=== PATIENT | female | born 1960 | race Caucasian/White ===

== ENCOUNTER → 2016-10-23 | Outpatient (CLI) | payer OTHER ==
[~2016-10-23] MED LIST: DIPH-437; EFF50; ESTR1.252; METO50TA7; MULT-506; PRLSR20; UNASOM; ZANTREX
[2016-10-23 16:58] LABS: URINE APPEARANCE CLEAR (CLEAR); URINE COLOR DK YELLOW; URINE EPITHELIAL CELL AUTO >30 /lpf (0-5); URINE NITRITE NEG (NEG); URINE SPECIFIC GRAVITY 1.035 (1.000-1.030); UROBILINOGEN NEG (NEG)
[2016-10-23 17:07] LABS: MANUAL MICROSCOPIC REQUIRED? NO; REVIEW REQ? NO; URINE BILIRUBIN NEG (NEG)
== END | disposition home or self-care (01) ==
LOC: C.LAB1850 15:34
PROVIDERS: ATTEND Family Medicine
DX: R35.0 Frequency of micturition (principal)

== ENCOUNTER → 2018-05-11 | Outpatient (CLI) | payer OTHER ==
[~2018-05-11] MED LIST changes: -METO50TA7; +METO50TA8
[2018-05-11 17:12] LABS: BLOOD UREA NITROGEN 19 mg/dl (7-18); CALCIUM 8.8 mg/dl (8.5-10.1); CARBON DIOXIDE 25 mmol/L (21-32); CREATININE 0.71 mg/dl (0.60-1.20); GLUCOSE 109 mg/dl (70-99); POTASSIUM 3.9 mmol/L (3.5-5.1); SODIUM 137 mmol/L (136-145)
== END | disposition home or self-care (01) ==
LOC: C.LABPBG 13:17
PROVIDERS: ATTEND Physician Assistant
DX: R60.9 Edema, unspecified (principal)

== ENCOUNTER 2019-10-25 07:06 | Inpatient (IN) ==
--- NOTE | 2019-09-28 10:37 | PAT Medication Instructions ---
Medication Instructions Date of Service September 28, 2019 Home Medications atenolol 50 mg PO BID 09/23/19 [History Confirmed 09/23/19] cholecalciferol (vitamin D3) [Vitamin D3] 1,000 unit PO QAM conjugated estrogens [Premarin] 1.25 mg PO QAM 09/23/19 [History Confirmed 09/23/19] furosemide 40 mg PO DAILY PRN 09/23/19 [History Confirmed 09/23/19] hydrochlorothiazide 25 mg PO QAM 09/23/19 [History Confirmed 09/23/19] ibuprofen [Advil] 600 - 800 mg PO Q6H PRN 09/23/19 [History Confirmed 09/23/19] losartan 100 mg PO QAM 09/23/19 [History Confirmed 09/23/19] meloxicam 15 mg PO DAILY 09/23/19 [History Confirmed 09/23/19] multivitamin 1 tab PO QAM 09/23/19 [History Confirmed 09/23/19] naltrexone-bupropion [Contrave] 1 tab PO QAM 09/23/19 [History Confirmed 09/23/19] omeprazole magnesium [Prilosec OTC] 20 mg PO QAM 09/23/19 [History Confirmed 09/23/19] phenylephrine-acetaminophen [Sudafed PE Pressure-Pain] 1 tab PO DAILY PRN trazodone 50 mg PO HS PRN 09/23/19 [History Confirmed 09/23/19] ASK your surgeon for instructions ibuprofen [Advil] 600 - 800 mg PO Q6H PRN 09/23/19 [History Confirmed 09/23/19] meloxicam 15 mg PO DAILY 09/23/19 [History Confirmed 09/23/19] conjugated estrogens [Premarin] 1.25 mg PO QAM 09/23/19 [History Confirmed 09/23/19] DO NOT take the morning of surgery cholecalciferol (vitamin D3) [Vitamin D3] 1,000 unit PO QAM furosemide 40 mg PO DAILY PRN 09/23/19 [History Confirmed 09/23/19] hydrochlorothiazide 25 mg PO QAM 09/23/19 [History Confirmed 09/23/19] losartan 100 mg PO QAM 09/23/19 [History Confirmed 09/23/19] multivitamin 1 tab PO QAM 09/23/19 [History Confirmed 09/23/19] naltrexone-bupropion [Contrave] 1 tab PO QAM 09/23/19 [History Confirmed 09/23/19] phenylephrine-acetaminophen [Sudafed PE Pressure-Pain] 1 tab PO DAILY PRN Take morning of surgery With a small sip of water, OTHERWISE NOTHING TO EAT OR DRINK AFTER MIDNIGHT: atenolol 50 mg PO BID 09/23/19 [History Confirmed 09/23/19] omeprazole magnesium [Prilosec OTC] 20 mg PO QAM 09/23/19 [History Confirmed 09/23/19] Take evening before surgery atenolol 50 mg PO BID furosemide 40 mg PO DAILY PRN (if needed) phenylephrine-acetaminophen [Sudafed PE Pressure-Pain] 1 tab PO DAILY PRN (if needed) trazodone 50 mg PO HS PRN (if needed) Other Notes If you have any questions please call us at [phone] or [phone] or [phone] or [phone]
--- NOTE | 2019-09-29 11:32 | Anesthesiology Consultation ---
Date of Service September 29, 2019 Assessment & Plan (1) Encounter for pre-operative examination: Claustrophobic: requesting anxiolytic preoperatively if possible Chart Review Chart Review: Acceptable Risk for Surgery (pending surgeon-ordered PCP clearance scheduled 10/13 (Dr. Simpson)) and Patient seen in Pre Admission Testing Teaching & Discussion Pre-Anesthesia Teaching/Discussion Notes: Instructed NPO after midnight before surgery,except medications with 15 cc of water. Medication instructions provided according to the PAT guidelines. History Surgery Operation Date: 10/25/19 11:10 Proposed Procedures p Bilateral Total Knee Arthroplasty - Philip Soto DO Height/Weight Height: 5 ft 5.5 in Weight: 96.3 kg Allergies Allergy/AdvReac Type Severity Reaction Status Date / Time No Known Allergies Allergy Unknown Verified 09/23/19 13:22 Medications Home Medications Medication Instructions Recorded Confirmed Last Taken atenolol 50 mg PO BID 09/23/19 09/23/19 Unknown cholecalciferol (vitamin D3) 1,000 unit PO QAM 09/23/19 09/23/19 Unknown [Vitamin D3] conjugated estrogens [Premarin] 1.25 mg PO QAM 09/23/19 09/23/19 Unknown furosemide 40 mg PO DAILY PRN 09/23/19 09/23/19 Unknown hydrochlorothiazide 25 mg PO QAM 09/23/19 09/23/19 Unknown ibuprofen [Advil] 600 - 800 mg PO Q6H PRN 09/23/19 09/23/19 Unknown losartan 100 mg PO QAM 09/23/19 09/23/19 Unknown meloxicam 15 mg PO DAILY 09/23/19 09/23/19 Unknown multivitamin 1 tab PO QAM 09/23/19 09/23/19 Unknown naltrexone-bupropion [Contrave] 1 tab PO QAM 09/23/19 09/23/19 Unknown omeprazole magnesium [Prilosec OTC] 20 mg PO QAM 09/23/19 09/23/19 Unknown phenylephrine-acetaminophen 1 tab PO DAILY PRN 09/23/19 09/23/19 Unknown [Sudafed PE Pressure-Pain] trazodone 50 mg PO HS PRN 09/23/19 09/23/19 Unknown Past Medical History Medical History Arthritis GERD (gastroesophageal reflux disease) controlled Hiatal hernia History of claustrophobia Hypertension Obesity TMJ (dislocation of temporomandibular joint) + jaw pain (wears mouth guard at night) Exercise / Class Metabolic Activity II 4-5 Yardwork/Stairs/Walk up hill (one flight of stairs (no sob/no chest pain)) Past Family History Family History Sister Family history of diabetes mellitus Sister Family history of diabetes mellitus Sister Family history of diabetes mellitus Brother Family history of diabetes mellitus Mother Family history of diabetes mellitus Family hx of colon cancer Brother Family history of diabetes mellitus Past Surgical History Surgical History H/O abdominoplasty History of bladder surgery SLING History of breast surgery BILAT BREAST LIFT History of cholecystectomy History of colonoscopy History of esophagogastroduodenoscopy (EGD) History of hysterectomy TOTAL Past Anesthesia History No Hx of Anesthesia Complications (except post-op mild nausea) and No Family Hx of Anesthesia Complications (except siblings/mother (post-op nausea)) History of PONV History of PONV (+ nausea) and Hx of Motion Sickness Social History Smoking Status: Former smoker Do You Dip or Chew Tobacco: No Smoking End Date: QUIT 07/2016 Hx Alcohol Use: Yes Alcohol type: hard liquor alcohol intake frequency: holidays/special occasions only Hx Substance Use: No Review of Systems Controlled reflux. Patient denies chest pain, shortness of breath, dyspnea on exertion, cough, wheezing, palpitations. Physical Exam Vital Signs VITALS BP 118/76 P 65 TEMP 98.4 SP02 97%RA RESP 18 PHYSICAL Full neck and c-spine range of motion. Full TMJ range of motion. TMD 4 finger breaths Mallampati Score 1 Dentition: several missing teeth, several caps including fronts Lungs: clear throughout to auscultation Cardiac: regular rate and rhythm, no murmurs noted Spine: normal Carotid arteries: negative bruit Extremities: no edema Testing Laboratory Results 09/29/19 11:58 09/29/19 11:58 PT 11.2 Seconds (9.0-12.0) 09/29/19 11:58 INR 1.1 (0.9-1.1) 09/29/19 11:58 APTT 27.1 Seconds (21.0-31.0) 09/29/19 11:58 Hemoglobin A1c 5.5 % (4.5-5.6) 09/29/19 11:58 Urine Color Yellow 09/29/19 Unknown Urine Appearance Clear (Clear) 09/29/19 Unknown Urine pH 5.0 (4.5-7.5) 09/29/19 Unknown Ur Specific [place] 1.020 (1.000-1.030) 09/29/19 Unknown Urine Protein Negative (Negative) 09/29/19 Unknown Urine Glucose (UA) Negative (Negative) 09/29/19 Unknown Urine Ketones Negative (Negative) 09/29/19 Unknown Urine Nitrite Negative (Negative) 09/29/19 Unknown Ur Leukocyte Esterase Negative (Negative) 09/29/19 Unknown Blood Type A Positive 09/29/19 11:58 Antibody Screen NEGATIVE 09/29/19 11:58 Electrocardiogram Date: 09/29/19 Findings: + NSR @ (60) Chest X-Ray Date: 09/29/19 Findings: + NAD Echocardiogram Date: 05/19/18 EF 65-70%. No RWMA. Mild LAD. Mild cLVH. Grade 2 DD. Mildly elevated RVSP (30- 40mmhg). Elevated central venous pressure.
--- NOTE | 2019-09-29 12:22 | XRay Report ---
XR chest Pre-admission PA/Lat CLINICAL HISTORY: 59 years-old Female presenting with preoperative assessment. TECHNIQUE: PA and lateral views of the chest were obtained. COMPARISON: 08/14/2016. FINDINGS: Cardiomediastinal silhouette normal. Lungs and pleural spaces clear. Osseous structures normal. Anastacia cystectomy clips noted. Surgical material in the region of the epigastrium. IMPRESSION: 1. No acute cardiopulmonary disease. ACT 112: Negative or not required by law. Electronically signed by: Del Watson M.D. 09/29/2019 12:20 PM
[2019-09-29 12:49] LABS: Basophils # (auto) 0.04 K/uL (0-0.2); Basophils % (auto) 0.5 %; Eosinophils # (auto) 0.09 K/uL (0-0.5); Eosinophils % (auto) 1.2 %; Hematocrit (blood only) 41.6 % (37-47); Immature Granulocytes # (auto) 0.02 K/uL (0.00-0.02); Immature Granulocytes % (auto) 0.3 %; Lymphocytes # (auto) 1.76 K/uL (1.2-3.4); Lymphocytes % (auto) 24.2 %; Mean Corpuscular Hemoglobin 28.5 pg (25-34); Mean Corpuscular Hgb Conc 33.7 g/dL (32-36); Mean Corpuscular Volume 84.6 fL (80-100); Mean Platelet Volume 10.6 fL (7.4-10.4); Monocytes # (auto) 0.59 K/uL (0.11-0.59); Monocytes % (auto) 8.1 %; Neutrophils # (auto) 4.78 K/uL (1.4-6.5); Neutrophils % (auto) 65.7 %; Platelet Count 313 K/uL (130-400); RDW Standard Deviation 42.9 fL (36.4-46.3); Red Blood Count 4.92 M/uL (4.2-5.4); White Blood Count 7.28 K/uL (4.8-10.8)
[2019-09-29 12:53] LABS: Appearance Urine Clear (Clear); Bilirubin Urine Negative (Negative); Blood Urine Negative (Negative); Color Urine Yellow; Glucose Urine UA Negative (Negative); Ketones Urine Negative (Negative); Leukocyte Esterase Urine Negative (Negative); Nitrite Urine Negative (Negative); Protein Urine Negative (Negative); Urobilinogen Urine Negative (Negative)
[2019-09-29 13:01] LABS: Albumin Level 3.6 gm/dl (3.4-5.0); BUN Creatinine Ratio 21.3 (10-20); Calcium 9.4 mg/dl (8.5-10.1); Creatinine Clr Calc Pharmacy 85.6 ml/min; Est GFR (African American) 90.8; Est GFR (Non-African American) 78.3; INR 1.1 (0.9-1.1); Partial Thromboplastin Time 27.1 Seconds (21.0-31.0); Potassium 3.3 mmol/L (3.5-5.1); Prothrombin Time 11.2 Seconds (9.0-12.0)
[2019-09-29 13:23] LABS: Estimated Average Glucose 111 mg/dl; Hemoglobin A1C 5.5 % (4.5-5.6)
--- NOTE | 2019-09-29 15:30 | Electrocardiogram Report ---
Test Reason : Blood Pressure : / mmHG Vent. Rate : 060 BPM Atrial Rate : 060 BPM P-R Int : 170 ms QRS Dur : 088 ms QT Int : 432 ms P-R-T Axes : 057 042 053 degrees QTc Int : 432 ms Normal sinus rhythm Normal ECG No previous ECGs available Confirmed by Josue Meade ([id number]) on 09/29/2019 3:30:10 PM Referred By: Philip Soto Confirmed By:Josue Meade
--- NOTE | 2019-10-24 15:58 | History & Physical Report ---
Date of Service October 24, 2019 Assessment & Plan (1) Degenerative joint disease of left knee: I have indicated the patient for bilateral total knee replacements. The risks, benefits and complications of surgery were explained to the patient which include but not limited to infection, acute blood loss, DVT/PE, injury to nerves, vessels, bone, soft tissue, arthrofibrosis, chronic pain, failure of the prosthesis, knee dislocation, leg length discrepancy, need for additional surgery, cardiac and pulmonary events and . The patient wished to proceed with surgery and informed consent was obtained at this time. We will plan for lovenox post-operatively for DVT prophylaxis. Upon discharge the patient will be discharged home with home health services. Appropriate clearances by PCP were obtained. (2) Degenerative joint disease of knee, right: I have indicated the patient for bilateral total knee replacements. The risks, benefits and complications of surgery were explained to the patient which include but not limited to infection, acute blood loss, DVT/PE, injury to nerves, vessels, bone, soft tissue, arthrofibrosis, chronic pain, failure of the prosthesis, knee dislocation, leg length discrepancy, need for additional surgery, cardiac and pulmonary events and . The patient wished to proceed with surgery and informed consent was obtained at this time. We will plan for lovenox post-operatively for DVT prophylaxis. Upon discharge the patient will be discharged home with home health services. Appropriate clearances by PCP were obtained. History of Present Illness Chief Complaint: Bilateral total knee djd/pain Primary Care Provider: Chapito Simpson The patient is a 59 year old female who presents with complaints of severe bilateral knee pain and DJD. The patient has failed outpatient conservative treatments to this point which included NSAIDs, IA corticosteroid and hyaluronic acid injections, PT, bracing and a home exercise/walking program. The patient's pain and limited function have progressed to the point where they severely hinder their activities of daily living and they no longer tolerate exercise programs. They are requesting to proceed with bilateral total knee replacement surgery. Allergies Allergy/AdvReac Type Severity Reaction Status Date / Time No Known Allergies Allergy Unknown Verified 10/20/19 16:41 Home Medications Home Medications Medication Instructions Recorded Confirmed Type atenolol 50 mg PO BID 09/23/19 10/20/19 History cholecalciferol (vitamin D3) 1,000 unit PO QAM 09/23/19 10/20/19 History [Vitamin D3] conjugated estrogens [Premarin] 1.25 mg PO QAM 09/23/19 10/20/19 History furosemide 40 mg PO DAILY PRN 09/23/19 10/20/19 History hydrochlorothiazide 25 mg PO QAM 09/23/19 10/20/19 History ibuprofen [Advil] 600 - 800 mg PO Q6H PRN 09/23/19 10/20/19 History losartan 100 mg PO QAM 09/23/19 10/20/19 History meloxicam 0 mg PO DAILY 09/23/19 10/20/19 History multivitamin 1 tab PO QAM 09/23/19 10/20/19 History naltrexone-bupropion [Contrave] 1 tab PO QAM 09/23/19 10/20/19 History omeprazole magnesium [Prilosec OTC] 20 mg PO QAM 09/23/19 10/20/19 History phenylephrine-acetaminophen 1 tab PO DAILY PRN 09/23/19 10/20/19 History [Sudafed PE Pressure-Pain] trazodone 50 mg PO HS PRN 09/23/19 10/20/19 History Past Med/Surg History Medical History Arthritis GERD (gastroesophageal reflux disease) controlled Hiatal hernia History of claustrophobia Hypertension Obesity TMJ (dislocation of temporomandibular joint) + jaw pain (wears mouth guard at night) Surgical History H/O abdominoplasty History of bladder surgery SLING History of breast surgery BILAT BREAST LIFT History of cholecystectomy History of colonoscopy History of esophagogastroduodenoscopy (EGD) History of hysterectomy TOTAL Family History Sister Family history of diabetes mellitus Sister Family history of diabetes mellitus Sister Family history of diabetes mellitus Brother Family history of diabetes mellitus Mother Family history of diabetes mellitus Family hx of colon cancer Brother Family history of diabetes mellitus Social History Preferred Language: Indonesian Communication Ability: Effective Application Tester Required: No Beliefs That Will Affect Care: None Current Living Situation: Significant Other Other Information That Helps Us Care for You: No Feels Safe at Home: Yes Safety Concerns: Feels Safe At This Time Smoking Status: Former smoker Do You Dip or Chew Tobacco: No ; Smoking End Date: QUIT 07/2016 ; Second Hand Exposure: No ; Hx Alcohol Use: Yes Alcohol type: hard liquor Hx Substance Use: No Review of Systems Review of Systems: All systems reviewed & are unremarkable except as noted in HPI & below Constitutional: as per Subjective / HPI Physical Exam Physical Exam: LLE NVSI +EHL/FHL/TA/GS SILT grossly, +2 DP pulse, compartments soft NT, limited painful ROM, 0-120 degrees of flexion, + crepitus RLE NVSI +EHL/FHL/TA/GS SILT grossly, +2 DP pulse, compartments soft NT, limited painful ROM, 0-120 degrees of flexion, + crepitus Constitutional: WD/WN, vitals as above Eyes: PERRL, conjunctivae normal, anicteric sclerae ENMT: external ear and nose normal, oropharynx normal Neck: trachea midline, no thyromegaly Respiratory: normal respiratory effort, lungs clear to auscultation Cardiovascular: RRR, no murmur, no edema Gastrointestinal (Abdomen): normal bowel sounds, soft, nontender, no hepatosplenomegaly Musculoskeletal: no cyanosis or clubbing, extremities motor strength 5/5 Skin: no rashes, warm and dry Neurologic: patellar DTR's 2+ bilat, sensation intact Psychiatric: A+Ox3, euthymic affect Lymphatic: no cervical or axillary lymphadenopathy Results & Data Laboratory Results Multiple views of bilateral knees demonstrate severe tricompartmental DJD with complete loss of the medial joint space. +osteophytes, +sclerosis.
[~2019-10-25 07:06] MED LIST changes: +ACETAMINOPHEN 500 MG TAB PO SCH; +BUPIVACAINE 0.5 % 5 MG/1 ML PF 10ML VIAL ONE; +CEFAZOLIN 2000MG 2,000 MG/15 ML SYR IV SCH; +CeleBREX 200 MG CAP PO SCH; -DIPH-437; -EFF50; +EPINEPHrine INJ 1 MG/ML AMP ONE; -ESTR1.252; +FAMOTIDINE 20 MG TAB PO SCH; +GABAPENTIN 600 MG DOSE PO SCH; +LR 500ML BOLUS, THEN 15ML/HR IV SCH; -METO50TA8; +METOCLOPRAMIDE HCL 10 MG TABLET PO SCH; -MULT-506; -PRLSR20; +ROPIVACAINE 0.5% 5 MG/ML 30 ML VIAL ONE; +ROPIVACAINE 0.5% HCL/PF 150 MG, BUPIVACAINE 0.5% MPF 30 ML, EPINEPHrine 30MG/30ML (OR U... INSTIL SCH; +TRANEXAMIC ACID 1,000 MG **IV Intra-op IV SCH; +TRANEXAMIC ACID 1,000 MG **IV Pre-op IV SCH; -UNASOM; -ZANTREX; +dexAMETHasone 4 MG TAB PO SCH
[2019-10-25] MEDS ORDERED: ORTHO JOINT ANESTHETIC ONE (07:07)
[2019-10-25] MEDS ORDERED: BACITRACIN INJ 50,000 UNIT VIAL ONE (07:07)
[2019-10-25] MEDS ORDERED: fentaNYL citrate 100 MCG/2 ML VIAL ONE (07:24)
[2019-10-25] MEDS ORDERED: LIDOCAINE HCL 2% 2 ML VIAL/AMP(20MG/ML) INFIL ONE (07:24)
[2019-10-25] MEDS ORDERED: PROPOFOL IV EMULSION 10 MG/ML 20 ML VIAL IV ONE ×4 (07:24→11:45)
[2019-10-25] MEDS ORDERED: MIDAZOLAM HCL 1 MG/ML 2ML VIAL ONE ×3 (07:24→11:47)
[2019-10-25] MEDS ORDERED: LABETALOL HCL IV 5 MG/ML 20ML IV PRN (07:36)
[2019-10-25] MEDS ORDERED: ePHEDrine sulfate 50 MG/ML AMP IV PRN (07:36)
[2019-10-25] MEDS ORDERED: HYDROmorphone INJ 1 MG/ML SYRINGE IV PRN (07:36)
[2019-10-25] MEDS ORDERED: fentaNYL citrate 100 MCG/2 ML VIAL IV PRN (07:36)
[2019-10-25] MEDS ORDERED: PHENYLEPHRINE 100MCG/ML 5ML SYR IV PRN (07:36)
[2019-10-25] MEDS ORDERED: ATROPINE SULFATE 0.1 MG/ML 10ML SYR IV PRN (07:36)
[2019-10-25] MEDS ORDERED: MEPERIDINE HCL 25 MG/ML CARP IV PRN (07:36)
[2019-10-25] MEDS ORDERED: ONDANSETRON INJ 2 MG/ML 2 ML VIAL IV PRN ×2 (07:36→14:11)
--- NOTE | 2019-10-25 07:41 | History & Physical Bridge Note ---
Date of Service October 25, 2019 History & Physical Bridge Note I have examined the patient, reviewed the History & Physical and in the interval since the performance of the History & Physical I have noted the following changes of clinical significance: no changes noted
[2019-10-25] MEDS ORDERED: EPINEPHrine INJ 1 MG/ML AMP ONE (08:29)
[2019-10-25] MEDS ORDERED: ePHEDrine sulfate 50 MG/ML SYR ONE (09:22)
--- NOTE | 2019-10-25 12:36 | Post Operative Brief Note ---
Immediate Post Op Note v1 Date of Surgery October 25, 2019 Pre & Post Diagnosis Operation Date: 10/25/19 09:00 Pre-Op Diagnosis: BILATERAL KNEE OSTEOARTHRITIS Post-Op Diagnosis: BILATERAL KNEE OSTEOARTHRITIS I identified the patient and participated in the time-out.: Yes Procedure Operation Date: 10/25/19 09:00 Actual Procedures p Bilateral Total Knee Arthroplasty(Bilateral) - Philip Soto DO Surgeon Philip Soto DO Hvac Design Engineer Torsten Avina Estimated Blood Loss 100 Findings Consistent with Post-Op Diagnosis Fluids 1700 cc LR Specimens R knee proximal tibia, distal femur bone fragments L knee proximal tibia, distal femur bone fragments Drains Carson Catheter Anesthesia Type Spinal MAC Complications none Disposition Disposition: Recovery Room Overlapping Procedure I was present for: the critical portions of procedure. I was immediately available: during the entire case. Back up surgeon: was not required during procedure.
--- NOTE | 2019-10-25 12:45 | Operative Report ---
Post Operative Report Pre & Post Diagnosis Operation Date: 10/25/19 09:00 Pre-Op Diagnosis: BILATERAL KNEE OSTEOARTHRITIS Post-Op Diagnosis: BILATERAL KNEE OSTEOARTHRITIS I identified the patient and participated in the time-out.: Yes Procedure Operation Date: 10/25/19 09:00 Actual Procedures p Bilateral Total Knee Arthroplasty(Bilateral) - Philip Soto DO Surgeon Philip Soto DO Credit Risk Associate Torsten Avina Estimated Blood Loss 100 Findings Consistent with Post-Op Diagnosis Fluids 1700 cc LR Specimens Right knee proximal tibia and distal femur bone fragments Left knee proximal tibia and distal femur bone fragments Anesthesia Type Spinal MAC Complications none Disposition Disposition: Recovery Room Indications The patient is a 59 year old female who presents with complaints of severe bilateral knee pain and DJD. The patient has failed outpatient conservative treatments to this point which included NSAIDs, IA corticosteroid and hyaluronic acid injections, PT, bracing and a home exercise/walking program. The patient's pain and limited function have progressed to the point where they severely hinder their activities of daily living and they no longer tolerate exercise programs. They are requesting to proceed with bilateral total knee replacement surgery. I have indicated the patient for bilateral total knee replacements. The risks, benefits and complications of surgery were explained to the patient which include but not limited to infection, acute blood loss, DVT/PE, injury to nerves, vessels, bone, soft tissue, arthrofibrosis, chronic pain, failure of the prosthesis, knee dislocation, leg length discrepancy, need for additional surgery, cardiac and pulmonary events and . The patient wished to proceed with surgery and informed consent was obtained at this time. We will plan for lovenox post-operatively for DVT prophylaxis. Upon discharge the patient will be discharged home with home health services. Appropriate clearances by PCP w ere obtained. Description of Procedure COMPONENTS USED: Coby persona knee system: Left knee: Femur size 8, Tibia size E, tibial articulating surface 10 PS, Patella 32 mm Right knee: Femur size 8, Tibia size E, tibial articulating surface 11 PS, Patella 32 mm Following induction of spine anesthesia, a tourniquet was applied to the proxima l aspect of bilateral thighs and the patient's bilateral legs were prepped and draped in the usual sterile manner. A timeout was performed, patient identified and site sheyla confirmed. Appropriate pre-operative IV antibiotics were verified and given. The left limb was exsanguinated with an Esmarch bandage and tourniquet was inflated to 300 mmHg. A longitudinal midline incision was made over the anterior knee. Subcutaneous tissue was sharply dissected down to fascia. Electrocautery was used for hemostasis. Next a parapatellar arthrotomy was performed. Patella was everted and the knee was flexed. A Christiansen retractor was used to expose the synovium above on the anterior aspect of the femur and removed down to bone. Next, the anterior fat pad was removed to aid in visualization. The medial face of the tibia was cleared of soft tissue first with a Bovie and a avila elevator. This tissue was retracted posteriorly using a blunt Hohmann. Next, the extra-medullary tibial cutting guide was placed to the anterior aspect of the tibia. The tibia resection level was set taking 2mm from the defective tibial condyle. Resection depth was once again confirmed with saqib wing. The medial and lateral collateral ligament was protected with two Hohmann retractors. The tibia guide was removed and proximal tibial bone fragment removed utilizing straight osteotome, electrocautery and Carline. Next, the distal femur intramedullary canal was accessed utilizing the step drill. The intramedullary distal femur cutting guide was placed into the canal and pinned into place. The distal femur was cut on the 5 degree setting. Next the cutting guide was removed and the femur was sized. Care was taken to ensure appropriate supervisor rides all rotation and 3 degree holes were drilled. A size 8 4-in-1 cutting block was placed on the distal end of the femur and secured into place with two short headed screws. Two bent Hohmann retractors were placed to protect the medial and lateral collateral ligaments. The oscillating saw was used to cut anterior, posterior, anterior chamfer and posterior chamfer. The four and one cutting block was removed and bone fragments excised. Laminar correctional supervising cook was placed laterally and the ACL and PCL were removed followed by the medial meniscus and posterior medial osteophytes. Aquamantys was utilized for any posterior medial bleeders and Orthomix injected into the posterior medial capsule. A laminar correctional supervising cook was then placed in the medial compartment and the lateral meniscus and posterior osteophytes were removed. Aquamantys was utilized for any posterior lateral bleeders and Orthomix injected into the posterior lateral capsule. Next, drop yordan and spacer block were placed with the leg in flexion and extension to assess alignment and flexion/extension gaps. Next, the proximal tibia was assessed and two bent Hohmans were placed medial and lateral to aid in visualization. The appropriate tibia size and rotation was selected and a size E tibial plate was pinned into place with appropriate rotation. Preparation of the tibia was completed utilizing the matching tibial drill and broach. I then turned my attention back to the distal femur in a trial femoral component was impacted into place. Appropriate femoral width was assessed and selected. Next the femur PS box cut guide was placed and cut made with the reciprocal saw and the PS box provisional placed. A trial size 10 PS tibia articular tray was placed and varus-valgus balance assessed in 0 degrees of extension and 30, 60 and 90 degrees of flexion. A final tibial articular surface size 10 PS was chosen. Assess was gained to the patella and caliper utilized to measure width. The patella reamer was utilized and remaining bone removed with oscillating saw. A size 32 mm patella button was selected and the patella pegs drilled. Trial patella button was placed and tracking was assessed. The knee was found to be well balanced, well aligned with excellent patella tracking. The trials were removed and final components were obtained and assembled. The knee was irrigated copiously with sterile saline solution mixed with bacitracin. Access to the proximal tibia was once again obtained utilizing to the Hohmans and the proximal tibia and distal femur were dried with lap sponges. The final components were cemented into place and all excess cement was removed. A trial tibial articular surface was placed while cemented hardened. Knee stability was once again assessed and the final component inserted. A Betadine soak was performed. After 3 minutes, the hip was once more irrigated with copious sterile saline solution with bacitracin. The knee was injected with the remaining Orthomix which includes a combination of Ropivicaine 0.5% 150mg, Bupivicaine 0.5%/Epinephrine 1:200,000 30ml, Toradol 30mg, Dexamethasone 4mg, Ketamine 10mg, Clonidine 100mcg and NSS 30ml solution. Half of the Ortho mix was utilized for the left knee. The capsulotomy was closed with #1 Vicryl followed by subcutaneous closure with 2-0 Vicryl suture. Skin closure was performed using geetha and a sterile dressing was applied which included Silverlon, Webril and Bora wrap. Tourniquet was deflated at 92 minutes. A second timeout was performed, patient identified and site sheyla confirmed. Appropriate pre-operative IV antibiotics were verified and given. The limb was exsanguinated with an Esmarch bandage and tourniquet was inflated to 300 mmHg. A longitudinal midline incision was made over the anterior knee. Subcutaneous tissue was sharply dissected down to fascia. Electrocautery was used for hemostasis. Next a parapatellar arthrotomy was performed. Patella was everted and the knee was flexed. A Christiansen retractor was used to expose the synovium above on the anterior aspect of the femur and removed down to bone. Next, the anterior fat pad was removed to aid in visualization. The medial face of the tibia was cleared of soft tissue first with a Bovie and a avila elevator. This tissue was retracted posteriorly using a blunt Hohmann. Next, the extra-medullary tibial cutting guide was placed to the anterior aspect of the tibia. The tibia resection level was set taking 2mm from the defective tibial condyle. Resection depth was once again confirmed with saqib wing. The medial and lateral collateral ligament was protected with two Hohmann retractors. The tibia guide was removed and proximal tibial bone fragment removed utilizing straight osteotome, electrocautery and Carline. Next, the distal femur intramedullary canal was accessed utilizing the step drill. The intramedullary distal femur cutting guide was placed into the canal and pinned into place. The distal femur was cut on the 5 degree setting. Next the cutting guide was removed and the femur was sized. Care was taken to ensure appropriate supervisor rides all rotation and 3 degree holes were drilled. A size 8 4-in-1 cutting block was placed on the distal end of the femur and secured into place with two short headed screws. Two bent Hohmann retractors were placed to protect the medial and lateral collateral ligaments. The oscillating saw was used to cut anterior, posterior, anterior chamfer and posterior chamfer. The four and one cutting block was removed and bone fragments excised. Laminar correctional supervising cook was placed laterally and the ACL and PCL were removed followed by the medial meniscus and posterior medial osteophytes. Aquamantys was utilized for any posterior medial bleeders and Orthomix injected into the posterior medial capsule. A laminar correctional supervising cook was then placed in the medial compartment and the lateral meniscus and posterior osteophytes were removed. Aquamantys was utilized for any posterior lateral bleeders and Orthomix injected into the posterior lateral capsule. Next, drop yordan and spacer block were placed with the leg in flexion and extension to assess alignment and flexion/extension gaps. Next, the proximal tibia was assessed and two bent Hohmans were placed medial and lateral to aid in visualization. The appropriate tibia size and rotation was selected and a size E tibial plate was pinned into place with appropriate rotation. Preparation of the tibia was completed utilizing the matching tibial drill and broach. I then turned my attention back to the distal femur in a trial femoral component was impacted into place. Appropriate femoral width was assessed and selected. Next the femur PS box cut guide was placed and cut made with the reciprocal saw and the PS box provisional placed. A trial size 10 PS tibia articular tray was placed and varus-valgus balance assessed in 0 degrees of extension and 30, 60 and 90 degrees of flexion. Sequential trialing of tibial articular surface was performed. A final tibial articular surface size 11 PS was chosen. Assess was gained to the patella and caliper utilized to measure width. The patella reamer was utilized and remaining bone removed with oscillating saw. A size 32 mm patella button was selected and the patella pegs drilled. Trial patella button was placed and tracking was assessed. The knee was found to be well balanced, well aligned with excellent patella tracking. The trials were removed and final components were obtained and assembled. The knee was irrigated copiously with sterile saline solution mixed with bacitracin. Access to the proximal tibia was once again obtained utilizing to the Hohmans and the proximal tibia and distal femur were dried with lap sponges. The final components were cemented into place and all excess cement was removed. A trial tibial articular surface was placed while cemented hardened. Knee stability was once again assessed and the final component inserted. A Betadine soak was performed. After 3 minutes, the hip was once more irrigated with copious sterile saline solution with bacitracin. The knee was injected with the remaining Orthomix which includes a combination of Ropivicaine 0.5% 150mg, Bupivicaine 0.5%/Epinephrine 1:200,000 30ml, Toradol 30mg, Dexamethasone 4mg, Ketamine 10mg, Clonidine 100mcg and NSS 30ml solution. The capsulotomy was closed with #1 Vicryl followed by subcutaneous closure with 2-0 Vicryl suture. Skin closure was performed using geetha and a sterile dressing was applied which included Silverlon, Webril, Bora wrap. Tourniquet was deflated at 91 minutes. The patient tolerated the procedure well and was taken to the PACU in stable condition. Due to the complex nature of the procedure, the entire surgery was performed with the operational assistance of Torsten Avina PA-C. The certified dental assistant, under direct supervision, was involved in the actual performance of all aspects of the surgical procedure including patient positioning, hemostasis, tissue retraction, instrument management and wound closure. I attest to the content of the Intraoperative Record and any orders documented therein. Any exceptions are noted below.
[2019-10-25] MEDS ORDERED: CEFAZOLIN 250 MG/ML 1 GM VIAL ONE (12:52)
[2019-10-25] MEDS ORDERED: CEFAZOLIN 2000MG 2,000 MG/15 ML SYR IV STA (12:54)
--- NOTE | 2019-10-25 13:32 | Anesthesiology Progress Note ---
Date of Service October 25, 2019 Anesthesia Post Procedure Vital Signs Vital Signs: Temp Pulse Pulse Resp BP Pulse Ox 10/25/19 13:10 71 15 104/64 98 10/25/19 13:02 36.4 C L 84 19 105/56 L 98 10/25/19 08:36 36.5 C 59 L 18 155/77 H 97 Pain Intensity Right Calf: Pain Intensity: 1 Transfer of Care Handoff Completed per policy Notes Mental Status: alert / awake / arousable Patient Amnestic to Procedure: Yes Nausea / Vomiting: adequately controlled Pain: adequately controlled Airway Patency, RR, SpO2: stable & adequate BP & HR: stable & adequate Hydration State: stable & adequate Neuraxial Anesthesia: was administered and sensory block is resolving Anesthetic Complications: no major complications apparent and Pt Satisfied with anesthetic care
--- NOTE | 2019-10-25 13:37 | XRay Report ---
XR knee RT 1 or 2V routine CLINICAL HISTORY: 59 years-old Female presenting with Surgical Post Op. TECHNIQUE: Frontal and lateral views of the right knee were obtained. COMPARISON: None. FINDINGS: Postsurgical changes of total right knee arthroplasty with patellar resurfacing. Expected intra-artic ular and soft tissue emphysema. Overlying skin geetha. No periprosthetic fracture or lucency. No mal alignment. IMPRESSION: Expected postsurgical appearance status post total right knee arthroplasty with patellar resurfacing. ACT 112: Negative or not required by law. Electronically signed by: Del Watson M.D. 10/25/2019 1:36 PM
--- NOTE | 2019-10-25 13:38 | XRay Report ---
XR knee LT 1 or 2V routine HISTORY: 59 years-old Female Surgical Post Op left knee total joint arthroplasty COMPARISON: None available TECHNIQUE: 2 views of the left knee FINDINGS: Left knee total joint arthroplasty and patella resurfacing demonstrates satisfactory alignment withou t acute fracture or retained foreign body. The hardware appears intact. Anterior midline skin geetha with expected postsurgical soft tissue swelling and deep tissue air. Surgical drainage catheter. IMPRESSION: Left knee total joint arthroplasty with expected postoperative findings. ACT 112: Negative or not required by law. The above report was generated using voice recognition software. It may contain grammatical, syntax o r spelling errors. Electronically signed by: Enoc Wyatt M.D. 10/25/2019 1:37 PM
[2019-10-25] MEDS ORDERED: METOCLOPRAMIDE HCL INJ 5 MG/ML 2 ML VIAL IV PRN (14:11)
[2019-10-25] MEDS ORDERED: FUROSEMIDE 40 MG TAB PO PRN (14:11)
[2019-10-25] MEDS ORDERED: MAGNESIUM HYDROXIDE SUSP 30 ML UDC PO PRN (14:11)
[2019-10-25] MEDS ORDERED: bisacodyL 10 MG SUPP PR PRN (14:11)
[2019-10-25] MEDS ORDERED: NALOXONE HCL 0.4 MG/1 ML VIAL/CARP IV PRN (14:11)
[2019-10-25] MEDS: SODIUM CHLORIDE 0.9% 1000ML 1,000 ML IV SCH ×2 (14:29→18:44)
[2019-10-25] MEDS: ACETAMINOPHEN 500 MG TAB PO SCH ×2 (14:32→21:00)
[2019-10-25] MEDS: OXYCODONE HCL IR 5 MG TAB (IMMEDIATE RELEASE) PO PRN ×3 (16:40→21:01)
[2019-10-25] MEDS: CEFAZOLIN 2000MG 2,000 MG/15 ML SYR IV SCH (18:44)
[2019-10-25] MEDS: HYDROmorphone INJ 0.5 MG/0.5 ML SYR IV PRN ×2 (18:52→23:24)
--- NOTE | 2019-10-25 19:03 | Orthopedic Progress Note ---
Date of Service October 25, 2019 Assessment & Plan (1) Degenerative joint disease of left knee: s/p bilateral TKA -ancef x 24 -DVT ppx: SCDs, TEDs, Lovenox -WBAT B/L LE -PT/OT -PO XR demonstrates well aligned well fixed prothesis without fracture/dislocation -am labs -DC planning (2) Degenerative joint disease of knee, right: Subjective Post Operative Progress Note Patient seen sitting up in bed, comfortable, denies complaints, pain well controlled, no acute issues. Review of Systems Review of Systems: All systems reviewed & are unremarkable except as noted in HPI & below Constitutional: as per Subjective / HPI Physical Exam Physical Exam: LLE NVSI +EHL/FHL/TA/GS SILT grossly, +2 DP pulse, compartments soft NT, dressing cdi. RLE NVSI +EHL/FHL/TA/GS SILT grossly, +2 DP pulse, compartments soft NT, dressing cdi. Constitutional: WD/WN, vitals as above Results & Data ([place]) Vital Signs (Past 12 Hours) Vital Signs Temp Pulse Pulse Pulse Resp BP Pulse Ox 10/25/19 18:54 76 134/72 10/25/19 17:29 36.4 C L 71 17 137/73 97 10/25/19 16:01 36.4 C L 80 17 117/74 100 10/25/19 15:11 74 16 131/81 98 10/25/19 14:30 36.5 C 72 16 132/81 99 10/25/19 13:50 36.3 C L 65 20 110/56 L 97 10/25/19 13:40 62 13 113/66 99 10/25/19 13:30 73 16 107/67 98 10/25/19 13:20 68 15 102/61 97 10/25/19 13:10 71 15 104/64 98 10/25/19 13:02 36.4 C L 84 19 105/56 L 98 10/25/19 08:36 36.5 C 59 L 18 155/77 H 97
[2019-10-25] MEDS: DOCUSATE SODIUM 100 MG CAP PO SCH (21:00)
[2019-10-25] MEDS: ATENOLOL 50 MG TABLET PO SCH (21:00)
[2019-10-25] MEDS: SENNA 8.6 MG TAB PO SCH (21:02)
[2019-10-26] MEDS: OXYCODONE HCL IR 5 MG TAB (IMMEDIATE RELEASE) PO PRN ×6 (01:01→20:47)
[2019-10-26] MEDS: CEFAZOLIN 2000MG 2,000 MG/15 ML SYR IV SCH (01:02)
[2019-10-26] MEDS: HYDROmorphone INJ 0.5 MG/0.5 ML SYR IV PRN ×5 (03:25→19:26)
[2019-10-26] MEDS: ACETAMINOPHEN 500 MG TAB PO SCH ×3 (05:05→20:33)
[2019-10-26 05:23] LABS: Hematocrit (blood only) 34.1 % (37-47); Hemoglobin 11.1 g/dL (12.0-16.0); Mean Corpuscular Hgb Conc 32.6 g/dL (32-36); Mean Corpuscular Volume 85.9 fL (80-100); Mean Platelet Volume 10.4 fL (7.4-10.4); Platelet Count 293 K/uL (130-400); RDW Standard Deviation 44.1 fL (36.4-46.3); Red Blood Count 3.97 M/uL (4.2-5.4)
[2019-10-26 05:48] LABS: BUN Creatinine Ratio 17.3 (10-20); Calcium 8.5 mg/dl (8.5-10.1); Creatinine Clr Calc Pharmacy 84.1 ml/min; Est GFR (African American) 89.5; Est GFR (Non-African American) 77.2; Potassium 3.4 mmol/L (3.5-5.1)
--- NOTE | 2019-10-26 07:24 | Orthopedic Progress Note ---
Date of Service October 26, 2019 Assessment & Plan (1) Degenerative joint disease of left knee: s/p bilateral TKA POD#1 -ancef x 24 -DVT ppx: SCDs, TEDs, Lovenox -WBAT B/L LE -PT/OT -PO XR demonstrates well aligned well fixed prothesis without fracture/dislocation -am labs - 11.1 -will adjust pain regimen -DC planning (2) Degenerative joint disease of knee, right: I have indicated the patient for bilateral total knee replacements. The risks, benefits and complications of surgery were explained to the patient which include but not limited to infection, acute blood loss, DVT/PE, injury to nerves, vessels, bone, soft tissue, arthrofibrosis, chronic pain, failure of the prosthesis, knee dislocation, leg length discrepancy, need for additional surgery, cardiac and pulmonary events and . The patient wished to proceed with surgery and informed consent was obtained at this time. We will plan for lovenox post-operatively for DVT prophylaxis. Upon discharge the patient will be discharged home with home health services. Appropriate clearances by PCP were obtained. Subjective Post Operative Progress Note Patient seen sitting up in bed, comfortable, c/o pain to right knee, no acute issues. Denies F/C/N/V/SOP/CP. Review of Systems Review of Systems: All systems reviewed & are unremarkable except as noted in HPI & below Constitutional: as per Subjective / HPI Physical Exam Physical Exam: RLE NVSI +EHL/FHL/TA/GS SILT grossly, +2 DP pulse, compartments soft NT, dressing cdi. LLE NVSI +EHL/FHL/TA/GS SILT grossly, +2 DP pulse, compartments soft NT, dressing cdi. Constitutional: WD/WN, vitals as above Results & Data ([facility]) Vital Signs (Past 12 Hours) Vital Signs Temp Pulse Resp BP BP Pulse Ox 10/26/19 07:12 36.8 C 65 18 128/82 99 10/26/19 02:50 36.6 C 74 16 106/65 154/80 H 100 10/25/19 23:00 36.7 C 65 16 132/73 96 10/25/19 20:06 75 138/76
[2019-10-26] MEDS: KETOROLAC 30 MG/ML VIAL IV SCH ×3 (08:08→20:33)
--- NOTE | 2019-10-26 08:10 | Anesthesiology Progress Note ---
Date of Service October 26, 2019 Anesthesia Post Procedure Vital Signs Vital Signs: Temp Pulse Pulse Pulse Resp BP BP 10/26/19 07:12 36.8 C 65 18 128/82 10/26/19 02:50 36.6 C 74 16 106/65 154/80 H 10/25/19 23:00 36.7 C 65 16 132/73 10/25/19 20:06 75 138/76 10/25/19 19:06 37.0 C 20 10/25/19 18:54 76 134/72 10/25/19 17:29 36.4 C L 71 17 137/73 10/25/19 16:01 36.4 C L 80 17 117/74 10/25/19 15:11 74 16 131/81 10/25/19 14:30 36.5 C 72 16 132/81 10/25/19 13:50 36.3 C L 65 20 110/56 L 10/25/19 13:40 62 13 113/66 10/25/19 13:30 73 16 107/67 10/25/19 13:20 68 15 102/61 10/25/19 13:10 71 15 104/64 10/25/19 13:02 36.4 C L 84 19 105/56 L 10/25/19 08:36 36.5 C 59 L 18 155/77 H Pulse Ox 10/26/19 07:12 99 10/26/19 02:50 100 10/25/19 23:00 96 10/25/19 20:06 10/25/19 19:06 10/25/19 18:54 10/25/19 17:29 97 10/25/19 16:01 100 10/25/19 15:11 98 10/25/19 14:30 99 10/25/19 13:50 97 10/25/19 13:40 99 10/25/19 13:30 98 10/25/19 13:20 97 10/25/19 13:10 98 10/25/19 13:02 98 10/25/19 08:36 97 Pain Intensity Right Calf: Pain Intensity: 1 Right Knee: Pain Intensity: 8 Notes Mental Status: alert / awake / arousable and participated in evaluation Patient Amnestic to Procedure: Yes Nausea / Vomiting: adequately controlled Pain: adequately controlled Airway Patency, RR, SpO2: stable & adequate Hydration State: stable & adequate Neuraxial Anesthesia: was administered and sensory block is resolving Anesthetic Complications: no major complications apparent and Pt Satisfied with anesthetic care
[2019-10-26] MEDS: PANTOprazole 40 MG TAB PO SCH (08:43)
[2019-10-26] MEDS: ATENOLOL 50 MG TABLET PO SCH ×2 (08:43→20:33)
[2019-10-26] MEDS: hydroCHLOROthiazide 25 MG TAB PO SCH (08:44)
[2019-10-26] MEDS: MULTIVITAMIN TAB PO SCH (08:44)
[2019-10-26] MEDS: DOCUSATE SODIUM 100 MG CAP PO SCH ×2 (08:44→19:28)
[2019-10-26] MEDS: LOSARTAN POTASSIUM 50 MG TAB PO SCH (08:44)
[2019-10-26] MEDS: ENOXAPARIN INJ 40 MG/0.4 ML SYR SQ SCH (08:45)
[2019-10-26] MEDS: SENNA 8.6 MG TAB PO SCH (19:28)
[2019-10-27] MEDS: HYDROmorphone INJ 0.5 MG/0.5 ML SYR IV PRN ×2 (00:23→07:03)
[2019-10-27] MEDS: KETOROLAC 30 MG/ML VIAL IV SCH (01:58)
[2019-10-27] MEDS: OXYCODONE HCL IR 5 MG TAB (IMMEDIATE RELEASE) PO PRN ×2 (03:55→11:08)
[2019-10-27 05:10] LABS: Hematocrit (blood only) 30.4 % (37-47); Hemoglobin 10.1 g/dL (12.0-16.0); Mean Corpuscular Hemoglobin 28.4 pg (25-34); Mean Corpuscular Hgb Conc 33.2 g/dL (32-36); Mean Corpuscular Volume 85.4 fL (80-100); Mean Platelet Volume 10.2 fL (7.4-10.4); Platelet Count 263 K/uL (130-400); RDW Coefficient of Variation 14.1 % (11.5-14.5); Red Blood Count 3.56 M/uL (4.2-5.4); White Blood Count 11.21 K/uL (4.8-10.8)
[2019-10-27] MEDS: ACETAMINOPHEN 500 MG TAB PO SCH ×2 (05:36→13:25)
[2019-10-27 05:38] LABS: BUN Creatinine Ratio 20.6 (10-20); Calcium 8.8 mg/dl (8.5-10.1); Creatinine Clr Calc Pharmacy 88.3 ml/min; Est GFR (Non-African American) 81.9; Potassium 3.4 mmol/L (3.5-5.1)
[2019-10-27] MEDS: ATENOLOL 50 MG TABLET PO SCH (07:27)
[2019-10-27] MEDS: ENOXAPARIN INJ 40 MG/0.4 ML SYR SQ SCH (07:28)
[2019-10-27] MEDS: LOSARTAN POTASSIUM 50 MG TAB PO SCH (07:28)
[2019-10-27] MEDS: hydroCHLOROthiazide 25 MG TAB PO SCH (07:28)
[2019-10-27] MEDS: PANTOprazole 40 MG TAB PO SCH (07:28)
[2019-10-27] MEDS: DOCUSATE SODIUM 100 MG CAP PO SCH (07:28)
[2019-10-27] MEDS: MULTIVITAMIN TAB PO SCH (07:28)
[2019-10-27] MEDS: KETOROLAC 30 MG/ML VIAL IV PRN ×2 (07:53→14:15)
--- NOTE | 2019-10-27 08:30 | Orthopedic Progress Note ---
Date of Service October 27, 2019 Assessment & Plan (1) Degenerative joint disease of left knee: s/p bilateral TKA POD#2 -ancef x 24 -DVT ppx: SCDs, GAR[place]s, Lovenox -WBAT B/L LE -PT/OT -PO XR demonstrates well aligned well fixed prothesis without fracture/dislocation -am labs: hgb - 10.1 -pain controlled on current regimen -DC planning home with POD#1 -ancef x 24 -DVT ppx: SCDs, GARLANDs, Lovenox -WBAT B/L LE -PT/OT -PO XR demonstrates well aligned well fixed prothesis without f racture/dislocation -am labs - 11.1 -will adjust pain regimen -DC planning (2) Degenerative joint disease of knee, right: I have indicated the patient for bilateral total knee replacements. The risks, benefits and complications of surgery were explained to the patient which include but not limited to infection, acute blood loss, DVT/PE, injury to nerve s, vessels, bone, soft tissue, arthrofibrosis, chronic pain, failure of the prosthesis, knee dislocation, leg length discrepancy, need for additional surgery, cardiac and pulmonary events and . The patient wished to proceed with surgery and informed consent was obtained at this time. We will plan for lovenox post-operatively for DVT prophylaxis. Upon discharge the patient will be discharged home with home health services. Appropriate clearances by PCP were obtained. Subjective Post Operative Progress Note Patient seen sitting up in bed, comfortable, pain much improved otday, no acute issues. Denies F/C/N/V/SOP/CP. Review of Systems Review of Systems: All systems reviewed & are unremarkable except as noted in HPI & below Constitutional: as per Subjective / HPI Physical Exam Physical Exam: RLE NVSI +EHL/FHL/TA/GS SILT grossly, +2 DP pulse, compartments soft NT, dressing cdi. LLE NVSI +EHL/FHL/TA/GS SILT grossly, +2 DP pulse, compartments soft NT, dressing cdi. Constitutional: WD/WN, vitals as above Results & Data ([facility]) Vital Signs (Past 12 Hours) Vital Signs Temp Pulse Resp BP Pulse Ox 10/27/19 06:37 36.7 C 78 16 123/71 98 10/26/19 23:24 36.8 C 60 16 108/66 99 Laboratory Results 10/27/19 10/27/19 10/26/19 Range/Units 04:44 04:44 04:47 WBC 11.21 H (4.8-10.8) K/uL RBC 3.56 L (4.2-5.4) M/uL Hgb 10.1 L (12.0-16.0) g/dL Hct 30.4 L (37-47) % MCV 85.4 (80-100) fL MCH 28.4 (25-34) pg MCHC 33.2 (32-36) g/dL RDW Std Deviation 44.0 (36.4-46.3) fL RDW Coeff of Judah 14.1 (11.5-14.5) % Plt Count 263 (130-400) K/uL MPV 10.2 (7.4-10.4) fL Sodium 139 (136-145) mmol/L Potassium 3.4 L (3.5-5.1) mmol/L Chloride 106 (98-107) mmol/L Carbon Dioxide 28 (21-32) mmol/L Anion Gap 5.0 (3-11) BUN 16 (7-18) mg/dl Creatinine 0.79 (0.6-1.2) mg/dl Est Cr Clr Drug Dosing 88.3 ml/min Est GFR ( Amer) 95.0 Est GFR (Non-Af Amer) 81.9 BUN/Creatinine Ratio 20.6 H (10-20) Glucose 113 H (70-99) mg/dl Calcium 8.8 (8.5-10.1) mg/dl Hepatitis C Ab Screen Neg (Neg)
[2019-10-27] MEDS ORDERED: MoRPHine SULFATE CR 15 MG TABCR PO STA (15:23)
--- NOTE | 2019-10-27 18:57 | Discharge Summary ---
Date of Service October 27, 2019 Admission HPI Per Admitting Provider The patient is a 59 year old female who presents with complaints of severe bilateral knee pain and DJD. The patient has failed outpatient conservative treatments to this point which included NSAIDs, IA corticosteroid and hyaluronic acid injections, PT, bracing and a home exercise/walking program. The patient's pain and limited function have progressed to the point where they severely hinder their activities of daily living and they no longer tolerate exercise programs. They are requesting to proceed with bilateral total knee replacement surgery. Principal Diagnosis Bilateral total knee replacements Discharge Exam RLE NVSI +EHL/FHL/TA/GS SILT grossly, +2 DP pulse, compartments soft NT, dressing cdi. LLE NVSI +EHL/FHL/TA/GS SILT grossly, +2 DP pulse, compartments soft NT, dressing cdi. Constitutional WD/WN, vitals as above Discharge Data Allergies Allergy/AdvReac Type Severity Reaction Status Date / Time No Known Allergies Allergy Unknown Verified 10/25/19 08:04 Consultations 10/25/19 14:11 Consult Case Management - Discharge Planning Routine Procedures Performed Operation Date: 10/25/19 09:00 Actual Procedures p Bilateral Total Knee Arthroplasty(Bilateral) - Philip Soto DO Ordered Studies 10/25/19 05:00 US - OR guided needle placemen Urgent Hospital Course (1) Degenerative joint disease of left knee: The patient is a 59 -year-old female who presents with long standing history of severe bilateral knee DJD and failed outpatient conservative treatments. The patient's symptoms have progressed to the point where it has been difficult to perform even normal activities of daily living. I indicated the patient for a bilateral total knee arthroplasty, the risks, benefits and complications of the procedure include but not limited to infection, bleeding, damage to bone, nerves, vessels, surrounding soft tissue, may develop blood clots, loss of function, leg length discrepancy, dislocation, failure of the components, loosening of the components, the need for additional surgery and . The patient wished to proceed with surgery at this time and informed consent was obtained. Hospital Course: On 10/25/19 the patient was taken to the operating room, adequate anesthesia administered and underwent bilateral total knee arthroplasty. The patient tolerated the procedure well and was taken to the PACU in stable condition. Post-operatively the patient was started on a DVT ppx medication and given appropriate IV antibiotics. Consults were placed to physical therapy, occupational therapy and case management. On POD#1, the patient had significant pain overnight, medication was adjusted. Reevaluation later in the day, pain control improved and patient comfortable. Labs were drawn and the Hgb was 11.1. The patient progressed well with PT. On POD#2, the patient continued to do well and progress with PT. Labs drawn hgb 10.1. Pain well controlled, Dressings were changed and the incisions were clean, dry and intact. The patients hospital stay was relatively uneventful and they were deemed stable by the orthopedic team and consultants to be discharged home with on 10/27/19. Discharge Instructions: Upon discharge the patient may weight bear as tolerates through their operative extremities. They were instructed to keep the incision clean and dry at all times. The patient may shower but should not submerge the incision, avoid bathing, pools and hot tubes. The patient was given a script for pain medication and should take as instructed. The patient was given a script for DVT ppx Lovenox 40mg daily and should take as directed. The patient was instructed to not drive or travel for long distances until cleared to do so. If the patient develops any symptoms of fevers, chills, nausea, vomiting, increased redness, swelling, pain or drainage from the surgical site, they should notify the office and/or proceed to the nearest emergency room. The patient should follow up in 10-14 days after surgery for their routine post-operative follow-up appointment and should call the office to confirm the date and time. s/p bilateral TKA POD#2 -ancef x 24 -DVT ppx: SCDs, TEDs, Lovenox -WBAT B/L LE -PT/OT -PO XR demonstrates well aligned well fixed prothesis without fracture/dislocation -am labs: hgb - 10.1 -pain controlled on current regimen -DC planning home with POD#1 -ancef x 24 -DVT ppx: SCDs, TEDs, Lovenox -WBAT B/L LE -PT/OT -PO XR demonstrates well aligned well fixed prothesis without fracture/dislo cation -am labs - 11.1 -will adjust pain regimen -DC planning (2) Degenerative joint disease of knee, right: Total Time Total Time Spent Total Time Spent (In Minutes): >60 minutes Discharge Plan Discharge Items Patient Disposition: Home - Home Health Services Reason For Visit: BILATERAL KNEE OSTEOARTHRITIS Discharge Diagnosis: Bilateral total knee replacements Condition on Discharge: Good Activity: Per Instructions section Lifting: Wait until after follow-up appointment Bathing: Keep incision dry Bathing Comment: No bathing, pools or hot tubs. Sexual Activity: Wait until after follow-up appointment Exercise/Sports: Wait until after follow-up appointment Driving/Machine Use: No driving Weightbearing: Full weightbearing Non-emergency contact: Primary Care Provider and Surgeon Call non-emergency contact if: you have any medication questions, your symptoms worsen, your pain is not controlled, your pain is worsening, your pain is unusual for you, your pain is concerning for you, you have a fever, your temperature is above 101, your wound has increased redness, your wound has increased drainage and your wound pain has increased Follow-up/Referrals: Chapito Simpson [Primary Care Provider] - Diet: Regular Addtl Attending Provider Instructions: ACTIVITY RECOMMENDATIONS: SELF CARE INSTRUCTIONS AFTER BILATERAL TOTAL KNEE REPLACEMENTS A. You may need to continue a physical therapy program after discharge from the hospital. There are several options available to you. Your doctor will assist you in selecting the best one for you. 1. An out-patient facility 2 to 3 times a week for therapy or home therapy. 2. Continue working on all exercises taught to you in the hospital. Your goals should be to increase bending of your knee to 90 degrees and beyond and to fully straighten your knee. B. You may progress at your own pace from walking with a walker or crutches to a cane; then to no assistive devices. C. Make walking a part of your daily routine. Be up as much as comfortable with rest periods throughout the day. Rest with leg elevation is very important. Use the ice wrap frequently for the first 3-4 weeks. D. There are no restrictions on activities. You may ride in a car, shop, participate in stocklayer and all social activities. E. Wear the long elastic stockings (GARLAND hose) 20 hours a day for 2 weeks after surgery. They can be removed several times a day for laundering and for a bath. F. You may shower, no tub baths until cleared by your doctor. SPECIAL CARE INSTRUCTIONS: VERY IMPORTANT TO READ AND REVIEW A. There are a few signs you need to watch for after you are home. Call [facility] if you notice any of the followin. Increased severe knee pain. Some pain is expected especially when you exercise. 2. Increased swelling in your leg or knee; pain or swelling of the calf muscle in either lower leg. 3. Any fluid drainage from the incision. 4. Shortness of breath or chest pain. B. Please call [facility] at if you have any concerns or questions about your operation or recovery. The doctor or his nurse will return your call promptly. C. You must take antibiotics before dental work, bladder, bowel or other surgery. Your doctor will provide you with a permanent care to carry describing this precaution. IMPORTANT: * REMEMBER TO TAKE LOVENOX 40MG DAILY FOR 4 WEEKS UNLESS OTHERWISE DIRECTED. THIS IS YOUR BLOOD THINNER. * HIGH RISK PATIENTS MAY BE PRESCRIBED A STRONGER BLOOD THINNER. THIS WILL BE PROVIDED AT DISCHARGE. * CALL IF INCREASED PAIN, REDNESS, DRAINAGE OR FEVER GREATER THAT 101. * WEAR GARLAND HOSE 20 HOURS PER DAY FOR 2 WEEKS. * YOU MAY HAVE A LARGE BAND-AID LIKE DRESSING (SILVERON). THIS WILL REMAIN ON YOUR INCISION FOR 7 DAYS, THEN CAN BE REMOVED. IF INCISION IS LEAKING THROUGH DRESSING, CALL THE OFFICE . FOLLOW UP VISIT: If appointment is not already scheduled: Please call [facility] to make a follow-up appointment for 2 weeks after your surgery at . Pending Studies at Discharge: No Stand-Alone Forms: My [facility], Opioid Pain Management, Smoking Cessation Medications and DC Order Prescriptions: New acetaminophen 500 mg Tablet 1,000 mg PO Q8 PRN (Reason: pain/fevers) Qty: 90 RF: 0 oxycodone 5 mg Tablet 5 mg PO Q6H MDD 6 tabs PRN (Reason: pain) Qty: 30 RF: 0 enoxaparin 40 mg/0.4 mL Syringe 40 mg subcut Q24H Qty: 28 RF: 0 sennosides [Senokot] 8.6 mg Tablet 17.2 mg PO HS PRN (Reason: constipation) Qty: 28 RF: 0 Narcan 4 mg/actuation spray,non-aerosol 1 sprays INTNAS ONCE Qty: 2 RF: 0 morphine 15 mg Tablet Extended Release 15 mg PO Q12H MDD 2 tabs Qty: 6 RF: 0 Continued furosemide 40 mg Tablet 40 mg PO DAILY PRN (Reason: Edema) RF: 0 trazodone 50 mg Tablet 50 mg PO HS PRN (Reason: Sleep) RF: 0 hydrochlorothiazide 25 mg Tablet 25 mg PO QAM RF: 0 losartan 100 mg Tablet 100 mg PO QAM RF: 0 atenolol 50 mg Tablet 50 mg PO BID RF: 0 Prilosec OTC 20 mg Tablet,Delayed Release (Dr/Ec) 20 mg PO QAM RF: 0 cholecalciferol (vitamin D3) [Vitamin D3] 1,000 unit Tablet,Chewable 1,000 unit PO QAM RF: 0 multivitamin Tablet 1 tab PO QAM RF: 0 Discontinued Premarin 1.25 mg Tablet 1.25 mg PO QAM RF: 0 ibuprofen [Advil] 200 mg Tablet 600 - 800 mg PO Q6H PRN (Reason: Pain) RF: 0 Sudafed PE Pressure-Pain 5-325 mg Tablet 1 tab PO DAILY PRN (Reason: Sinus Symptoms) RF: 0 meloxicam 15 mg Tablet 0 mg PO DAILY RF: 0 Contrave 8-90 mg Tablet Extended Release 1 tab PO QAM RF: 0 Discharge Orders: Discharge Order (Routine); Ordered 10/27/19 Ordered By: Torsten Gregorio/Other Patient Handouts: Knee Replace Total, Enoxaparin injection Admission Data Admit Date/Time: 10/25/19 13:14 Attending Provider: Philip Soto Admit Provider: Philip Soto Primary Care Provider: Chapito Simpson Other Interventions: Discharge Summary Assessment (RN) Last Done: 10/27/19 14:58 DC Date/Time DO NOT enter until pt leaves facility: 10/27/19 15:50
== END 2019-10-27 15:50 | disposition home health service (06) | DRG 462 ==
LOC: ASU 07:06 → 3E 13:14

== ENCOUNTER 2021-02-05 09:24 | Inpatient (IN) ==
--- NOTE | 2021-01-18 08:59 | PAT Medication Instructions ---
Medication Instructions Date of Service January 18, 2021 Home Medications Medication Instructions Recorded acetaminophen 1,000 mg PO Q8 PRN #90 tab 10/26/19 conjugated estrogens 1.25 mg tablet 1.25 mg PO DAILY #30 tab 06/05/20 topiramate 25 mg tablet 50 mg PO HS #60 tab 11/29/20 phentermine 15 mg capsule 15 mg PO DAILY #30 cap 01/01/21 cholecalciferol (vitamin D3) [Vitamin D3] 1,000 unit PO QAM furosemide 40 mg PO DAILY PRN losartan 100 mg PO QAM omeprazole magnesium [Prilosec OTC] 20 mg PO QAM acetaminophen 1,000 mg PO Q8 PRN conjugated estrogens 1.25 mg tablet 1.25 mg PO DAILY diclofenac sodium 75 mg tablet,delayed release 75 mg PO BID hydrochlorothiazide 25 mg tablet 25 mg PO QAM trazodone 50 mg tablet 50 - 100 mg PO HS PRN atenolol 50 mg tablet 50 mg PO UD topiramate 25 mg tablet 50 mg PO HS phentermine 15 mg capsule 15 mg PO DAILY apple cider vinegar 500 mg PO UD multivitamin 1 tab PO QAM multivitamin with minerals [Hair,Skin and Nails] 2 tab PO QAM ASK your surgeon for instructions conjugated estrogens 1.25 mg tablet 1.25 mg PO DAILY diclofenac sodium 75 mg tablet,delayed release 75 mg PO BID STOP taking 2 weeks before surgery (or as soon as possible if surgery is within 2 weeks) apple cider vinegar 500 mg PO UD multivitamin with minerals [Hair,Skin and Nails] 2 tab PO QAM DO NOT take the morning of surgery cholecalciferol (vitamin D3) [Vitamin D3] 1,000 unit PO QAM furosemide 40 mg PO DAILY PRN losartan 100 mg PO QAM hydrochlorothiazide 25 mg tablet 25 mg PO QAM multivitamin 1 tab PO QAM Take morning of surgery With a small sip of water, OTHERWISE NOTHING TO EAT OR DRINK AFTER MIDNIGHT: omeprazole magnesium [Prilosec OTC] 20 mg PO QAM acetaminophen 1,000 mg PO Q8 PRN (okay to take up to 4 hours prior to surgery if needed) Take evening before surgery furosemide 40 mg PO DAILY PRN (if needed) acetaminophen 1,000 mg PO Q8 PRN (if needed) trazodone 50 mg tablet 50 - 100 mg PO HS PRN (if needed) atenolol 50 mg tablet 50 mg PO UD topiramate 25 mg tablet 50 mg PO HS Other Notes DO NOT TAKE 5 days before surgery: phentermine 15 mg capsule 15 mg PO DAILY If you have any questions please call us at [phone] or [phone] or [phone] or [phone]
--- NOTE | 2021-01-22 10:15 | Anesthesiology Consultation ---
Date of Service January 22, 2021 Assessment & Plan (1) Encounter for pre-operative examination: - COVID screening: Per assessment on 01/22: Travel screen negative, no known COVID-19 positive contacts or current COVID-19 related symptoms. Surgeon arranging preop COVID testing. Awaiting results. - S/P B/L TKA (10/25/19): SAB at L3/L4 (x1 attempt) + PNB at [facility] Chart Review Chart Review: Acceptable Risk for Surgery and Patient seen in Pre Admission Testing Teaching & Discussion Pre-Anesthesia Teaching/Discussion Notes: Instructed NPO after midnight before surgery,except medications with 15 cc of water. Medication instructions provided according to the PAT guidelines. History Surgery Operation Date: 02/05/21 07:45 Proposed Procedures p L3-L5 Decompression/Fusion, Spinal Cord Monitoring - Arnold Wesley DO Height/Weight Height: 5 ft 5 in Weight: 86.6 kg Allergies Allergy/AdvReac Type Severity Reaction Status Date / Time No Known Allergies Allergy Unknown Verified 01/08/21 12:59 Medications Home Medications Medication Instructions Recorded Confirmed Last Taken cholecalciferol (vitamin D3) 1,000 unit PO QAM 09/23/19 01/08/21 10/24/19 07:30 [Vitamin D3] furosemide 40 mg PO DAILY PRN 09/23/19 01/08/21 09/24/19 losartan 100 mg PO QAM 09/23/19 01/08/21 10/24/19 07:30 omeprazole magnesium [Prilosec OTC] 20 mg PO QAM 09/23/19 01/08/21 10/25/19 05:00 acetaminophen 1,000 mg PO Q8 PRN #90 tab 10/26/19 01/08/21 Unknown conjugated estrogens 1.25 mg tablet 1.25 mg PO DAILY #30 tab 06/05/20 01/08/21 Unknown diclofenac sodium 75 mg 75 mg PO BID 06/05/20 01/08/21 Unknown tablet,delayed release hydrochlorothiazide 25 mg tablet 25 mg PO QAM tab 06/08/20 01/08/21 Unknown trazodone 50 mg tablet 50 - 100 mg PO HS PRN tab 06/08/20 01/08/21 Unknown atenolol 50 mg tablet 50 mg PO UD tab 11/29/20 01/08/21 Unknown topiramate 25 mg tablet 50 mg PO HS #60 tab 11/29/20 01/08/21 Unknown phentermine 15 mg capsule 15 mg PO DAILY #30 cap 01/01/21 01/08/21 Unknown apple cider vinegar 500 mg PO UD 01/08/21 01/08/21 Unknown multivitamin 1 tab PO QAM 01/08/21 01/08/21 Unknown multivitamin with minerals 2 tab PO QAM 01/08/21 01/08/21 Unknown [Hair,Skin and Nails] Past Medical History Medical History Arthritis GERD (gastroesophageal reflux disease) controlled H/O cold sores Hiatal hernia History of claustrophobia Hx of endometriosis Hypertension Obesity Scoliosis TMJ (dislocation of temporomandibular joint) + jaw pain (wears mouth guard at night) Exercise / Class Metabolic Activity II 4-5 Yardwork/Stairs/Walk up hill (one flight of stairs (no chest pain/no sob)) Past Family History Family History Sister Family history of diabetes mellitus Sister Family history of diabetes mellitus Sister Family history of diabetes mellitus Brother Family history of diabetes mellitus Hypertension Mother Family hx of colon cancer Family history of diabetes mellitus Hypertension Brother Family history of diabetes mellitus Father Diabetes Hypertension Family history of diabetes mellitus Past Surgical History Surgical History H/O abdominoplasty History of bilateral saline breast implants History of bladder surgery Sling History of cholecystectomy History of colonoscopy History of dilatation and curettage Multiple History of esophagogastroduodenoscopy (EGD) History of knee replacement B/L TKA (10/25/19): SAB at L3/L4 (x1 attempt) + PNB at [facility] History of laparoscopy History of tonsillectomy History of tooth extraction History of total abdominal hysterectomy and bilateral salpingo-oophorectomy Past Anesthesia History No Hx of Anesthesia Complications and No Family Hx of Anesthesia Complications + claustrophia History of PONV No Hx of PONV and No Hx of Motion Sickness Social History Smoking Status: Former smoker tobacco type: cigarettes Do You Dip or Chew Tobacco: No Smoking End Date: Quit 4-5 years ago Hx Alcohol Use: Yes Alcohol type: hard liquor alcohol intake frequency: holidays/special occasions only Hx Substance Use: No substance use type: does not use Review of Systems Patient denies chest pain, shortness of breath, dyspnea on exertion, fever, chills, cough, wheezing, palpitations. Physical Exam Vital Signs VITALS BP 103/66 P 54 TEMP 98.3 SP02 95%RA RESP 16 PHYSICAL Full cervical extension range of motion. Full TMJ range of motion. TMD 4 finger breaths Mallampati Score 1 Dentition: intact, several implants/bridges (including upper sides) Lungs: clear throughout to auscultation Cardiac: regular rate and rhythm, no murmurs noted Spine: normal Carotid arteries: negative bruit Extremities: no edema Testing Laboratory Results 01/22/21 10:45 01/22/21 10:45 PT 10.8 Seconds (9.0-12.0) 01/22/21 10:45 INR 1.1 (0.9-1.1) 01/22/21 10:45 APTT 24.8 Seconds (21.0-31.0) 01/22/21 10:45 Urine Color Yellow 01/22/21 10:45 Urine Appearance Clear (Clear) 01/22/21 10:45 Urine pH 5.0 (4.5-7.5) 01/22/21 10:45 Ur Specific Walker 1.020 (1.000-1.030) 01/22/21 10:45 Urine Protein Negative (Negative) 01/22/21 10:45 Urine Glucose (UA) Negative (Negative) 01/22/21 10:45 Urine Ketones Negative (Negative) 01/22/21 10:45 Urine Nitrite Negative (Negative) 01/22/21 10:45 Ur Leukocyte Esterase Negative (Negative) 01/22/21 10:45 Blood Type A Positive 01/22/21 10:45 Antibody Screen NEGATIVE 01/22/21 10:45 Electrocardiogram Date: 01/22/21 Sinus bradycardia [address] depression in anterior lateral leads. No significant change compared to 10/20/2019 per potato sorter review. Chest X-Ray Date: 01/22/21 FINDINGS: Cardiomediastinal and hilar silhouettes are within normal limits. Calcific plaque the thoracic aorta. No pneumothorax, pleural effusion, airspace consolidation or overt pulmonary edema. Surgical clips project over the upper abdomen. The bones of the chest appear grossly intact. IMPRESSION: No acute process. Echocardiogram Date: 05/19/18 EF 65 to 70%. Grade 2 diastolic dysfunction. No regional wall motion abnormalities. Mild LAD. Mild concentric LVH. Trace AR/MR/TR. Mildly elevated estimated RVSP. Elevated central venous pressure.
--- NOTE | 2021-01-22 11:18 | XRay Report ---
XR chest Pre-admission PA/Lat HISTORY: 60 years-old Female pat chronic back pain COMPARISON: Chest radiograph 10/20/2019 TECHNIQUE: PA and lateral views of the chest FINDINGS: Cardiomediastinal and hilar silhouettes are within normal limits. Calcific plaque the thoracic aorta. No pneumothorax, pleural effusion, airspace consolidation or overt pulmonary edema. Surgical clips p roject over the upper abdomen. The bones of the chest appear grossly intact. IMPRESSION: No acute process. ACT 112: Negative or not required by law. The above report was generated using voice recognition software. It may contain grammatical, syntax o r spelling errors. Electronically signed by: Enoc Wyatt M.D. 01/22/2021 11:17 AM
[2021-01-22 11:37] LABS: Basophils # (auto) 0.03 K/uL (0-0.2); Basophils % (auto) 0.4 %; Eosinophils # (auto) 0.08 K/uL (0-0.5); Eosinophils % (auto) 1.1 %; Hematocrit (blood only) 39.4 % (37-47); Hemoglobin 13.1 g/dL (12.0-16.0); Immature Granulocytes # (auto) 0.01 K/uL (0.00-0.02); Immature Granulocytes % (auto) 0.1 %; Lymphocytes # (auto) 1.92 K/uL (1.2-3.4); Lymphocytes % (auto) 26.7 %; Mean Corpuscular Hemoglobin 28.4 pg (25-34); Mean Corpuscular Hgb Conc 33.2 g/dL (32-36); Mean Corpuscular Volume 85.5 fL (80-100); Mean Platelet Volume 11.4 fL (7.4-10.4); Monocytes # (auto) 0.53 K/uL (0.11-0.59); Monocytes % (auto) 7.4 %; Neutrophils # (auto) 4.61 K/uL (1.4-6.5); Neutrophils % (auto) 64.3 %; Platelet Count 281 K/uL (130-400); RDW Coefficient of Variation 14.4 % (11.5-14.5); RDW Standard Deviation 44.8 fL (36.4-46.3); Red Blood Count 4.61 M/uL (4.2-5.4); White Blood Count 7.18 K/uL (4.8-10.8)
[2021-01-22 11:44] LABS: Appearance Urine Clear (Clear); Bilirubin Urine Negative (Negative); Blood Urine Negative (Negative); Color Urine Yellow; Glucose Urine UA Negative (Negative); Ketones Urine Negative (Negative); Leukocyte Esterase Urine Negative (Negative); Nitrite Urine Negative (Negative); Protein Urine Negative (Negative); Urobilinogen Urine Negative (Negative)
[2021-01-22 11:53] LABS: INR 1.1 (0.9-1.1); Partial Thromboplastin Ratio 0.9; Partial Thromboplastin Time 24.8 Seconds (21.0-31.0); Prothrombin Time 10.8 Seconds (9.0-12.0)
[2021-01-22 12:14] LABS: BUN Creatinine Ratio 28.3 (10-20); Calcium 10.1 mg/dl (8.5-10.1); Creatinine Clr Calc Pharmacy 79.3 ml/min; Est GFR (African American) 90.1; Est GFR (Non-African American) 77.8; Potassium 4.2 mmol/L (3.5-5.1)
--- NOTE | 2021-01-22 12:41 | Electrocardiogram Report ---
Test Reason : Blood Pressure : / mmHG Vent. Rate : 051 BPM Atrial Rate : 051 BPM P-R Int : 162 ms QRS Dur : 086 ms QT Int : 456 ms P-R-T Axes : 073 047 076 degrees QTc Int : 420 ms Sinus bradycardia Chronic ST depression in Anterolateral leads Abnormal ECG When compared with ECG of 20-OCT-2019 14:59, No significant change was found Confirmed by Chapito Khan ([id number]) on 01/22/2021 12:40:49 PM Referred By: Arnold Wesley Confirmed By:Chapito Khan
[~2021-02-05 09:24] MED LIST changes: +ACETAMINOPHEN 1000 MG/100 ML IV IV ONE; -BUPIVACAINE 0.5 % 5 MG/1 ML PF 10ML VIAL ONE; -CEFAZOLIN 2000MG 2,000 MG/15 ML SYR IV SCH; -EPINEPHrine INJ 1 MG/ML AMP ONE; -FAMOTIDINE 20 MG TAB PO SCH; +FAMOTIDINE/PF 20 MG/2 ML VIAL IV ONE; +LIDOCAINE 2% 2 ML VIAL/AMP(20MG/ML) INFIL ONE; +LR 15ML/HR IV SCH; -LR 500ML BOLUS, THEN 15ML/HR IV SCH; -METOCLOPRAMIDE HCL 10 MG TABLET PO SCH; +ROCURONIUM BROMIDE 10 MG/ML 5 ML VIAL IV ONE; -ROPIVACAINE 0.5% 5 MG/ML 30 ML VIAL ONE; -ROPIVACAINE 0.5% HCL/PF 150 MG, BUPIVACAINE 0.5% MPF 30 ML, EPINEPHrine 30MG/30ML (OR U... INSTIL SCH; +SODIUM CHLORIDE 0.9% 250 ML IV PRN; -TRANEXAMIC ACID 1,000 MG **IV Intra-op IV SCH; -TRANEXAMIC ACID 1,000 MG **IV Pre-op IV SCH; +ceFAZolin 2000MG 2,000 MG/15 ML SYR IV SCH; -dexAMETHasone 4 MG TAB PO SCH
[2021-02-05] MEDS ORDERED: fentaNYL citrate 100 MCG/2 ML VIAL ONE (10:49)
[2021-02-05] MEDS ORDERED: MIDAZOLAM HCL 1 MG/ML 2ML VIAL ONE (10:49)
[2021-02-05] MEDS ORDERED: LIDOCAINE 2% 2 ML VIAL/AMP(20MG/ML) INFIL ONE (10:51)
[2021-02-05] MEDS ORDERED: PROPOFOL IV EMULSION 10 MG/ML 20 ML VIAL IV ONE (10:52)
[2021-02-05] MEDS ORDERED: ROCURONIUM BROMIDE 10 MG/ML 5 ML VIAL IV ONE (10:52)
[2021-02-05] MEDS ORDERED: DEXAMETHASONE SOD INJ 4 MG/ML VIAL ONE (10:52)
--- NOTE | 2021-02-05 11:04 | History & Physical Report ---
Date of Service February 05, 2021 Assessment & Plan (1) Neurogenic claudication due to lumbar spinal stenosis: Admission and Anticipated Discharge Date Admission Date: L3-L5 decompression fusion History of Present Illness Chief Complaint: Back and leg pain Primary Care Provider: Chapito Simpson This is a 60-year-old female who presents with chronic persistent back and leg pain. Failing since course of nonoperative care she is here for surgical invention. Allergies Allergy/AdvReac Type Severity Reaction Status Date / Time No Known Allergies Allergy Unknown Verified 02/05/21 09:52 Home Medications Medication Instructions Recorded Confirmed Type cholecalciferol (vitamin D3) 1,000 unit PO QAM 09/23/19 02/05/21 History [Vitamin D3] furosemide 40 mg PO DAILY PRN 09/23/19 02/05/21 History losartan 100 mg PO QAM 09/23/19 02/05/21 History omeprazole magnesium [Prilosec OTC] 20 mg PO QAM 09/23/19 02/05/21 History acetaminophen 1,000 mg PO Q8 PRN #90 tab 10/26/19 02/05/21 Rx conjugated estrogens 1.25 mg tablet 1.25 mg PO DAILY #30 tab 06/05/20 02/05/21 Rx diclofenac sodium 75 mg 75 mg PO BID 06/05/20 02/05/21 History tablet,delayed release hydrochlorothiazide 25 mg tablet 25 mg PO QAM tab 06/08/20 02/05/21 History trazodone 50 mg tablet 50 - 100 mg PO HS PRN tab 06/08/20 02/05/21 History atenolol 50 mg tablet 50 mg PO UD tab 11/29/20 02/05/21 History phentermine 15 mg capsule 15 mg PO DAILY #30 cap 01/01/21 02/05/21 Rx apple cider vinegar 500 mg PO UD 01/08/21 02/05/21 History multivitamin 1 tab PO QAM 01/08/21 02/05/21 History multivitamin with minerals 2 tab PO QAM 01/08/21 02/05/21 History [Hair,Skin and Nails] topiramate 25 mg tablet 50 mg PO HS #60 tab 01/31/21 02/05/21 Rx Past Med/Surg History Medical History Arthritis GERD (gastroesophageal reflux disease) controlled H/O cold sores Hiatal hernia History of claustrophobia Hx of endometriosis Hypertension Obesity Scoliosis TMJ (dislocation of temporomandibular joint) + jaw pain (wears mouth guard at night) Surgical History H/O abdominoplasty History of bilateral saline breast implants History of bladder surgery Sling History of cholecystectomy History of colonoscopy History of dilatation and curettage Multiple History of esophagogastroduodenoscopy (EGD) History of knee replacement B/L TKA (10/25/19): SAB at L3/L4 (x1 attempt) + PNB at [facility] History of laparoscopy History of tonsillectomy History of tooth extraction History of total abdominal hysterectomy and bilateral salpingo-oophorectomy Family History Sister Family history of diabetes mellitus Sister Family history of diabetes mellitus Sister Family history of diabetes mellitus Brother Family history of diabetes mellitus Hypertension Mother Family hx of colon cancer Family history of diabetes mellitus Hypertension Brother Family history of diabetes mellitus Father Diabetes Hypertension Family history of diabetes mellitus Social History Smoking Status: Former smoker Smoking End Date: Quit 4-5 years ago; Second Hand Exposure: No; Do You Dip or Chew Tobacco: No; Tobacco Cessation Education Requested by Patient: No Hx Alcohol Use: No Hx Substance Use: No Preferred Language: Greenlandic Communication Ability: Effective Senior Design Engineering Specialist Required: No Beliefs That Will Affect Care: None Current Living Situation: Significant Other Feels Safe at Home: Yes Safety Concerns: Feels Safe At This Time Assistive Devices: Walker Physical Exam Physical Exam: Patient is alert and oriented Heart regular rhythm Lungs clear to auscultation Results & Data ([facility]) Vital Signs (Past 12 Hours) Vital Signs Temp Pulse Resp BP Pulse Ox 02/05/21 09:43 37 C 57 L 20 136/77 99
--- NOTE | 2021-02-05 11:04 | History & Physical Bridge Note ---
Date of Service February 05, 2021 History & Physical Bridge Note I have examined the patient, reviewed the History & Physical and in the interval since the performance of the History & Physical I have noted the following changes of clinical significance: no changes noted
[2021-02-05] MEDS ORDERED: HYDROmorphone INJ 2 MG/ML SYR/VIAL IV PRN (11:22)
[2021-02-05] MEDS ORDERED: ONDANSETRON INJ 2 MG/ML 2 ML VIAL IV PRN (11:22)
[2021-02-05] MEDS ORDERED: ATROPINE SULFATE 0.1 MG/ML 10ML SYR IV PRN (11:22)
[2021-02-05] MEDS ORDERED: PROMETHAZINE HCL 6.25 MG in SODIUM CHLORIDE 0.9% 50 ML IV PRN (11:22)
[2021-02-05] MEDS ORDERED: ePHEDrine sulfate 50 MG/ML AMP IV PRN (11:22)
[2021-02-05] MEDS ORDERED: BUPIVACAINE/EPINEPHRINE 0.5% MPF 1:200,000 30 ML VIAL ONE (11:28)
[2021-02-05] MEDS ORDERED: SCOPOLAMINE 1 MG TDSY TD ONE (11:42)
[2021-02-05] MEDS ORDERED: ePHEDrine sulfate 50 MG/ML AMP ONE ×2 (12:24→12:37)
[2021-02-05] MEDS ORDERED: SODIUM CHLORIDE 0.9% INJ 10 ML VIAL ONE (12:24)
[2021-02-05] MEDS ORDERED: NEOSTIGMINE METHYLSULFATE 1 MG/ML 10ML VIAL ONE (12:24)
[2021-02-05] MEDS ORDERED: HYDROmorphone INJ 2 MG/ML SYR/VIAL ONE (12:57)
[2021-02-05] MEDS ORDERED: diphenhydrAMINE 50 MG/ML VIAL ONE (13:04)
[2021-02-05] MEDS ORDERED: PHENYLEPHRINE HCL 10 MG/ML VIAL ONE (13:17)
[2021-02-05] MEDS ORDERED: FLOSEAL HEMOSTATIC MATRIX 10ML TOP ONE (13:49)
[2021-02-05] MEDS ORDERED: KETOROLAC 30 MG/ML VIAL ONE (13:56)
--- NOTE | 2021-02-05 13:59 | Operative Report ---
Post Operative Report Pre & Post Diagnosis Operation Date: 02/05/21 11:05 Pre-Op Diagnosis: Spinal Stenosis, Lumbar Region with Neurogenic Post-Op Diagnosis: Spinal Stenosis, Lumbar Region with Neurogenic I identified the patient and participated in the time-out.: Yes Procedure Operation Date: 02/05/21 11:05 Actual Procedures #1 lumbar decompression with bilateral medial facetectomies and foraminotomies L2-3, L3-4 and L4-5. #2 posterior spinal fusion L3-4 and L4-5. #3 placed posterior instrumentation L3-4 and L4-5. #4 interbody fusion L3-4 and L4-5. #5 placement peek cage 10 x 22 mm at L3-4 and 9 x 22 mm at L4-L5. #6 placement locally harvested morselized autograft in the posterior gutters. #7 placement of I factor in the interbody spaces combined with vitoss in the posterior gutters. Surgeon Arnold Wesley, Title Inspector Maryam Martinez Estimated Blood Loss 320 Findings Consistent with Post-Op Diagnosis Specimens None Indications This is a 60-year-old female well-known to me the presents above-mentioned nociceptive pain since course of nonoperative care is here for the above- mentioned procedure. Description of Procedure Patient was met with identified informed consent obtained. Patient was then taken to the operative suite underwent an patient placed in a prone position the Channing table on top of the Roman frame. All bony prominences well-padded eyes inspected to ensure no external pressure placed upon the. This point the lumbar spine was prepped and draped in the normal sterile fashion. Sharp dissection with the assistance of Bovie cautery performed down to and exposing the lamina and transverse processes of L3-L4-L5 bilaterally. From caudal to cephalad fashion complete laminectomy of L4 L3 and partial laminectomy of L2 was performed including bilateral medial facetectomies and foraminotomies addressing severe spinal stenosis. Pedicle screws were then placed in all 3 L4-L5 bilaterally with assistance of fluoroscopy and the proper sized yordan placed. By way of a transforaminal approach on the right complete discectomy of L4-L5 was performed endplates curetted to subcortical bleeding bone and a 9 x 22 mm peek cage filled with I factor tapped in position. Then proceeded to L3-L4 and again by way of a transfemoral approach on the right a complete discectomy performed endplates curetted to subcortically bone and a 10 x 22 mm peek cage filled with I factor tapped in position. The rods were then locked in final position bilaterally. The transverse processes of L3 L4-5 burred to subcortical bleeding bone. I factor combined with Vitoss and local autograft was placed in the posterior gutters. 15 round GUSTAVO drain inserted. The incision was then closed with 1 Vicryl in the fascia 2-0 Vicryl subcutaneously and 4 Monocryl for final skin closure. Steri-Strips dressings placed. Patient waken taken to PACU stable condition. Please note spinal cord monitoring was utilized at the procedure no changes noted. Lastly Maryam Martinez was present at the entire surgery involved the patient positioning complex portions of the surgery and final skin closure. I attest to the content of the Intraoperative Record and any orders documented therein. Any exceptions are noted below.
--- NOTE | 2021-02-05 14:09 | Fluoroscopy Report ---
FL lumbar spine 2-3V CLINICAL HISTORY: L3-L5 posterior spinal fusion COMPARISON STUDY: None. FLUOROSCOPY TIME: 49 seconds. FINDINGS: 2 fluoroscopic spot images demonstrate an L3-L5 posterior decompression fusion with pedicle screws and rods. The hardware appears intact. L5 appears to be a transitional vertebra on this study . IMPRESSION: Fluoroscopy provided for a L3-L5 posterior decompression and fusion. ACT 112: Negative or not required by law. Electronically signed by: Gene Mike M.D. 02/05/2021 2:08 PM
[2021-02-05] MEDS: fentaNYL citrate 100 MCG/2 ML VIAL IV PRN ×3 (14:32→14:43)
--- NOTE | 2021-02-05 14:53 | Anesthesiology Progress Note ---
Date of Service February 05, 2021 Anesthesia Post Procedure Vital Signs Vital Signs: Temp Pulse Pulse Resp BP BP Pulse Ox 02/05/21 14:45 64 16 98/64 L 99 02/05/21 14:35 82 16 108/61 100 02/05/21 14:25 82 16 113/58 L 100 02/05/21 14:18 36.3 C L 83 16 116/60 100 02/05/21 09:43 37 C 57 L 20 136/77 99 Transfer of Care Handoff Completed per policy Notes Mental Status: alert / awake / arousable Patient Amnestic to Procedure: Yes Nausea / Vomiting: adequately controlled Pain: adequately controlled Airway Patency, RR, SpO2: stable & adequate BP & HR: stable & adequate Hydration State: stable & adequate Anesthetic Complications: no major complications apparent
[2021-02-05] MEDS ORDERED: LORazepam 0.5 MG/1 ML VIAL IV PRN (15:53)
[2021-02-05] MEDS ORDERED: hydrOXYzine HCl 25 MG TAB PO PRN (15:53)
[2021-02-05] MEDS ORDERED: MAGNESIUM HYDROXIDE SUSP 30 ML UDC PO PRN (15:53)
[2021-02-05] MEDS ORDERED: NALOXONE HCL 0.4 MG/1 ML VIAL/CARP IV PRN (15:53)
[2021-02-05] MEDS ORDERED: DO NOT ADMINISTER FLU VACCINE PRN (15:53)
[2021-02-05] MEDS ORDERED: diphenhydrAMINE Capsule 25 MG CAP PO PRN (15:53)
[2021-02-05] MEDS ORDERED: SOD PHOSPHATE/SOD BIPHOSPHATE ENEMA 132 ML BTL PR PRN (15:53)
[2021-02-05] MEDS ORDERED: ACETAMINOPHEN 1,000 MG/100 ML VIAL IV PRN (15:53)
[2021-02-05] MEDS ORDERED: LORazepam 0.5 MG TAB PO PRN (15:53)
[2021-02-05] MEDS ORDERED: ACETAMINOPHEN HOME PACK 500 MG TABLET PO PRN (15:53)
[2021-02-05] MEDS ORDERED: FUROSEMIDE 40 MG TAB PO PRN (15:53)
[2021-02-05] MEDS ORDERED: METOCLOPRAMIDE HCL INJ 5 MG/ML 2 ML VIAL IV PRN (15:53)
[2021-02-05] MEDS ORDERED: HYDROmorphone INJ 1 MG/ML SYRINGE IV PRN (15:53)
[2021-02-05] MEDS ORDERED: ACETAMINOPHEN 500 MG TAB PO PRN (15:53)
[2021-02-05] MEDS ORDERED: PROMETHAZINE HCL 12.5 MG in SODIUM CHLORIDE 0.9% 50 ML IV PRN (15:53)
[2021-02-05] MEDS ORDERED: bisacodyL 10 MG SUPP PR PRN (15:53)
[2021-02-05] MEDS ORDERED: traMADol HCL 50 MG TABLET PO PRN (15:53)
[2021-02-05] MEDS ORDERED: ONDANSETRON 4 MG OD TAB PO PRN (15:53)
[2021-02-05] MEDS ORDERED: ALUMINUM/MAGNESIUM SUSP 30 ML UDC PO PRN (15:53)
[2021-02-05] MEDS ORDERED: DO NOT ADMINISTER PNEUMOCOCCAL VACCINE PRN (15:53)
[2021-02-05] MEDS ORDERED: FAMOTIDINE 20 MG TAB PO PRN (15:53)
--- NOTE | 2021-02-05 16:32 | Hospitalist Consultation ---
Date of Consultation February 05, 2021 Assessment & Plan (1) Neurogenic claudication due to lumbar spinal stenosis: Patient underwent surgical correction of L3 L5 with decompression fusion and bone grafting (2) Hypertension: Needed on her atenolol and losartan she also hydrochlorothiazide held unless she has peripheral edema or evidence of failure. As well as her as needed Lasix (3) Diastolic dysfunction: As mentioned patient is being hydrated in the perioperative period due to blood loss and volume loss from surgery. Her diuretics are held at this time she is maintained on atenolol. (4) Depression with anxiety: Patient remains on Thorazine at bedtime with Topamax. History of Present Illness Attending Physician: Arnold Wesley DO Patient status post L3 L5 decompression fusion application of bone graft on 02/05/2021 are asked to see in consultation she is a history of hypertension and diastolic heart failure anxiety. She takes daily atenolol 50 losartan 100 hydrochlorothiazide 25 with as needed furosemide for weight gain. She typically is on omeprazole she takes Topamax at bedtime with as needed Thorazine at bedtime is on hormone replacement with Premarin 1.25 and also takes some phentermine which is on hold this is nonformulary Allergies Allergy/AdvReac Type Severity Reaction Status Date / Time No Known Allergies Allergy Unknown Verified 02/05/21 09:52 Home Medications Medication Instructions Recorded Confirmed Type cholecalciferol (vitamin D3) 1,000 unit PO QAM 09/23/19 02/05/21 History [Vitamin D3] furosemide 40 mg PO DAILY PRN 09/23/19 02/05/21 History losartan 100 mg PO QAM 09/23/19 02/05/21 History omeprazole magnesium [Prilosec OTC] 20 mg PO QAM 09/23/19 02/05/21 History acetaminophen 1,000 mg PO Q8 PRN #90 tab 10/26/19 02/05/21 Rx conjugated estrogens 1.25 mg tablet 1.25 mg PO DAILY #30 tab 06/05/20 02/05/21 Rx diclofenac sodium 75 mg 75 mg PO BID 06/05/20 02/05/21 History tablet,delayed release hydrochlorothiazide 25 mg tablet 25 mg PO QAM tab 06/08/20 02/05/21 History trazodone 50 mg tablet 50 - 100 mg PO HS PRN tab 06/08/20 02/05/21 History atenolol 50 mg tablet 50 mg PO UD tab 11/29/20 02/05/21 History phentermine 15 mg capsule 15 mg PO DAILY #30 cap 01/01/21 02/05/21 Rx apple cider vinegar 500 mg PO UD 01/08/21 02/05/21 History multivitamin 1 tab PO QAM 01/08/21 02/05/21 History multivitamin with minerals 2 tab PO QAM 01/08/21 02/05/21 History [Hair,Skin and Nails] topiramate 25 mg tablet 50 mg PO HS #60 tab 01/31/21 02/05/21 Rx Patient History Medical History Arthritis GERD (gastroesophageal reflux disease) controlled H/O cold sores Hiatal hernia History of claustrophobia Hx of endometriosis Hypertension Obesity Scoliosis TMJ (dislocation of temporomandibular joint) + jaw pain (wears mouth guard at night) Surgical History H/O abdominoplasty History of bilateral saline breast implants History of bladder surgery Sling History of cholecystectomy History of colonoscopy History of dilatation and curettage Multiple History of esophagogastroduodenoscopy (EGD) History of knee replacement B/L TKA (10/25/19): SAB at L3/L4 (x1 attempt) + PNB at [facility] History of laparoscopy History of tonsillectomy History of tooth extraction History of total abdominal hysterectomy and bilateral salpingo-oophorectomy Family History Sister Family history of diabetes mellitus Sister Family history of diabetes mellitus Sister Family history of diabetes mellitus Brother Family history of diabetes mellitus Hypertension Mother Family hx of colon cancer Family history of diabetes mellitus Hypertension Brother Family history of diabetes mellitus Father Diabetes Hypertension Family history of diabetes mellitus Social History Smoking Status: Former smoker Smoking End Date: Quit 4-5 years ago; Second Hand Exposure: No; Do You Dip or Chew Tobacco: No; Tobacco Cessation Education Requested by Patient: No Hx Alcohol Use: No Hx Substance Use: No Preferred Language: Thai Communication Ability: Effective Leaf Size Picker Required: No Beliefs That Will Affect Care: None Current Living Situation: Significant Other Feels Safe at Home: Yes Safety Concerns: Feels Safe At This Time Assistive Devices: Walker Review of Systems Review of Systems: Mild distress and fatigue no headache, blurry or double vision no speech or swallowing issues no chest pain, pressure or palpitations no shortness of breath, cough or wheezes no abdominal pain, nausea or vomiting, diarrhea or constipation no dysuria, hematuria or frequency no focal joint pain or swelling no back pain, CVA tenderness or radicular pain no bruising, bleeding or rashes no focal signs of weakness or numbness or altered sensation no complaints of anxiety or depression.. Physical Exam Physical Exam: The patient appeared well nourished and normally developed. Vital signs as documented. Head exam is normocephalic atraumatic Neck is without JVD, thyromegaly, or carotid bruits. Lungs are clear to auscultation, no focal loss of breath sounds Cardiac exam, Rhythm is regular.. No murmurs, rubs or gallops. Abdominal exam reveals normal bowel sounds, soft non tender, no masses Extremities are nonedematous and both pedal pulses are present Neurologic exam is alert and oriented, no focal loss of strength or sensation Skin is without bruises or rashes Psychologically is without concerns for anxiety or depression Results & Data Results & Data ([facility]) Vital Signs (Past 12 Hours) Vital Signs Temp Pulse Pulse Resp BP BP Pulse Ox 02/05/21 15:56 97.9 F 66 16 103/67 100 02/05/21 15:29 97.9 F 96 H 16 106/64 100 02/05/21 15:05 97.9 F 61 16 97/58 L 100 02/05/21 14:55 72 16 106/63 99 02/05/21 14:45 64 16 98/64 L 99 02/05/21 14:35 82 16 108/61 100 02/05/21 14:25 82 16 113/58 L 100 02/05/21 14:18 97.3 F L 83 16 116/60 100 02/05/21 09:43 98.6 F 57 L 20 136/77 99 PG Care Time/CCT Total # of Minutes Spent Total Time Spent with Patient: Total time spent is greater than 50% in coordination of care (as documented) at patient's floor/unit and/or counseling patient: Coding Level of Care Code 88716 Inpt Consult Level 3 Diagnoses Neurogenic claudication due to lumbar spinal stenosis M48.062 Hypertension I10 Diastolic dysfunction I51.89 Depression with anxiety F41.8
[2021-02-05] MEDS: LACTATED RINGER'S 1,000 ML IV SCH ×2 (17:02→20:01)
[2021-02-05] MEDS: HYDROmorphone INJ 0.5 MG/0.5 ML SYR IV PRN ×2 (17:07→20:51)
[2021-02-05] MEDS: ceFAZolin 2000MG 2,000 MG/15 ML SYR IV SCH (20:02)
[2021-02-05] MEDS: KETOROLAC TROMETHAMINE 15 MG/ML VIAL IV SCH (20:02)
[2021-02-05] MEDS: DOCUSATE SODIUM/SENNA 50/8.6MG TAB PO SCH (20:03)
[2021-02-05] MEDS: TOPIRAMATE 50 MG TAB PO SCH (20:06)
[2021-02-05] MEDS: ATENOLOL 50 MG TABLET PO SCH (20:07)
[2021-02-06] MEDS: KETOROLAC TROMETHAMINE 15 MG/ML VIAL IV SCH ×3 (01:39→13:50)
[2021-02-06] MEDS: ceFAZolin 2000MG 2,000 MG/15 ML SYR IV SCH (04:31)
[2021-02-06] MEDS: oxyCODONE HCL IR 5 MG TAB (IMMEDIATE RELEASE) PO PRN ×4 (04:31→20:45)
[2021-02-06] MEDS: POLYETHYLENE (MIRALAX) 17 GM PACK PO SCH ×3 (05:45→17:35)
[2021-02-06 06:56] LABS: Basophils # (auto) 0.01 K/uL (0-0.2); Basophils % (auto) 0.1 %; Eosinophils # (auto) 0.01 K/uL (0-0.5); Eosinophils % (auto) 0.1 %; Hematocrit (blood only) 31.3 % (37-47); Hemoglobin 10.1 g/dL (12.0-16.0); Immature Granulocytes # (auto) 0.01 K/uL (0.00-0.02); Immature Granulocytes % (auto) 0.1 %; Lymphocytes # (auto) 1.41 K/uL (1.2-3.4); Lymphocytes % (auto) 14.6 %; Mean Corpuscular Hemoglobin 28.6 pg (25-34); Mean Corpuscular Hgb Conc 32.3 g/dL (32-36); Mean Corpuscular Volume 88.7 fL (80-100); Monocytes # (auto) 0.45 K/uL (0.11-0.59); Monocytes % (auto) 4.7 %; Neutrophils # (auto) 7.76 K/uL (1.4-6.5); Neutrophils % (auto) 80.4 %; Platelet Count 221 K/uL (130-400); RDW Coefficient of Variation 14.8 % (11.5-14.5); RDW Standard Deviation 48.3 fL (36.4-46.3); Red Blood Count 3.53 M/uL (4.2-5.4); White Blood Count 9.65 K/uL (4.8-10.8)
[2021-02-06 07:29] LABS: Calcium 8.5 mg/dl (8.5-10.1); Creatinine Clr Calc Pharmacy 81.8 ml/min; Est GFR (African American) 95.8 ml/min; Est GFR (Non-African American) 82.6 ml/min; Potassium 3.2 mmol/L (3.5-5.1)
[2021-02-06] MEDS ORDERED: POTASSIUM CHLORIDE CRTAB 20 MEQ TABCR PO STA (07:48)
--- NOTE | 2021-02-06 07:53 | Hospitalist Progress Note ---
Date of Service February 06, 2021 Assessment & Plan (1) Neurogenic claudication due to lumbar spinal stenosis: POD#1 s/p L3-L5 decompression fusion and bone grafting with Dr. Wesley. Pre-op h/h 13.1/39.4. EBL 320cc H/h dropped to 10.1/31.3 -- acute blood loss anemia from surgery as well as dilutional from volume resuscitation Will order 1L NSS +20K for today PT/OT/pain management/DVT prophylaxis per primary service Labs in AM (2) Hypertension: Chronic Has been hypotensive 96/53- will hold morning atenolol as well as her losartan and HCTZ but will likely be able to resume in AM, kidney function acceptable Lasix held -- utilized prn Continue to monitor (3) Diastolic dysfunction: As mentioned patient is being hydrated in the perioperative period due to blood loss and volume loss from surgery. Her diuretics are held at this time she is maintained on atenolol which will be held this morning but she did get her evening dose of 50mg last night HCTZ and losartan on hold as above but likely resume in AM 02/07 No volume overload on examination (4) Depression with anxiety: Patient remains on Thorazine at bedtime with Topamax. Dispo: anticipate d/c in next 1-2 days per primary service Thank you for allowing hospitalist service to participate in the care of Ms Baker. Hospitalist service will follow along. Admission and Anticipated Discharge Date Admission Date: February 05, 2021 Subjective Patient evaluated this morning. Slightly tearful initially as she was excited to eat and got out of bed to chair with minimal amount of twisting. Pain with movement but resolved immediately. No increased numbness/tingling. Discussed should be ok but alert for red flag signs. Pain controlled...did have some lower abdominal discomfort this morning but has resolved since, felt like period cramps. Eating/drinking without issues. Not passing or BM. Getting miralax as I was leaving. No abdominal pain. DId have BM prior to surgery yesterday. Carson removed this morning and she has urinated since that time, small amount. No fever, chills, chest pain, shortness of breath, abdominal pain, nausea, vomiting. Questions/concerns addressed at this time. Review of Systems Review of Systems: All systems reviewed & are unremarkable except as noted in HPI & below Physical Exam Physical Exam: The patient appeared well nourished and normally developed. Sitting up in chair. Initially tearful about twisting, but calmed down during discussion. Head exam is normocephalic atraumatic Neck is without JVD, thyromegaly, or carotid bruits. Lungs are clear to auscultation, no focal loss of breath sounds Cardiac exam, Rhythm is regular.. No murmurs, rubs or gallops. NO EDEMA Abdominal exam reveals +BS, hypoactive. non-tender, non-distended. Extremities are nonedematous and both pedal pulses are present Neurologic exam is alert and oriented, no focal loss of strength or sensation. dressing to lumbar spine c/d/i. GUSTAVO with 20-25cc bloody drainage. NVI. strength equal bilaterally Skin warm, dry Psychologically: AOx3, pleasant Results & Data Results & Data ([facility]) Vital Signs (Past 12 Hours) Vital Signs Temp Pulse Resp BP Pulse Ox 02/06/21 07:30 36.9 C 78 16 96/53 L 98 02/06/21 03:31 36.5 C 93 H 16 94/57 L 100 02/05/21 23:20 36.3 C L 92 H 16 97/57 L 97 02/05/21 20:02 98/64 L Laboratory Results 02/06/21 02/06/21 02/06/21 Range/Units 06:10 06:10 06:10 WBC 9.65 (4.8-10.8) K/uL RBC 3.53 L (4.2-5.4) M/uL Hgb 10.1 L (12.0-16.0) g/dL Hct 31.3 L (37-47) % MCV 88.7 (80-100) fL MCH 28.6 (25-34) pg MCHC 32.3 (32-36) g/dL RDW Std Deviation 48.3 H (36.4-46.3) fL RDW Coeff of Judah 14.8 H (11.5-14.5) % Plt Count 221 (130-400) K/uL MPV 11.0 H (7.4-10.4) fL Immature Gran % (Auto) 0.1 % Neut % (Auto) 80.4 % Lymph % (Auto) 14.6 % Sutton % (Auto) 4.7 % Eos % (Auto) 0.1 % Baso % (Auto) 0.1 % Neut # (Auto) 7.76 H (1.4-6.5) K/uL Lymph # (Auto) 1.41 (1.2-3.4) K/uL Sutton # (Auto) 0.45 (0.11-0.59) K/uL Eos # (Auto) 0.01 (0-0.5) K/uL Baso # (Auto) 0.01 (0-0.2) K/uL Immature Gran # (Auto) 0.01 (0.00-0.02) K/uL Sodium 140 (136-145) mmol/L Potassium 3.2 L (3.5-5.1) mmol/L Chloride 106 (98-107) mmol/L Carbon Dioxide 27 (21-32) mmol/L Anion Gap 7.0 (3-11) BUN 12 (7-18) mg/dl Creatinine 0.78 (0.6-1.2) mg/dl Est Cr Clr Drug Dosing 81.8 ml/min Est GFR ( Amer) 95.8 ml/min Est GFR (Non-Af Amer) 82.6 ml/min BUN/Creatinine Ratio 15.0 (10-20) Glucose 134 H (70-99) mg/dl Calcium 8.5 (8.5-10.1) mg/dl Magnesium 2.1 (1.8-2.4) mg/dl Hepatitis C Ab Screen (Neg) 02/05/21 Range/Units 09:49 WBC (4.8-10.8) K/uL RBC (4.2-5.4) M/uL Hgb (12.0-16.0) g/dL Hct (37-47) % MCV (80-100) fL MCH (25-34) pg MCHC (32-36) g/dL RDW Std Deviation (36.4-46.3) fL RDW Coeff of Judah (11.5-14.5) % Plt Count (130-400) K/uL MPV (7.4-10.4) fL Immature Gran % (Auto) % Neut % (Auto) % Lymph % (Auto) % Sutton % (Auto) % Eos % (Auto) % Baso % (Auto) % Neut # (Auto) (1.4-6.5) K/uL Lymph # (Auto) (1.2-3.4) K/uL Sutton # (Auto) (0.11-0.59) K/uL Eos # (Auto) (0-0.5) K/uL Baso # (Auto) (0-0.2) K/uL Immature Gran # (Auto) (0.00-0.02) K/uL Sodium (136-145) mmol/L Potassium (3.5-5.1) mmol/L Chloride (98-107) mmol/L Carbon Dioxide (21-32) mmol/L Anion Gap (3-11) BUN (7-18) mg/dl Creatinine (0.6-1.2) mg/dl Est Cr Clr Drug Dosing ml/min Est GFR ( Amer) ml/min Est GFR (Non-Af Amer) ml/min BUN/Creatinine Ratio (10-20) Glucose (70-99) mg/dl Calcium (8.5-10.1) mg/dl Magnesium (1.8-2.4) mg/dl Hepatitis C Ab Screen Neg (Neg) PG Care Time/CCT Total # of Minutes Spent Total Time Spent with Patient: Total time spent is greater than 50% in coordination of care (as documented) at patient's floor/unit and/or counseling patient: Coding Level of Care Code 29406 Subseq Hosp Care Lvl 3 Diagnoses Neurogenic claudication due to lumbar spinal stenosis M48.062 Hypertension I10 Diastolic dysfunction I51.89 Depression with anxiety F41.8
[2021-02-06] MEDS: ESTROGENS, CONJUGATED 0.625 MG TAB PO SCH (08:47)
[2021-02-06] MEDS: MULTIVITAMIN TAB PO SCH (08:47)
[2021-02-06] MEDS: CHOLECALCIFEROL 1,000 UNITS 25 MCG TAB PO SCH (08:47)
[2021-02-06] MEDS: PANTOprazole 40 MG TAB PO SCH (08:48)
[2021-02-06] MEDS ORDERED: ATENOLOL 25 MG TABLET PO SCH (09:00)
[2021-02-06] MEDS ORDERED: hydroCHLOROthiazide 25 MG TAB PO SCH (09:00)
[2021-02-06] MEDS ORDERED: LOSARTAN POTASSIUM 50 MG TAB PO SCH (09:00)
--- NOTE | 2021-02-06 12:59 | Orthopedic Progress Note ---
Date of Service February 06, 2021 Assessment & Plan (1) Neurogenic claudication due to lumbar spinal stenosis: Admission and Anticipated Discharge Date Admission Date: February 05, 2021 At this time continue physical therapy monitor GUSTAVO operatively discharge home the next day or so. Subjective Back pain controlled leg pain markedly improved Physical Exam Physical Exam: Patient is in the chair at bedside has good strength testing. Appears comfortable. Results & Data ([facility]) Vital Signs (Past 12 Hours) Vital Signs Temp Pulse Resp BP Pulse Ox 02/06/21 12:48 36.7 C 78 16 118/69 100 02/06/21 07:30 36.9 C 78 16 96/53 L 98 02/06/21 03:31 36.5 C 93 H 16 94/57 L 100
[2021-02-06] MEDS ORDERED: POTASSIUM CHLORIDE 20 MEQ in SODIUM CHLORIDE 0.9% 1000ML 1,000 ML IV SCH (13:00)
[2021-02-06] MEDS: ATENOLOL 50 MG TABLET PO SCH (20:44)
[2021-02-06] MEDS: DOCUSATE SODIUM/SENNA 50/8.6MG TAB PO SCH (20:45)
[2021-02-06] MEDS: TOPIRAMATE 50 MG TAB PO SCH (20:45)
[2021-02-07] MEDS: POLYETHYLENE (MIRALAX) 17 GM PACK PO SCH ×3 (00:38→11:53)
[2021-02-07] MEDS: oxyCODONE HCL IR 5 MG TAB (IMMEDIATE RELEASE) PO PRN ×4 (01:34→15:34)
[2021-02-07] MEDS: ONDANSETRON INJ 2 MG/ML 2 ML VIAL IV PRN ×2 (07:55→13:35)
[2021-02-07] MEDS: MULTIVITAMIN TAB PO SCH (07:58)
[2021-02-07] MEDS: ESTROGENS, CONJUGATED 0.625 MG TAB PO SCH (07:59)
[2021-02-07] MEDS: CHOLECALCIFEROL 1,000 UNITS 25 MCG TAB PO SCH (08:00)
[2021-02-07] MEDS: PANTOprazole 40 MG TAB PO SCH (08:04)
[2021-02-07] MEDS ORDERED: hydroCHLOROthiazide 25 MG TAB PO SCH (09:00)
[2021-02-07] MEDS ORDERED: dexAMETHasone 8 MG in SYRINGE 0 ML IV SCH (09:00)
--- NOTE | 2021-02-07 09:04 | Hospitalist Progress Note ---
Date of Service February 07, 2021 Assessment & Plan (1) Neurogenic claudication due to lumbar spinal stenosis: POD#2 s/p L3-L5 decompression fusion and bone grafting with Dr. Wesley. Pre-op h/h 13.1/39.4. EBL 320cc H/h dropped to 10.1/31.3 post-op-- acute blood loss anemia from surgery as well as dilutional from volume resuscitation Got 1L IVF 02/06 for hypotension/lightheadedness GUSTAVO output 470cc + 235cc On Dexamethasone post-op PT/OT/pain management per primary service --> has been utilizing oxycodone 10mg (x4 doses and 1 dose 5mg since 02/06) --> passing lots of gas. feels she will have BM at home CBC pending for AM -- stable drop and excepted to improve with decreased GUSTAVO output Of note, patient did have episode of twisting getting out of bed yesterday -- no issues per discussion with primary D/c this afternoon once GUSTAVO drain removed per primary Some nausea since d/c scop patch from surgery since admin of pain medications. Relieved with zofran and sent rx at d/c for patient while on pain medication (2) Hypertension: Chronic BP 122/74 Continued HCTZ Can resume losartan tomorrow (3) Diastolic dysfunction: As mentioned patient hydrated in the perioperative period due to blood loss and volume loss from surgery and additional 1L on 02/06 HCTZ continued today. Losartan to resume in AM No need for lasix while inpatient (4) Depression with anxiety: Patient remains on Thorazine at bedtime with Topamax. Dispo: discharge home this afternoon per primary service 16:00 Thank you for allowing hospitalist service to participate in the care of Ms Baker. Hospitalist service will sign off. Admission and Anticipated Discharge Date Admission Date: February 05, 2021 Supervising Physician Co-Signing Physician Notes PA Supervision Note: I did not personally see or examine the patient today, but I verified all drew points of KEAGAN Cabrera's assessment and plan with the following exceptions/additions: None Subjective Patient seen this morning.. Doing well. Eating/drinking no concerns. Did have scopolamine patch on for nausea for surgery and since removal and pain medications she did have some nausea resolved with zofran. Will send rx for same at d/c while on pain medications. Passing lots of gas but no BM. Thinks she will be more comfortable at home. Plans for d/c this afternoon 1600 after drain pulled. No fever, chills, chest pain, shortness of breath, abdominal pain, vomiting or dysuria at this time. Review of Systems Review of Systems: All systems reviewed & are unremarkable except as noted in HPI & below Physical Exam Physical Exam: The patient appeared well nourished and normally developed. Sitting up in chair.NAD, comfortable Head exam is normocephalic atraumatic Neck is without JVD, thyromegaly, or carotid bruits. Lungs are clear to auscultation, no focal loss of breath sounds Cardiac exam, Rhythm is regular.. No murmurs, rubs or gallops. NO EDEMA Abdominal exam reveals +BS. non-tender, non-distended. Extremities are nonedematous and both pedal pulses are present Neurologic exam is alert and oriented, no focal loss of strength or sensation. dressing to lumbar spine c/d/i. GUSTAVO with 20-25cc bloody drainage. NVI. strength equal bilaterally Skin warm, dry Psychologically: AOx3, pleasant Results & Data Results & Data ([facility]) Vital Signs (Past 12 Hours) Vital Signs Temp Pulse Pulse Resp BP BP Pulse Ox 02/07/21 07:58 36.9 C 89 13 100/66 95 02/07/21 06:49 36.8 C 87 20 105/66 99 02/06/21 23:25 36.8 C 74 16 101/65 100 Laboratory Results 02/07/21 02/07/21 02/05/21 Range/Units 09:09 09:09 09:49 WBC 7.97 (4.8-10.8) K/uL RBC 3.28 L (4.2-5.4) M/uL Hgb 9.4 L (12.0-16.0) g/dL Hct 29.0 L (37-47) % MCV 88.4 (80-100) fL MCH 28.7 (25-34) pg MCHC 32.4 (32-36) g/dL RDW Std Deviation 49.7 H (36.4-46.3) fL RDW Coeff of Judah 15.2 H (11.5-14.5) % Plt Count 212 (130-400) K/uL MPV 10.8 H (7.4-10.4) fL Sodium 138 (136-145) mmol/L Potassium 4.1 D (3.5-5.1) mmol/L Chloride 108 H (98-107) mmol/L Carbon Dioxide 25 (21-32) mmol/L Anion Gap 5.0 (3-11) BUN 10 (7-18) mg/dl Creatinine 0.60 (0.6-1.2) mg/dl Est Cr Clr Drug Dosing 106.3 ml/min Est GFR ( Amer) 114.8 ml/min Est GFR (Non-Af Amer) 99.1 ml/min BUN/Creatinine Ratio 16.2 (10-20) Glucose 97 (70-99) mg/dl Calcium 8.6 (8.5-10.1) mg/dl Crossmatch See Detail PG Care Time/CCT Total # of Minutes Spent Total Time Spent with Patient: Total time spent is greater than 50% in coordination of care (as documented) at patient's floor/unit and/or counseling patient: Coding Level of Care Code 72745 Subseq Hosp Care Lvl 3 Diagnoses Neurogenic claudication due to lumbar spinal stenosis M48.062 Hypertension I10 Diastolic dysfunction I51.89 Depression with anxiety F41.8
[2021-02-07 09:24] LABS: Hemoglobin 9.4 g/dL (12.0-16.0); Mean Corpuscular Hemoglobin 28.7 pg (25-34); Mean Corpuscular Hgb Conc 32.4 g/dL (32-36); Mean Corpuscular Volume 88.4 fL (80-100); Mean Platelet Volume 10.8 fL (7.4-10.4); Platelet Count 212 K/uL (130-400); RDW Coefficient of Variation 15.2 % (11.5-14.5); RDW Standard Deviation 49.7 fL (36.4-46.3); Red Blood Count 3.28 M/uL (4.2-5.4); White Blood Count 7.97 K/uL (4.8-10.8)
[2021-02-07 10:00] LABS: BUN Creatinine Ratio 16.2 (10-20); Calcium 8.6 mg/dl (8.5-10.1); Creatinine Clr Calc Pharmacy 106.3 ml/min; Est GFR (African American) 114.8 ml/min; Est GFR (Non-African American) 99.1 ml/min; Potassium 4.1 mmol/L (3.5-5.1)
--- NOTE | 2021-02-07 10:32 | Discharge Summary ---
Date of Service February 07, 2021 Admission HPI Per Admitting Provider This is a 60-year-old female who presents with chronic persistent back and leg pain. Failing since course of nonoperative care she is here for surgical invention. Principal Diagnosis Lumbar spinal stenosis with neurogenic claudication Discharge Data Allergies Allergy/AdvReac Type Severity Reaction Status Date / Time No Known Allergies Allergy Unknown Verified 02/05/21 09:52 Consultations 02/05/21 16:21 Consult Hospitalist Routine Procedures Performed Operation Date: 02/05/21 11:05 Actual Procedures p L3-L5 Decompression/Fusion, Spinal Cord Monitoring, Application of Bone Graft - Arnold Wesley DO Ordered Studies 02/05/21 [place] lumbar spine 2-3V Routine Hospital Course (1) Neurogenic claudication due to lumbar spinal stenosis: Patient with lumbar decompression fusion trial as well as taken from orthopedic for postoperative. Postop day 1 she was up and ambulating progressed to postop day #2. Pain was well controlled. Excellent strength testing. Subsequent discharge home. Discharge orders instructions from the chart for further review. Total Time Total Time Spent Total Time Spent (In Minutes): 20 minutes Discharge Plan Discharge Items Patient Disposition: Home - Self-Care Reason For Visit: Spinal Stenosis, Lumbar Region with Neurogenic Discharge Diagnosis: Lumbar spinal stenosis with neurogenic claudication Activity: As commented below Non-emergency contact: Primary Care Provider Call non-emergency contact if: you have any medication questions Follow-up/Referrals: Chapito Simpson [Primary Care Provider] - Diet: Regular Addtl Attending Provider Instructions: ACTIVITY RECOMMENDATIONS: SELF CARE INSTRUCTIONS AFTER THORACIC/LUMBAR FUSIONS 1. You may walk to your tolerance. It is good exercise for your legs and back. Expect some back and intermittent leg aches and pains. 2. You may perform "counter-top" level activities (make a sandwich, shayan with a project, etc.). 3. No bending or lifting of more than 10 pounds or back twisting of any nature (roll like a log when turning in bed). 4. You may ride in a car for 20-30 minutes at a time. No driving until after your first visit with your doctor. 5. Frequent changes of position and restricting sitting to 30 minutes at a time will help limit the amount of back spasms and stiffness you may experience. 6. You may discontinue the use of ambulatory aids (cane, crutches, etc.) once your strength and confidence allow. 7. You may yield improvement engineer the shower and let water strike your incision when you arrive home at least once daily. Do not take a tub bath, sit in a hot tub or go into a swimming pool until after your first recheck in the office. SPECIAL CARE INSTRUCTIONS: VERY IMPORTANT TO READ AND REVIEW A. Your surgical incision has been closed with a cosmetic suture under the skin that will dissolve in about 6 weeks. In 14 days, you can use a pair of clean scissors and cut the suture that is left outside of the skin at the ends of your incision. 1. The small skin tapes can be removed 7 days after surgery if they have not fallen off by that point. 2. You may keep the wound open to air as much as possible to promote healing after post-op day number 5 unless told otherwise by your doctor. 3. If you think the wound looks like it is becoming infected (redness or worsening drainage) and/or you are experiencing fever, chill or worsening back pain and muscle spasms, contact the office so that we may evaluate you as soon as possible. B. Complications are uncommon, but please contact us if you have any signs or symptoms of: 1. wound infection (fever higher than 102.5 degrees F, redness, separation of wound, drainage, or increasing pain from the incision) 2. blood clots in legs (pain, swelling, redness and warmth in legs) 3. urinary tract infection (fever higher than 102.5 degrees F, burning upon urination or increased frequency of urination) 4. nerve problems (inability to walk on your toes or heels, numbness, loss of bowel or bladder control) 5. any other symptoms that concern you C. Please call the office at if you have any concerns or questions about your operation or recovery. D. No smoking! Smoking drastically decreases the chance of a solid fusion. E. Do not take any anti-inflammatory medications (Indocin, Advil, Motrin, Aspirin, Naprosyn, etc.) as these may inhibit the chance of a solid fusion. Tylenol is okay to take for pain. MANAGING PAIN AFTER SPINAL SURGERY 1. Narcotic medication is intended for short-term use and will be provided for surgical pain. Surgical pain usually lasts for a period of 4-6 weeks. Narcotic medication includes Percocet, Vicodin, Darvocet, Tylenol #3 or Lortab. 2. Longer-term pain is more appropriately treated with non-narcotic medication such as Tylenol ES. 3. Muscle spasm is not appropriately treated with narcotics. Muscle relaxers such as Soma, Flexeril or Skelaxin can be used along with Tylenol ES. 4. Remember that we all live with some "aches and pains". This is not unusual or uncommon after an injury or as we get older. a. Back pain is expected and may include muscle spasms for 4 to 6 weeks after surgery. The pain should gradually improve. If the pain worsens for no apparent reason, please contact the office. b. Intermittent leg pain may also be experienced and should not be concerned about unless it worsens for no apparent reason. If so, please contact the office. 5. We will provide appropriate medication within the normal guidelines of their prescribed use. We will also be very cautious and aware of potential abuse and extended duration of patients' medication needs. a. Pain medications are for your comfort and to assist with sleep and rest so that the tissue can heal. They are not provided in order to return to normal activity and should not be used through the day. To do so or worsening pain at night can result from ongoing tissue damage and development of tolerance to the prescribed medicine. 6. Please allow 2-3 days to process refills. Prescriptions will not be mailed but must be picked up at the office. FOLLOW UP VISIT: Keep your scheduled follow-up appointment. Any questions, please call the office at . Pending Studies at Discharge: No Stand-Alone Forms: My [facility], Smoking Cessation Medications and HI Order Prescriptions: New tramadol 50 mg tablet 50 mg PO Q6H PRN (Reason: pain, moderate) Qty: 30 RF: 0 oxycodone 5 mg tablet 5 mg PO Q6H PRN (Reason: pain, severe) Qty: 30 RF: 0 Continued topiramate 25 mg tablet 50 mg PO HS Qty: 60 RF: 2 Premarin 1.25 mg tablet 1.25 mg PO DAILY Qty: 30 RF: 2 phentermine 15 mg capsule 15 mg PO DAILY Qty: 30 RF: 1 furosemide 40 mg Tablet 40 mg PO DAILY PRN (Reason: Edema) RF: 0 losartan 100 mg Tablet 100 mg PO QAM RF: 0 omeprazole magnesium [Prilosec OTC] 20 mg Tablet,Delayed Release (Dr/Ec) 20 mg PO QAM RF: 0 cholecalciferol (vitamin D3) [Vitamin D3] 1,000 unit Tablet,Chewable 1,000 unit PO QAM RF: 0 acetaminophen 500 mg Tablet 1,000 mg PO Q8 PRN (Reason: pain/fevers) Qty: 90 RF: 0 hydrochlorothiazide 25 mg tablet 25 mg PO QAM RF: 0 trazodone 50 mg tablet 50 - 100 mg PO HS PRN (Reason: Sleep) RF: 0 atenolol 50 mg tablet 50 mg PO UD RF: 0 multivitamin Tablet 1 tab PO QAM RF: 0 multivitamin with minerals [Hair,Skin and Nails] Tablet 2 tab PO QAM RF: 0 apple cider vinegar 500 mg Tablet 500 mg PO UD RF: 0 Discontinued diclofenac sodium 75 mg tablet,delayed release (DR/EC) 75 mg PO BID RF: 0 Discharge Orders: Discharge Order (Routine); Ordered 02/07/21 Ordered By: Arnold Wesley Admission Data Admit Date/Time: 02/05/21 14:26 Attending Provider: Arnold Wesley Admit Provider: Arnold Wesley Primary Care Provider: Chapito Simpson Other Providers: Sarai Cooper
== END 2021-02-07 16:12 | disposition home or self-care (01) | DRG 454 ==
LOC: ASU 09:24 → 3E 14:26

== ENCOUNTER 2021-07-16 14:46 | Inpatient (IN) ==
[2021-07-16] MEDS ORDERED: PIPERACILL/TAZOBAC CONSULT ACTIVE PRN ×2 (15:28→19:11)
[2021-07-16] MEDS ORDERED: DAPTOmycin 500 MG in SYRINGE 0 ML IV ONE (15:28)
[2021-07-16] MEDS ORDERED: PIPERACILLIN/TAZOBACTAM 4.5 GM/120 ML BAG IV ONE (15:28)
[2021-07-16] MEDS ORDERED: SODIUM CHLORIDE 0.9% 1000ML 1,000 ML IV SCH (15:30)
[2021-07-16] MEDS ORDERED: ONDANSETRON INJ 2 MG/ML 2 ML VIAL IV STA (15:32)
[2021-07-16] MEDS: fentaNYL citrate 100 MCG/2 ML VIAL IV PRN ×7 (15:42→23:34)
[2021-07-16 15:46] LABS: Hematocrit (blood only) 36.6 % (37-47); Hemoglobin 12.3 g/dL (12.0-16.0); Mean Corpuscular Hemoglobin 25.2 pg (25-34); Mean Corpuscular Hgb Conc 33.6 g/dL (32-36); Mean Platelet Volume 9.2 fL (7.4-10.4); Platelet Count 660 K/uL (130-400); RDW Coefficient of Variation 16.5 % (11.5-14.5); RDW Standard Deviation 45.5 fL (36.4-46.3); Red Blood Count 4.88 M/uL (4.2-5.4); White Blood Count 37.31 K/uL (4.8-10.8)
[2021-07-16 16:08] LABS: Alanine Aminotransferase 14 U/L (12-78); Albumin Globulin Ratio 0.5 (0.9-2); Albumin Level 2.7 gm/dl (3.4-5.0); Alkaline Phosphatase 82 U/L (45-117); Aspartate Aminotransferase 11 U/L (15-37); Bilirubin,Total 0.3 mg/dl (0.2-1); Blood Urea Nitrogen 37 mg/dl (7-18); Calcium 9.5 mg/dl (8.5-10.1); Carbon Dioxide 23 mmol/L (21-32); Chloride 93 mmol/L (98-107); Est GFR (African American) 14.3 ml/min; Est GFR (Non-African American) 12.3 ml/min; Globulin 5.8 gm/dl (2.5-4.0); Glucose 125 mg/dl (70-99); Lipase 66 U/L (73-393); Potassium 2.3 mmol/L (3.5-5.1); Sodium 131 mmol/L (136-145); Total Protein 8.5 gm/dl (6.4-8.2); Troponin I < 0.015 ng/ml (0-0.045)
[2021-07-16] MEDS ORDERED: SODIUM CHLORIDE 0.9% 1000ML 1,000 ML IV ONE (16:09)
[2021-07-16] MEDS ORDERED: SODIUM CHLORIDE 0.9% 1000ML 500 ML IV ONE (16:09)
--- NOTE | 2021-07-16 16:14 | CT Scan Report ---
CT SCAN OF THE ABDOMEN AND PELVIS WITHOUT IV CONTRAST CLINICAL HISTORY: Sepsis. COMPARISON STUDY: Pelvic MRI dated 11/08/2020. TECHNIQUE: CT scan of the abdomen and pelvis is performed from the lung bases to the proximal femora. Images are reviewed in the axial, sagittal, and coronal planes. IV contrast was not administered for this examination. Note that the examination was performed in significantly suboptimal fashion withou t oral and IV contrast. A dose lowering technique was utilized adhering to the principles of ALARA. CT DOSE: 1067.06 mGycm FINDINGS: Lung bases: The heart is normal in size and without pericardial effusion. The lung bases are clear no ting bibasilar scarring/atelectasis. Bilateral breast implants are in place. Liver: The unenhanced liver is normal in size, contour, and attenuation. There is no intrahepatic jayesh iary ductal dilatation. Gallbladder: Surgically absent noting clips in the gallbladder fossa. Spleen: Normal in size and attenuation. Pancreas: Unremarkable. Adrenal glands: Unremarkable. Kidneys: The unenhanced kidneys are normal in size and without hydronephrosis. There is a 2 mm nonobs tructing calculus in the right upper pole. A punctate nonobstructing calculus is seen in the left upp er pole. No ureteral stone is identified. There is no evidence of contour deforming renal mass lesion . Abdominal vasculature: The abdominal aorta is normal in course and caliber noting moderate atheroscle rotic calcification. Stomach and bowel: Postoperative change is noted in the stomach. There is moderate colonic diverticul osis. There is wall thickening with significant surrounding inflammation involving the sigmoid colon. Acute diverticulitis is not excluded. No bowel obstruction is seen. There are numerous thick-walled loops of small bowel in the pelvis, which also includes the distal/terminal ileum. The appendix is w ell-visualized and normal. Peritoneum: Diffuse infiltration is seen throughout the lower mesentery/pelvis. No intraperitoneal fr ee air is identified. There is a thick walled collection in the deep pelvis between the rectum and th e vagina seen on image #392. This measures 7.6 x 8.5 x 8.3 cm. An additional collection in the left u pper pelvis on image #327 measures 3.6 x 3.9 x 3.0 cm, and a collection is seen along the medial aspe ct of the proximal sigmoid colon on image #363 measuring 2.2 x 2.8 x 5.0 cm. This collection contains foci of gas. Additional 2.6 x 1.7 cm pocket of fluid is seen in the anterior upper pelvis on image # 334. Lymphadenopathy: None. Pelvic viscera: The bladder is decompressed and appears thick walled. There is surrounding inflammati on. The uterus is surgically absent. No adnexal lesion is seen. Skeletal structures: The skeletal structures are osteopenic. Spondylotic and postoperative change is seen throughout the lumbar spine. No lytic or blastic lesions are seen. IMPRESSION: 1. Significantly suboptimal examination without oral and IV contrast. 2. There is sigmoid diverticulosis with evidence of acute diverticulitis. 3. No definite free intraperitoneal free air is seen. 4. There is evidence of peritonitis, likely related to perforated diverticulitis. There are at least 4 developing fluid collection with peritoneal thickening as detailed above. These likely represent de veloping abscesses. 5. There are thick-walled loops of small bowel in the lower abdomen/pelvis which includes the distal/ terminal ileum. This may be related to adjacent inflammation/peritonitis. Correlate clinically for ev idence of a concordant enteritis. 6. The bladder wall appears thickened and there is surrounding inflammation. Correlate with clinical findings and urinalysis. 7. Bilateral nephrolithiasis. 8. Additional findings as above. ACT 112: Negative or not required by law. Electronically signed by: Ronan Jurado M.D. 07/16/2021 4:13 PM
[2021-07-16] MEDS: POTASSIUM CHLORIDE / WTR 10 MEQ/100 ML PLCT IV SCH ×3 (16:33→23:34)
[2021-07-16] MEDS ORDERED: CASPOFUNGIN 70 MG in SODIUM CHLORIDE 0.9% 250 ML IV STA (16:47)
[2021-07-16] MEDS ORDERED: SODIUM CHLORIDE 0.9% 1000ML 1,000 ML IV STA (16:49)
[2021-07-16 16:52] LABS: Appearance Urine Turbid (Clear); Bacteria Urine Automated 1+ (Negative); Blood Urine Trace (Negative); Color Urine Dark Yellow; Epithelial Cell Urine Auto >30 /lpf (0-5); Glucose Urine UA Negative (Negative); Ketones Urine Trace (Negative); Leukocyte Esterase Urine Negative (Negative); Nitrite Urine Negative (Negative); Protein Urine 2+ (Negative); Specific Gravity Urine 1.022 (1.000-1.030); Urobilinogen Urine Negative (Negative); WBC Urine Automated >30 /hpf (0-5)
[2021-07-16 16:54] LABS: Bilirubin Urine 1+ (Negative)
[2021-07-16 17:11] LABS: Cast Urine Automated 0 /lpf (0-5)
--- NOTE | 2021-07-16 17:25 | Emergency Department Note ---
Impression & Plan Sepsis, Colonic diverticular abscess, Acute renal failure (ARF), Leukocytosis, Hypokalemia ED Provider Note INFORMANT: Patient and ED PROVIDER(S): Hi Coe MD CHIEF COMPLAINT: Abdominal pain PLAN: Disposition: Admitted Condition: Critical Outpatient prescription management: none Referral: None MEDICAL DECISION MAKING: Patient presented to the emergency department because of abdominal pain. Her abdominal examination was very concerning for a surgical abdomen. The patient had an IV established. She was hypotensive and fluids were initiated. Broad- spectrum antibiotics with Zosyn and daptomycin were also ordered. Blood cultures, lactate, and urinalysis ordered as well. The patient was taken emergently to CT imaging after receiving fentanyl for symptom control. She was found to have multiple diverticular abscesses with one very large abscess in the lower pelvis posteriorly. I did discuss this with Dr. Mamadou wood. He noted that the larger abscess could be amenable to intervention by his team tomorrow if the patient remained stable. He recommended surgical consultation. The patient was given additional IV fluids for a 30 mL/kg bolus. She was started on normal saline at 200 mL an hour. Her blood work showed a significant leukocytosis of 37,000 and a potassium of 2.3. She was given IV potassium. She is in acute renal failure which I suspect is dehydration as she has not been eating or drinking for several days. The patient became hypotensive down into the 70s. By the start of the second liter she was responding and blood pressu res bounce back into the 90s. She is not overtly tachycardic but is on atenolol. I discussed the need for inpatient treatment with her and her . They were in agreement. I did consult with Dr. Mccloud of general surgery. He will come and evaluate the patient and determine if she can be m anaged medically throughout the night and have the abscess drained tomorrow. He may need to take her to the operating room if she is not responding appropriately. The case was discussed with Dr. Guy of the ICU. He agreed the patient is septic and asked for a dose of caspofungin. He asked for medicine to admit the patient to the ICU.a The case was discussed with of the [facility]. He will admit the patient. I did discuss the consultation with radiology, surgery, and ICU with him. Triage Nursing notes reviewed and agree them. Vital Signs: reviewed and remarkable for hypotension Differential diagnosis: Sepsis, perforated viscus, intra-abdominal abscess, diverticulitis, appendicitis, UTI, pneumonia, metabolic, electrolyte abnormalities, cardiac sources, intracerebral event, toxicologic, neurologic, as well as other pathologies. Diagnostics interpreted by me: ECG: Twelve-lead ECG reveals normal sinus rhythm at 71 bpm. Lateral T wave abnormality present. Low voltage QRS. No ST elevation. No PACs or PVCs. Cardiac Monitoring: Cardiac monitoring ordered by me: The patient was placed on continuous cardiac monitoring and observed. It revealed a normal sinus rhythm at 69 beats per minute without ectopy or evidence of dysrhythmia. Imaging studies: CT scan of the abdomen pelvis as above. Multiple diverticular abscesses. I refer you to the EMR for further details. HPI: The patient is a 61 year old female who presents to the Emergency Room with complaints of abdominal pain. This started over a week ago and is much worse over the last 3 days. The patient also notes the following associated symptoms, poor appetite mild nausea. Pain is located generalized but started in the lower abdomen. The patient has found no relieving factors. Current pain is rated as 8/10. Pt denies LOC, headache, fevers, chills, diaphoresis, visual changes, ne ck pain, chest pain, breathing difficulties, vomiting, back pain, melena, hematochezia, urinary symptoms, numbness, weakness, lymphadenopathy, rash, or other complaints. ROS: See above HPI for pertinent positives & negatives. A total of 10 systems reviewed and were otherwise negative. PAST MEDICAL HISTORY:See Below , sciatica PAST SURGICAL HISTORY:See Below, bariatric surgery FAMILY HISTORY:See Below SOCIAL HISTORY:See Below, HOME MEDICATIONS:See Below ALLERGIES:See Below VITALS:See Below PHYSICAL EXAMINATION: GENERAL: Awake, alert, very uncomfortable-appearing, in no distress HENT: Normocephalic, atraumatic. Oropharynx unremarkable. EYES: Normal conjunctiva. Sclera non-icteric. NECK: Inspection normal. Non-tender. Supple. No nuchal rigidity. FROM. No masses. RESPIRATORY: Clear to auscultation. No wheezes. No rales. Normal respiratory effort. CARDIAC: Normal rate. Normal rhythm. No murmurs. No rubs. Extremities warm and well perfused. Pulses equal. No JVD. GI: Mildly rigid, minimally-distended. Diffuse tenderness to palpation. Rebound and guarding. No masses. RECTAL: Deferred. MUSCULOSKELETAL: Atraumatic. Chest examination reveals no tenderness. The back is symmetrical on inspection without obvious abnormality. There is no CVA tenderness to palpation. No joint edema. LOWER EXTREMITIES: Calves are equal size bilaterally and non-tender. No edema. No discoloration. NEURO: Normal sensorium. No sensory or motor deficits noted. SKIN: No rash or jaundice noted. CRITICAL CARE: I have personally spent greater than 75 minutes of critical care time in the direct management of this patient. This includes bedside care, interpretation of diagnostic studies, and testing, discussion with consultants, patient, and family members, and other required patient management activities. These minutes are in excess of all separately billable procedures. Hi Coe MD Past Med/Surg History Medical History Arthritis GERD (gastroesophageal reflux disease) controlled H/O cold sores Hiatal hernia History of claustrophobia Hx of endometriosis Hypertension Obesity Scoliosis TMJ (dislocation of temporomandibular joint) + jaw pain (wears mouth guard at night) Surgical History H/O abdominoplasty History of bilateral saline breast implants History of bladder surgery Sling History of cholecystectomy History of colonoscopy History of dilatation and curettage Multiple History of esophagogastroduodenoscopy (EGD) History of knee replacement B/L TKA (10/25/19): SAB at L3/L4 (x1 attempt) + PNB at [facility] History of laparoscopy History of tonsillectomy History of tooth extraction History of total abdominal hysterectomy and bilateral salpingo-oophorectomy Family History Sister Family history of diabetes mellitus Sister Family history of diabetes mellitus Sister Family history of diabetes mellitus Brother Family history of diabetes mellitus Hypertension Mother Family hx of colon cancer Family history of diabetes mellitus Hypertension Brother Family history of diabetes mellitus Father Diabetes Hypertension Family history of diabetes mellitus Social History Smoking Status: Never smoker Second Hand Exposure: No; Hx Alcohol Use: No Hx Substance Use: No Preferred Language: Liberian Communication Ability: Effective Qualitative Researcher Required: No Beliefs That Will Affect Care: None marital status: Life Partner Current Living Situation: Significant Other Feels Safe at Home: Yes Assistive Devices: None Allergies Allergies Allergy/AdvReac Type Severity Reaction Status Date / Time No Known Allergies Allergy Unknown Verified 07/16/21 17:07 Home Meds Home Medications Medication Instructions Recorded Confirmed cholecalciferol (vitamin D3) 25 1,000 unit PO QAM 09/23/19 07/16/21 mcg (1,000 unit) chewable tablet (Vitamin D3) furosemide 40 mg tablet 40 mg PO DAILY PRN 09/23/19 07/16/21 losartan 100 mg tablet 100 mg PO QAM 09/23/19 07/16/21 omeprazole magnesium 20 mg 20 mg PO QAM 09/23/19 07/16/21 tablet,delayed release (Prilosec OTC) hydrochlorothiazide 25 mg tablet 25 mg PO QAM tab 06/08/20 07/16/21 trazodone 50 mg tablet 50 - 100 mg PO HS PRN tab 06/08/20 07/16/21 atenolol 50 mg tablet 50 mg PO BID tab 06/14/21 07/16/21 ibuprofen 200 mg tablet (Advil) 200 mg PO Q6H PRN 07/16/21 07/16/21 Previous Rx's Medication Instructions Recorded conjugated estrogens 1.25 mg 1.25 mg PO DAILY #30 tab 06/05/20 tablet (Premarin) phentermine 15 mg capsule 15 mg PO DAILY #30 cap 06/14/21 topiramate 25 mg tablet 75 mg PO HS #90 tab 06/14/21 Results & Data (ED) Vital Signs Vital Signs - 24 hr 07/16/21 14:49 07/16/21 15:22 07/16/21 15:58 Temperature 36.6 C Temperature Source Oral Pulse Rate 77 71 Pulse Rate from SpO2 Sensor 67 Respiratory Rate 16 16 Respiratory Effort / Characteristics Non-Labored Respiratory Depth Normal Blood Pressure 98/48 L Blood Pressure [Left Arm] 96/60 L Blood Pressure Mean 64 Blood Pressure Mean [Left Arm] 72 Pulse Oximetry 99 98 Oxygen Delivery Method Room Air Sepsis Recent Fever Within 48 Hours No Sepsis New/Unexplained Change in Mental Status No Sepsis Action Taken by Nursing No Action Required 07/16/21 16:00 07/16/21 16:15 07/16/21 16:32 Temperature Temperature Source Pulse Rate 70 77 75 Pulse Rate from SpO2 Sensor 71 63 Respiratory Rate 17 13 18 Respiratory Effort / Characteristics Respiratory Depth Blood Pressure 88/46 L Blood Pressure [Left Arm] Blood Pressure Mean 60 Blood Pressure Mean [Left Arm] Pulse Oximetry 98 95 95 Oxygen Delivery Method Sepsis Recent Fever Within 48 Hours Sepsis New/Unexplained Change in Mental Status Sepsis Action Taken by Nursing 07/16/21 16:45 07/16/21 17:00 Temperature Temperature Source Pulse Rate 104 H 69 Pulse Rate from SpO2 Sensor 66 Respiratory Rate 18 16 Respiratory Effort / Characteristics Respiratory Depth Blood Pressure 90/56 L 92/55 L Blood Pressure [Left Arm] Blood Pressure Mean 67 67 Blood Pressure Mean [Left Arm] Pulse Oximetry 100 Oxygen Delivery Method Sepsis Recent Fever Within 48 Hours Sepsis New/Unexplained Change in Mental Status Sepsis Action Taken by Nursing Laboratory Data Result diagrams: 07/16/21 15:16 07/16/21 15:16 Lab Results 07/16/21 07/16/21 07/16/21 Range/Units 15:16 15:16 15:30 WBC 37.31 H* (4.8-10.8) K/uL RBC 4.88 (4.2-5.4) M/uL Hgb 12.3 (12.0-16.0) g/dL Hct 36.6 L (37-47) % MCV 75.0 L (80-100) fL MCH 25.2 (25-34) pg MCHC 33.6 (32-36) g/dL RDW Std Deviation 45.5 (36.4-46.3) fL RDW Coeff of Judah 16.5 H (11.5-14.5) % Plt Count 660 H (130-400) K/uL MPV 9.2 (7.4-10.4) fL Sodium 131 L (136-145) mmol/L Potassium 2.3 L* (3.5-5.1) mmol/L Chloride 93 L (98-107) mmol/L Carbon Dioxide 23 (21-32) mmol/L Anion Gap 14.0 H (3-11) BUN 37 H (7-18) mg/dl Creatinine 3.74 H (0.6-1.2) mg/dl Est Cr Clr Drug Dosing Not Reportable Est GFR ( Amer) 14.3 ml/min Est GFR (Non-Af Amer) 12.3 ml/min BUN/Creatinine Ratio 10.0 (10-20) Glucose 125 H (70-99) mg/dl Lactate (0.4-2.0) mmol/L Calcium 9.5 (8.5-10.1) mg/dl Total Bilirubin 0.3 (0.2-1) mg/dl AST 11 L (15-37) U/L ALT 14 (12-78) U/L Alkaline Phosphatase 82 (45-117) U/L Troponin I < 0.015 (0-0.045) ng/ml Total Protein 8.5 H (6.4-8.2) gm/dl Albumin 2.7 L (3.4-5.0) gm/dl Globulin 5.8 H (2.5-4.0) gm/dl Albumin/Globulin Ratio 0.5 L (0.9-2) Lipase 66 L (73-393) U/L Urine Color Urine Appearance (Clear) Urine pH (4.5-7.5) Ur Specific [place] (1.000-1.030) Urine Protein (Negative) Urine Glucose (UA) (Negative) Urine Ketones (Negative) Urine Blood (Negative) Urine Nitrite (Negative) Urine Bilirubin (Negative) Urine Urobilinogen (Negative) Ur Leukocyte Esterase (Negative) Urine WBC (Auto) (0-5) /hpf Urine RBC (Auto) (0-4) /hpf U Hyaline Cast (Auto) (0-5) /lpf U Epithel Cells (Auto) (0-5) /lpf Urine Bacteria (Auto) (Negative) COVID-19 Eval Order Covid19 at [facility] SARS-CoV-2 (PCR) (Negative) 07/16/21 07/16/21 07/16/21 Range/Units 15:30 15:40 16:15 WBC (4.8-10.8) K/uL RBC (4.2-5.4) M/uL Hgb (12.0-16.0) g/dL Hct (37-47) % MCV (80-100) fL MCH (25-34) pg MCHC (32-36) g/dL RDW Std Deviation (36.4-46.3) fL RDW Coeff of Judah (11.5-14.5) % Plt Count (130-400) K/uL MPV (7.4-10.4) fL Sodium (136-145) mmol/L Potassium (3.5-5.1) mmol/L Chloride (98-107) mmol/L Carbon Dioxide (21-32) mmol/L Anion Gap (3-11) BUN (7-18) mg/dl Creatinine (0.6-1.2) mg/dl Est Cr Clr Drug Dosing Est GFR ( Amer) ml/min Est GFR (Non-Af Amer) ml/min BUN/Creatinine Ratio (10-20) Glucose (70-99) mg/dl Lactate 1.1 (0.4-2.0) mmol/L Calcium (8.5-10.1) mg/dl Total Bilirubin (0.2-1) mg/dl AST (15-37) U/L ALT (12-78) U/L Alkaline Phosphatase (45-117) U/L Troponin I (0-0.045) ng/ml Total Protein (6.4-8.2) gm/dl Albumin (3.4-5.0) gm/dl Globulin (2.5-4.0) gm/dl Albumin/Globulin Ratio (0.9-2) Lipase (73-393) U/L Urine Color Dark Yellow Urine Appearance Turbid A (Clear) Urine pH 5.0 (4.5-7.5) Ur Specific [place] 1.022 (1.000-1.030) Urine Protein 2+ H (Negative) Urine Glucose (UA) Negative (Negative) Urine Ketones Trace H (Negative) Urine Blood Trace H (Negative) Urine Nitrite Negative (Negative) Urine Bilirubin 1+ H (Negative) Urine Urobilinogen Negative (Negative) Ur Leukocyte Esterase Negative (Negative) Urine WBC (Auto) >30 H (0-5) /hpf Urine RBC (Auto) 10-30 H (0-4) /hpf U Hyaline Cast (Auto) 0 (0-5) /lpf U Epithel Cells (Auto) >30 H (0-5) /lpf Urine Bacteria (Auto) 1+ H (Negative) COVID-19 Eval Order SARS-CoV-2 (PCR) NEGATIVE (Negative) Administered Medications Fentanyl Citrate (Fentanyl Citrate 100 Mcg/2 Ml Vial) 50 mcg IV Q15M PRN PRN Reason: Pain Stop: 07/30/21 15:31 Last Admin: 07/16/21 17:01 Dose: 50 mcg Documented by: [id number] Admin: 07/16/21 16:33 Dose: 50 mcg Documented by: [id number] Admin: 07/16/21 15:42 Dose: 50 mcg Documented by: [id number] Potassium Chloride (K Yong / Wtr) 10 meq in 100 mls @ 100 mls/hr IV Q1H DIANA Stop: 07/16/21 18:14 Last Admin: 07/16/21 16:33 Dose: 100 mls/hr Documented by: [id number] Sodium Chloride (Nss 1000ml) 1,000 mls @ 200 mls/hr IV .Q5H STA Stop: 07/16/21 21:48 Last Admin: 07/16/21 17:01 Dose: 200 mls/hr Documented by: [id number] Discontinued Medications Piperacillin Sod/Tazobactam Sod (Zosyn) 4.5 gm in 120 mls @ 240 mls/hr IV NOW ONE Stop: 07/16/21 15:57 Last Infusion: 07/16/21 16:09 Dose: 0 mls/hr Documented by: [id number] Admin: 07/16/21 15:39 Dose: 240 mls/hr Documented by: [id number] Daptomycin 500 mg/ Syringe 10 mls @ 5 mls/min IV NOW ONE; Protocol Stop: 07/16/21 15:29 Last Admin: 07/16/21 16:11 Dose: 5 mls/min Documented by: [id number] Sodium Chloride (Nss 1000ml) 1,000 mls @ 999 mls/hr IV .Q1H1M DIANA Stop: 07/16/21 16:30 Last Infusion: 07/16/21 16:39 Dose: 0 mls/hr Documented by: [id number] Admin: 07/16/21 15:39 Dose: 999 mls/hr Documented by: [id number] Sodium Chloride (Nss 1000ml) 1,000 mls @ 999 mls/hr IV .Q1H1M ONE Stop: 07/16/21 17:09 Last Admin: 07/16/21 16:12 Dose: 999 mls/hr Documented by: [id number] Sodium Chloride (Nss 1000ml) 500 mls @ 999 mls/hr IV .Q31M ONE Stop: 07/16/21 16:39 Last Infusion: 07/16/21 16:42 Dose: 0 mls/hr Documented by: [id number] Admin: 07/16/21 16:12 Dose: 999 mls/hr Documented by: [id number] Ondansetron HCl (Ondansetron Inj 2 Mg/Ml 2 Ml Vial) 4 mg IV NOW STA Stop: 07/16/21 15:33 Last Admin: 07/16/21 15:42 Dose: 4 mg Documented by: [id number] Imaging Data Radiologist's Impression: Abdomen/Pelvis CT 07/16/21 15:32 CT SCAN OF THE ABDOMEN AND PELVIS WITHOUT IV CONTRAST CLINICAL HISTORY: Sepsis. COMPARISON STUDY: Pelvic MRI dated 11/08/2020. TECHNIQUE: CT scan of the abdomen and pelvis is performed from the lung bases to the proximal femora. Images are reviewed in the axial, sagittal, and coronal planes. IV contrast was not administered for this examination. Note that the examination was performed in significantly suboptimal fashion without oral and IV contrast. A dose lowering technique was utilized adhering to the principles of ALARA. CT DOSE: 1067.06 mGycm FINDINGS: Lung bases: The heart is normal in size and without pericardial effusion. The lung bases are clear noting bibasilar scarring/atelectasis. Bilateral breast implants are in place. Liver: The unenhanced liver is normal in size, contour, and attenuation. There is no intrahepatic biliary ductal dilatation. Gallbladder: Surgically absent noting clips in the gallbladder fossa. Spleen: Normal in size and attenuation. Pancreas: Unremarkable. Adrenal glands: Unremarkable. Kidneys: The unenhanced kidneys are normal in size and without hydronephrosis. There is a 2 mm nonobstructing calculus in the right upper pole. A punctate nonobstructing calculus is seen in the left upper pole. No ureteral stone is identified. There is no evidence of contour deforming renal mass lesion. Abdominal vasculature: The abdominal aorta is normal in course and caliber noting moderate atherosclerotic calcification. Stomach and bowel: Postoperative change is noted in the stomach. There is moderate colonic diverticulosis. There is wall thickening with significant surrounding inflammation involving the sigmoid colon. Acute diverticulitis is not excluded. No bowel obstruction is seen. There are numerous thick-walled loops of small bowel in the pelvis, which also includes the distal/terminal ileum. The appendix is well-visualized and normal. Peritoneum: Diffuse infiltration is seen throughout the lower mesentery/pelvis. No intraperitoneal free air is identified. There is a thick walled collection in the deep pelvis between the rectum and the vagina seen on image #392. This measures 7.6 x 8.5 x 8.3 cm. An additional collection in the left upper pelvis on image #327 measures 3.6 x 3.9 x 3.0 cm, and a collection is seen along the medial aspect of the proximal sigmoid colon on image #363 measuring 2.2 x 2.8 x 5.0 cm. This collection contains foci of gas. Additional 2.6 x 1.7 cm pocket of fluid is seen in the anterior upper pelvis on image #334. Lymphadenopathy: None. Pelvic viscera: The bladder is decompressed and appears thick walled. There is surrounding inflammation. The uterus is surgically absent. No adnexal lesion is seen. Skeletal structures: The skeletal structures are osteopenic. Spondylotic and postoperative change is seen throughout the lumbar spine. No lytic or blastic lesions are seen. IMPRESSION: 1. Significantly suboptimal examination without oral and IV contrast. 2. There is sigmoid diverticulosis with evidence of acute diverticulitis. 3. No definite free intraperitoneal free air is seen. 4. There is evidence of peritonitis, likely related to perforated diverticulitis. There are at least 4 developing fluid collection with peritoneal thickening as detailed above. These likely represent developing abscesses. 5. There are thick-walled loops of small bowel in the lower abdomen/pelvis which includes the distal/terminal ileum. This may be related to adjacent inflammation /peritonitis. Correlate clinically for evidence of a concordant enteritis. 6. The bladder wall appears thickened and there is surrounding inflammation. Correlate with clinical findings and urinalysis. 7. Bilateral nephrolithiasis. 8. Additional findings as above. ACT 112: Negative or not required by law. Electronically signed by: Ronan Jurado M.D. 07/16/2021 4:13 PM Discharge Plan Visit Data Chief Complaint: Abdominal Pain Stated Complaint: ABDOMINAL PAIN ED Provider: Hi Coe Discharge Problem: Sepsis, Colonic diverticular abscess, Acute renal failure (ARF), Leukocytosis, Hypokalemia Forms Stand Alone Forms: [employer] Prescriptions Prescriptions: No Action Premarin 1.25 mg tablet 1.25 mg PO DAILY Qty: 30 RF: 2 topiramate 25 mg tablet 75 mg PO HS Qty: 90 RF: 2 phentermine 15 mg capsule 15 mg PO DAILY Qty: 30 RF: 1 furosemide 40 mg Tablet 40 mg PO DAILY PRN (Reason: Edema) RF: 0 losartan 100 mg Tablet 100 mg PO QAM RF: 0 omeprazole magnesium [Prilosec OTC] 20 mg Tablet,Delayed Release (Dr/Ec) 20 mg PO QAM RF: 0 cholecalciferol (vitamin D3) [Vitamin D3] 1,000 unit Tablet,Chewable 1,000 unit PO QAM RF: 0 hydrochlorothiazide 25 mg tablet 25 mg PO QAM RF: 0 trazodone 50 mg tablet 50 - 100 mg PO HS PRN (Reason: Sleep) RF: 0 atenolol 50 mg tablet 50 mg PO BID RF: 0 ibuprofen [Advil] 200 mg Tablet 200 mg PO Q6H PRN (Reason: Pain) RF: 0 Referrals Referrals: Chapito Simpson [Primary Care Provider] -
--- NOTE | 2021-07-16 17:41 | History & Physical Report ---
Date of Service July 16, 2021 Assessment & Plan (1) Sepsis: Plan: Loretta Baker is a 61yo F who presents with sepsis 2/2 colonic diverticular abscesses Sepsis 2/2 Colonic Diverticular Abscess - CT: Significantly suboptimal examination without oral and IV contrast. There is sigmoid diverticulosis with evidence of acute diverticulitis. No definite free intraperitoneal free air is seen. There is evidence of peritonitis, likely related to perforated diverticulitis. There are at least 4 developing fluid collection with peritoneal thickening as detailed above. These likely represent developing abscesses. There are thick-walled loops of small bowel in the lower abdomen/pelvis which includes the distal/terminal ileum. This may be related to adjacent inflammation/peritonitis. Correlate clinically for evidence of a concordant enteritis. The bladder wall appears thickened and there is surrounding inflammation. Correlate with clinical findings and urinalysis. Bilateral nephrolithiasis. Additional findings as above. - Gen Surgery Consulted. Pt to be observed in ICU overnight, anticipate attempted drainage by radiology tomorrow morning. If patient decompensates would require emergent surgical intervention. - Discussed w/ radiology by ER pratik. May be able to perform CT guided drainage tomorrow morning w/ Dr. Cedillo. Unable to transfer at this time due to bed availability. - WBC 37.31, hypotensive to systolic 70s, tachycardic on admission - Continue Zosyn/Dapto/caspofungin -Lactic acid 1.1 Status post 30 cc/kg crystalloid infusion Continue Normosol 125 cc/h (2) Colonic diverticular abscess: Plan: - As above (3) Acute renal failure (ARF): Plan: - Baseline Cr <1 - Cr 3.74 on admission. 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 Feeling better now with abx/fluids. 1wk abdominal pain 'Excruciating' since 2 days ago. Didn't come in at that time because felt very weak. Had diarrhea and had difficulty making it ot the car. No history of similar symptoms. Colonoscopy in [facility] ~2019. Polyps and some diverticulosis, otherwise normal. No past history of diverticulitis, FHX of diverticulitis in brother Has not taken medications yet today. Last took meds yesterday. Takes lasix PRN for leg swelling, has not needed recently. No history of ID. SHX: cholecystectomy, gastroplasty, abdominoplasty. Additional surgical history reviewed as below Medical History: Reviewed Medications: Reviewed Surgical History: Reviewed Allergies: Reviewed. Yeast infection with PCN, no allergies. Social History: Reviewed as below Code Status: Full code Allergies Allergy/AdvReac Type Severity Reaction Status Date / Time No Known Allergies Allergy Unknown Verified 07/16/21 17:07 Home Medications Medication Instructions Recorded Confirmed Type cholecalciferol (vitamin D3) 25 1,000 unit PO QAM 09/23/19 07/16/21 History mcg (1,000 unit) chewable tablet (Vitamin D3) furosemide 40 mg tablet 40 mg PO DAILY PRN 09/23/19 07/16/21 History losartan 100 mg tablet 100 mg PO QAM 09/23/19 07/16/21 History omeprazole magnesium 20 mg 20 mg PO QAM 09/23/19 07/16/21 History tablet,delayed release (Prilosec OTC) conjugated estrogens 1.25 mg 1.25 mg PO DAILY #30 tab 06/05/20 07/16/21 Rx tablet (Premarin) hydrochlorothiazide 25 mg tablet 25 mg PO QAM tab 06/08/20 07/16/21 History trazodone 50 mg tablet 50 - 100 mg PO HS PRN tab 06/08/20 07/16/21 History atenolol 50 mg tablet 50 mg PO BID tab 06/14/21 07/16/21 History phentermine 15 mg capsule 15 mg PO DAILY #30 cap 06/14/21 07/16/21 Rx topiramate 25 mg tablet 75 mg PO HS #90 tab 06/14/21 07/16/21 Rx ibuprofen 200 mg tablet (Advil) 200 mg PO Q6H PRN 07/16/21 07/16/21 History Past Med/Surg History Medical History Arthritis GERD (gastroesophageal reflux disease) controlled H/O cold sores Hiatal hernia History of claustrophobia Hx of endometriosis Hypertension Obesity Scoliosis TMJ (dislocation of temporomandibular joint) + jaw pain (wears mouth guard at night) Surgical History H/O abdominoplasty History of bilateral saline breast implants History of bladder surgery Sling History of cholecystectomy History of colonoscopy History of dilatation and curettage Multiple History of esophagogastroduodenoscopy (EGD) History of knee replacement B/L TKA (10/25/19): SAB at L3/L4 (x1 attempt) + PNB at [facility] History of laparoscopy History of tonsillectomy History of tooth extraction History of total abdominal hysterectomy and bilateral salpingo-oophorectomy Family History Sister Family history of diabetes mellitus Sister Family history of diabetes mellitus Sister Family history of diabetes mellitus Brother Family history of diabetes mellitus Hypertension Mother Family hx of colon cancer Family history of diabetes mellitus Hypertension Brother Family history of diabetes mellitus Father Diabetes Hypertension Family history of diabetes mellitus Social History Smoking Status: Never smoker Second Hand Exposure: No; Hx Alcohol Use: No Hx Substance Use: No Preferred Language: Polish Communication Ability: Effective Academic Intern Required: No Beliefs That Will Affect Care: None marital status: Life Partner Current Living Situation: Significant Other Feels Safe at Home: Yes Assistive Devices: None Review of Systems Review of Systems: Constitutional: As noted in HPI Eyes: Denies vision change ENT: Denies ear pain, sore throat, sinus pain Cardiovascular: Denies Chest pain, chest pressure, palpitations, extremity swelling. Respiratory: Denies shortness of breath, cough, sputum production, difficulty breathing Gastrointestinal: As noted in HPI Genitourinary: Denies dysuria, urinary frequency. Oliguria Musculoskeletal: Denies acute focal weakness, muscle aches/pain, joint aches/pain Integumentary:Denies acute rash, lesions, bruising Neurological: Denies headache, numbness, tingling, focal weakness Physical Exam Physical Exam: General: A&Ox3. NAD. Cooperative. HEENT: Atraumatic, normocephalic. Visual acuity grossly intact, hearing grossly intact. Pulm: CTAB A&P. -wheezes, -rales, -rhonchi. Symmetrical chest rise. No increase work of breathing. No respiratory distress. Cardiac: RRR, -mrg. Radial pulses intact and symmetrical. Abdominal: Diffusely tender with rebound and guarding. Extremities: Warm, dry. Cap refill less than 2 seconds at time of assessment. Steam Table Worker strength, ankle dorsiflexion/plantar flexion intact and symmetrical. Sensation to soft touch intact in hands and feet bilaterally. Results & Data Results & Data ([facility]) Vital Signs (Past 12 Hours) Vital Signs Temp Pulse Resp BP BP Pulse Ox 07/16/21 17:00 69 16 92/55 L 100 07/16/21 16:45 104 H 18 90/56 L 07/16/21 16:32 75 18 95 07/16/21 16:15 77 13 88/46 L 95 07/16/21 16:00 70 17 98 07/16/21 15:58 71 16 98 07/16/21 15:22 96/60 L 07/16/21 14:49 36.6 C 77 16 98/48 L 99 PG Care Time/CCT Total # of Minutes Spent Total Time Spent with Patient: Total time spent is greater than 50% in coordination of care (as documented) at patient's floor/unit and/or counseling patient: Coding Level of Care Code 95310 Initial Inpt Care Lvl 3 Diagnoses Sepsis A41.9 Colonic diverticular abscess K57.20 Acute renal failure (ARF) N17.9 Hypokalemia E87.6 Hypertension I10 Diastolic dysfunction I51.89 Postmenopausal HRT (hormone replacement therapy) Z79.890 Depression with anxiety F41.8
[2021-07-16 17:42] LABS: Basophils # (auto) 0.03 K/uL (0-0.2); Basophils % (auto) 0.1 %; Eosinophils # (auto) 0.06 K/uL (0-0.5); Eosinophils % (auto) 0.2 %; Hypochromasia Present; Immature Granulocytes # (auto) 0.17 K/uL (0.00-0.02); Immature Granulocytes % (auto) 0.5 %; Lymphocytes # (auto) 1.24 K/uL (1.2-3.4); Lymphocytes % (auto) 3.3 %; Monocytes # (auto) 1.62 K/uL (0.11-0.59); Monocytes % (auto) 4.3 %; Neutrophils # (auto) 34.19 K/uL (1.4-6.5); Neutrophils % (auto) 91.6 %; Poikilocytosis Present; Polychromasia 1+
--- NOTE | 2021-07-16 18:58 | Surgery Consultation ---
Date of Consultation July 16, 2021 Assessment & Plan (1) Colonic diverticular abscess: 61-year-old female with what appears to be diverticular abscess. She seems to be responding to resuscitation attempts in the emergency department. We discussed her options to include laparotomy with Vegas's procedure now versus attempted resuscitation with IV antibiotics and IV fluids and potential drainage of the larger fluid collection tomorrow morning. I discussed this with the patient and her , as well as the admitting hospitalist and on-call critical care attending. At this point we agreed to allow for resuscitation and plan for percutaneous drainage in the morning. If this is unsuccessful or she has an acute change overnight we will plan for the operating room. We could attempt a laparoscopic abscess drainage and washout versus laparotomy with Vegas's procedure. No surgical intervention at this time Appreciate hospitalist and critical care assistance with this patient Admit to ICU, n.p.o., IV fluids, IV antibiotics Attempt percutaneous drainage in the morning Smaller fluid collections will hopefully resolve with IV antibiotics If patient decompensates or condition worsens, we will potentially need laparotomy with Vegas's procedure If drainage unsuccessful but patient stable, may plan for laparoscopic drainage and washout We did discuss the risks of exploratory laparotomy with bowel resection and likely ostomy to include but not limited to bleeding, infection, need for future more extensive surgery, open abdomen, damage to surrounding structures, and the risk of anesthesia Surgery will continue to follow, please call with questions or concerns (2) Sepsis: (3) Acute renal failure (ARF): (4) Hypokalemia: (5) BMI 34.0-34.9,adult: History of Present Illness Reason for Consultation: diverticulitis with abscess History of Present Illness 61-year-old female presented to the emergency department with chief complaint of abdominal pain. This started about a week ago with some problems with going to the bathroom. Over the weekend her pain became quite severe and she was unable to sleep or eat or drink anything Friday and Friday. She did have multiple episodes of diarrhea. She has never had symptoms quite like this before. She has had intermittent constipation and diarrhea over the past several years. She had a colonoscopy in [place] around 2019 that was normal per the patient except for some small polyps and diverticulosis. She has never had an episode of diverticulitis in the past. She has had laparoscopic cholecystectomy along with what appears to be a vertical banded gastroplasty or other restrictive gastric device. On presentation to the emergency department she was hypertensive, and was noted to have an elevated white count of 37 with acute kidney injury, hypokalemia, hyponatremia. Her CT scan was somewhat limited due to lack of oral and IV contrast but did show what appears to be diverticulitis with a few small abscesses and one large pelvic fluid collection and is up to 9 cm in size. She endorses generalized weakness and fatigue along with some chills. She had pain with position changes. She is not on any blood thinners. Allergies Allergy/AdvReac Type Severity Reaction Status Date / Time No Known Allergies Allergy Unknown Verified 07/16/21 17:07 Home Medications Medication Instructions Recorded Confirmed Type cholecalciferol (vitamin D3) 25 1,000 unit PO QAM 09/23/19 07/16/21 History mcg (1,000 unit) chewable tablet (Vitamin D3) furosemide 40 mg tablet 40 mg PO DAILY PRN 09/23/19 07/16/21 History losartan 100 mg tablet 100 mg PO QAM 09/23/19 07/16/21 History omeprazole magnesium 20 mg 20 mg PO QAM 09/23/19 07/16/21 History tablet,delayed release (Prilosec OTC) conjugated estrogens 1.25 mg 1.25 mg PO DAILY #30 tab 06/05/20 07/16/21 Rx tablet (Premarin) hydrochlorothiazide 25 mg tablet 25 mg PO QAM tab 06/08/20 07/16/21 History trazodone 50 mg tablet 50 - 100 mg PO HS PRN tab 06/08/20 07/16/21 History atenolol 50 mg tablet 50 mg PO BID tab 06/14/21 07/16/21 History phentermine 15 mg capsule 15 mg PO DAILY #30 cap 06/14/21 07/16/21 Rx topiramate 25 mg tablet 75 mg PO HS #90 tab 06/14/21 07/16/21 Rx ibuprofen 200 mg tablet (Advil) 200 mg PO Q6H PRN 07/16/21 07/16/21 History Patient History Medical History Arthritis GERD (gastroesophageal reflux disease) controlled H/O cold sores Hiatal hernia History of claustrophobia Hx of endometriosis Hypertension Obesity Scoliosis TMJ (dislocation of temporomandibular joint) + jaw pain (wears mouth guard at night) Surgical History H/O abdominoplasty History of bilateral saline breast implants History of bladder surgery Sling History of cholecystectomy History of colonoscopy History of dilatation and curettage Multiple History of esophagogastroduodenoscopy (EGD) History of knee replacement B/L TKA (10/25/19): SAB at L3/L4 (x1 attempt) + PNB at [facility] History of laparoscopy History of tonsillectomy History of tooth extraction History of total abdominal hysterectomy and bilateral salpingo-oophorectomy Family History Sister Family history of diabetes mellitus Sister Family history of diabetes mellitus Sister Family history of diabetes mellitus Brother Family history of diabetes mellitus Hypertension Mother Family hx of colon cancer Family history of diabetes mellitus Hypertension Brother Family history of diabetes mellitus Father Diabetes Hypertension Family history of diabetes mellitus Social History Smoking Status: Never smoker Second Hand Exposure: No; Hx Alcohol Use: No Hx Substance Use: No Preferred Language: Greek Communication Ability: Effective Polisher And Sander Required: No Beliefs That Will Affect Care: None marital status: Life Partner Current Living Situation: Significant Other Feels Safe at Home: Yes Assistive Devices: None Review of Systems Review of Systems: All systems reviewed & are unremarkable except as noted in HPI & below Physical Exam Constitutional: WD/WN, vitals as above + acute distress (Mild), + ill appearing and + obese Respiratory: normal respiratory effort, lungs clear to auscultation Cardiovascular: RRR, no murmur, no edema Gastrointestinal (Abdomen): Inspection/Auscultation: + abdominal surgical scar Percussion/Palpation: + abdomen tender (Tenderness to palpation with guarding and lower abdomen, no rebound), + guarding (Lower abdomen) and abdomen soft; abdomen not rigid, no hepatosplenomegaly and no hernia Results & Data ([facility]) Vital Signs (Past 12 Hours) Vital Signs Temp Pulse Resp BP BP Pulse Ox 07/16/21 18:43 78 14 101/74 98 07/16/21 18:15 79 15 07/16/21 18:00 72 15 101/71 97 07/16/21 17:45 73 23 102/62 07/16/21 17:30 69 17 07/16/21 17:15 68 18 91/52 L 94 07/16/21 17:00 69 16 92/55 L 100 07/16/21 16:45 104 H 18 90/56 L 07/16/21 16:32 75 18 95 07/16/21 16:15 77 13 88/46 L 95 07/16/21 16:00 70 17 98 07/16/21 15:58 71 16 98 07/16/21 15:22 96/60 L 07/16/21 14:49 36.6 C 77 16 98/48 L 99 Laboratory Results Laboratory Results - last 24 hr 07/16/21 07/16/21 07/16/21 15:16 15:16 15:30 WBC 37.31 H* RBC 4.88 Hgb 12.3 Hct 36.6 L MCV 75.0 L MCH 25.2 MCHC 33.6 RDW Std Deviation 45.5 RDW Coeff of Judah 16.5 H Plt Count 660 H MPV 9.2 Immature Gran % (Auto) 0.5 Neut % (Auto) 91.6 Lymph % (Auto) 3.3 Laurel % (Auto) 4.3 Eos % (Auto) 0.2 Baso % (Auto) 0.1 Neut # (Auto) 34.19 H Lymph # (Auto) 1.24 Laurel # (Auto) 1.62 H Eos # (Auto) 0.06 Baso # (Auto) 0.03 Immature Gran # (Auto) 0.17 H Polychromasia 1+ Hypochromasia Present Poikilocytosis Present Sodium 131 L Potassium 2.3 L* Chloride 93 L Carbon Dioxide 23 Anion Gap 14.0 H BUN 37 H Creatinine 3.74 H Est Cr Clr Drug Dosing Not Reportable Est GFR ( Amer) 14.3 Est GFR (Non-Af Amer) 12.3 BUN/Creatinine Ratio 10.0 Glucose 125 H Lactate Calcium 9.5 Total Bilirubin 0.3 AST 11 L ALT 14 Alkaline Phosphatase 82 Troponin I < 0.015 Total Protein 8.5 H Albumin 2.7 L Globulin 5.8 H Albumin/Globulin Ratio 0.5 L Lipase 66 L Urine Color Urine Appearance Urine pH Ur Specific Hematite Urine Protein Urine Glucose (UA) Urine Ketones Urine Blood Urine Nitrite Urine Bilirubin Urine Urobilinogen Ur Leukocyte Esterase Urine WBC (Auto) Urine RBC (Auto) U Hyaline Cast (Auto) U Epithel Cells (Auto) Urine Bacteria (Auto) COVID-19 Eval Order Covid19 at [facility] SARS-CoV-2 (PCR) 07/16/21 07/16/21 07/16/21 15:30 15:40 16:15 WBC RBC Hgb Hct MCV MCH MCHC RDW Std Deviation RDW Coeff of Judah Plt Count MPV Immature Gran % (Auto) Neut % (Auto) Lymph % (Auto) Laurel % (Auto) Eos % (Auto) Baso % (Auto) Neut # (Auto) Lymph # (Auto) Laurel # (Auto) Eos # (Auto) Baso # (Auto) Immature Gran # (Auto) Polychromasia Hypochromasia Poikilocytosis Sodium Potassium Chloride Carbon Dioxide Anion Gap BUN Creatinine Est Cr Clr Drug Dosing Est GFR ( Amer) Est GFR (Non-Af Amer) BUN/Creatinine Ratio Glucose Lactate 1.1 Calcium Total Bilirubin AST ALT Alkaline Phosphatase Troponin I Total Protein Albumin Globulin Albumin/Globulin Ratio Lipase Urine Color Dark Yellow Urine Appearance Turbid A Urine pH 5.0 Ur Specific Hematite 1.022 Urine Protein 2+ H Urine Glucose (UA) Negative Urine Ketones Trace H Urine Blood Trace H Urine Nitrite Negative Urine Bilirubin 1+ H Urine Urobilinogen Negative Ur Leukocyte Esterase Negative Urine WBC (Auto) >30 H Urine RBC (Auto) 10-30 H U Hyaline Cast (Auto) 0 U Epithel Cells (Auto) >30 H Urine Bacteria (Auto) 1+ H COVID-19 Eval Order SARS-CoV-2 (PCR) NEGATIVE Diagnostic Findings CT SCAN OF THE ABDOMEN AND PELVIS WITHOUT IV CONTRAST CLINICAL HISTORY: Sepsis. COMPARISON STUDY: Pelvic MRI dated 11/08/2020. TECHNIQUE: CT scan of the abdomen and pelvis is performed from the lung bases to the proximal femora. Images are reviewed in the axial, sagittal, and coronal planes. IV contrast was not administered for this examination. Note that the examination was performed in significantly suboptimal fashion without oral and IV contrast. A dose lowering technique was utilized adhering to the principles of ALARA. CT DOSE: 1067.06 mGycm FINDINGS: Lung bases: The heart is normal in size and without pericardial effusion. The lung bases are clear noting bibasilar scarring/atelectasis. Bilateral breast implants are in place. Liver: The unenhanced liver is normal in size, contour, and attenuation. There is no intrahepatic biliary ductal dilatation. Gallbladder: Surgically absent noting clips in the gallbladder fossa. Spleen: Normal in size and attenuation. Pancreas: Unremarkable. Adrenal glands: Unremarkable. Kidneys: The unenhanced kidneys are normal in size and without hydronephrosis. There is a 2 mm nonobstructing calculus in the right upper pole. A punctate nonobstructing calculus is seen in the left upper pole. No ureteral stone is identified. There is no evidence of contour deforming renal mass lesion. Abdominal vasculature: The abdominal aorta is normal in course and caliber noting moderate atherosclerotic calcification. Stomach and bowel: Postoperative change is noted in the stomach. There is moderate colonic diverticulosis. There is wall thickening with significant surrounding inflammation involving the sigmoid colon. Acute diverticulitis is not excluded. No bowel obstruction is seen. There are numerous thick-walled loops of small bowel in the pelvis, which also includes the distal/terminal ileum. The appendix is well-visualized and normal. Peritoneum: Diffuse infiltration is seen throughout the lower mesentery/pelvis. No intraperitoneal free air is identified. There is a thick walled collection in the deep pelvis between the rectum and the vagina seen on image #392. This measures 7.6 x 8.5 x 8.3 cm. An additional collection in the left upper pelvis on image #327 measures 3.6 x 3.9 x 3.0 cm, and a collection is seen along the medial aspect of the proximal sigmoid colon on image #363 measuring 2.2 x 2.8 x 5.0 cm. This collection contains foci of gas. Additional 2.6 x 1.7 cm pocket of fluid is seen in the anterior upper pelvis on image #334. Lymphadenopathy: None. Pelvic viscera: The bladder is decompressed and appears thick walled. There is surrounding inflammation. The uterus is surgically absent. No adnexal lesion is seen. Skeletal structures: The skeletal structures are osteopenic. Spondylotic and postoperative change is seen throughout the lumbar spine. No lytic or blastic lesions are seen. IMPRESSION: 1. Significantly suboptimal examination without oral and IV contrast. 2. There is sigmoid diverticulosis with evidence of acute diverticulitis. 3. No definite free intraperitoneal free air is seen. 4. There is evidence of peritonitis, likely related to perforated diverticulitis. There are at least 4 developing fluid collection with peritoneal thickening as detailed above. These likely represent developing abscesses. 5. There are thick-walled loops of small bowel in the lower abdomen/pelvis which includes the distal/terminal ileum. This may be related to adjacent inflammation/peritonitis. Correlate clinically for evidence of a concordant enteritis. 6. The bladder wall appears thickened and there is surrounding inflammation. Correlate with clinical findings and urinalysis. 7. Bilateral nephrolithiasis. 8. Additional findings as above. PG Care Time/CCT Total # of Minutes Spent Total Time Spent with Patient: Total time spent is greater than 50% in coordination of care (as documented) at patient's floor/unit and/or counseling patient: Coding Level of Care Code 09810 Office/OBS Consult Lvl 4 Diagnoses Colonic diverticular abscess K57.20 Sepsis A41.9 Acute renal failure (ARF) N17.9 Hypokalemia E87.6 BMI 34.0-34.9,adult Z68.34 Time Spent (min) 75
[2021-07-16] MEDS ORDERED: ICU PROTOCOL FOR HYPERGLYCEMIA PRN (19:11)
--- NOTE | 2021-07-16 19:41 | Critical Care Consultation ---
Date of Consultation July 16, 2021 Assessment & Plan (1) Colonic diverticular abscess: Impression: 61-year-old female presents to the ICU with sepsis secondary to diverticular abscess. Initially hypotensive but improved with IV fluid resuscitation and currently undergoing treatment with broad-spectrum antibiotics with plan to undergo percutaneous drainage in the morning. Monitoring in ICU overnight as patient high risk for decompensation requiring emergent intervention in the operating room. Neuro - [facility] ICU: Negative Cardiac - Hypotensionsecondary to sepsis, improved following IV fluid resuscitation and no indication for vasopressors at this time -Hold antihypertensives and diuretics for now -Echo 2018: Normal EF with diastolic dysfunction -Maintain maps greater than 65 -Monitor Respiratory - Currently maintaining oxygen saturation on room air, no history of pulmonary disease Continuous monitoring pulse ox GI - Colonic diverticular abscessCT abdomen pelvis: There is sigmoid diverticulosis with evidence of acute diverticulitis. No definite free intraperitoneal free air is seen. There is evidence of peritonitis, likely related to perforated diverticulitis. There are at least 4 developing fluid collection with peritoneal thickening as detailed above. These likely represent developing abscesses. There are thick-walled loops of small bowel in the lower abdomen/pelvis which includes the distal/terminal ileum. This may be related to adjacent inflammation/humberto tonitis. Correlate clinically for evidence of a concordant enteritis. The bladder wall appears thickened and there is surrounding inflammation. Correlate with clinical findings and urinalysis.Bilateral nephrolithiasis. -Surgery consulted, plan for patient to undergo percutaneous drainage in the morning but will monitor in ICU and plan for OR if patient were to decompensate. -Continue with broad-spectrum antibiotics and IV fluid resuscitation -N.p.o. RENAL/LYTES - Acute renal failurelikely secondary to ATN as patient presents with hypotension -Continue with IV fluid resuscitation, maintain maps greater than 65 -Avoid nephrotoxins renally adjust medications -Monitor creatinine and routine BMPs and replete electrolytes as indicated - Foleystrict I's and O's ENDO - No history of diabetes or thyroid disease ICU hyperglycemic protocol HEME - H&H stable, monitor routine CBC ID - Sepsissecondary to colonic diverticular abscess with evidence of perforation and peritonitis, procedural plan as above -WBC 37,000, lactate within normal limits -Blood cultures pending, UA pending -Continue intra-abdominal coverage with Zosyn and vancomycin LINES/IV ACCESS - Peripheral IVs DVT PROPHYLAXIS - SCDs, hold anticoagulation as patient likely will have procedural intervention in the morning Thank you for allowing us to participate in the care of this patient. Please refer to my attending physician's documentation for any further recommendations. (2) Sepsis: (3) Acute renal failure (ARF): (4) Leukocytosis: (5) Hypokalemia: (6) Hypertension: (7) Diastolic dysfunction: (8) Depression with anxiety: (9) Arthritis: (10) Postmenopausal HRT (hormone replacement therapy): (11) Peritonitis: History of Present Illness Attending Physician: Del Maldonado MD History of Present Illness Patient is a 61-year-old female with past medical history of anxiety/depression, hypertension, diastolic heart failure, hormone replacement therapy, and osteoarthritis who presented to the emergency department with complaints of wea kness and 1 week of abdominal pain which became severe 2 days ago. She was noted to have WBC 37,000, normal lactate, and was hypotensive which resolved with fluid resuscitation. She also had elevated creatinine of 3.7. She did undergo CT abdomen and pelvis which was consistent with perforated diverticulitis with evidence of peritonitis. Patient was evaluated by general surgery and has planned to undergo percutaneous drainage in the morning. She is undergoing treatment with broad-spectrum antibiotics for intra-abdominal coverage. On arrival to the ICU the patient is alert and oriented without acute distress and hemodynamically stable without need for vasopressors. She is comfortable on room air without any respiratory distress as well. She reports some recent dizziness/lightheadedness with standing but is currently asymptomatic and she also reports feeling weak for several days. She reports an episode of chills and diaphoresis on Friday. Her chief complaint is severe abdominal pain which is generalized but worse in the lower left quadrant. This is significantly worsened with movement and touch, and is very tender to light palpation. She denies any headaches, sore throat or congestion, cough, shortness of breath, chest pain, palpitations, diarrhea, melena, muscular weakness or numbness or swelling in hands and feet. Patient to remain in ICU for further monitoring and management at this time. If she were to decompensate will likely need emergent OR intervention. Allergies Allergy/AdvReac Type Severity Reaction Status Date / Time No Known Allergies Allergy Unknown Verified 07/16/21 17:07 Home Medications Medication Instructions Recorded Confirmed Type cholecalciferol (vitamin D3) 25 1,000 unit PO QAM 09/23/19 07/16/21 History mcg (1,000 unit) chewable tablet (Vitamin D3) furosemide 40 mg tablet 40 mg PO DAILY PRN 09/23/19 07/16/21 History losartan 100 mg tablet 100 mg PO QAM 09/23/19 07/16/21 History omeprazole magnesium 20 mg 20 mg PO QAM 09/23/19 07/16/21 History tablet,delayed release (Prilosec OTC) conjugated estrogens 1.25 mg 1.25 mg PO DAILY #30 tab 06/05/20 07/16/21 Rx tablet (Premarin) hydrochlorothiazide 25 mg tablet 25 mg PO QAM tab 06/08/20 07/16/21 History trazodone 50 mg tablet 50 - 100 mg PO HS PRN tab 06/08/20 07/16/21 History atenolol 50 mg tablet 50 mg PO BID tab 06/14/21 07/16/21 History phentermine 15 mg capsule 15 mg PO DAILY #30 cap 06/14/21 07/16/21 Rx topiramate 25 mg tablet 75 mg PO HS #90 tab 06/14/21 07/16/21 Rx ibuprofen 200 mg tablet (Advil) 200 mg PO Q6H PRN 07/16/21 07/16/21 History Patient History Medical History Arthritis GERD (gastroesophageal reflux disease) controlled H/O cold sores Hiatal hernia History of claustrophobia Hx of endometriosis Hypertension Obesity Scoliosis TMJ (dislocation of temporomandibular joint) + jaw pain (wears mouth guard at night) Surgical History H/O abdominoplasty History of bilateral saline breast implants History of bladder surgery Sling History of cholecystectomy History of colonoscopy History of dilatation and curettage Multiple History of esophagogastroduodenoscopy (EGD) History of knee replacement B/L TKA (10/25/19): SAB at L3/L4 (x1 attempt) + PNB at [facility] History of laparoscopy History of tonsillectomy History of tooth extraction History of total abdominal hysterectomy and bilateral salpingo-oophorectomy Family History Sister Family history of diabetes mellitus Sister Family history of diabetes mellitus Sister Family history of diabetes mellitus Brother Family history of diabetes mellitus Hypertension Mother Family hx of colon cancer Family history of diabetes mellitus Hypertension Brother Family history of diabetes mellitus Father Diabetes Hypertension Family history of diabetes mellitus Social History Smoking Status: Former smoker Second Hand Exposure: No; Hx Alcohol Use: Yes Alcohol type: hard liquor Hx Substance Use: No Preferred Language: Uzbek Communication Ability: Effective Crocodile Farmer Required: No Beliefs That Will Affect Care: None marital status: Life Partner Current Living Situation: Significant Other Feels Safe at Home: Yes Assistive Devices: Glasses Review of Systems Review of Systems: All systems reviewed & are unremarkable except as noted in HPI & below Physical Exam Constitutional: cooperative and comfortable; no acute distress and not lethargic Eyes: PERRL, conjunctivae normal, anicteric sclerae ENMT: external ear and nose normal, oropharynx normal Neck: trachea midline, no thyromegaly Respiratory: normal respiratory effort, lungs clear to auscultation Cardiovascular: RRR, no murmur, no edema Heart Sounds: normal S1 and normal S2 Extremities: normal capillary refill; no edema Gastrointestinal (Abdomen): Abdomen flat with mild distention and subjectively firm. Significant generalized abdominal tenderness with light palpation. Bowel sounds auscultated all 4 quadrants Musculoskeletal: no cyanosis or clubbing, extremities motor strength 5/5 Skin: no rashes, warm and dry Neurologic: PERRL, EOMI, accommodation nl, no face palsy, no dysarthria Psychiatric: A+Ox3, euthymic affect Genitourinary: Indwelling Carson catheter present Results & Data Results & Data ([facility]) Vital Signs (Past 12 Hours) Vital Signs Temp Pulse Pulse Resp BP BP Pulse Ox 07/16/21 19:13 36.6 C 75 18 101/53 L 99 07/16/21 18:43 78 14 101/74 98 07/16/21 18:15 79 15 07/16/21 18:00 72 15 101/71 97 07/16/21 17:45 73 23 102/62 07/16/21 17:30 69 17 07/16/21 17:15 68 18 91/52 L 94 07/16/21 17:00 69 16 92/55 L 100 07/16/21 16:45 104 H 18 90/56 L 07/16/21 16:32 75 18 95 07/16/21 16:15 77 13 88/46 L 95 07/16/21 16:00 70 17 98 07/16/21 15:58 71 16 98 07/16/21 15:22 96/60 L 07/16/21 14:49 36.6 C 77 16 98/48 L 99 Coding Level of Care Code 72153 Inpt Consult Level 5 Diagnoses Sepsis A41.9 Acute renal failure (ARF) N17.9 Colonic diverticular abscess K57.20 Leukocytosis D72.829 Hypokalemia E87.6 Hypertension I10 Diastolic dysfunction I51.89 Depression with anxiety F41.8 Arthritis M19.90 Postmenopausal HRT (hormone replacement therapy) Z79.890 Peritonitis K65.9
[2021-07-16] MEDS: NORMOSOL-R 1,000 ML IV SCH (19:48)
[2021-07-16 20:45] LABS: BUN Creatinine Ratio 12.3 (10-20); Calcium 7.7 mg/dl (8.5-10.1); Creatinine Clr Calc Pharmacy 21.7 ml/min; Est GFR (African American) 19.6 ml/min; Est GFR (Non-African American) 16.9 ml/min; Magnesium 2.1 mg/dl (1.8-2.4); Phosphorus 3.1 mg/dl (2.5-4.9); Potassium 2.8 mmol/L (3.5-5.1)
[2021-07-16] MEDS ORDERED: NORMOSOL-R 500 ML IV ONE (23:03)
[2021-07-17] MEDS ORDERED: PIPERACILLIN/TAZOBACTAM 4.5 GM in DEXTROSE 5% 100 ML IV SCH
[2021-07-17] MEDS: POTASSIUM CHLORIDE / WTR 10 MEQ/100 ML PLCT IV SCH ×9 (01:05→21:07)
[2021-07-17] MEDS: fentaNYL citrate 100 MCG/2 ML VIAL IV PRN ×13 (02:11→16:49)
[2021-07-17] MEDS: NORMOSOL-R 1,000 ML IV SCH ×3 (03:58→22:29)
[2021-07-17 04:40] LABS: Hematocrit (blood only) 28.8 % (37-47); Hemoglobin 9.5 g/dL (12.0-16.0); Mean Corpuscular Hemoglobin 24.8 pg (25-34); Mean Corpuscular Volume 75.2 fL (80-100); Mean Platelet Volume 8.4 fL (7.4-10.4); Platelet Count 476 K/uL (130-400); RDW Coefficient of Variation 16.6 % (11.5-14.5); RDW Standard Deviation 45.8 fL (36.4-46.3); Red Blood Count 3.83 M/uL (4.2-5.4); White Blood Count 22.59 K/uL (4.8-10.8)
[2021-07-17 04:57] LABS: BUN Creatinine Ratio 15.9 (10-20); Calcium 7.6 mg/dl (8.5-10.1); Creatinine Clr Calc Pharmacy 37.7 ml/min; Est GFR (African American) 38.2 ml/min; Est GFR (Non-African American) 32.9 ml/min; Magnesium 2.2 mg/dl (1.8-2.4); Phosphorus 2.3 mg/dl (2.5-4.9); Potassium 2.4 mmol/L (3.5-5.1)
[2021-07-17 05:03] LABS: Basophils # (auto) 0.01 K/uL (0-0.2); Eosinophils # (auto) 0.04 K/uL (0-0.5); Eosinophils % (auto) 0.2 %; Immature Granulocytes # (auto) 0.07 K/uL (0.00-0.02); Immature Granulocytes % (auto) 0.3 %; Lymphocytes # (auto) 0.85 K/uL (1.2-3.4); Lymphocytes % (auto) 3.8 %; Monocytes # (auto) 1.09 K/uL (0.11-0.59); Monocytes % (auto) 4.8 %; Neutrophils # (auto) 20.53 K/uL (1.4-6.5); Neutrophils % (auto) 90.9 %
[2021-07-17] MEDS ORDERED: POTASSIUM PHOS 3 MMOL/1 ML INFUSION IV STA (05:28)
--- NOTE | 2021-07-17 05:36 | Electrocardiogram Report ---
Test Reason : Blood Pressure : / mmHG Vent. Rate : 071 BPM Atrial Rate : 071 BPM P-R Int : 156 ms QRS Dur : 090 ms QT Int : 390 ms P-R-T Axes : 058 029 003 degrees QTc Int : 423 ms Normal sinus rhythm Low voltage QRS Cannot rule out Anterior infarct , age undetermined Nonspecific ST and T wave abnormality Abnormal ECG When compared with ECG of 22-JAN-2021 10:51, Minimal criteria for Anterior infarct are now Present Confirmed by Mamadou Hudson ([id number]) on 07/17/2021 5:35:22 AM Referred By: Confirmed By:Mamadou Hudson
[2021-07-17] MEDS ORDERED: POTASSIUM PHOSPHATE 40 MMOL in SODIUM CHLORIDE 0.9% 1000ML 1,000 ML IV ONE (06:00)
--- NOTE | 2021-07-17 08:52 | Surgery Progress Note ---
Date of Service July 17, 2021 Assessment & Plan (1) Colonic diverticular abscess: Plan: colonic diverticulitis with abscess, improving with resuscitation. attempt perc drainage today plan for percutaneous drainage of large abscess with radiology continue iv abx, resuscitation, npo if no improvement then may need laparoscopic washout vs. berry's procedure surgery will follow call with question or concenrs (2) Sepsis: (3) Acute renal failure (ARF): Admission and Anticipated Discharge Date Admission Date: July 16, 2021 Subjective diverticulitis with abscess and sepsis. Did well overnight, still with some lower abdominal pain and cramping. Physical Exam Constitutional: WD/WN, vitals as above + acute distress (moderate) Gastrointestinal (Abdomen): Percussion/Palpation: + abdomen tender (lower abdomen with localized guarding, no rebound), + guarding and abdomen soft; abdomen not rigid and no hepatosplenomegaly Results & Data ([facility]) Vital Signs (Past 12 Hours) Vital Signs Temp Pulse Resp BP Pulse Ox 07/17/21 06:00 92 H 18 93/51 L 92 07/17/21 05:00 91 H 17 93/51 L 92 07/17/21 04:00 94 H 19 97/56 L 94 07/17/21 03:47 37.4 C 07/17/21 03:00 92 H 17 90/50 L 93 07/17/21 02:00 97 H 19 103/61 95 07/17/21 01:20 98 H 19 07/17/21 01:15 92 H 16 90 07/17/21 01:10 104 H 22 07/17/21 01:05 92 H 19 91 07/17/21 01:00 92 H 18 92 07/17/21 00:55 92 H 17 92 07/17/21 00:50 93 H 18 92 07/17/21 00:45 91 H 17 104/56 L 91 07/16/21 23:45 89 18 91 07/16/21 23:40 88 18 94 07/16/21 23:39 36.7 C 07/16/21 23:35 91 H 17 123/67 96 07/16/21 23:19 88 07/16/21 22:25 83 19 94/48 L 93 07/16/21 21:25 36.9 C 83 24 90/56 L 95 10/25/21 20:25 111 H 23 101/56 L 97 Laboratory Results Laboratory Results - last 24 hr 07/16/21 07/16/21 07/16/21 15:16 15:16 15:30 WBC 37.31 H* RBC 4.88 Hgb 12.3 Hct 36.6 L MCV 75.0 L MCH 25.2 MCHC 33.6 RDW Std Deviation 45.5 RDW Coeff of Judah 16.5 H Plt Count 660 H MPV 9.2 Immature Gran % (Auto) 0.5 Neut % (Auto) 91.6 Lymph % (Auto) 3.3 [place] % (Auto) 4.3 Eos % (Auto) 0.2 Baso % (Auto) 0.1 Neut # (Auto) 34.19 H Lymph # (Auto) 1.24 [place] # (Auto) 1.62 H Eos # (Auto) 0.06 Baso # (Auto) 0.03 Immature Gran # (Auto) 0.17 H Polychromasia 1+ Hypochromasia Present Poikilocytosis Present Sodium 131 L Potassium 2.3 L* Chloride 93 L Carbon Dioxide 23 Anion Gap 14.0 H BUN 37 H Creatinine 3.74 H Est Cr Clr Drug Dosing Not Reportable Est GFR ( Amer) 14.3 Est GFR (Non-Af Amer) 12.3 BUN/Creatinine Ratio 10.0 Glucose 125 H POC Glucose Lactate Calcium 9.5 Phosphorus Magnesium Total Bilirubin 0.3 AST 11 L ALT 14 Alkaline Phosphatase 82 Troponin I < 0.015 Total Protein 8.5 H Albumin 2.7 L Globulin 5.8 H Albumin/Globulin Ratio 0.5 L Lipase 66 L Urine Color Urine Appearance Urine pH Ur Specific [place] Urine Protein Urine Glucose (UA) Urine Ketones Urine Blood Urine Nitrite Urine Bilirubin Urine Urobilinogen Ur Leukocyte Esterase Urine WBC (Auto) Urine RBC (Auto) U Hyaline Cast (Auto) U Epithel Cells (Auto) Urine Bacteria (Auto) Nasal Screen MRSA (PCR) COVID-19 Eval Order Covid19 at [facility] SARS-CoV-2 (PCR) Hepatitis C Ab Screen 07/16/21 07/16/21 07/16/21 15:30 15:40 16:15 WBC RBC Hgb Hct MCV MCH MCHC RDW Std Deviation RDW Coeff of [place] Plt Count MPV Immature Gran % (Auto) Neut % (Auto) Lymph % (Auto) [place] % (Auto) Eos % (Auto) Baso % (Auto) Neut # (Auto) Lymph # (Auto) [place] # (Auto) Eos # (Auto) Baso # (Auto) Immature Gran # (Auto) Polychromasia Hypochromasia Poikilocytosis Sodium Potassium Chloride Carbon Dioxide Anion Gap BUN Creatinine Est Cr Clr Drug Dosing Est GFR ( Amer) Est GFR (Non-Af Amer) BUN/Creatinine Ratio Glucose POC Glucose Lactate 1.1 Calcium Phosphorus Magnesium Total Bilirubin AST ALT Alkaline Phosphatase Troponin I Total Protein Albumin Globulin Albumin/Globulin Ratio Lipase Urine Color Dark Yellow Urine Appearance Turbid A Urine pH 5.0 Ur Specific [place] 1.022 Urine Protein 2+ H Urine Glucose (UA) Negative Urine Ketones Trace H Urine Blood Trace H Urine Nitrite Negative Urine Bilirubin 1+ H Urine Urobilinogen Negative Ur Leukocyte Esterase Negative Urine WBC (Auto) >30 H Urine RBC (Auto) 10-30 H U Hyaline Cast (Auto) 0 U Epithel Cells (Auto) >30 H Urine Bacteria (Auto) 1+ H Nasal Screen MRSA (PCR) COVID-19 Eval Order SARS-CoV-2 (PCR) NEGATIVE Hepatitis C Ab Screen 07/16/21 07/16/21 07/16/21 19:25 19:56 21:40 WBC RBC Hgb Hct MCV MCH MCHC RDW Std Deviation RDW Coeff of [place] Plt Count MPV Immature Gran % (Auto) Neut % (Auto) Lymph % (Auto) [place] % (Auto) Eos % (Auto) Baso % (Auto) Neut # (Auto) Lymph # (Auto) [place] # (Auto) Eos # (Auto) Baso # (Auto) Immature Gran # (Auto) Polychromasia Hypochromasia Poikilocytosis Sodium 136 Potassium 2.8 L D Chloride 103 Carbon Dioxide 21 Anion Gap 12.0 H BUN 36 H Creatinine 2.88 H D Est Cr Clr Drug Dosing 21.7 Est GFR ( Amer) 19.6 Est GFR (Non-Af Amer) 16.9 BUN/Creatinine Ratio 12.3 Glucose 118 H POC Glucose 119 H Lactate Calcium 7.7 L D Phosphorus 3.1 Magnesium 2.1 Total Bilirubin AST ALT Alkaline Phosphatase Troponin I Total Protein Albumin Globulin Albumin/Globulin Ratio Lipase Urine Color Urine Appearance Urine pH Ur Specific [place] Urine Protein Urine Glucose (UA) Urine Ketones Urine Blood Urine Nitrite Urine Bilirubin Urine Urobilinogen Ur Leukocyte Esterase Urine WBC (Auto) Urine RBC (Auto) U Hyaline Cast (Auto) U Epithel Cells (Auto) Urine Bacteria (Auto) Nasal Screen MRSA (PCR) Positive A COVID-19 Eval Order SARS-CoV-2 (PCR) Hepatitis C Ab Screen 07/17/21 07/17/21 07/17/21 04:21 04:21 04:21 WBC 22.59 H D RBC 3.83 L Hgb 9.5 L Hct 28.8 L MCV 75.2 L MCH 24.8 L MCHC 33.0 RDW Std Deviation 45.8 RDW Coeff of [place] 16.6 H Plt Count 476 H MPV 8.4 Immature Gran % (Auto) 0.3 Neut % (Auto) 90.9 Lymph % (Auto) 3.8 [place] % (Auto) 4.8 Eos % (Auto) 0.2 Baso % (Auto) 0.0 Neut # (Auto) 20.53 H Lymph # (Auto) 0.85 L [place] # (Auto) 1.09 H Eos # (Auto) 0.04 Baso # (Auto) 0.01 Immature Gran # (Auto) 0.07 H Polychromasia Hypochromasia Poikilocytosis Sodium 137 Potassium 2.4 L* Chloride 104 Carbon Dioxide 25 Anion Gap 8.0 BUN 26 H Creatinine 1.66 H D Est Cr Clr Drug Dosing 37.7 Est GFR ( Amer) 38.2 Est GFR (Non-Af Amer) 32.9 BUN/Creatinine Ratio 15.9 Glucose 127 H POC Glucose Lactate Calcium 7.6 L Phosphorus 2.3 L Magnesium 2.2 Total Bilirubin AST ALT Alkaline Phosphatase Troponin I Total Protein Albumin Globulin Albumin/Globulin Ratio Lipase Urine Color Urine Appearance Urine pH Ur Specific [place] Urine Protein Urine Glucose (UA) Urine Ketones Urine Blood Urine Nitrite Urine Bilirubin Urine Urobilinogen Ur Leukocyte Esterase Urine WBC (Auto) Urine RBC (Auto) U Hyaline Cast (Auto) U Epithel Cells (Auto) Urine Bacteria (Auto) Nasal Screen MRSA (PCR) COVID-19 Eval Order SARS-CoV-2 (PCR) Hepatitis C Ab Screen Pending 07/17/21 04:21 WBC RBC Hgb Hct MCV MCH MCHC RDW Std Deviation RDW Coeff of [place] Plt Count MPV Immature Gran % (Auto) Neut % (Auto) Lymph % (Auto) [place] % (Auto) Eos % (Auto) Baso % (Auto) Neut # (Auto) Lymph # (Auto) [place] # (Auto) Eos # (Auto) Baso # (Auto) Immature Gran # (Auto) Polychromasia Hypochromasia Poikilocytosis Sodium Potassium Chloride Carbon Dioxide Anion Gap BUN Creatinine Est Cr Clr Drug Dosing Est GFR ( Amer) Est GFR (Non-Af Amer) BUN/Creatinine Ratio Glucose POC Glucose Lactate 0.8 Calcium Phosphorus Magnesium Total Bilirubin AST ALT Alkaline Phosphatase Troponin I Total Protein Albumin Globulin Albumin/Globulin Ratio Lipase Urine Color Urine Appearance Urine pH Ur Specific [place] Urine Protein Urine Glucose (UA) Urine Ketones Urine Blood Urine Nitrite Urine Bilirubin Urine Urobilinogen Ur Leukocyte Esterase Urine WBC (Auto) Urine RBC (Auto) U Hyaline Cast (Auto) U Epithel Cells (Auto) Urine Bacteria (Auto) Nasal Screen MRSA (PCR) COVID-19 Eval Order SARS-CoV-2 (PCR) Hepatitis C Ab Screen PG Care Time/CCT Total # of Minutes Spent Total Time Spent with Patient: Total time spent is greater than 50% in coordination of care (as documented) at patient's floor/unit and/or counseling patient: Coding Level of Care Code 66957 Inpt Consult Level 3 Diagnoses Colonic diverticular abscess K57.20 Sepsis A41.9 Acute renal failure (ARF) N17.9
[2021-07-17] MEDS: PIPERACILLIN/TAZOBACTAM 4.5 GM in DEXTROSE 5% 100 ML IV SCH ×2 (09:11→16:12)
[2021-07-17] MEDS ORDERED: MIDAZOLAM HCL 5 MG/ML VIAL ONE (10:22)
--- NOTE | 2021-07-17 10:33 | Pre Anesthesia Assessment ---
Date of Service July 17, 2021 Pre Sedation Assessment Vital Signs Temp Pulse Pulse Resp BP BP Pulse Ox 07/17/21 09:00 98.2 F 121 H 23 112/78 86 L 07/17/21 08:00 96 H 21 93 07/17/21 07:00 101 H 22 123/84 87 L 07/17/21 06:00 92 H 18 93/51 L 92 07/17/21 05:00 91 H 17 93/51 L 92 07/17/21 04:00 94 H 19 97/56 L 94 07/17/21 03:47 99.3 F 07/17/21 03:00 92 H 17 90/50 L 93 07/17/21 02:00 97 H 19 103/61 95 07/17/21 01:20 98 H 19 07/17/21 01:15 92 H 16 90 07/17/21 01:10 104 H 22 07/17/21 01:05 92 H 19 91 07/17/21 01:00 92 H 18 92 07/17/21 00:55 92 H 17 92 07/17/21 00:50 93 H 18 92 07/17/21 00:45 91 H 17 104/56 L 91 07/16/21 23:45 89 18 91 07/16/21 23:40 88 18 94 07/16/21 23:39 98.1 F 07/16/21 23:35 91 H 17 123/67 96 07/16/21 23:19 88 07/16/21 22:25 83 19 94/48 L 93 07/16/21 21:25 98.4 F 83 24 90/56 L 95 07/16/21 20:25 111 H 23 101/56 L 97 07/16/21 19:15 73 21 110/60 97 07/16/21 19:13 97.9 F 75 18 101/53 L 99 07/16/21 18:43 78 14 101/74 98 07/16/21 18:15 79 15 07/16/21 18:00 72 15 101/71 97 07/16/21 17:45 73 23 102/62 07/16/21 17:30 69 17 07/16/21 17:15 68 18 91/52 L 94 07/16/21 17:00 69 16 92/55 L 100 07/16/21 16:45 104 H 18 90/56 L 07/16/21 16:32 75 18 95 07/16/21 16:15 77 13 88/46 L 95 07/16/21 16:00 70 17 98 07/16/21 15:58 71 16 98 07/16/21 15:22 96/60 L 07/16/21 14:49 97.9 F 77 16 98/48 L 99 Pre-Sedation Airway Assessment Smoking Status: Former smoker Hx Sleep Apnea: No Short, Thick Neck: No Thyromental Distance: > or= 3.5 Finger Breadths Oral Cavity: + WNL Mallampati Class: I ASA: ASA2 NPO Status Date of Last Intake of Fluids: 07/17/21 Time of Last Intake of Fluids: 00:00 Date of Last Intake of Solid Food: 07/17/21 Time of Last Intake of Solid Foods: 00:00 Notes The planned sedation has been discussed with the patient. Informed Consent was obtained. I have identified the patient, determined the appropriateness of sedation and have assessed the patient immediately prior to the procedure. All medicine(s) and interventions are by my order.
[2021-07-17] MEDS: MIDAZOLAM HCL 5 MG/ML VIAL IV PRN ×3 (10:36→10:55)
--- NOTE | 2021-07-17 11:17 | Post Anesthesia Assessment ---
Date of Service July 17, 2021 Post Sedation Assessment Vital Signs Temp Pulse Pulse Resp BP BP Pulse Ox 07/17/21 09:00 98.2 F 121 H 23 112/78 86 L 07/17/21 08:00 96 H 21 93 07/17/21 07:00 101 H 22 123/84 87 L 07/17/21 06:00 92 H 18 93/51 L 92 07/17/21 05:00 91 H 17 93/51 L 92 07/17/21 04:00 94 H 19 97/56 L 94 07/17/21 03:47 99.3 F 07/17/21 03:00 92 H 17 90/50 L 93 07/17/21 02:00 97 H 19 103/61 95 07/17/21 01:20 98 H 19 07/17/21 01:15 92 H 16 90 07/17/21 01:10 104 H 22 07/17/21 01:05 92 H 19 91 07/17/21 01:00 92 H 18 92 07/17/21 00:55 92 H 17 92 07/17/21 00:50 93 H 18 92 07/17/21 00:45 91 H 17 104/56 L 91 07/16/21 23:45 89 18 91 07/16/21 23:40 88 18 94 07/16/21 23:39 98.1 F 07/16/21 23:35 91 H 17 123/67 96 07/16/21 23:19 88 07/16/21 22:25 83 19 94/48 L 93 07/16/21 21:25 98.4 F 83 24 90/56 L 95 07/16/21 20:25 111 H 23 101/56 L 97 07/16/21 19:15 73 21 110/60 97 07/16/21 19:13 97.9 F 75 18 101/53 L 99 07/16/21 18:43 78 14 101/74 98 07/16/21 18:15 79 15 07/16/21 18:00 72 15 101/71 97 07/16/21 17:45 73 23 102/62 07/16/21 17:30 69 17 07/16/21 17:15 68 18 91/52 L 94 07/16/21 17:00 69 16 92/55 L 100 07/16/21 16:45 104 H 18 90/56 L 07/16/21 16:32 75 18 95 07/16/21 16:15 77 13 88/46 L 95 07/16/21 16:00 70 17 98 07/16/21 15:58 71 16 98 07/16/21 15:22 96/60 L 07/16/21 14:49 97.9 F 77 16 98/48 L 99 Discharge Sedation Level of Care: Fast Track Phase II Post Sedation Plan On clinical assessment, the patient appears to have tolerated the sedation without complications. Patient is recovering as anticipated. Patient will continue to be monitored by nursing and may be discharged when sedation discharge criteria are met per below protocol. Upon Completions of procedure up to 15 minutes continue every 5 minute vital signs and the P.A.R. score; then discharge to a Phase I or Fast Track to Phase II per the following guidelines: * Discharge Patient to appropriate Phase II area if PAR is 8 or greater or return to pre- procedure baseline. The post - procedure orders will be as directed. * If PAR score is less than 8 or not return to pre-procedure baseline then patient will follow Phase I monitoring till PAR is reached for Phase II. The Phase I may be done in procedure room or may call to secure a Phase I area. * If naloxone or flumazenil are used for reversal, hold in Phase I for continued monitoring from when last reversal dose was given for a minimum of 60 minutes or longer pending the nurse and/or physician discretion of patient condition before discharge to Phase II. Please call the Sedation Physician to re-evaluate and complete post-note for discharge to Phase II area. Do NOT discharge from procedure sedation or Phase 1 until post- sedation evaluation note is complete by procedure /sedation MD Sedation Discharge Instructions to be given to the patient at discharge to home.
--- NOTE | 2021-07-17 11:38 | CT Scan Report ---
CT-GUIDED PELVIC ABSCESS DRAINAGE CLINICAL HISTORY: abscess drainage COMPARISON STUDY: CT of the abdomen and pelvis July 16, 2021. PROCEDURE AND FINDINGS: The procedure, risks and benefits were discussed with the patient including t he risk of bleeding, infection and injury to adjacent structures. Patient agreed to the procedure and informed bronchus of May the procedure was performed by Dr. Cedillo following a timeout. The patient was placed prone on the CT table and axial images of the pelvis were obtained. The large pel prince fluid collection was identified. This was targeted. Skin overlying the collection was prepped and draped in sterile fashion and local anesthesia was achieved with 1% lidocaine. Under intermittent gu idance, a needle was inserted into the fluid collection. There is immediate return of purulent fluid. Utilizing Seldinger technique, a 10 Spanish pigtail catheter was inserted into the collection. A tota l of 220 cc of purulent fluid was aspirated and sent to laboratory for analysis. The catheter was sec ured in place. The patient tolerated the procedure well and no immediate complications were evident. Post procedure CT demonstrated significant decrease in size of the pelvic fluid collection. IMPRESSION: Successful CT-guided percutaneous drainage of the pelvic abscess utilizing a 10 Spanish l ocking pigtail catheter. 220 cc of purulent fluid aspirated and sent to the laboratory for analysis a s ordered. ACT 112: Negative or not required by law. Electronically signed by: Luis Eduardo Cedillo M.D. 07/17/2021 11:36 AM
--- NOTE | 2021-07-17 11:56 | Critical Care Progress Note ---
Date of Service July 17, 2021 Assessment & Plan (1) Colonic diverticular abscess: Plan: Impression: 61-year-old female presents to the ICU with sepsis secondary to diverticular abscess. Initially hypotensive but improved with IV fluid resuscitation and currently undergoing treatment with broad-spectrum antibiotics with plan to undergo percutaneous drainage in the morning. Neuro - [facility] ICU: Negative Cardiac - Hypotensionsecondary to sepsis, improved following IV fluid resuscitation and no indication for vasopressors at this time -Hold antihypertensives and diuretics for now -Echo 2018: Normal EF with diastolic dysfunction -Maintain maps greater than 65 -Monitor Respiratory - Mild hypoxemia likely related to atelectasis and splinting from pain. Continue supplemental oxygen. Incentive spirometry. GI - Underwent CT-guided pigtail catheter placement and drainage of the pelvic abscess. I was present for the procedure. I provided supervision of conscious sedation. 3 mg of Versed and 125 mcg of fentanyl were utilized during the procedure. Patient tolerated the procedure well. Approximately 200 mL of puslike fluid was drained and sent to the lab for microscopy. She may require more surgical drainage if there is no significant improvement. Will defer to general surgery management. RENAL/LYTES - ESTUARDO secondary to prerenal etiology. Improving. Hypokalemia present. Replacing potassium. Recheck chemistries at noon. - Foleystrict I's and O's ENDO - No history of diabetes or thyroid disease ICU hyperglycemic protocol HEME - H&H stable, monitor routine CBC ID - Sepsis improving. Continue broad-spectrum antibiotics for peritonitis and diverticular abscess. White count improving. May need definitive surgical management depending on her response to drainage with a pigtail catheter. LINES/IV ACCESS - Peripheral IVs DVT PROPHYLAXIS - SCDs, hold anticoagulation today. Stable for downgrade from the ICU to PCU status. (2) Sepsis: (3) Acute renal failure (ARF): (4) Leukocytosis: (5) Hypokalemia: (6) Hypertension: (7) Diastolic dysfunction: (8) Depression with anxiety: (9) Arthritis: (10) Postmenopausal HRT (hormone replacement therapy): (11) Peritonitis: Admission and Anticipated Discharge Date Admission Date: July 16, 2021 Subjective Patient seen and examined this morning. She was having significant abdominal pain. No hypotension overnight. Denies chest pain. Review of Systems Review of Systems: All systems reviewed & are unremarkable except as noted in HPI & below Physical Exam Constitutional: cooperative and comfortable; no acute distress and not lethargic Eyes: PERRL, conjunctivae normal, anicteric sclerae ENMT: external ear and nose normal, oropharynx normal Neck: trachea midline, no thyromegaly Respiratory: normal respiratory effort, lungs clear to auscultation Cardiovascular: RRR, no murmur, no edema Heart Sounds: normal S1 and normal S2 Extremities: normal capillary refill; no edema Gastrointestinal (Abdomen): Abdomen flat with mild distention and subjectively firm. Significant generalized abdominal tenderness with light palpation. Bowel sounds auscultated all 4 quadrants Musculoskeletal: no cyanosis or clubbing, extremities motor strength 5/5 Skin: no rashes, warm and dry Neurologic: PERRL, EOMI, accommodation nl, no face palsy, no dysarthria Psychiatric: A+Ox3, euthymic affect Genitourinary: Indwelling Carson catheter present Results & Data Results & Data ([facility]) Vital Signs (Past 12 Hours) Vital Signs Temp Pulse Resp BP Pulse Ox 07/17/21 09:00 98.2 F 121 H 23 112/78 86 L 07/17/21 08:00 96 H 21 93 07/17/21 07:00 101 H 22 123/84 87 L 07/17/21 06:00 92 H 18 93/51 L 92 07/17/21 05:00 91 H 17 93/51 L 92 07/17/21 04:00 94 H 19 97/56 L 94 07/17/21 03:47 99.3 F 07/17/21 03:00 92 H 17 90/50 L 93 07/17/21 02:00 97 H 19 103/61 95 07/17/21 01:20 98 H 19 07/17/21 01:15 92 H 16 90 07/17/21 01:10 104 H 22 07/17/21 01:05 92 H 19 91 07/17/21 01:00 92 H 18 92 07/17/21 00:55 92 H 17 92 07/17/21 00:50 93 H 18 92 07/17/21 00:45 91 H 17 104/56 L 91 Coding Level of Care Code 96877 Subseq Hosp Care Lvl 3 Diagnoses Colonic diverticular abscess K57.20 Sepsis A41.9 Acute renal failure (ARF) N17.9 Leukocytosis D72.829 Hypokalemia E87.6 Hypertension I10 Diastolic dysfunction I51.89 Depression with anxiety F41.8 Arthritis M19.90 Postmenopausal HRT (hormone replacement therapy) Z79.890 Peritonitis K65.9
[2021-07-17] MEDS ORDERED: fentaNYL citrate 100 MCG/2 ML VIAL IV STA (12:20)
[2021-07-17 12:43] LABS: BUN Creatinine Ratio 17.8 (10-20); Calcium 7.4 mg/dl (8.5-10.1); Creatinine Clr Calc Pharmacy 57.9 ml/min; Est GFR (African American) 63.5 ml/min; Est GFR (Non-African American) 54.7 ml/min; Potassium 2.5 mmol/L (3.5-5.1)
[2021-07-17] MEDS ORDERED: Nursing to Pharmacy Communication SCH (13:00)
--- NOTE | 2021-07-17 13:25 | Hospitalist Progress Note ---
Date of Service July 17, 2021 Assessment & Plan (1) Sepsis: Plan: Loretta Baker is a 61yo F who presents with sepsis 2/2 colonic diverticular abscesses Sepsis 2/2 Colonic Diverticular Abscess s/p pigtail catheter placed 07/17 - WBC 37.31, hypotensive to systolic 70s, tachycardic on admission. Did not require vasopressors. - Continue Zosyn/Dapto Continue Normosol 125 cc/h (2) Colonic diverticular abscess: Plan: - As above (3) Acute renal failure (ARF): Plan: - Baseline Cr <1 - Cr 3.74 on admission. Non-anuric prerenal 2/2 sepsis, improving (4) Hypokalemia: Plan: Will continue to replace electrolytes per ICU protocol. KCl infusing slowly due to pain from infusion. Patient unable to tolerate normal rates of infusion. (5) Hypertension: Plan: - Held RADIO TOWER TECHNICIAN hctz 25 mg, losartan 100mg, lasix, atenolol in the setting of severe hypotension and ARF (6) Diastolic dysfunction: Plan: - ECHO 2018 w/ preserved EF - Lasix held as above - No evidence of AoC congestive failure (7) Postmenopausal HRT (hormone replacement therapy): Plan: - RADIO TOWER TECHNICIAN conjugated estrogen held (8) Depression with anxiety: Plan: - Trazodone 50mg qHS PRN held Plan: N.p.o., fluids as above Continue in ICU Admission and Anticipated Discharge Date Admission Date: July 16, 2021 Subjective Continued abdominal pain, generalized, no radiation, 9/10 on palpation, Fentanyl helping. No fever or chills. Patient feels improved since pigtail catheter placed this morning. NPO status, no nausea or vomiting. Requiring Fentanyl to keep pain under control. Review of Systems 2 Review of Systems: All systems reviewed & are unremarkable except as noted in HPI & below Physical Exam Constitutional: well developed and well nourished; no acute distress ENMT: Mouth: + dry oral mucous membranes Neck: trachea midline, no thyromegaly Respiratory: normal respiratory effort, lungs clear to auscultation Cardiovascular: RRR, no murmur, no edema Heart Sounds: normal S1 and normal S2 Extremities: normal capillary refill; no edema Gastrointestinal (Abdomen): Inspection/Auscultation: abdomen normal to inspection; abdomen not distended Percussion/Palpation: + abdomen tender (generalized), + guarding and abdomen soft; abdomen not rigid Musculoskeletal: no cyanosis or clubbing, extremities motor strength 5/5 Skin: no rashes, warm and dry Neurologic: moves all extremities and awake; not confused Psychiatric: A+Ox3, euthymic affect Genitourinary: Indwelling Carson catheter present Results & Data Results & Data ([facility]) Vital Signs (Past 12 Hours) Vital Signs Temp Pulse Resp BP BP Pulse Ox 07/17/21 11:15 97 H 18 114/58 L 100 07/17/21 11:10 92 H 18 110/63 100 07/17/21 11:05 92 H 18 124/80 100 07/17/21 11:00 95 H 18 103/62 100 07/17/21 10:55 95 H 18 115/67 100 07/17/21 10:50 94 H 18 118/61 100 07/17/21 10:45 90 18 106/60 99 07/17/21 10:40 98 H 18 118/63 98 07/17/21 10:35 99 H 18 117/75 99 07/17/21 09:00 36.8 C 121 H 23 112/78 86 L 07/17/21 08:00 96 H 21 93 07/17/21 07:00 101 H 22 123/84 87 L 07/17/21 06:00 92 H 18 93/51 L 92 07/17/21 05:00 91 H 17 93/51 L 92 07/17/21 04:00 94 H 19 97/56 L 94 07/17/21 03:47 37.4 C 07/17/21 03:00 92 H 17 90/50 L 93 07/17/21 02:00 97 H 19 103/61 95 PG Care Time/CCT Total # of Minutes Spent Total Time Spent with Patient: Total time spent is greater than 50% in coordination of care (as documented) at patient's floor/unit and/or counseling patient: Coding Level of Care Code 81844 Subseq Hosp Care Lvl 3 Diagnoses Sepsis A41.9 Colonic diverticular abscess K57.20 Acute renal failure (ARF) N17.9 Hypokalemia E87.6 Hypertension I10 Diastolic dysfunction I51.89 Postmenopausal HRT (hormone replacement therapy) Z79.890 Depression with anxiety F41.8
[2021-07-17] MEDS: DAPTOmycin 350 MG in SYRINGE 0 ML IV SCH (16:13)
[2021-07-17 17:49] LABS: BUN Creatinine Ratio 19.7 (10-20); Calcium 7.4 mg/dl (8.5-10.1); Creatinine Clr Calc Pharmacy 79.9 ml/min; Est GFR (African American) 93.6 ml/min; Est GFR (Non-African American) 80.8 ml/min; Potassium 2.6 mmol/L (3.5-5.1)
[2021-07-17] MEDS: HYDROmorphone INJ 0.5 MG/0.5 ML SYR IV PRN ×2 (20:06→22:05)
[2021-07-18] MEDS: HYDROmorphone INJ 0.5 MG/0.5 ML SYR IV PRN ×8 (00:46→22:22)
[2021-07-18] MEDS: PIPERACILLIN/TAZOBACTAM 4.5 GM in DEXTROSE 5% 100 ML IV SCH ×3 (00:47→17:01)
[2021-07-18] MEDS: POTASSIUM CHLORIDE / WTR 10 MEQ/100 ML PLCT IV SCH ×4 (01:17→09:25)
[2021-07-18 05:08] LABS: Hematocrit (blood only) 27.9 % (37-47); Hemoglobin 9.1 g/dL (12.0-16.0); Mean Corpuscular Hemoglobin 24.6 pg (25-34); Mean Corpuscular Hgb Conc 32.6 g/dL (32-36); Mean Corpuscular Volume 75.4 fL (80-100); Mean Platelet Volume 7.9 fL (7.4-10.4); Platelet Count 434 K/uL (130-400); RDW Coefficient of Variation 16.6 % (11.5-14.5); RDW Standard Deviation 46.8 fL (36.4-46.3); White Blood Count 16.36 K/uL (4.8-10.8)
[2021-07-18 05:34] LABS: Calcium 7.7 mg/dl (8.5-10.1); Creatinine Clr Calc Pharmacy 105.3 ml/min; Est GFR (Non-African American) 98.4 ml/min; Magnesium 2.5 mg/dl (1.8-2.4); Phosphorus 1.8 mg/dl (2.5-4.9); Potassium 2.6 mmol/L (3.5-5.1)
[2021-07-18 05:38] LABS: Basophils # (auto) 0.01 K/uL (0-0.2); Basophils % (auto) 0.1 %; Eosinophils % (auto) 0.6 %; Immature Granulocytes # (auto) 0.08 K/uL (0.00-0.02); Immature Granulocytes % (auto) 0.5 %; Lymphocytes # (auto) 0.99 K/uL (1.2-3.4); Lymphocytes % (auto) 6.1 %; Monocytes # (auto) 1.02 K/uL (0.11-0.59); Monocytes % (auto) 6.2 %; Neutrophils # (auto) 14.16 K/uL (1.4-6.5); Neutrophils % (auto) 86.5 %
[2021-07-18] MEDS: NORMOSOL-R 1,000 ML IV SCH ×3 (06:26→21:10)
[2021-07-18] MEDS ORDERED: POTASSIUM PHOS 3 MMOL/1 ML INFUSION IV STA (07:52)
[2021-07-18] MEDS ORDERED: POTASSIUM CHLORIDE / WTR 10 MEQ/100 ML PLCT IV STA (07:53)
[2021-07-18] MEDS ORDERED: POTASSIUM PHOSPHATE 40 MMOL in SODIUM CHLORIDE 0.9% 1000ML 1,000 ML IV ONE (08:15)
--- NOTE | 2021-07-18 09:07 | Surgery Progress Note ---
Date of Service July 18, 2021 Assessment & Plan (1) Colonic diverticular abscess: Plan: colonic diverticulitis with abscess, improving with resuscitation and percutaneous drainage. try clears today clear liquids today continue iv abx, f/u on cultures ambulate, oobtc, pulm toilet, a/c will need outpatient colonoscopy and sigmoidectomy in future surgery will follow call with question or concenrs (2) Sepsis: (3) Acute renal failure (ARF): Admission and Anticipated Discharge Date Admission Date: July 16, 2021 Subjective diverticulitis with abscess and sepsis. Did well overnight, CT guided drainage yesterday with 220cc of purulent fluid, drain left. LLQ pain and cramping. Physical Exam Constitutional: WD/WN, vitals as above Respiratory: normal respiratory effort, lungs clear to auscultation Cardiovascular: RRR, no murmur, no edema Gastrointestinal (Abdomen): Percussion/Palpation: + abdomen tender (LLQ, no guarding, significantly improved) and abdomen soft; no guarding, abdomen not rigid and no hepatosplenomegaly drain with purulent drainage Results & Data ([facility]) Vital Signs (Past 12 Hours) Vital Signs Temp Pulse Pulse Resp BP BP Pulse Ox 07/18/21 08:00 36.7 C 89 102 H 20 137/83 98 07/18/21 06:00 88 12 114/76 98 07/18/21 05:00 98 H 16 106/66 99 07/18/21 04:00 36.9 C 99 H 19 136/75 96 07/18/21 03:00 90 14 106/62 97 07/18/21 02:00 95 H 14 112/64 98 07/18/21 01:00 97 H 13 118/94 97 07/18/21 00:00 91 H 16 93/64 L 98 07/17/21 23:43 96 H 07/17/21 23:00 96 H 14 106/66 96 07/17/21 22:00 103 H 18 112/69 95 Laboratory Results Laboratory Results - last 24 hr 07/17/21 07/17/21 07/17/21 04:21 11:47 17:18 WBC RBC Hgb Hct MCV MCH MCHC RDW Std Deviation RDW Coeff of Judah Plt Count MPV Immature Gran % (Auto) Neut % (Auto) Lymph % (Auto) [place] % (Auto) Eos % (Auto) Baso % (Auto) Neut # (Auto) Lymph # (Auto) [place] # (Auto) Eos # (Auto) Baso # (Auto) Immature Gran # (Auto) Sodium 140 138 Potassium 2.5 L* 2.6 L Chloride 108 H 106 Carbon Dioxide 25 24 Anion Gap 6.0 8.0 BUN 19 H 15 Creatinine 1.09 0.79 D Est Cr Clr Drug Dosing 57.9 79.9 Est GFR ( Amer) 63.5 93.6 Est GFR (Non-Af Amer) 54.7 80.8 BUN/Creatinine Ratio 17.8 19.7 Glucose 120 H 120 H Calcium 7.4 L 7.4 L Phosphorus Magnesium Hepatitis C Ab Screen Neg 07/18/21 07/18/21 04:56 04:56 WBC 16.36 H RBC 3.70 L Hgb 9.1 L Hct 27.9 L MCV 75.4 L MCH 24.6 L MCHC 32.6 RDW Std Deviation 46.8 H RDW Coeff of Judah 16.6 H Plt Count 434 H MPV 7.9 Immature Gran % (Auto) 0.5 Neut % (Auto) 86.5 Lymph % (Auto) 6.1 [place] % (Auto) 6.2 Eos % (Auto) 0.6 Baso % (Auto) 0.1 Neut # (Auto) 14.16 H Lymph # (Auto) 0.99 L [place] # (Auto) 1.02 H Eos # (Auto) 0.10 Baso # (Auto) 0.01 Immature Gran # (Auto) 0.08 H Sodium 138 Potassium 2.6 L Chloride 105 Carbon Dioxide 28 Anion Gap 5.0 BUN 10 D Creatinine 0.60 Est Cr Clr Drug Dosing 105.3 Est GFR ( Amer) 114.0 Est GFR (Non-Af Amer) 98.4 BUN/Creatinine Ratio 17.0 Glucose 111 H Calcium 7.7 L Phosphorus 1.8 L Magnesium 2.5 H Hepatitis C Ab Screen PG Care Time/CCT Total # of Minutes Spent Total Time Spent with Patient: Total time spent is greater than 50% in coordination of care (as documented) at patient's floor/unit and/or counseling patient: Coding Level of Care Code 32470 Inpt Consult Level 3 Diagnoses Colonic diverticular abscess K57.20 Sepsis A41.9 Acute renal failure (ARF) N17.9
--- NOTE | 2021-07-18 15:32 | Hospitalist Progress Note ---
Date of Service July 18, 2021 Assessment & Plan (1) Sepsis: Plan: Loretta Baker is a 61yo F who presents with sepsis 2/2 colonic diverticular abscesses Sepsis 2/2 Colonic Diverticular Abscess s/p pigtail catheter placed 07/17 - WBC 37.31, hypotensive to systolic 70s, tachycardic on admission. Did not require vasopressors. - Continue Zosyn/Dapto pending drain culture results - Continue Normosol 125 cc/h (2) Colonic diverticular abscess: Plan: - As above (3) Acute renal failure (ARF): Plan: - Baseline Cr <1 - Cr 3.74 on admission. Non-anuric prerenal 2/2 sepsis, resolved, Cr now 0.6 (4) Hypokalemia: Plan: KCl 60 meq IV + KPhos 40 mmol replacement. Repeat BMP after infusions of these. (5) Hypertension: Plan: - Held ELECTRICAL TIMING DEVICE CALIBRATOR hctz 25 mg, losartan 100mg, lasix, atenolol in the setting of severe hypotension and ARF. Possible some degree of rebound tachycardia due to stopping atenolol. (6) Diastolic dysfunction: Plan: - ECHO 2018 w/ preserved EF - Lasix held as above - No evidence of AoC congestive failure (7) Postmenopausal HRT (hormone replacement therapy): Plan: - ELECTRICAL TIMING DEVICE CALIBRATOR conjugated estrogen held (8) Depression with anxiety: Plan: - Trazodone 50mg qHS PRN held Plan: Diet - clear liquid as managed by surgery VTE Prophylaxis - Lovenox 40mg SQ daily Disposition - continue on PCU due to persistent hypokalemia. Admission and Anticipated Discharge Date Admission Date: July 16, 2021 Subjective Much improved since yesterday. Much less distress and pain now just in LLQ (previously generalized). Pain still 5/10. No radiation. Not yet had a bowel movement. No fever or chills. Tolerating clear liquid diet. Review of Systems Review of Systems: All systems reviewed & are unremarkable except as noted in HPI & below Physical Exam Constitutional: well developed and well nourished; no acute distress ENMT: Mouth: oral mucous membranes not dry Neck: trachea midline, no thyromegaly Respiratory: normal respiratory effort, lungs clear to auscultation Cardiovascular: RRR, no murmur, no edema Heart Sounds: normal S1 and normal S2 Extremities: normal capillary refill; no edema Gastrointestinal (Abdomen): Inspection/Auscultation: abdomen normal to inspection; abdomen not distended Percussion/Palpation: + abdomen tender (LLQ) and abdomen soft; no guarding and abdomen not rigid Musculoskeletal: no cyanosis or clubbing, extremities motor strength 5/5 Skin: no rashes, warm and dry Neurologic: moves all extremities and awake; not confused Psychiatric: A+Ox3, euthymic affect Results & Data Results & Data ([facility]) Vital Signs (Past 12 Hours) Vital Signs Temp Pulse Pulse Pulse Resp BP BP 07/18/21 15:23 121 H 07/18/21 11:43 36.7 C 105 H 20 135/76 07/18/21 11:40 103 H 07/18/21 08:00 36.7 C 89 102 H 20 137/83 07/18/21 06:00 88 12 114/76 07/18/21 05:00 98 H 16 106/66 07/18/21 04:00 36.9 C 99 H 19 136/75 Pulse Ox 07/18/21 15:23 07/18/21 11:43 93 07/18/21 11:40 07/18/21 08:00 98 07/18/21 06:00 98 07/18/21 05:00 99 07/18/21 04:00 96 PG Care Time/CCT Total # of Minutes Spent Total Time Spent with Patient: Total time spent is greater than 50% in coordination of care (as documented) at patient's floor/unit and/or counseling patient: Coding Level of Care Code 91502 Subseq Hosp Care Lvl 3 Diagnoses Sepsis A41.9 Colonic diverticular abscess K57.20 Acute renal failure (ARF) N17.9 Hypokalemia E87.6 Hypertension I10 Diastolic dysfunction I51.89 Postmenopausal HRT (hormone replacement therapy) Z79.890 Depression with anxiety F41.8
[2021-07-18] MEDS ORDERED: DAPTOmycin 350 MG in SYRINGE 0 ML IV SCH (16:00)
[2021-07-18] MEDS: DAPTOmycin 350 MG in SYRINGE 0 ML IV SCH (17:01)
[2021-07-18 17:59] LABS: BUN Creatinine Ratio 13.4 (10-20); Calcium 8.3 mg/dl (8.5-10.1); Creatinine Clr Calc Pharmacy 109.9 ml/min; Est GFR (African American) 115.3 ml/min; Est GFR (Non-African American) 99.5 ml/min; Potassium 2.9 mmol/L (3.5-5.1)
[2021-07-18] MEDS: ENOXAPARIN INJ 40 MG/0.4 ML SYR SQ SCH (19:54)
[2021-07-19] MEDS: HYDROmorphone INJ 0.5 MG/0.5 ML SYR IV PRN ×8 (01:30→22:56)
[2021-07-19] MEDS: PIPERACILLIN/TAZOBACTAM 4.5 GM in DEXTROSE 5% 100 ML IV SCH ×3 (01:30→18:00)
[2021-07-19 07:36] LABS: Basophils # (auto) 0.02 K/uL (0-0.2); Basophils % (auto) 0.2 %; Eosinophils # (auto) 0.13 K/uL (0-0.5); Hematocrit (blood only) 28.5 % (37-47); Hemoglobin 9.3 g/dL (12.0-16.0); Immature Granulocytes # (auto) 0.05 K/uL (0.00-0.02); Immature Granulocytes % (auto) 0.4 %; Lymphocytes # (auto) 1.08 K/uL (1.2-3.4); Lymphocytes % (auto) 8.2 %; Mean Corpuscular Hemoglobin 24.2 pg (25-34); Mean Corpuscular Hgb Conc 32.6 g/dL (32-36); Mean Corpuscular Volume 74.2 fL (80-100); Mean Platelet Volume 8.1 fL (7.4-10.4); Monocytes # (auto) 0.91 K/uL (0.11-0.59); Monocytes % (auto) 6.9 %; Neutrophils # (auto) 10.95 K/uL (1.4-6.5); Neutrophils % (auto) 83.3 %; Platelet Count 502 K/uL (130-400); RDW Coefficient of Variation 16.6 % (11.5-14.5); RDW Standard Deviation 45.9 fL (36.4-46.3); Red Blood Count 3.84 M/uL (4.2-5.4); White Blood Count 13.14 K/uL (4.8-10.8)
[2021-07-19 08:17] LABS: BUN Creatinine Ratio 15.5 (10-20); Calcium 8.4 mg/dl (8.5-10.1); Creatinine Clr Calc Pharmacy 148.2 ml/min; Est GFR (African American) 126.3 ml/min; Est GFR (Non-African American) 108.9 ml/min; Magnesium 2.3 mg/dl (1.8-2.4); Phosphorus 2.1 mg/dl (2.5-4.9); Potassium 2.9 mmol/L (3.5-5.1)
[2021-07-19] MEDS: NORMOSOL-R 1,000 ML IV SCH (09:05)
[2021-07-19] MEDS ORDERED: POTASSIUM PHOS 3 MMOL/1 ML INFUSION IV STA (09:34)
[2021-07-19] MEDS: POTASSIUM CHLORIDE / WTR 10 MEQ/100 ML PLCT IV SCH ×4 (10:51→16:46)
--- NOTE | 2021-07-19 12:51 | Surgery Progress Note ---
Date of Service July 19, 2021 Assessment & Plan (1) Colonic diverticular abscess: Plan: colonic diverticulitis with abscess, significantly improved with abx, resuscitation and percutaneous drainage. continue clear liquids continue iv abx, f/u on cultures ambulate, oobtc, pulm toilet, a/c may restart oral meds may need lasix possible ppn tomorrow will need outpatient colonoscopy and sigmoidectomy in future surgery will follow call with question or concerns (2) Sepsis: (3) Acute renal failure (ARF): Admission and Anticipated Discharge Date Admission Date: July 16, 2021 Subjective diverticulitis with abscess and sepsis, s/p percutaneous drainage. doing well, still some llq pain, no bm since incontinent episode after procedure. tolerating clears but not very hungry. no fevers. Physical Exam Constitutional: WD/WN, vitals as above Respiratory: normal respiratory effort, lungs clear to auscultation Cardiovascular: RRR, no murmur, no edema Gastrointestinal (Abdomen): Percussion/Palpation: + abdomen tender (LLQ, no guarding, significantly improved) and abdomen soft; no guarding, abdomen not rigid and no hepatosplenomegaly drain with purulent drainage Results & Data ([facility]) Vital Signs (Past 12 Hours) Vital Signs Temp Pulse Pulse Pulse Resp BP BP 07/19/21 11:57 36.6 C 93 H 19 121/78 07/19/21 08:00 87 07/19/21 05:34 36.7 C 99 H 16 138/81 Pulse Ox 07/19/21 11:57 94 07/19/21 08:00 07/19/21 05:34 96 Laboratory Results Laboratory Results - last 24 hr 07/18/21 07/19/21 07/19/21 17:32 07:17 07:17 WBC 13.14 H RBC 3.84 L Hgb 9.3 L Hct 28.5 L MCV 74.2 L MCH 24.2 L MCHC 32.6 RDW Std Deviation 45.9 RDW Coeff of Judah 16.6 H Plt Count 502 H MPV 8.1 Immature Gran % (Auto) 0.4 Neut % (Auto) 83.3 Lymph % (Auto) 8.2 [place] % (Auto) 6.9 Eos % (Auto) 1.0 Baso % (Auto) 0.2 Neut # (Auto) 10.95 H Lymph # (Auto) 1.08 L [place] # (Auto) 0.91 H Eos # (Auto) 0.13 Baso # (Auto) 0.02 Immature Gran # (Auto) 0.05 H Sodium 137 138 Potassium 2.9 L 2.9 L Chloride 104 104 Carbon Dioxide 25 26 Anion Gap 8.0 8.0 BUN 8 7 Creatinine 0.58 L 0.44 L Est Cr Clr Drug Dosing 109.9 148.2 Est GFR ( Amer) 115.3 126.3 Est GFR (Non-Af Amer) 99.5 108.9 BUN/Creatinine Ratio 13.4 15.5 Glucose 157 H 118 H Calcium 8.3 L 8.4 L Phosphorus 2.1 L Magnesium 2.3 PG Care Time/CCT Total # of Minutes Spent Total Time Spent with Patient: Total time spent is greater than 50% in coordination of care (as documented) at patient's floor/unit and/or counseling patient: Coding Level of Care Code 70006 Inpt Consult Level 3 Diagnoses Colonic diverticular abscess K57.20 Sepsis A41.9 Acute renal failure (ARF) N17.9
[2021-07-19] MEDS ORDERED: POTASSIUM PHOSPHATE 15 MMOL in SODIUM CHLORIDE 0.9% 250 ML IV ONE (14:00)
[2021-07-19] MEDS ORDERED: POLYETHYLENE (MIRALAX) 17 GM PACK PO ONE (14:14)
--- NOTE | 2021-07-19 14:28 | Hospitalist Progress Note ---
Date of Service July 19, 2021 Assessment & Plan (1) Sepsis: Plan: Loretta Baker is a 61yo F who presents with sepsis 2/2 colonic diverticular abscesses Sepsis 2/2 Colonic Diverticular Abscess s/p pigtail catheter placed 07/17 - WBC 37.31, hypotensive to systolic 70s, tachycardic on admission. Did not require vasopressors. - Continue Zosyn, can discontinue daptomycin now GPC confirmed as strep - Stop IV fluids, suspect her kidneys will diurese, unable to give Lasix due to current potassium levels but if still hypervolemic tomorrow will start spironolactone (2) Colonic diverticular abscess: Plan: - As above (3) Acute renal failure (ARF): Plan: - Baseline Cr <1 - Cr 3.74 on admission. Non-anuric prerenal 2/2 sepsis, resolved, Cr now 0.44 (4) Hypokalemia: Plan: KCl 40 meq IV + KPhos 15 mmol replacement. Repeat BMP in AM. Future supplementation can likely be given by mouth to avoid excessive fluids. (5) Hypertension: Plan: - Held DREDGE DECKHAND hctz 25 mg, losartan 100mg, lasix, atenolol in the setting of severe hypotension and ARF. Possible some degree of rebound tachycardia due to stopping atenolol. (6) Diastolic dysfunction: Plan: - ECHO 2018 w/ preserved EF - Lasix held as above - Current hypervolemic state due to IV fluids rather than any inherent CHF (7) Postmenopausal HRT (hormone replacement therapy): Plan: - DREDGE DECKHAND conjugated estrogen can be restarted (8) Depression with anxiety: Plan: - Trazodone 50mg qHS PRN can be restarted Plan: Diet - clear liquid as managed by surgery VTE Prophylaxis - Lovenox 40mg SQ daily Disposition - continue on PCU due to persistent hypokalemia. Admission and Anticipated Discharge Date Admission Date: July 16, 2021 Subjective Feels she needs to strain on the toilet. Abdominal pain improving. No fever or chills. Not yet had a bowel movement but passing gas. Hands and legs feeling swollen. +ve balance 9L this admission. Review of Systems Review of Systems: All systems reviewed & are unremarkable except as noted in HPI & below Physical Exam Constitutional: well developed and well nourished; no acute distress ENMT: Mouth: oral mucous membranes not dry Respiratory: normal respiratory effort, lungs clear to auscultation Cardiovascular: RRR, no murmur, no edema Heart Sounds: normal S1 and normal S2 Extremities: normal capillary refill; no edema Gastrointestinal (Abdomen): Inspection/Auscultation: abdomen normal to inspection; abdomen not distended Percussion/Palpation: + abdomen tender (LLQ, improved from yesterday) and abdomen soft; no guarding and abdomen not rigid Musculoskeletal: no cyanosis or clubbing, extremities motor strength 5/5 Skin: no rashes, warm and dry Neurologic: moves all extremities and awake; not confused Psychiatric: A+Ox3, euthymic affect Results & Data Results & Data ([facility]) Vital Signs (Past 12 Hours) Vital Signs Temp Pulse Pulse Pulse Resp BP BP 07/19/21 11:57 36.6 C 93 H 19 121/78 07/19/21 08:00 87 07/19/21 05:34 36.7 C 99 H 16 138/81 Pulse Ox 07/19/21 11:57 94 07/19/21 08:00 07/19/21 05:34 96 PG Care Time/CCT Total # of Minutes Spent Total Time Spent with Patient: Total time spent is greater than 50% in coordination of care (as documented) at patient's floor/unit and/or counseling patient: Coding Level of Care Code 40269 Subseq Hosp Care Lvl 3 Diagnoses Sepsis A41.9 Colonic diverticular abscess K57.20 Acute renal failure (ARF) N17.9 Hypokalemia E87.6 Hypertension I10 Diastolic dysfunction I51.89 Postmenopausal HRT (hormone replacement therapy) Z79.890 Depression with anxiety F41.8
[2021-07-19] MEDS ORDERED: traZODone HCL 50 MG TAB PO PRN (19:55)
[2021-07-19] MEDS ORDERED: POLYETHYLENE (MIRALAX) 17 GM PACK PO PRN (20:11)
[2021-07-19] MEDS: TOPIRAMATE 25 MG TAB PO SCH (21:27)
[2021-07-19] MEDS: ENOXAPARIN INJ 40 MG/0.4 ML SYR SQ SCH (21:59)
[2021-07-20] MEDS: PIPERACILLIN/TAZOBACTAM 4.5 GM in DEXTROSE 5% 100 ML IV SCH ×3 (00:46→17:08)
[2021-07-20] MEDS: HYDROmorphone INJ 0.5 MG/0.5 ML SYR IV PRN ×6 (02:44→22:38)
[2021-07-20 06:47] LABS: Basophils # (auto) 0.02 K/uL (0-0.2); Basophils % (auto) 0.2 %; Eosinophils # (auto) 0.18 K/uL (0-0.5); Eosinophils % (auto) 1.4 %; Hematocrit (blood only) 30.5 % (37-47); Hemoglobin 9.9 g/dL (12.0-16.0); Immature Granulocytes # (auto) 0.09 K/uL (0.00-0.02); Immature Granulocytes % (auto) 0.7 %; Lymphocytes # (auto) 1.37 K/uL (1.2-3.4); Mean Corpuscular Hgb Conc 32.5 g/dL (32-36); Mean Platelet Volume 8.2 fL (7.4-10.4); Monocytes # (auto) 0.88 K/uL (0.11-0.59); Neutrophils # (auto) 9.96 K/uL (1.4-6.5); Neutrophils % (auto) 79.7 %; Platelet Count 561 K/uL (130-400); RDW Coefficient of Variation 16.6 % (11.5-14.5); RDW Standard Deviation 45.4 fL (36.4-46.3); Red Blood Count 4.12 M/uL (4.2-5.4)
[2021-07-20 07:17] LABS: BUN Creatinine Ratio 12.4 (10-20); Calcium 8.5 mg/dl (8.5-10.1); Creatinine Clr Calc Pharmacy 133.7 ml/min; Est GFR (African American) 121.9 ml/min; Est GFR (Non-African American) 105.2 ml/min
[2021-07-20 07:26] LABS: Ferritin 236.4 ng/ml (8-388); Phosphorus 2.9 mg/dl (2.5-4.9)
[2021-07-20] MEDS ORDERED: SPIRONOLACTONE 25 MG TAB PO STA (09:02)
--- NOTE | 2021-07-20 09:07 | Hospitalist Progress Note ---
Date of Service July 20, 2021 Assessment & Plan (1) Sepsis: Plan: Loretta Baker is a 61yo F who presents with sepsis 2/2 colonic diverticular abscesses Sepsis 2/2 Colonic Diverticular Abscess s/p pigtail catheter placed 07/17 - WBC 37.31, hypotensive to systolic 70s, tachycardic on admission. Did not require vasopressors. - Continue Zosyn - One dose of spironolactone today - Drain Culture positive for streptococcus intermedius, Blood cultures negative - Will reduce Dilaudid from Q2H to Q4H and add oxycodone with the idea of moving towards discharge. (2) Colonic diverticular abscess: Plan: s/p CT guided drain placed 07/17, drain Culture positive for streptococcus intermedius - As above (3) Acute renal failure (ARF): Plan: - Baseline Cr <1 - Cr 3.74 on admission. 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 Possible some degree of rebound tachycardia due to stopping atenolol. (6) Diastolic dysfunction: Plan: - ECHO 2018 w/ preserved EF - Lasix held as above - Current hypervolemic state due to IV fluids rather than any inherent CHF, one dose spironolactone today (7) Postmenopausal HRT (hormone replacement therapy): Plan: - BUSINESS LINE MANAGER conjugated estrogen can be restarted (8) Depression with anxiety: Plan: - Trazodone 50mg qHS PRN can be restarted Plan: Diet - full liquid as managed by surgery VTE Prophylaxis - Lovenox 40mg SQ daily Disposition - stable for transfer to med/surg now K improving Admission and Anticipated Discharge Date Admission Date: July 16, 2021 Subjective Continued LLQ pain requiring regular Dilaudid, severity 4/10, no radiation. No nausea or vomiting. No significant bowel movement. Feels she still needs to strain still. Generalized swelling improving. Review of Systems Review of Systems: All systems reviewed & are unremarkable except as noted in HPI & below Physical Exam Constitutional: well developed and well nourished; no acute distress ENMT: Mouth: oral mucous membranes not dry Neck: trachea midline, no thyromegaly Respiratory: normal respiratory effort, lungs clear to auscultation Cardiovascular: Rate/Rhythm: regular rate and regular rhythm Heart Sounds: normal S1 and normal S2 Extremities: normal capillary refill and + edema (1+ generalized hands and feet) Gastrointestinal (Abdomen): Inspection/Auscultation: abdomen normal to inspection; abdomen not distended Percussion/Palpation: + abdomen tender (LLQ, improved from yesterday) and abdomen soft; no guarding and abdomen not rigid Musculoskeletal: no cyanosis or clubbing, extremities motor strength 5/5 Skin: no rashes, warm and dry Neurologic: moves all extremities and awake; not confused Psychiatric: A+Ox3, euthymic affect Results & Data Results & Data ([facility]) Vital Signs (Past 12 Hours) Vital Signs Temp Pulse Pulse Resp BP Pulse Ox 07/20/21 03:13 37.0 C 102 H 22 110/78 92 07/19/21 23:00 36.7 C 102 H 103 H 20 133/85 96 PG Care Time/CCT Total # of Minutes Spent Total Time Spent with Patient: Total time spent is greater than 50% in coordination of care (as documented) at patient's floor/unit and/or counseling patient: Coding Level of Care Code 57924 Subseq Hosp Care Lvl 2 Diagnoses Sepsis A41.9 Colonic diverticular abscess K57.20 Acute renal failure (ARF) N17.9 Hypokalemia E87.6 Hypertension I10 Diastolic dysfunction I51.89 Postmenopausal HRT (hormone replacement therapy) Z79.890 Depression with anxiety F41.8
[2021-07-20] MEDS: PANTOprazole 40 MG TAB PO SCH (09:38)
[2021-07-20] MEDS: ESTROGENS, CONJUGATED 0.625 MG TAB PO SCH (09:38)
[2021-07-20] MEDS: CHOLECALCIFEROL 1,000 UNITS 25 MCG TAB PO SCH (09:38)
[2021-07-20] MEDS: POTASSIUM CHLORIDE CRTAB 20 MEQ TABCR PO SCH ×3 (09:42→20:45)
[2021-07-20] MEDS: POLYETHYLENE (MIRALAX) 17 GM PACK PO SCH ×2 (09:57→20:40)
--- NOTE | 2021-07-20 12:10 | Surgery Progress Note ---
Date of Service July 20, 2021 Assessment & Plan (1) Colonic diverticular abscess: Plan: colonic diverticulitis with abscess, significantly improved with abx, resuscitation and percutaneous drainage. advance to full liquids nutrtion shakes continue iv abx ambulate, oobtc, pulm toilet, a/c may restart oral meds will need outpatient colonoscopy and sigmoidectomy in future surgery will follow call with question or concern Dr. Ardon covering over weekend (2) Sepsis: (3) Acute renal failure (ARF): Admission and Anticipated Discharge Date Admission Date: July 16, 2021 Subjective diverticulitis with abscess and sepsis, s/p percutaneous drainage. doing well, still some llq pain, small bm today. Tolerated clears. Continues to feel better Results & Data ([facility]) Vital Signs (Past 12 Hours) Vital Signs Temp Pulse Pulse Resp BP BP Pulse Ox 07/20/21 11:13 36.8 C 93 H 18 136/75 98 07/20/21 08:00 36.7 C 96 H 108 H 22 142/82 H 96 07/20/21 03:13 37.0 C 102 H 22 110/78 92 Laboratory Results Laboratory Results - last 24 hr 07/20/21 07/20/21 06:18 06:18 WBC 12.50 H RBC 4.12 L Hgb 9.9 L Hct 30.5 L MCV 74.0 L MCH 24.0 L MCHC 32.5 RDW Std Deviation 45.4 RDW Coeff of Judah 16.6 H Plt Count 561 H MPV 8.2 Immature Gran % (Auto) 0.7 Neut % (Auto) 79.7 Lymph % (Auto) 11.0 Randolph % (Auto) 7.0 Eos % (Auto) 1.4 Baso % (Auto) 0.2 Neut # (Auto) 9.96 H Lymph # (Auto) 1.37 Randolph # (Auto) 0.88 H Eos # (Auto) 0.18 Baso # (Auto) 0.02 Immature Gran # (Auto) 0.09 H Sodium 139 Potassium 3.0 L Chloride 103 Carbon Dioxide 31 Anion Gap 5.0 BUN 6 L Creatinine 0.49 L Est Cr Clr Drug Dosing 133.7 Est GFR ( Amer) 121.9 Est GFR (Non-Af Amer) 105.2 BUN/Creatinine Ratio 12.4 Glucose 114 H Calcium 8.5 Phosphorus 2.9 Iron 20 L Transferrin 133 L Transferrin % Sat 11 L Ferritin 236.4 PG Care Time/CCT Total # of Minutes Spent Total Time Spent with Patient: Total time spent is greater than 50% in coordination of care (as documented) at patient's floor/unit and/or counseling patient: Coding Level of Care Code 30654 Inpt Consult Level 3 Diagnoses Colonic diverticular abscess K57.20 Sepsis A41.9 Acute renal failure (ARF) N17.9
[2021-07-20] MEDS: ONDANSETRON INJ 2 MG/ML 2 ML VIAL IV PRN (18:01)
[2021-07-20] MEDS: oxyCODONE HCL IR 5 MG TAB (IMMEDIATE RELEASE) PO PRN (19:30)
[2021-07-20] MEDS: ENOXAPARIN INJ 40 MG/0.4 ML SYR SQ SCH (20:41)
[2021-07-20] MEDS: TOPIRAMATE 25 MG TAB PO SCH (20:42)
[2021-07-21] MEDS: PIPERACILLIN/TAZOBACTAM 4.5 GM in DEXTROSE 5% 100 ML IV SCH ×3 (00:07→16:28)
[2021-07-21] MEDS: oxyCODONE HCL IR 5 MG TAB (IMMEDIATE RELEASE) PO PRN ×2 (02:22→08:40)
[2021-07-21] MEDS: HYDROmorphone INJ 0.5 MG/0.5 ML SYR IV PRN ×4 (05:37→22:04)
[2021-07-21 07:14] LABS: BUN Creatinine Ratio 15.7 (10-20); Est GFR (African American) 121.1 ml/min; Est GFR (Non-African American) 104.5 ml/min; Potassium 3.3 mmol/L (3.5-5.1)
[2021-07-21 07:20] LABS: Phosphorus 3.7 mg/dl (2.5-4.9)
[2021-07-21 07:30] LABS: Basophils # (auto) 0.03 K/uL (0-0.2); Basophils % (auto) 0.2 %; Eosinophils # (auto) 0.26 K/uL (0-0.5); Hematocrit (blood only) 28.8 % (37-47); Hemoglobin 9.2 g/dL (12.0-16.0); Immature Granulocytes # (auto) 0.15 K/uL (0.00-0.02); Immature Granulocytes % (auto) 1.2 %; Lymphocytes # (auto) 1.55 K/uL (1.2-3.4); Lymphocytes % (auto) 12.1 %; Mean Corpuscular Hemoglobin 24.4 pg (25-34); Mean Corpuscular Hgb Conc 31.9 g/dL (32-36); Mean Corpuscular Volume 76.4 fL (80-100); Mean Platelet Volume 8.6 fL (7.4-10.4); Monocytes # (auto) 0.98 K/uL (0.11-0.59); Monocytes % (auto) 7.7 %; Neutrophils # (auto) 9.82 K/uL (1.4-6.5); Neutrophils % (auto) 76.8 %; Platelet Count 590 K/uL (130-400); RDW Standard Deviation 47.4 fL (36.4-46.3); Red Blood Count 3.77 M/uL (4.2-5.4); White Blood Count 12.79 K/uL (4.8-10.8)
--- NOTE | 2021-07-21 07:38 | Surgery Progress Note ---
Date of Service July 21, 2021 Assessment & Plan (1) Colonic diverticular abscess: Plan: colonic diverticulitis with abscess, significantly improved with abx, resuscitation and percutaneous drainage. Continue full liquids nutrtion shakes continue iv abx ambulate, oobtc, pulm toilet, a/c may restart oral meds will need outpatient colonoscopy and sigmoidectomy in future surgery will follow call with question or concern We will monitor her CBC. If her pain continues to worsen or her white blood cell count increases, we may need to re-CT scan her abdomen (2) Sepsis: (3) Acute renal failure (ARF): Admission and Anticipated Discharge Date Admission Date: July 16, 2021 Subjective Had some significant pain overnight after taking MiraLAX. She did have a large liquid bowel movement following this. She states her pain is slightly improved this morning. She denies fevers or chills. She did have nausea last night. Results & Data ([facility]) Vital Signs (Past 12 Hours) Vital Signs Temp Pulse Resp BP Pulse Ox 07/20/21 22:23 36.7 C 109 H 18 126/80 98
[2021-07-21] MEDS: PANTOprazole 40 MG TAB PO SCH (08:36)
[2021-07-21] MEDS: ESTROGENS, CONJUGATED 0.625 MG TAB PO SCH (08:36)
[2021-07-21] MEDS: CHOLECALCIFEROL 1,000 UNITS 25 MCG TAB PO SCH (08:36)
[2021-07-21] MEDS: POTASSIUM CHLORIDE CRTAB 20 MEQ TABCR PO SCH ×3 (08:40→21:26)
[2021-07-21] MEDS ORDERED: SPIRONOLACTONE 25 MG TAB PO ONE (10:07)
--- NOTE | 2021-07-21 10:16 | Hospitalist Progress Note ---
Date of Service July 21, 2021 Assessment & Plan (1) Sepsis: Plan: Loretta Baker is a 61yo F who presents with sepsis 2/2 colonic diverticular abscesses Sepsis 2/2 Colonic Diverticular Abscess s/p pigtail catheter placed 07/17 - WBC 37.31, hypotensive to systolic 70s, tachycardic on admission. Did not require vasopressors. - Continue Zosyn - Repeat spironolactone today - Drain Culture positive for streptococcus intermedius, Blood cultures negative - Continue on dilaudid/oxycodone for pain relief (2) Colonic diverticular abscess: Plan: s/p CT guided drain placed 07/17, drain Culture positive for streptococcus intermedius - As above (3) Acute renal failure (ARF): Plan: - Baseline Cr <1 - Cr 3.74 on admission. 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 Possible some degree of rebound tachycardia due to stopping atenolol. 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 No fever or chills. Mild nausea yesterday relieved with ondansetron. No vomiting. Tolerating full liquid diet. Liquid brown stool after Miralax given yesterday. Review of Systems Review of Systems: All systems reviewed & are unremarkable except as noted in HPI & below Physical Exam Constitutional: well developed and well nourished; no acute distress ENMT: Mouth: oral mucous membranes not dry Neck: trachea midline, no thyromegaly Respiratory: normal respiratory effort, lungs clear to auscultation Cardiovascular: RRR, no murmur, no edema Rate/Rhythm: regular rate and regular rhythm Heart Sounds: normal S1 and normal S2 Extremities: normal capillary refill and + edema (1+ generalized feet, resolve in hands) Gastrointestinal (Abdomen): Inspection/Auscultation: abdomen normal to inspection; abdomen not distended Percussion/Palpation: + abdomen tender (LLQ, improving) and abdomen soft; no guarding and abdomen not rigid Skin: no rashes, warm and dry Neurologic: moves all extremities and awake; not confused Psychiatric: A+Ox3, euthymic affect Results & Data Results & Data ([facility]) Vital Signs (Past 12 Hours) Vital Signs Temp Pulse Resp BP BP Pulse Ox 07/21/21 07:37 36.8 C 78 16 117/70 94 07/20/21 22:23 36.7 C 109 H 18 126/80 98 PG Care Time/CCT Total # of Minutes Spent Total Time Spent with Patient: Total time spent is greater than 50% in coordination of care (as documented) at patient's floor/unit and/or counseling patient: Coding Level of Care Code 13985 Subseq Hosp Care Lvl 2 Diagnoses Sepsis A41.9 Colonic diverticular abscess K57.20 Acute renal failure (ARF) N17.9 Hypokalemia E87.6 Hypertension I10 Diastolic dysfunction I51.89 Postmenopausal HRT (hormone replacement therapy) Z79.890 Depression with anxiety F41.8
[2021-07-21] MEDS: SIMETHICONE 80 MG CHEW PO SCH ×3 (10:49→21:27)
[2021-07-21] MEDS: IRON SUCROSE 200 MG in 0.9 % SODIUM CHLORIDE 100 ML IV SCH (12:04)
[2021-07-21] MEDS: ENOXAPARIN INJ 40 MG/0.4 ML SYR SQ SCH (21:28)
[2021-07-21] MEDS: TOPIRAMATE 25 MG TAB PO SCH (21:28)
[2021-07-22] MEDS: oxyCODONE HCL IR 5 MG TAB (IMMEDIATE RELEASE) PO PRN ×4 (00:50→18:32)
[2021-07-22] MEDS: PIPERACILLIN/TAZOBACTAM 4.5 GM in DEXTROSE 5% 100 ML IV SCH ×3 (00:52→17:06)
[2021-07-22] MEDS: SIMETHICONE 80 MG CHEW PO SCH ×4 (04:43→21:03)
[2021-07-22] MEDS: HYDROmorphone INJ 0.5 MG/0.5 ML SYR IV PRN ×4 (05:38→21:01)
[2021-07-22 06:32] LABS: Basophils # (auto) 0.04 K/uL (0-0.2); Basophils % (auto) 0.4 %; Eosinophils # (auto) 0.23 K/uL (0-0.5); Eosinophils % (auto) 2.3 %; Hematocrit (blood only) 28.3 % (37-47); Hemoglobin 8.9 g/dL (12.0-16.0); Immature Granulocytes # (auto) 0.18 K/uL (0.00-0.02); Immature Granulocytes % (auto) 1.8 %; Lymphocytes # (auto) 1.42 K/uL (1.2-3.4); Lymphocytes % (auto) 14.4 %; Mean Corpuscular Hemoglobin 24.1 pg (25-34); Mean Corpuscular Hgb Conc 31.4 g/dL (32-36); Mean Corpuscular Volume 76.7 fL (80-100); Mean Platelet Volume 8.1 fL (7.4-10.4); Monocytes # (auto) 0.81 K/uL (0.11-0.59); Monocytes % (auto) 8.2 %; Neutrophils # (auto) 7.18 K/uL (1.4-6.5); Neutrophils % (auto) 72.9 %; Platelet Count 487 K/uL (130-400); RDW Standard Deviation 47.8 fL (36.4-46.3); Red Blood Count 3.69 M/uL (4.2-5.4); White Blood Count 9.86 K/uL (4.8-10.8)
[2021-07-22 07:02] LABS: BUN Creatinine Ratio 14.2 (10-20); Calcium 9.1 mg/dl (8.5-10.1); Creatinine Clr Calc Pharmacy 123.6 ml/min; Est GFR (African American) 118.8 ml/min; Est GFR (Non-African American) 102.5 ml/min; Phosphorus 3.4 mg/dl (2.5-4.9); Potassium 3.5 mmol/L (3.5-5.1)
[2021-07-22] MEDS: IRON SUCROSE 200 MG in 0.9 % SODIUM CHLORIDE 100 ML IV SCH (08:30)
[2021-07-22] MEDS: ESTROGENS, CONJUGATED 0.625 MG TAB PO SCH (08:47)
[2021-07-22] MEDS: CHOLECALCIFEROL 1,000 UNITS 25 MCG TAB PO SCH (08:48)
[2021-07-22] MEDS: PANTOprazole 40 MG TAB PO SCH (08:48)
[2021-07-22] MEDS: POTASSIUM CHLORIDE CRTAB 20 MEQ TABCR PO SCH ×3 (08:50→21:01)
--- NOTE | 2021-07-22 11:20 | Surgery Progress Note ---
Date of Service July 22, 2021 Assessment & Plan (1) Colonic diverticular abscess: Plan: colonic diverticulitis with abscess, significantly improved with abx, resuscitation and percutaneous drainage. Continue full liquids nutrtion shakes continue iv abx ambulate, oobtc, pulm toilet, a/c may restart oral meds will need outpatient colonoscopy and sigmoidectomy in future surgery will follow call with question or concern Pain continues to improve, and white blood cell count is normal today, down from 12. I will replace the three-way stopcock on the drain. Continue to advance diet as tolerated. Continue ambulation. (2) Sepsis: (3) Acute renal failure (ARF): Admission and Anticipated Discharge Date Admission Date: July 16, 2021 Subjective She states she is feeling better this morning. Still has pain but it is improving. She has been up and moving around. She denies nausea or vomiting. She denies fevers and chills. The nurse informs me there is an issue with flushing the catheter. It appears that the three-way stopcock is cracked. The drain continues to drain well. Physical Exam Constitutional: WD/WN, vitals as above Eyes: PERRL, conjunctivae normal, anicteric sclerae Gastrointestinal (Abdomen): Inspection/Auscultation: abdomen normal to inspection; abdomen not distended Percussion/Palpation: + abdomen tender (Moderate tenderness lower abdomen) and abdomen soft; no guarding and abdomen not rigid Skin: no rashes, warm and dry Psychiatric: A+Ox3, euthymic affect Results & Data ([facility]) Vital Signs (Past 12 Hours) Vital Signs Temp Pulse Resp BP Pulse Ox 07/22/21 09:06 36.7 C 78 18 134/80 95 07/22/21 08:46 36.9 C 98 H 16 161/80 H 96 07/22/21 08:29 36.7 C 92 H 16 152/87 H 99 07/22/21 07:33 36.5 C 82 16 126/79 95 Laboratory Results 07/22/21 07/22/21 Range/Units 06:04 06:04 WBC 9.86 (4.8-10.8) K/uL RBC 3.69 L (4.2-5.4) M/uL Hgb 8.9 L (12.0-16.0) g/dL Hct 28.3 L (37-47) % MCV 76.7 L (80-100) fL MCH 24.1 L (25-34) pg MCHC 31.4 L (32-36) g/dL RDW Std Deviation 47.8 H (36.4-46.3) fL RDW Coeff of Judah 17.0 H (11.5-14.5) % Plt Count 487 H (130-400) K/uL MPV 8.1 (7.4-10.4) fL Immature Gran % (Auto) 1.8 % Neut % (Auto) 72.9 % Lymph % (Auto) 14.4 % [place] % (Auto) 8.2 % Eos % (Auto) 2.3 % Baso % (Auto) 0.4 % Neut # (Auto) 7.18 H (1.4-6.5) K/uL Lymph # (Auto) 1.42 (1.2-3.4) K/uL [place] # (Auto) 0.81 H (0.11-0.59) K/uL Eos # (Auto) 0.23 (0-0.5) K/uL Baso # (Auto) 0.04 (0-0.2) K/uL Immature Gran # (Auto) 0.18 H (0.00-0.02) K/uL Sodium 140 (136-145) mmol/L Potassium 3.5 (3.5-5.1) mmol/L Chloride 107 (98-107) mmol/L Carbon Dioxide 30 (21-32) mmol/L Anion Gap 3.0 (3-11) BUN 7 (7-18) mg/dl Creatinine 0.53 L (0.6-1.2) mg/dl Est Cr Clr Drug Dosing 123.6 ml/min Est GFR ( Amer) 118.8 ml/min Est GFR (Non-Af Amer) 102.5 ml/min BUN/Creatinine Ratio 14.2 (10-20) Glucose 101 H (70-99) mg/dl Calcium 9.1 (8.5-10.1) mg/dl Phosphorus 3.4 (2.5-4.9) mg/dl
[2021-07-22] MEDS ORDERED: FUROSEMIDE INJ 20 MG/2 ML VIAL IV STA (14:16)
--- NOTE | 2021-07-22 14:22 | Hospitalist Progress Note ---
Date of Service July 22, 2021 Assessment & Plan (1) Sepsis: Plan: Loretta Baker is a 61yo F who presents with sepsis 2/2 colonic diverticular abscesses Sepsis 2/2 Colonic Diverticular Abscess s/p pigtail catheter placed 07/17 - WBC 37.31, hypotensive to systolic 70s, tachycardic on admission. Did not require vasopressors. - Continue Zosyn - Start Lasix 20mg IV today and daily until edema resolved (+ve balance 11L this admission) - Drain Culture positive for streptococcus intermedius, Blood cultures negative - Continue on dilaudid/oxycodone for pain relief (2) Colonic diverticular abscess: Plan: s/p CT guided drain placed 07/17, drain Culture positive for streptococcus intermedius - As above (3) Acute renal failure (ARF): Plan: - Baseline Cr <1 - Cr 3.74 on admission. 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 Possible some degree of rebound tachycardia due to stopping atenolol. 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 No fever or chills. WBC improving. No nausea, vomiting. Having small loose BM. No fever or chills. Review of Systems Review of Systems: All systems reviewed & are unremarkable except as noted in HPI & below Physical Exam Constitutional: well developed and well nourished; no acute distress ENMT: Mouth: oral mucous membranes not dry Neck: trachea midline, no thyromegaly Respiratory: normal respiratory effort, lungs clear to auscultation Cardiovascular: Rate/Rhythm: regular rate and regular rhythm Heart Sounds: normal S1 and normal S2 Extremities: normal capillary refill and + edema (1+ generalized feet, resolve in hands) Gastrointestinal (Abdomen): Inspection/Auscultation: abdomen normal to inspection; abdomen not distended Percussion/Palpation: + abdomen tender (LLQ, improving) and abdomen soft; no guarding and abdomen not rigid Musculoskeletal: no cyanosis or clubbing, extremities motor strength 5/5 Skin: no rashes, warm and dry Neurologic: moves all extremities and awake; not confused Psychiatric: A+Ox3, euthymic affect Results & Data Results & Data ([facility]) Vital Signs (Past 12 Hours) Vital Signs Temp Pulse Resp BP Pulse Ox 07/22/21 09:06 36.7 C 78 18 134/80 95 07/22/21 08:46 36.9 C 98 H 16 161/80 H 96 07/22/21 08:29 36.7 C 92 H 16 152/87 H 99 07/22/21 07:33 36.5 C 82 16 126/79 95 PG Care Time/CCT Total # of Minutes Spent Total Time Spent with Patient: Total time spent is greater than 50% in coordination of care (as documented) at patient's floor/unit and/or counseling patient: Coding Level of Care Code 26159 Subseq Hosp Care Lvl 2 Diagnoses Sepsis A41.9 Colonic diverticular abscess K57.20 Acute renal failure (ARF) N17.9 Hypokalemia E87.6 Hypertension I10 Diastolic dysfunction I51.89 Postmenopausal HRT (hormone replacement therapy) Z79.890 Depression with anxiety F41.8
[2021-07-22] MEDS ORDERED: FLUCONAZOLE 50 MG TAB PO STA (19:13)
[2021-07-22] MEDS: ENOXAPARIN INJ 40 MG/0.4 ML SYR SQ SCH (21:01)
[2021-07-22] MEDS: TOPIRAMATE 25 MG TAB PO SCH (21:02)
[2021-07-23] MEDS: PIPERACILLIN/TAZOBACTAM 4.5 GM in DEXTROSE 5% 100 ML IV SCH ×3 (00:21→18:52)
[2021-07-23] MEDS: oxyCODONE HCL IR 5 MG TAB (IMMEDIATE RELEASE) PO PRN ×3 (00:28→14:25)
[2021-07-23] MEDS: SIMETHICONE 80 MG CHEW PO SCH ×4 (04:21→20:44)
[2021-07-23] MEDS: HYDROmorphone INJ 0.5 MG/0.5 ML SYR IV PRN ×3 (04:21→22:53)
[2021-07-23 06:20] LABS: Basophils # (auto) 0.03 K/uL (0-0.2); Basophils % (auto) 0.2 %; Eosinophils # (auto) 0.15 K/uL (0-0.5); Eosinophils % (auto) 1.1 %; Hematocrit (blood only) 30.2 % (37-47); Hemoglobin 9.6 g/dL (12.0-16.0); Immature Granulocytes # (auto) 0.13 K/uL (0.00-0.02); Lymphocytes # (auto) 1.19 K/uL (1.2-3.4); Lymphocytes % (auto) 8.7 %; Mean Corpuscular Hemoglobin 24.6 pg (25-34); Mean Corpuscular Hgb Conc 31.8 g/dL (32-36); Mean Corpuscular Volume 77.2 fL (80-100); Mean Platelet Volume 8.5 fL (7.4-10.4); Monocytes # (auto) 0.89 K/uL (0.11-0.59); Monocytes % (auto) 6.5 %; Neutrophils # (auto) 11.22 K/uL (1.4-6.5); Neutrophils % (auto) 82.5 %; Platelet Count 501 K/uL (130-400); RDW Coefficient of Variation 17.2 % (11.5-14.5); RDW Standard Deviation 48.1 fL (36.4-46.3); Red Blood Count 3.91 M/uL (4.2-5.4); White Blood Count 13.61 K/uL (4.8-10.8)
[2021-07-23 07:08] LABS: BUN Creatinine Ratio 11.3 (10-20); Calcium 9.2 mg/dl (8.5-10.1); Creatinine Clr Calc Pharmacy 105.7 ml/min; Est GFR (African American) 112.8 ml/min; Est GFR (Non-African American) 97.3 ml/min; Potassium 4.3 mmol/L (3.5-5.1)
--- NOTE | 2021-07-23 08:31 | Surgery Progress Note ---
Date of Service July 23, 2021 Assessment & Plan (1) Colonic diverticular abscess: Plan: feeling better but WBC increasing 6 days since drainage, will repeat CT scan Admission and Anticipated Discharge Date Admission Date: July 16, 2021 Supervising Physician Co-Signing Physician Notes pnt s&e, labs and imagin reviewed. Diverticulitis with abscesses s/p perc drainage of pelvic abscess. Did well over weekend but wbc up today. Minimal pain, tolerating full liquid diet. on exam minimal ttp in llq. CT with resolution of pelvic abscess, stable to slight increase in size of central abscesses. Will continue iv abx, repeat scan when contrast reaches rectum. trend wbc, if rising then consider laparoscopic washout vs. berry's, if stable or downtrending then continue iv abx for another 1-2 weeks. Will likely need PICC and ID consult. Subjective feels better, less bloated, some RUQ pain ? gas, bowel moving, appetite improved, remains on full liquids Physical Exam Constitutional: no acute distress Gastrointestinal (Abdomen): Inspection/Auscultation: + abdomen distended (mild) Percussion/Palpation: + abdomen tender (mild generalized) and abdomen soft pigtail drain--does not appear to be much drainage since 07/18 Results & Data ([facility]) Vital Signs (Past 12 Hours) Vital Signs Temp Pulse Resp BP BP Pulse Ox 07/23/21 07:48 36.4 C L 104 H 16 155/93 H 100 07/22/21 22:39 36.6 C 89 16 118/75 93 PG Care Time/CCT Total # of Minutes Spent Total Time Spent with Patient: Total time spent is greater than 50% in coordination of care (as documented) at patient's floor/unit and/or counseling patient: Coding Level of Care Code 10009 Subseq Hosp Care Lvl 2 Diagnoses Colonic diverticular abscess K57.20
[2021-07-23] MEDS: ONDANSETRON INJ 2 MG/ML 2 ML VIAL IV PRN (09:00)
[2021-07-23] MEDS ORDERED: OPTIRAY 320 100ml IV ONE (11:06)
[2021-07-23] MEDS: CHOLECALCIFEROL 1,000 UNITS 25 MCG TAB PO SCH (11:19)
[2021-07-23] MEDS: PANTOprazole 40 MG TAB PO SCH (11:20)
[2021-07-23] MEDS: ESTROGENS, CONJUGATED 0.625 MG TAB PO SCH (11:20)
[2021-07-23] MEDS: FUROSEMIDE INJ 20 MG/2 ML VIAL IV SCH (11:21)
[2021-07-23] MEDS: POTASSIUM CHLORIDE CRTAB 20 MEQ TABCR PO SCH (12:42)
--- NOTE | 2021-07-23 12:50 | CT Scan Report ---
ABDOMEN AND PELVIS CT WITH IV AND ORAL CONTRAST CT DOSE: 957.89 mGycm HISTORY: Acute left lower quadrant abdominal pain with known diverticular abscess. diverticular absc ess, increasing WBC TECHNIQUE: Multiaxial CT images of the abdomen and pelvis were performed following the IV administrat ion of 94 cc of Optiray and oral contrast. A dose lowering technique was utilized adhering to the pr inciples of MARA. COMPARISON STUDY: CT abdomen and pelvis 07/16/2021 FINDINGS: The imaged inferior cardiac chambers are mildly enlarged. Trace pericardial effusion. Mild subsegment al bibasilar atelectasis. No pneumatosis or pneumoperitoneum. The spleen measures the upper limits of normal in size. Mild generalized pancreatic atrophy. The adrenal glands and liver appear unremarkabl e. Cholecystectomy. Patent portal vein. Unremarkable kidneys with punctate bilateral nephrolithiasis. There is no hydronephrosis. Urinary bladder wall thickening with partial distention. Colonic diverticulosis with mid colonic wall thickening redemonstrated. Pericolonic peripherally enha ncing fluid collections are redemonstrated. There is a 4.1 x 2.7 cm collection of the left hemipelvis on image 378 series 3 which previously measured approximately 5.0 x 2.8 cm. There is an air and flui d-filled collection of the sigmoid mesocolon centrally measuring 6.2 x 3.7 cm image 338 which previou sly measured approximately 3.9 x 3.0 cm. This demonstrates increased amount of air and fluid within t he collection with peripheral enhancement. Interval decrease size of the large 8.5 x 8.3 cm mid pelvi c collection status post drainage with near resolution. Smaller peripherally enhancing fluid collecti ons of the inferior pelvis are noted adjacent to the rectum and inferior sigmoid. No new collections are identified. Scattered small bowel air-fluid levels are noted with fluid distention of the proxima l colon. Postoperative changes of the proximal stomach. No transition point. Enteric contrast is note d within the jejunum. Bilateral breast implants. Posterior interbody yordan and screw fusion hardware at L3-L5 with discectomy changes. IMPRESSION: 1. Colonic diverticulosis without acute diverticulitis redemonstrated. 2. Drainage catheter within the inferior pelvis is noted with resolution of the previously described large lower pelvic fluid collection. 3. Additional smaller peripherally enhancing fluid collections of the pelvis suggestive of abscesses. Collection within the left inferior hemipelvis has slightly decreased in size and the air and fluid- filled collection of the central pelvis has increased in size now measuring 6.2 x 3.7 cm. This collec tion is not amenable to percutaneous drainage secondary to positioning within the pelvis. 4. Scattered small and large bowel air-fluid levels suggests ileus. 5. Punctate bilateral nephrolithiasis. 6. Additional findings as above. ACT 112: Negative or not required by law. The above report was generated using voice recognition software. It may contain grammatical, syntax o r spelling errors. Electronically signed by: Pranav Wyatt M.D. 07/23/2021 12:48 PM
--- NOTE | 2021-07-23 14:50 | XRay Report ---
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 Surgical clips of the epigastric abdomen. Fusion hardware with discectomy changes of the lumbar spine. Drainage catheter of the right hemipelvis. Air-filled dilated loops of s mall bowel are redemonstrated measuring up to 4.6 cm. Air is also noted within the large bowel. No si gnificant progression of enteric contrast into the pelvis. IMPRESSION: 1. Persistent suggested ileus pattern with bowel obstruction considered less likely. No significant d istal progression of the enteric contrast. 2. Drainage catheter within the right hemipelvis redemonstrated. ACT 112: Negative or not required by law. The above report was generated using voice recognition software. It may contain grammatical, syntax o r spelling errors. Electronically signed by: Pranav Wyatt M.D. 07/23/2021 2:49 PM
--- NOTE | 2021-07-23 14:57 | Hospitalist Progress Note ---
Date of Service July 23, 2021 Assessment & Plan (1) Sepsis: Plan: Loretta Baker is a 61yo F who presents with sepsis 2/2 colonic diverticular abscesses Sepsis 2/2 Colonic Diverticular Abscess s/p pigtail catheter placed 07/17 - WBC 37.31, hypotensive to systolic 70s, tachycardic on admission. Did not require vasopressors. -overall improved/but WBC count did creep back up slightly today to 13, remains afebrile, BPs good - Continue Zosyn -continue Lasix 20mg IV daily until edema resolved (+ve balance 11L this admission) - Drain Culture positive for streptococcus intermedius, Blood cultures negative - Continue on dilaudid/oxycodone for pain relief (2) Colonic diverticular abscess: Plan: s/p CT guided drain placed 07/17, drain Culture positive for streptococcus intermedius repeat CT abd/pel today with resolution of abscess that was drained, smaller size of another and increased size of another discussed with Surgery--> continue withIV abx nd no surgery as would end up with Vegas's; if WBC count continues to climb or has fevers, worsens clinically, then pursue surgery as IR could not reach current abscess follow CBC with mild ileus as well (3) Acute renal failure (ARF): Plan: - Baseline Cr <1 - Cr 3.74 on admission. Non-anuric prerenal 2/2 sepsis, now resolved -follow BMP in setting of lasix use (4) Hypokalemia: Plan: resolved with replacement dc po KCl and replace daily prn follow bMP, Mag (5) Hypertension: Plan: - Held [employer] hctz 25 mg, losartan 100mg, lasix, atenolol in the setting of severe hypotension and ARF. Possible some degree of rebound tachycardia due to stopping atenolol. - Lasix as above BPs slightly elevated now -continue to watch (6) Diastolic dysfunction: Plan: - ECHO 2018 w/ preserved EF - Lasix held as above - Current hypervolemic state due to IV fluids rather than any inherent CHF, lasix as above (7) Postmenopausal HRT (hormone replacement therapy): Plan: - [employer] conjugated estrogenhas been restarted (8) Depression with anxiety: Plan: - Trazodone 50mg qHS PRN Plan: VTE Prophylaxis - Lovenox 40mg SQ daily Disposition - continue on med/surg Admission and Anticipated Discharge Date Admission Date: July 16, 2021 Subjective having some pain in RUQ since drinking po contrast for CT today, feels like a gas pain, worse with lying flat and better with sitting up. Is passing some flatus from below and some mucous from below but no BM since yesterday. Otherwise no concerns. Discussed her care with the Surgeon Review of Systems Review of Systems: All systems reviewed & are unremarkable except as noted in HPI & below Physical Exam Constitutional: WD/WN, vitals as above Eyes: + anicteric sclerae Neck: trachea midline, no thyromegaly Respiratory: normal respiratory effort, lungs clear to auscultation Cardiovascular: Rate/Rhythm: regular rate and regular rhythm Extremities: + edema (1+ edema legs) Chest (Breasts): Chest: normal inspection of chest Gastrointestinal (Abdomen): Inspection/Auscultation: normal bowel sounds; + abdomen abnormal to inspection (incisional scar midline) Percussion/Palpation: + abdomen tender (mild in right abdomen) and abdomen soft; no guarding Musculoskeletal: Extremities: extremities normal to inspection; no cyanosis and no clubbing Skin: no rashes, warm and dry Neurologic: moves all extremities and awake; no focal motor deficits Psychiatric: A+Ox3, euthymic affect Lymphatic: no lymphedema Results & Data Results & Data ([facility]) Vital Signs (Past 12 Hours) Vital Signs Temp Pulse Resp BP Pulse Ox 07/23/21 07:48 36.4 C L 104 H 16 155/93 H 100 Laboratory Results 07/23/21 07/23/21 Range/Units 05:34 05:34 WBC 13.61 H (4.8-10.8) K/uL RBC 3.91 L (4.2-5.4) M/uL Hgb 9.6 L (12.0-16.0) g/dL Hct 30.2 L (37-47) % MCV 77.2 L (80-100) fL MCH 24.6 L (25-34) pg MCHC 31.8 L (32-36) g/dL RDW Std Deviation 48.1 H (36.4-46.3) fL RDW Coeff of Judah 17.2 H (11.5-14.5) % Plt Count 501 H (130-400) K/uL MPV 8.5 (7.4-10.4) fL Immature Gran % (Auto) 1.0 % Neut % (Auto) 82.5 % Lymph % (Auto) 8.7 % Crockett % (Auto) 6.5 % Eos % (Auto) 1.1 % Baso % (Auto) 0.2 % Neut # (Auto) 11.22 H (1.4-6.5) K/uL Lymph # (Auto) 1.19 L (1.2-3.4) K/uL Crockett # (Auto) 0.89 H (0.11-0.59) K/uL Eos # (Auto) 0.15 (0-0.5) K/uL Baso # (Auto) 0.03 (0-0.2) K/uL Immature Gran # (Auto) 0.13 H (0.00-0.02) K/uL Sodium 137 (136-145) mmol/L Potassium 4.3 D (3.5-5.1) mmol/L Chloride 105 (98-107) mmol/L Carbon Dioxide 29 (21-32) mmol/L Anion Gap 3.0 (3-11) BUN 7 (7-18) mg/dl Creatinine 0.62 (0.6-1.2) mg/dl Est Cr Clr Drug Dosing 105.7 ml/min Est GFR ( Amer) 112.8 ml/min Est GFR (Non-Af Amer) 97.3 ml/min BUN/Creatinine Ratio 11.3 (10-20) Glucose 108 H (70-99) mg/dl Calcium 9.2 (8.5-10.1) mg/dl PG Care Time/CCT Total # of Minutes Spent Total Time Spent with Patient: Total time spent is greater than 50% in coordination of care (as documented) at patient's floor/unit and/or counseling patient: Coding Level of Care Code 16727 Subseq Hosp Care Lvl 2 Diagnoses Sepsis A41.9 Colonic diverticular abscess K57.20 Acute renal failure (ARF) N17.9 Hypokalemia E87.6 Hypertension I10 Diastolic dysfunction I51.89 Postmenopausal HRT (hormone replacement therapy) Z79.890 Depression with anxiety F41.8
[2021-07-23] MEDS: ENOXAPARIN INJ 40 MG/0.4 ML SYR SQ SCH (20:43)
[2021-07-23] MEDS: TOPIRAMATE 25 MG TAB PO SCH (20:44)
[2021-07-24] MEDS: PIPERACILLIN/TAZOBACTAM 4.5 GM in DEXTROSE 5% 100 ML IV SCH ×3 (01:27→16:00)
[2021-07-24] MEDS: oxyCODONE HCL IR 5 MG TAB (IMMEDIATE RELEASE) PO PRN ×3 (01:36→22:58)
[2021-07-24] MEDS: SIMETHICONE 80 MG CHEW PO SCH ×4 (05:32→20:18)
[2021-07-24 06:31] LABS: Basophils # (auto) 0.03 K/uL (0-0.2); Basophils % (auto) 0.2 %; Eosinophils # (auto) 0.09 K/uL (0-0.5); Eosinophils % (auto) 0.5 %; Hematocrit (blood only) 29.8 % (37-47); Hemoglobin 9.3 g/dL (12.0-16.0); Immature Granulocytes % (auto) 0.6 %; Lymphocytes # (auto) 1.28 K/uL (1.2-3.4); Lymphocytes % (auto) 7.7 %; Mean Corpuscular Hgb Conc 31.2 g/dL (32-36); Mean Corpuscular Volume 76.8 fL (80-100); Mean Platelet Volume 8.1 fL (7.4-10.4); Monocytes # (auto) 1.09 K/uL (0.11-0.59); Monocytes % (auto) 6.6 %; Neutrophils # (auto) 13.93 K/uL (1.4-6.5); Neutrophils % (auto) 84.4 %; Platelet Count 426 K/uL (130-400); RDW Coefficient of Variation 17.2 % (11.5-14.5); RDW Standard Deviation 47.8 fL (36.4-46.3); Red Blood Count 3.88 M/uL (4.2-5.4); White Blood Count 16.52 K/uL (4.8-10.8)
[2021-07-24 08:01] LABS: Alanine Aminotransferase 16 U/L (12-78); Albumin Level 1.8 gm/dl (3.4-5.0); Aspartate Aminotransferase 15 U/L (15-37); Blood Urea Nitrogen 7 mg/dl (7-18); Calcium 9.1 mg/dl (8.5-10.1); Carbon Dioxide 23 mmol/L (21-32); Chloride 106 mmol/L (98-107); Est GFR (African American) 114.7 ml/min; Est GFR (Non-African American) 98.9 ml/min; Glucose 108 mg/dl (70-99); Magnesium 1.8 mg/dl (1.8-2.4); Potassium 3.7 mmol/L (3.5-5.1); Sodium 138 mmol/L (136-145)
[2021-07-24 08:04] LABS: Alkaline Phosphatase 60 U/L (45-117); Bilirubin Direct < 0.1 mg/dl (0-0.2); Total Protein 5.8 gm/dl (6.4-8.2)
[2021-07-24 08:06] LABS: Bilirubin,Total 0.4 mg/dl (0.2-1)
--- NOTE | 2021-07-24 08:37 | Surgery Progress Note ---
Date of Service July 24, 2021 Assessment & Plan (1) Colonic diverticular abscess: Plan: remains stable and afebrile however WBC up to 16 will hold Lovenox, plan for laparoscopic washout with drain placement tomorrow, possible colostomy Admission and Anticipated Discharge Date Admission Date: July 16, 2021 Supervising Physician Co-Signing Physician Notes pnt s&e, labs reviewed, agree with above. Diverticulitis with abscesses s/p perc drainage of pelvic abscess. WBC continues to trend up. Multiple loose bm's due to contrast, feels much better with no pain. On exam afvss, abd soft, NT, ND. CT with resolution of pelvic abscess, stable to slight increase in size of central abscesses. Will continue iv abx, Tentatively plan for laparoscopic washout vs. berry's tomorrow if wbc still up, if downtrending then continue iv abx for another 1-2 weeks. Will likely need PICC and ID consult. NPO after mi dnight Subjective feels about the same, some intermittent RUQ pain, bowels moving- diarrhea/contrast last night, tolerating diet Physical Exam Gastrointestinal (Abdomen): Inspection/Auscultation: + abdomen distended (less) Percussion/Palpation: + abdomen tender (mild) and abdomen soft Results & Data ([facility]) Vital Signs (Past 12 Hours) Vital Signs Temp Pulse Resp BP Pulse Ox 07/24/21 07:28 36.6 C 97 H 16 146/75 H 07/23/21 22:23 37.0 C 114 H 18 155/82 H 99 PG Care Time/CCT Total # of Minutes Spent Total Time Spent with Patient: Total time spent is greater than 50% in coordination of care (as documented) at patient's floor/unit and/or counseling patient: Coding Level of Care Code 21051 Subseq Hosp Care Lvl 2 Diagnoses Colonic diverticular abscess K57.20
[2021-07-24] MEDS: HYDROmorphone INJ 0.5 MG/0.5 ML SYR IV PRN ×3 (08:38→20:18)
[2021-07-24] MEDS: PANTOprazole 40 MG TAB PO SCH (08:44)
[2021-07-24] MEDS: FUROSEMIDE INJ 20 MG/2 ML VIAL IV SCH (10:21)
[2021-07-24] MEDS: ESTROGENS, CONJUGATED 0.625 MG TAB PO SCH (10:22)
[2021-07-24] MEDS: CHOLECALCIFEROL 1,000 UNITS 25 MCG TAB PO SCH (10:23)
--- NOTE | 2021-07-24 16:37 | Hospitalist Progress Note ---
Date of Service July 24, 2021 Assessment & Plan (1) Sepsis: Plan: Loretta Baker is a 61yo F who presents with sepsis 2/2 colonic diverticular abscesses Sepsis 2/2 Colonic Diverticular Abscess s/p pigtail catheter placed 07/17 - WBC 37.31, hypotensive to systolic 70s, tachycardic on admission. Did not require vasopressors. -overall improved/but WBC count continues to rise back up again over the last 2 days to 16, remains afebrile, BPs good -repeat CT abd/pel as below - Continue Zosyn -hold further Lasix as edema almost completely resolved - Drain Culture positive for streptococcus intermedius, Blood cultures negative - Continue on dilaudid/oxycodone for pain relief (2) Colonic diverticular abscess: Plan: s/p CT guided drain placed 07/17, drain Culture positive for streptococcus intermedius repeat CT abd/pel 07/23 with resolution of abscess that was drained, smaller size of another and increased size of another Now WBC continues to climb again although clinically she feels better Ileus resolved -NPO after midnight and plan by Surgery for surgical washout +/- Vegas's tomorrow if WBC count continues to climb -if WBC improving, plan for IV abx to continue for another 1-2 weeks follow CBC (3) Acute renal failure (ARF): Plan: - Baseline Cr <1 - Cr 3.74 on admission. Non-anuric prerenal 2/2 sepsis, now resolved -follow BMP (4) Hypokalemia: Plan: resolved with replacement follow bMP, Mag (5) Hypertension: Plan: - Held home hctz 25 mg, losartan 100mg, lasix, atenolol in the setting of severe hypotension and ARF. Possible some degree of rebound tachycardia due to stopping atenolol has now resolved BPs controlled - Lasix as above-will now HOLD (6) Diastolic dysfunction: Plan: - ECHO 2018 w/ preserved EF - Lasix held as above (7) Postmenopausal HRT (hormone replacement therapy): Plan: - [employer] conjugated estrogen has been restarted (8) Depression with anxiety: Plan: - Trazodone 50mg qHS PRN Plan: VTE Prophylaxis - Lovenox 40mg SQ daily on hold today for surgery possibly tomorrow Disposition - continue on med/surg Admission and Anticipated Discharge Date Admission Date: July 16, 2021 Subjective Pt had multiple BMs last night after po CT contrast but none since then. Today she had no abd pain all day until after eating lunch and then started having some again in the RUQ. Was OOB and ambulating the halls, starting to feel more like herself. No fevers, ly low fiber diet. Ankle swelling down, just some swelling in her feet. Review of Systems Review of Systems: All systems reviewed & are unremarkable except as noted in HPI & below Physical Exam Constitutional: WD/WN, vitals as above Eyes: + anicteric sclerae Neck: trachea midline, no thyromegaly Respiratory: normal respiratory effort, lungs clear to auscultation Cardiovascular: Rate/Rhythm: regular rate and regular rhythm Extremities: + edema (trace edema dorsal left foot, otherwise much improved) Chest (Breasts): Chest: normal inspection of chest Gastrointestinal (Abdomen): Inspection/Auscultation: normal bowel sounds Percussion/Palpation: abdomen soft; abdomen nontender and no guarding Musculoskeletal: Extremities: extremities normal to inspection; no cyanosis and no clubbing Skin: no rashes, warm and dry Neurologic: moves all extremities and awake; no focal motor deficits Psychiatric: A+Ox3, euthymic affect Lymphatic: no lymphedema Results & Data Results & Data ([facility]) Vital Signs (Past 12 Hours) Vital Signs Temp Pulse Resp BP Pulse Ox 07/24/21 14:50 36.7 C 88 16 118/74 96 07/24/21 07:28 36.6 C 97 H 16 146/75 H Laboratory Results 07/24/21 06:18 07/24/21 06:18 PG Care Time/CCT Total # of Minutes Spent Total Time Spent with Patient: Total time spent is greater than 50% in coordination of care (as documented) at patient's floor/unit and/or counseling patient: Coding Level of Care Code 22263 Subseq Hosp Care Lvl 2 Diagnoses Sepsis A41.9 Colonic diverticular abscess K57.20 Acute renal failure (ARF) N17.9 Hypokalemia E87.6 Hypertension I10 Diastolic dysfunction I51.89 Postmenopausal HRT (hormone replacement therapy) Z79.890 Depression with anxiety F41.8
[2021-07-24] MEDS: TOPIRAMATE 25 MG TAB PO SCH (22:28)
[2021-07-25] MEDS: PIPERACILLIN/TAZOBACTAM 4.5 GM in DEXTROSE 5% 100 ML IV SCH ×3 (00:53→17:21)
[2021-07-25] MEDS: HYDROmorphone INJ 0.5 MG/0.5 ML SYR IV PRN ×3 (05:02→23:23)
[2021-07-25] MEDS: SIMETHICONE 80 MG CHEW PO SCH ×4 (05:57→22:08)
[2021-07-25] MEDS: oxyCODONE HCL IR 5 MG TAB (IMMEDIATE RELEASE) PO PRN ×2 (08:42→20:59)
[2021-07-25] MEDS: CHOLECALCIFEROL 1,000 UNITS 25 MCG TAB PO SCH (08:43)
[2021-07-25] MEDS: ESTROGENS, CONJUGATED 0.625 MG TAB PO SCH (08:44)
[2021-07-25] MEDS: PANTOprazole 40 MG TAB PO SCH (08:44)
[2021-07-25 08:58] LABS: Hematocrit (blood only) 28.5 % (37-47); Mean Corpuscular Hemoglobin 24.4 pg (25-34); Mean Corpuscular Volume 77.2 fL (80-100); Mean Platelet Volume 8.5 fL (7.4-10.4); Platelet Count 402 K/uL (130-400); RDW Coefficient of Variation 17.8 % (11.5-14.5); RDW Standard Deviation 48.2 fL (36.4-46.3); Red Blood Count 3.69 M/uL (4.2-5.4); White Blood Count 15.51 K/uL (4.8-10.8)
[2021-07-25 09:04] LABS: Mean Corpuscular Hgb Conc 31.6 g/dL (32-36)
[2021-07-25 09:12] LABS: Albumin Level 1.8 gm/dl (3.4-5.0); BUN Creatinine Ratio 13.8 (10-20); Calcium 8.8 mg/dl (8.5-10.1); Est GFR (African American) 121.1 ml/min; Est GFR (Non-African American) 104.5 ml/min; Magnesium 1.9 mg/dl (1.8-2.4); Potassium 3.4 mmol/L (3.5-5.1)
[2021-07-25 09:15] LABS: Albumin Globulin Ratio 0.5 (0.9-2); Bilirubin,Total 0.2 mg/dl (0.2-1); Globulin 3.9 gm/dl (2.5-4.0); Total Protein 5.7 gm/dl (6.4-8.2)
[2021-07-25 09:42] LABS: Anisocytosis Present; Basophils # (auto) 0.03 K/uL (0-0.2); Basophils % (auto) 0.2 %; Eosinophils # (auto) 0.12 K/uL (0-0.5); Eosinophils % (auto) 0.8 %; Immature Granulocytes # (auto) 0.08 K/uL (0.00-0.02); Immature Granulocytes % (auto) 0.5 %; Lymphocytes # (auto) 1.11 K/uL (1.2-3.4); Lymphocytes % (auto) 7.2 %; Monocytes # (auto) 1.01 K/uL (0.11-0.59); Monocytes % (auto) 6.5 %; Neutrophils # (auto) 13.16 K/uL (1.4-6.5); Neutrophils % (auto) 84.8 %; Polychromasia 1+
[2021-07-25] MEDS ORDERED: MAGNESIUM SULFATE / D5W 1 GM/100 ML BAG IV ONE (10:15)
--- NOTE | 2021-07-25 12:24 | Anesthesiology Consultation ---
Date of Service July 25, 2021 Assessment & Plan Chart Review Chart Review: Acceptable Risk for Surgery (necessary surgery) and Patient NOT seen in Pre Admission Testing Consults Requested none History Surgery Operation Date: 07/25/21 11:45 Proposed Procedures p Laparoscopic Washout with Drain Placement, Possible Bowel Resection, Possible Colostomy - Soren Mccloud DO, FACS Height/Weight Height: 5 ft 5 in Weight: 90.1 kg Allergies Allergy/AdvReac Type Severity Reaction Status Date / Time No Known Allergies Allergy Unknown Verified 07/16/21 17:07 Medications Home Medications Medication Instructions Recorded Confirmed Last Taken cholecalciferol (vitamin D3) 25 1,000 unit PO QAM 09/23/19 07/16/21 01/22/21 08:00 mcg (1,000 unit) chewable tablet (Vitamin D3) furosemide 40 mg tablet 40 mg PO DAILY PRN 09/23/19 07/16/21 02/04/21 07:00 losartan 100 mg tablet 100 mg PO QAM 09/23/19 07/16/21 02/04/21 07:00 omeprazole magnesium 20 mg 20 mg PO QAM 09/23/19 07/16/21 02/05/21 06:00 tablet,delayed release (Prilosec OTC) conjugated estrogens 1.25 mg 1.25 mg PO DAILY #30 tab 06/05/20 07/16/21 02/04/21 07:00 tablet (Premarin) hydrochlorothiazide 25 mg tablet 25 mg PO QAM tab 06/08/20 07/16/21 02/04/21 07:00 trazodone 50 mg tablet 50 - 100 mg PO HS PRN tab 06/08/20 07/16/21 02/04/21 20:00 atenolol 50 mg tablet 50 mg PO BID tab 06/14/21 07/16/21 Unknown phentermine 15 mg capsule 15 mg PO DAILY #30 cap 06/14/21 07/16/21 Unknown topiramate 25 mg tablet 75 mg PO HS #90 tab 06/14/21 07/16/21 Unknown ibuprofen 200 mg tablet (Advil) 200 mg PO Q6H PRN 07/16/21 07/16/21 07/16/21 Active Medications Generic Name Dose Route Start Last Admin Trade Name Freq PRN Reason Stop Dose Admin Enoxaparin Sodium 40 mg 07/18/21 21:00 07/23/21 20:43 Enoxaparin Inj 40 Mg/0.4 Ml Syr SQ 08/17/21 20:59 40 mg QPM DIANA Administration Estrogens Conjugated 1.25 mg 07/20/21 09:00 07/25/21 08:44 Estrogens, Conjugated 0.625 Mg Tab PO 08/19/21 08:59 1.25 mg DAILY DIANA Administration Hydromorphone HCl 0.5 mg 07/20/21 09:08 07/25/21 05:02 Hydromorphone Inj 0.5 Mg/0.5 Ml Syr IV 07/31/21 18:39 0.5 mg Q4H PRN Administration Pain Piperacillin Sod/Tazobactam 120 mls @ 30 mls/hr 07/17/21 08:30 07/25/21 08:42 Sod 4.5 gm/ Dextrose IV 07/27/21 08:29 30 mls/hr Q8H DIANA Administration Protocol Miscellaneous Information 1 ea 07/16/21 19:11 07/20/21 00:46 Piperacill/Tazobac Consult Active N/A 08/15/21 19:10 1 ea UD PRN Administration Consult Ondansetron HCl 4 mg 07/20/21 17:53 07/23/21 09:00 Ondansetron Inj 2 Mg/Ml 2 Ml Vial IV 08/19/21 17:52 4 mg Q4H PRN Administration Nausea Oxycodone HCl 5 mg 07/20/21 11:07 07/25/21 08:42 Oxycodone Hcl Ir 5 Mg Tab (Immediate Release) PO 08/03/21 11:06 5 mg Q4H PRN Administration Pain Pantoprazole Sodium 40 mg 07/20/21 09:00 07/25/21 08:44 Pantoprazole 40 Mg Tab PO 08/19/21 08:59 40 mg QAM DIANA Administration Simethicone 80 mg 07/21/21 10:15 07/25/21 05:57 Simethicone 80 Mg Chew PO 08/20/21 10:14 80 mg Q6H DIANA Administration Topiramate 75 mg 07/19/21 21:00 07/24/21 22:28 Topiramate 25 Mg Tab PO 08/18/21 20:59 75 mg HS DIANA Administration Vitamin D 1,000 units 07/20/21 09:00 07/25/21 08:43 Cholecalciferol 1,000 Units 25 Mcg Tab PO 08/19/21 08:59 1,000 units QAM [facility] Administration Past Medical History Medical History Anemia Arthritis GERD (gastroesophageal reflux disease) controlled H/O cold sores Hiatal hernia History of claustrophobia Hx of endometriosis Hypertension Obesity Scoliosis TMJ (dislocation of temporomandibular joint) + jaw pain (wears mouth guard at night) Past Family History Family History Sister Family history of diabetes mellitus Sister Family history of diabetes mellitus Sister Family history of diabetes mellitus Brother Family history of diabetes mellitus Hypertension Mother Family hx of colon cancer Family history of diabetes mellitus Hypertension Brother Family history of diabetes mellitus Father Diabetes Hypertension Family history of diabetes mellitus Past Surgical History Surgical History H/O abdominoplasty History of bilateral saline breast implants History of bladder surgery Sling History of cholecystectomy History of colonoscopy History of dilatation and curettage Multiple History of esophagogastroduodenoscopy (EGD) History of knee replacement B/L TKA (10/25/19): SAB at L3/L4 (x1 attempt) + PNB at [facility] History of laparoscopy History of tonsillectomy History of tooth extraction History of total abdominal hysterectomy and bilateral salpingo-oophorectomy Social History Smoking Status: Former smoker tobacco type: cigarettes Do You Dip or Chew Tobacco: No Hx Alcohol Use: Yes Alcohol type: hard liquor alcohol intake frequency: holidays/special occasions only Hx Substance Use: No substance use type: does not use Physical Exam Vital Signs Last Vital Signs Temp 36.7 C 07/24/21 22:53 Pulse 90 07/24/21 22:53 Resp 16 07/24/21 22:53 BP 146/79 H 07/24/21 22:53 Pulse Ox 99 07/24/21 22:53 Testing Laboratory Results 07/25/21 08:35 07/25/21 08:35 Urine Color Dark Yellow 07/16/21 16:15 Urine Appearance Turbid (Clear) A 07/16/21 16:15 Urine pH 5.0 (4.5-7.5) 07/16/21 16:15 Ur Specific H[place]ckley 1.022 (1.000-1.030) 07/16/21 16:15 Urine Protein 2+ (Negative) H 07/16/21 16:15 Urine Glucose (UA) Negative (Negative) 07/16/21 16:15 Urine Ketones Trace (Negative) H 07/16/21 16:15 Urine Nitrite Negative (Negative) 07/16/21 16:15 Ur Leukocyte Esterase Negative (Negative) 07/16/21 16:15 Urine WBC (Auto) >30 /hpf (0-5) H 07/16/21 16:15 Urine RBC (Auto) 10-30 /hpf (0-4) H 07/16/21 16:15 U Hyaline Cast (Auto) 0 /lpf (0-5) 07/16/21 16:15 U Epithel Cells (Auto) >30 /lpf (0-5) H 07/16/21 16:15 Urine Bacteria (Auto) 1+ (Negative) H 07/16/21 16:15 Blood Type A Positive 07/25/21 08:35 Antibody Screen NEGATIVE 07/25/21 08:35 07/16/21 15:40 Aerobic Blood Culture - Final Blood No growth in Aerobic bottle after 5 days. Anaerobic Blood Culture - Final No growth in Anaerobic bottle after 5 days. 07/16/21 15:38 Aerobic Blood Culture - Final Blood No growth in Aerobic bottle after 5 days. Anaerobic Blood Culture - Final 07/17/21 11:09 Gram Stain - Final Abdomen Deep Wound Culture - Final Streptococcus intermedius 07/16/21 16:15 Urine Culture - Final Urine,Clean Catch Three types of organisms present, all low counts probable skin adam. No further identifications or sensitivities to follow. Electrocardiogram Date: 07/16/21 Test Reason : Blood Pressure : / mmHG Vent. Rate : 071 BPM Atrial Rate : 071 BPM P-R Int : 156 ms QRS Dur : 090 ms QT Int : 390 ms P-R-T Axes : 058 029 003 degrees QTc Int : 423 ms Normal sinus rhythm Low voltage QRS Cannot rule out Anterior infarct , age undetermined Nonspecific ST and T wave abnormality Abnormal ECG When compared with ECG of 22-JAN-2021 10:51, Minimal criteria for Anterior infarct are now Present Confirmed by Mamadou Hudson ([id number]) on 07/17/2021 5:35:22 AM Referred By: Confirmed By:Mamadou Hudson Other Testing ABDOMEN AND PELVIS CT WITH IV AND ORAL CONTRAST CT DOSE: 957.89 mGycm HISTORY: Acute left lower quadrant abdominal pain with known diverticular abscess. diverticular abscess, increasing WBC TECHNIQUE: Multiaxial CT images of the abdomen and pelvis were performed following the IV administration of 94 cc of Optiray and oral contrast. A dose lowering technique was utilized adhering to the principles of ALARA. COMPARISON STUDY: CT abdomen and pelvis 07/16/2021 FINDINGS: The imaged inferior cardiac chambers are mildly enlarged. Trace pericardial effusion. Mild subsegmental bibasilar atelectasis. No pneumatosis or pneumoperitoneum. The spleen measures the upper limits of normal in size. Mild generalized pancreatic atrophy. The adrenal glands and liver appear unremarkable. Cholecystectomy. Patent portal vein. Unremarkable kidneys with punctate bilateral nephrolithiasis. There is no hydronephrosis. Urinary bladder wall thickening with partial distention. Colonic diverticulosis with mid colonic wall thickening redemonstrated. Pericolonic peripherally enhancing fluid collections are redemonstrated. There is a 4.1 x 2.7 cm collection of the left hemipelvis on image 378 series 3 which previously measured approximately 5.0 x 2.8 cm. There is an air and fluid-filled collection of the sigmoid mesocolon centrally measuring 6.2 x 3.7 cm image 338 which previously measured approximately 3.9 x 3.0 cm. This demonstrates increased amount of air and fluid within the collection with peripheral enhancement. Interval decrease size of the large 8.5 x 8.3 cm mid pelvic collection status post drainage with near resolution. Smaller peripherally enhancing fluid collections of the inferior pelvis are noted adjacent to the rectum and inferior sigmoid. No new collections are identified. Scattered small bowel air-fluid levels are noted with fluid distention of the proximal colon. Postoperative changes of the proximal stomach. No transition point. Enteric contrast is noted within the jejunum. Bilateral breast implants. Posterior interbody yordan and screw fusion hardware at L3-L5 with discectomy changes. IMPRESSION: 1. Colonic diverticulosis without acute diverticulitis redemonstrated. 2. Drainage catheter within the inferior pelvis is noted with resolution of the previously described large lower pelvic fluid collection. 3. Additional smaller peripherally enhancing fluid collections of the pelvis suggestive of abscesses. Collection within the left inferior hemipelvis has slightly decreased in size and the air and fluid-filled collection of the central pelvis has increased in size now measuring 6.2 x 3.7 cm. This collection is not amenable to percutaneous drainage secondary to positioning within the pelvis. 4. Scattered small and large bowel air-fluid levels suggests ileus. 5. Punctate bilateral nephrolithiasis. 6. Additional findings as above. ACT 112: Negative or not required by law. The above report was generated using voice recognition software. It may contain grammatical, syntax or spelling errors. Electronically signed by: Pranav Wyatt M.D. 07/23/2021 12:48 PM Dictated:07/23/21 1226
[2021-07-25] MEDS ORDERED: BUPIVACAINE 0.5 % 5 MG/1 ML MPF 30ML VIAL ONE (12:25)
[2021-07-25] MEDS ORDERED: BUPIVACAINE LIPOSOME 1.3% 266 MG/20 ML VIAL ONE (12:29)
[2021-07-25] MEDS ORDERED: ePHEDrine sulfate 50 MG/ML AMP IV PRN (12:31)
[2021-07-25] MEDS ORDERED: PHENYLEPHRINE 100MCG/ML 5ML SYR IV PRN (12:31)
[2021-07-25] MEDS ORDERED: ATROPINE SULFATE 0.1 MG/ML 10ML SYR IV PRN (12:31)
[2021-07-25] MEDS ORDERED: MEPERIDINE HCL 25 MG/ML CARP/VIAL IV PRN (12:31)
[2021-07-25] MEDS ORDERED: LABETALOL HCL IV 5 MG/ML 20ML IV PRN (12:31)
[2021-07-25] MEDS ORDERED: HYDROmorphone INJ 1 MG/ML SYRINGE IV PRN (12:31)
[2021-07-25] MEDS ORDERED: ONDANSETRON INJ 2 MG/ML 2 ML VIAL IV PRN (12:31)
[2021-07-25] MEDS ORDERED: fentaNYL citrate 100 MCG/2 ML VIAL ONE ×2 (12:36→14:22)
[2021-07-25] MEDS ORDERED: MIDAZOLAM HCL 1 MG/ML 2ML VIAL ONE (12:36)
[2021-07-25] MEDS ORDERED: ONDANSETRON INJ 2 MG/ML 2 ML VIAL ONE (12:36)
[2021-07-25] MEDS ORDERED: LIDOCAINE 2% 2 ML VIAL/AMP(20MG/ML) INFIL ONE (12:36)
[2021-07-25] MEDS ORDERED: DEXAMETHASONE SOD INJ 4 MG/ML VIAL ONE (12:36)
[2021-07-25] MEDS ORDERED: PROPOFOL IV EMULSION 10 MG/ML 20 ML VIAL IV ONE (12:36)
--- NOTE | 2021-07-25 12:43 | Surgery Progress Note ---
Date of Service July 25, 2021 Assessment & Plan (1) Colonic diverticular abscess: Plan: colonic diverticular abscess, doing well clinically but wbc remains elevated and recent ct with slightly larger central abscesses not amenable to percutaneous drainage. discussed option at length to include obs with abx vs surgery, she elects for surgery plan for diagnostic laparoscopy, laparoscopic washout, possible open, possible bowel resection, possible ostomy risks reviewed Admission and Anticipated Discharge Date Admission Date: July 16, 2021 Subjective diverticular abscess. Doing well, some llq and ruq pain. +small bm. no issues. Physical Exam Constitutional: WD/WN, vitals as above Gastrointestinal (Abdomen): Percussion/Palpation: + abdomen tender (llq) and abdomen soft; no guarding, abdomen not rigid and no hepatosplenomegaly Results & Data ([facility]) Diagnostic Findings Laboratory Results - last 24 hr 07/25/21 07/25/21 07/25/21 08:35 08:35 08:35 WBC 15.51 H RBC 3.69 L Hgb 9.0 L Hct 28.5 L MCV 77.2 L MCH 24.4 L MCHC 31.6 L RDW Std Deviation 48.2 H RDW Coeff of Judah 17.8 H Plt Count 402 H MPV 8.5 Immature Gran % (Auto) 0.5 Neut % (Auto) 84.8 Lymph % (Auto) 7.2 Rankin % (Auto) 6.5 Eos % (Auto) 0.8 Baso % (Auto) 0.2 Neut # (Auto) 13.16 H Lymph # (Auto) 1.11 L Rankin # (Auto) 1.01 H Eos # (Auto) 0.12 Baso # (Auto) 0.03 Immature Gran # (Auto) 0.08 H Polychromasia 1+ Anisocytosis Present Sodium 139 Potassium 3.4 L Chloride 107 Carbon Dioxide 23 Anion Gap 9.0 BUN 7 Creatinine 0.50 L Est Cr Clr Drug Dosing 131.0 Est GFR ( Amer) 121.1 Est GFR (Non-Af Amer) 104.5 BUN/Creatinine Ratio 13.8 Glucose 87 Calcium 8.8 Magnesium 1.9 Total Bilirubin 0.2 AST 14 L ALT 15 Alkaline Phosphatase 56 Total Protein 5.7 L Albumin 1.8 L Globulin 3.9 Albumin/Globulin Ratio 0.5 L Blood Type A Positive Antibody Screen NEGATIVE PG Care Time/CCT Total # of Minutes Spent Total Time Spent with Patient: Total time spent is greater than 50% in coordination of care (as documented) at patient's floor/unit and/or counseling patient: Coding Level of Care Code 05541 Inpt Consult Level 3 Diagnoses Colonic diverticular abscess K57.20
[2021-07-25] MEDS: POTASSIUM CHLORIDE / WTR 10 MEQ/100 ML PLCT IV SCH ×2 (12:45→17:04)
[2021-07-25] MEDS ORDERED: SCOPOLAMINE 1 MG TDSY TD ONE (13:13)
[2021-07-25] MEDS ORDERED: ROCURONIUM BROMIDE 10 MG/ML 5 ML VIAL IV ONE (14:13)
[2021-07-25] MEDS ORDERED: GLYCOPYRROLATE 0.2 MG/ML VIAL ONE (15:21)
[2021-07-25] MEDS ORDERED: NEOSTIGMINE METHYLSULFATE 1 MG/ML 10ML VIAL ONE (15:21)
--- NOTE | 2021-07-25 15:40 | Post Operative Brief Note ---
PG Immediate Post Op with CF Date of Surgery July 25, 2021 Pre & Post Diagnosis Operation Date: 07/25/21 11:45 Pre-Op Diagnosis: DIVERTICULAR ABSCESSES Post-Op Diagnosis: DIVERTICULAR ABSCESSES I identified the patient and participated in the time-out.: Yes Procedure Operation Date: 07/25/21 11:45 Actual Procedures p Laparoscopic Washout with Drain Placement, Possible Bowel Resection, Possible Colostomy(Not Applicable) - Soren Mccloud DO, FACS Surgeon Soren Mccloud DO, FAHAD Client Relations Associate Facundo Rubalcava Estimated Blood Loss 20 Findings Consistent with Post-Op Diagnosis Laparoscopic lysis of adhesions performed using sharp and blunt dissection. Significant inflammation in the left lower quadrant consistent with her history of diverticulitis. 2 separate abscess cavities entered matching the description seen on CT. These were opened and drained irrigated. A 15 round GUSTAVO drain was placed along these cavities. Specimens Specimen Description: None Drains Carson Catheter and Channing-Coates Drain (15 Fr Round GUSTAVO drain placed in abdomen ) Anesthesia Type General Disposition Accompanied Patient To Recovery: No Disposition: Recovery Room
--- NOTE | 2021-07-25 15:59 | Operative Report ---
PG Post Operative Report Pre & Post Diagnosis Operation Date: 07/25/21 11:45 Pre-Op Diagnosis: DIVERTICULAR ABSCESSES Post-Op Diagnosis: DIVERTICULAR ABSCESSES I identified the patient and participated in the time-out.: Yes Procedure Operation Date: 07/25/21 11:45 Actual Procedures p Laparoscopic Washout with Drain Placement, Laproscopic lysis of adhesions(Not Applicable) - Soren Mccloud DO, FAHAD Surgeon Soren Mccloud DO, FAHAD International Representative Facundo Rubalcava Estimated Blood Loss 20 Findings Consistent with Post-Op Diagnosis Laparoscopic lysis of adhesions performed using sharp and blunt dissection. Significant inflammation in the left lower quadrant consistent with her history of diverticulitis. 2 separate abscess cavities entered matching the description seen on CT. These were opened and drained irrigated. A 15 round GUSTAVO drain was placed along these cavities. Specimens none Anesthesia Type General Complications none Disposition Accompanied Patient To Recovery: No Disposition: Recovery Room Indications 61-year-old female admitted with diverticulitis with one large abscess and 2 smaller abscesses. The larger abscess was drained percutaneously and the pat ient was clinically improving. On hospital day 7 her white blood cell count started to increase and repeat scan showed enlargement of the 2 smaller abscesses the need for not amenable to percutaneous drainage. Plan for diagnostic laparoscopy, laparoscopic washout with drain placement, possible conversion open, possible bowel resection, possible ostomy. The risks of the procedure were discussed, all questions were answered, and the patient agreed to proceed with surgery as planned. Description of Procedure The patient was properly identified, consented, and taken to the operating room where she was placed in the supine position. General endotracheal anesthesia was induced. A leahy catheter, SCDs, and a safety belt were placed. Preoperat pamela antibiotics were administered. The patient's bilateral arms were tucked and she was placed in the low lithotomy position. The patient's abdomen was prepped and draped in the standard sterile fashion. Surgical timeout was performed and all parties were in agreement that this was the correct patient and procedure to be performed and we continued as planned. An incision was made in the right upper quadrant and the Veress needle was inserted. Saline drop test confirmed entry into the peritoneum. The abdomen was insufflated with carbon dioxide which the patient tolerated without incident. The abdomen was then entered using the Optiview technique and a 5 mm trocar. The laparoscope was inserted and no damage from initial trocar or Veress needle placement was noted. There were filmy adhesions of the omentum and small bowel to the anterior abdominal wall. No other abnormalities were noted within the 4 quadrants of the abdomen. Two additional 5 mm ports were then placed in the right lower quadrant and the right subcostal position the abdomen was explored. Extensive lysis of adhesions was performed using both sharp and blunt dissection. There was significant inflammation in the left lower quadrant and pelvis. Using a combination of blunt dissection and irrigation we were able to gently peel away areas of the small bowel that were stuck to the left lower quadrant. We reviewed the CT scan and were able to somewhat localize the 2 separate fluid collections. We continued with dissection in the left lower quadrant and in the pelvis, and entered 2 separate cavities. One was between the loops of bowel and measured approximately 4 cm in size. The more anterior collection was slightly larger. These seem to correspond with what was seen on imaging. I was able to continue to dissect bluntly and combine the 2 areas. The abdomen was irrigated, specifically focusing on the left lower quadrant. A 15 round GUSTAVO drain was placed into the space that had been created by draining these 2 abscesses and exited through the right lower quadrant port site. It was secured into place with a 2-0 nylon suture. Hemostasis was confirmed and the abdomen was irrigated. 5 mm trochars were removed under direct visualization and the abdomen was allowed to collapse. The skin of all ports was closed with 4-0 Monocryl subcuticular sutures. Dermabond was placed over the wounds. A drain dressing was placed around the GUSTAVO. The Leahy catheter was removed. The patient was extubated in the operating room and taken to the PACU where she recovered without apparent incident. All sponge, instrument and needle counts were correct at the conclusion of the procedure. The patient tolerated the procedure well. The physician's assistant teaching professor was present and scrubbed for the entire the case. He was critical in positioning the patient, prepping and draping, retraction and exposure, driving the laparoscope, lysis of adhesions, closure the incisions, and placement of the dressings. I attest to the content of the Intraoperative Record and any orders documented therein. Any exceptions are noted below.
[2021-07-25] MEDS: fentaNYL citrate 100 MCG/2 ML VIAL IV PRN ×3 (16:06→16:16)
--- NOTE | 2021-07-25 16:48 | Anesthesiology Progress Note ---
Date of Service July 25, 2021 Anesthesia Post Procedure Vital Signs Vital Signs: Temp Pulse Pulse Resp BP BP Pulse Ox 07/25/21 16:30 36.4 C L 82 16 137/71 94 07/25/21 16:20 86 15 140/67 100 07/25/21 16:10 94 H 16 133/72 100 07/25/21 16:00 87 20 135/72 100 07/25/21 15:53 36.5 C 95 H 16 126/63 99 07/25/21 13:01 37.1 C 98 H 22 150/84 H 99 07/24/21 22:53 36.7 C 90 16 146/79 H 99 Pain Intensity Abdomen: Pain Intensity: 3 Right Upper Abdomen: Pain Intensity: 3 Transfer of Care Handoff Completed per policy Notes Mental Status: alert / awake / arousable Patient Amnestic to Procedure: Yes Nausea / Vomiting: adequately controlled Pain: adequately controlled Airway Patency, RR, SpO2: stable & adequate BP & HR: stable & adequate Hydration State: stable & adequate Anesthetic Complications: no major complications apparent and Pt Satisfied with anesthetic care
[2021-07-25] MEDS: ONDANSETRON INJ 2 MG/ML 2 ML VIAL IV PRN (17:01)
[2021-07-25] MEDS: LACTATED RINGER'S 1,000 ML IV SCH (17:21)
[2021-07-25] MEDS ORDERED: HYDROmorphone INJ 0.5 MG/0.5 ML SYR IV STA (17:54)
--- NOTE | 2021-07-25 18:07 | Hospitalist Progress Note ---
Date of Service July 25, 2021 Assessment & Plan (1) Sepsis: Plan: Loretta Baker is a 61yo F who presents with sepsis 2/2 colonic diverticular abscesses Sepsis 2/2 Colonic Diverticular Abscess s/p pigtail catheter placed 07/17 - WBC 37.31, hypotensive to systolic 70s, tachycardic on admission. Did not require vasopressors. -overall improved/but WBC count continued to rise back up to 15-16, remained afebrile -repeat CT abd/pel as below - Continue Zosyn - Drain Culture positive for streptococcus intermedius, Blood cultures negative - Continue on dilaudid/oxycodone for pain relief (2) Colonic diverticular abscess: Plan: s/p CT guided drain placed 07/17, drain Culture positive for streptococcus intermedius repeat CT abd/pel 07/23 with resolution of abscess that was drained, smaller size of another and increased size of another WBC count continued to climb over several days and she continued to have some pain Ileus resolved She was taken to the OR on 07/[address] Mccloud for laparoscopic washout, abscess drainage, extensive lysis of adhesions, and other second GUSTAVO drain was placed Having expected postoperative pain as per my discussion with surgery Continue IV Dilaudid as needed -Surgery is adding IV Toradol and IV Tylenol -Continue to follow -Clear liquids diet ordered -Postoperative management as per surgery -Continue IV fluids postoperatively -Follow CBC, BMP in the morning (3) Acute renal failure (ARF): Plan: - Baseline Cr <1 - Cr 3.74 on admission. Non-anuric prerenal 2/2 sepsis, now resolved -follow BMP (4) Hypokalemia: Plan: Mildly low today Give potassium chloride 20 mEq IV as she is n.p.o. for surgery Magnesium low normal at 1.8-give 1 g of IV magnesium sulfate follow bMP, Mag in the morning (5) Hypertension: Plan: - Held home hctz 25 mg, losartan 100mg, lasix, atenolol in the setting of severe hypotension and ARF. Possible some degree of rebound tachycardia due to stopping atenolol has now resolved BPs controlled Did receive few days worth of Lasix for peripheral edema but this is now been discontinued (6) Diastolic dysfunction: Plan: - ECHO 2018 w/ preserved EF - Lasix given for peripheral edema as above (7) Postmenopausal HRT (hormone replacement therapy): Plan: - [employer] conjugated estrogen has been restarted although this does put her at increased risk for VTE -We will hold in the postoperative period (8) Depression with anxiety: Plan: - Trazodone 50mg qHS PRN Plan: VTE Prophylaxis - Lovenox 40mg SQ daily on hold for surgery-restart when okay with surgeon Disposition - continue on med/surg Admission and Anticipated Discharge Date Admission Date: July 16, 2021 Subjective Patient came back to the floor with the last hour after having laparoscopic washout and drain placement and lysis of adhesions today with surgery. She is having fairly severe left lower quadrant pain that is sharp in nature. She had IV Dilaudid 1 hour ago and this is not touching her pain. He did eat some clear liquids for dinner and tolerated that, no nausea or vomiting. No fevers, vitals are stable. No other concerns at this time. Review of Systems Review of Systems: All systems reviewed & are unremarkable except as noted in HPI & below Physical Exam Constitutional: WD/WN, vitals as above Eyes: + anicteric sclerae Neck: trachea midline, no thyromegaly Respiratory: normal respiratory effort, lungs clear to auscultation Cardiovascular: Rate/Rhythm: regular rate and regular rhythm Extremities: no edema Chest (Breasts): Chest: normal inspection of chest Gastrointestinal (Abdomen): Inspection/Auscultation: normal bowel sounds; + abdomen abnormal to inspection (Incisions with Dermabond, RLQ with GUSTAVO drain serosanguineous fluid) Percussion/Palpation: + abdomen tender (In LLQ with some voluntary guarding, no rebound) and abdomen soft; no guarding And drain coming from the right flank with purulent drainage Musculoskeletal: Extremities: extremities normal to inspection; no cyanosis and no clubbing Skin: no rashes, warm and dry Neurologic: moves all extremities and awake; no focal motor deficits Psychiatric: Orientation: alert, oriented x 3 and cooperative Affect: + anxious affect Lymphatic: no lymphedema Results & Data Results & Data ([facility]) Vital Signs (Past 12 Hours) Vital Signs Temp Pulse Pulse Resp BP BP Pulse Ox 07/25/21 17:50 36.5 C 99 H 16 127/73 97 07/25/21 17:25 36.4 C L 100 H 16 136/80 95 07/25/21 16:50 36.6 C 92 H 16 135/78 94 07/25/21 16:30 36.4 C L 82 16 137/71 94 07/25/21 16:20 86 15 140/67 100 07/25/21 16:10 94 H 16 133/72 100 07/25/21 16:00 87 20 135/72 100 07/25/21 15:53 36.5 C 95 H 16 126/63 99 07/25/21 13:01 37.1 C 98 H 22 150/84 H 99 Laboratory Results 07/25/21 07/25/21 07/25/21 Range/Units 08:35 08:35 08:35 WBC 15.51 H (4.8-10.8) K/uL RBC 3.69 L (4.2-5.4) M/uL Hgb 9.0 L (12.0-16.0) g/dL Hct 28.5 L (37-47) % MCV 77.2 L (80-100) fL MCH 24.4 L (25-34) pg MCHC 31.6 L (32-36) g/dL RDW Std Deviation 48.2 H (36.4-46.3) fL RDW Coeff of Judah 17.8 H (11.5-14.5) % Plt Count 402 H (130-400) K/uL MPV 8.5 (7.4-10.4) fL Immature Gran % (Auto) 0.5 % Neut % (Auto) 84.8 % Lymph % (Auto) 7.2 % [place] % (Auto) 6.5 % Eos % (Auto) 0.8 % Baso % (Auto) 0.2 % Neut # (Auto) 13.16 H (1.4-6.5) K/uL Lymph # (Auto) 1.11 L (1.2-3.4) K/uL [place] # (Auto) 1.01 H (0.11-0.59) K/uL Eos # (Auto) 0.12 (0-0.5) K/uL Baso # (Auto) 0.03 (0-0.2) K/uL Immature Gran # (Auto) 0.08 H (0.00-0.02) K/uL Polychromasia 1+ Anisocytosis Present Sodium 139 (136-145) mmol/L Potassium 3.4 L (3.5-5.1) mmol/L Chloride 107 (98-107) mmol/L Carbon Dioxide 23 (21-32) mmol/L Anion Gap 9.0 (3-11) BUN 7 (7-18) mg/dl Creatinine 0.50 L (0.6-1.2) mg/dl Est Cr Clr Drug Dosing 131.0 ml/min Est GFR ( Amer) 121.1 ml/min Est GFR (Non-Af Amer) 104.5 ml/min BUN/Creatinine Ratio 13.8 (10-20) Glucose 87 (70-99) mg/dl Calcium 8.8 (8.5-10.1) mg/dl Magnesium 1.9 (1.8-2.4) mg/dl Total Bilirubin 0.2 (0.2-1) mg/dl AST 14 L (15-37) U/L ALT 15 (12-78) U/L Alkaline Phosphatase 56 (45-117) U/L Total Protein 5.7 L (6.4-8.2) gm/dl Albumin 1.8 L (3.4-5.0) gm/dl Globulin 3.9 (2.5-4.0) gm/dl Albumin/Globulin Ratio 0.5 L (0.9-2) Blood Type A Positive Antibody Screen NEGATIVE PG Care Time/CCT Total # of Minutes Spent Total Time Spent with Patient: Total time spent is greater than 50% in coordination of care (as documented) at patient's floor/unit and/or counseling patient: Coding Level of Care Code 89948 Subseq Hosp Care Lvl 3 Diagnoses Sepsis A41.9 Colonic diverticular abscess K57.20 Acute renal failure (ARF) N17.9 Hypokalemia E87.6 Hypertension I10 Diastolic dysfunction I51.89 Postmenopausal HRT (hormone replacement therapy) Z79.890 Depression with anxiety F41.8
[2021-07-25] MEDS: KETOROLAC TROMETHAMINE 15 MG/ML VIAL IV SCH ×2 (18:59→23:26)
[2021-07-25] MEDS: TOPIRAMATE 25 MG TAB PO SCH (21:00)
[2021-07-26] MEDS: PIPERACILLIN/TAZOBACTAM 4.5 GM in DEXTROSE 5% 100 ML IV SCH ×4 (00:30→23:47)
[2021-07-26] MEDS: ACETAMINOPHEN 1,000 MG/100 ML VIAL IV PRN ×2 (01:46→17:05)
[2021-07-26] MEDS: oxyCODONE HCL IR 5 MG TAB (IMMEDIATE RELEASE) PO PRN ×4 (01:46→13:30)
[2021-07-26] MEDS: HYDROmorphone INJ 0.5 MG/0.5 ML SYR IV PRN ×5 (03:31→22:41)
[2021-07-26] MEDS: SIMETHICONE 80 MG CHEW PO SCH ×4 (04:21→21:21)
[2021-07-26] MEDS: KETOROLAC TROMETHAMINE 15 MG/ML VIAL IV SCH ×4 (05:19→23:47)
[2021-07-26] MEDS: LACTATED RINGER'S 1,000 ML IV SCH (05:19)
[2021-07-26 06:27] LABS: Basophils # (auto) 0.03 K/uL (0-0.2); Basophils % (auto) 0.2 %; Eosinophils # (auto) 0.11 K/uL (0-0.5); Eosinophils % (auto) 0.7 %; Hematocrit (blood only) 28.7 % (37-47); Hemoglobin 9.1 g/dL (12.0-16.0); Immature Granulocytes # (auto) 0.07 K/uL (0.00-0.02); Immature Granulocytes % (auto) 0.5 %; Lymphocytes % (auto) 9.4 %; Mean Corpuscular Hemoglobin 24.4 pg (25-34); Mean Corpuscular Hgb Conc 31.7 g/dL (32-36); Mean Corpuscular Volume 76.9 fL (80-100); Mean Platelet Volume 8.4 fL (7.4-10.4); Monocytes # (auto) 1.03 K/uL (0.11-0.59); Monocytes % (auto) 6.9 %; Neutrophils # (auto) 12.21 K/uL (1.4-6.5); Neutrophils % (auto) 82.3 %; Platelet Count 402 K/uL (130-400); RDW Coefficient of Variation 18.3 % (11.5-14.5); RDW Standard Deviation 49.7 fL (36.4-46.3); Red Blood Count 3.73 M/uL (4.2-5.4); White Blood Count 14.85 K/uL (4.8-10.8)
[2021-07-26 06:56] LABS: Albumin Level 1.7 gm/dl (3.4-5.0); BUN Creatinine Ratio 11.4 (10-20); Calcium 8.4 mg/dl (8.5-10.1); Creatinine Clr Calc Pharmacy 96.6 ml/min; Est GFR (Non-African American) 94.9 ml/min; Magnesium 2.1 mg/dl (1.8-2.4); Potassium 3.4 mmol/L (3.5-5.1)
[2021-07-26 06:59] LABS: Albumin Globulin Ratio 0.4 (0.9-2); Bilirubin,Total 0.3 mg/dl (0.2-1); Globulin 3.9 gm/dl (2.5-4.0); Total Protein 5.6 gm/dl (6.4-8.2)
--- NOTE | 2021-07-26 08:28 | Surgery Progress Note ---
Date of Service July 26, 2021 Assessment & Plan (1) Colonic diverticular abscess: Plan: POD 1 lap washout/drain placement WBC down 14 advance diet probably d/c pigtail later Admission and Anticipated Discharge Date Admission Date: July 16, 2021 Supervising Physician Co-Signing Physician Notes Pnt S&E, labs reviewed, agree with above. diverticular abscesses, percutaneous drainage last week, POD#1 laparoscopic washout and drain placement. Doing well, feels better than prior to surgery. Posterior drain fell out. No bm, tolerating liquids and she is hungry. On exam AFVSS, nad, aaox3. Abd soft, minimally ttp, nd. Drain ss. incisions w/o infection. wbc 14. advance diet to low fiber as tolerated. oobtc, ambulate, okay to restart a/c. Continue iv abx, d/c when tolerating diet, having bm, afebrile, and wbc normal. will need outpatient colonoscopy and resection. Subjective feels better, some LLQ pain, no nausea, hungry Physical Exam Gastrointestinal (Abdomen): Inspection/Auscultation: + abdominal surgical incision (dry) and + abdominal surgical drain present (50 cc overnight); abdomen not distended Percussion/Palpation: abdomen soft Results & Data ([facility]) Vital Signs (Past 12 Hours) Vital Signs Temp Pulse Resp BP BP Pulse Ox 07/26/21 07:38 36.6 C 68 16 108/66 98 07/26/21 03:22 36.4 C L 70 16 105/66 97 07/25/21 23:08 36.8 C 81 16 134/74 98 PG Care Time/CCT Total # of Minutes Spent Total Time Spent with Patient: Total time spent is greater than 50% in coordination of care (as documented) at patient's floor/unit and/or counseling patient: Coding Level of Care Code None Diagnoses Colonic diverticular abscess K57.20
[2021-07-26] MEDS: PANTOprazole 40 MG TAB PO SCH (08:37)
[2021-07-26] MEDS ORDERED: POTASSIUM CHLORIDE CRTAB 20 MEQ TABCR PO STA (09:27)
[2021-07-26] MEDS ORDERED: FLUCONAZOLE 50 MG TAB PO ONE (12:29)
--- NOTE | 2021-07-26 13:45 | Hospitalist Progress Note ---
Date of Service July 26, 2021 Assessment & Plan (1) Sepsis: Plan: Loretta Baker is a 61yo F who presents with sepsis 2/2 colonic diverticular abscesses Sepsis 2/2 Colonic Diverticular Abscess s/p pigtail catheter placed 07/17 - WBC 37.31, hypotensive to systolic 70s, tachycardic on admission. Did not require vasopressors. -overall improved/but WBC count continued to rise back up to 15-16, remained afebrile -repeat CT abd/pel as below showed increasing size of abscess, decreased size in the abscess with drain in place -Now status post surgical washout as below for source control -Leukocytosis now improving, did have a fever postoperatively which is not unexpected given the amount of extensive inflammation intra-abdominally - Continue Zosyn and eventually convert to p.o. antibiotics most likely -Surgery added on Diflucan daily - Drain Culture positive for streptococcus intermedius, Blood cultures negative - Continue on dilaudid/oxycodone for pain relief (2) Colonic diverticular abscess: Plan: s/p CT guided drain placed 07/17, drain Culture positive for streptococcus intermedius repeat CT abd/pel 07/23 with resolution of abscess that was drained, smaller size of another and increased size of another WBC count continued to climb over several days and she continued to have worsening abdominal pain Ileus resolved She was taken to the OR on 07/[address] Mccloud for laparoscopic washout, abscess drainage, extensive lysis of adhesions, and other second GUSTAVO drain was placed Having expected postoperative pain which is now much improved with IV Toradol Continue IV Dilaudid as needed -New IV Toradol scheduled and IV Tylenol as needed -Continue to follow -Advance diet as per surgery -Postoperative management as per surgery -Drain removed from pelvis -No further IV fluids needed -Continue IV Zosyn and likely convert to Augmentin on discharge -Surgery added on Diflucan -Add on docusate 100 mg p.o. twice daily -Follow CBC, BMP in the morning (3) Acute renal failure (ARF): Plan: - Baseline Cr <1 - Cr 3.74 on admission. Non-anuric prerenal 2/2 sepsis, now resolved -follow BMP (4) Hypokalemia: Plan: Mildly low again today Replace with oral potassium chloride follow BMP, Mag in the morning (5) Hypertension: Plan: - Held home hctz 25 mg, losartan 100mg, lasix, atenolol in the setting of severe hypotension and ARF. Possible some degree of rebound tachycardia due to stopping atenolol has now resolved BPs controlled without any medications Did receive few days worth of Lasix for peripheral edema but this is now been discontinued -Continue to hold home medications (6) Diastolic dysfunction: Plan: - ECHO 2018 w/ preserved EF - Lasix given for peripheral edema as above (7) Postmenopausal HRT (hormone replacement therapy): Plan: - COOK [employer]ANDY conjugated estrogen has been restarted although this does put her at increased risk for VTE -We will hold in the postoperative period (8) Depression with anxiety: Plan: - Trazodone 50mg qHS PRN Plan: VTE Prophylaxis - Lovenox 40mg SQ daily on hold for surgery-restart when okay with surgeon Disposition - continue on med/surg Admission and Anticipated Discharge Date Admission Date: July 16, 2021 Subjective Patient feeling much improved. Still having some pain left lower quadrant, no bowel movement yet-does not want a laxative but is okay with stool softener. No chest pain or shortness of breath, feels she can take a deeper breath without pain. No nausea and she is tolerating p.o. Drain removed from right flank She is out of bed to the chair and is can go for a walk later today. No leg swelling Review of Systems Review of Systems: All systems reviewed & are unremarkable except as noted in HPI & below Physical Exam Constitutional: WD/WN, vitals as above Eyes: + anicteric sclerae Neck: trachea midline, no thyromegaly Respiratory: normal respiratory effort, lungs clear to auscultation Cardiovascular: Rate/Rhythm: regular rate and regular rhythm Extremities: no edema Chest (Breasts): Chest: normal inspection of chest Gastrointestinal (Abdomen): Inspection/Auscultation: normal bowel sounds; + abdomen abnormal to inspection (Incisions with Dermabond, RLQ with GUSTAVO drain serosanguineous fluid) Percussion/Palpation: + abdomen tender (In LLQ with some voluntary guarding, no rebound) and abdomen soft; no guarding Musculoskeletal: Extremities: extremities normal to inspection; no cyanosis and no clubbing Skin: no rashes, warm and dry Neurologic: moves all extremities and awake; no focal motor deficits Psychiatric: A+Ox3, euthymic affect Lymphatic: no lymphedema Results & Data Results & [facility]) Vital Signs (Past 12 Hours) Vital Signs Temp Pulse Resp BP BP Pulse Ox 07/26/21 07:38 36.6 C 68 16 108/66 98 07/26/21 03:22 36.4 C L 70 16 105/66 97 Laboratory Results 07/26/21 07/26/21 Range/Units 06:08 06:08 WBC 14.85 H (4.8-10.8) K/uL RBC 3.73 L (4.2-5.4) M/uL Hgb 9.1 L (12.0-16.0) g/dL Hct 28.7 L (37-47) % MCV 76.9 L (80-100) fL MCH 24.4 L (25-34) pg MCHC 31.7 L (32-36) g/dL RDW Std Deviation 49.7 H (36.4-46.3) fL RDW Coeff of Judah 18.3 H (11.5-14.5) % Plt Count 402 H (130-400) K/uL MPV 8.4 (7.4-10.4) fL Immature Gran % (Auto) 0.5 % Neut % (Auto) 82.3 % Lymph % (Auto) 9.4 % [place] % (Auto) 6.9 % Eos % (Auto) 0.7 % Baso % (Auto) 0.2 % Neut # (Auto) 12.21 H (1.4-6.5) K/uL Lymph # (Auto) 1.40 (1.2-3.4) K/uL [place] # (Auto) 1.03 H (0.11-0.59) K/uL Eos # (Auto) 0.11 (0-0.5) K/uL Baso # (Auto) 0.03 (0-0.2) K/uL Immature Gran # (Auto) 0.07 H (0.00-0.02) K/uL Sodium 139 (136-145) mmol/L Potassium 3.4 L (3.5-5.1) mmol/L Chloride 107 (98-107) mmol/L Carbon Dioxide 26 (21-32) mmol/L Anion Gap 6.0 (3-11) BUN 8 (7-18) mg/dl Creatinine 0.67 (0.6-1.2) mg/dl Est Cr Clr Drug Dosing 96.6 ml/min Est GFR ( Amer) 110.0 ml/min Est GFR (Non-Af Amer) 94.9 ml/min BUN/Creatinine Ratio 11.4 (10-20) Glucose 105 H (70-99) mg/dl Calcium 8.4 L (8.5-10.1) mg/dl Magnesium 2.1 (1.8-2.4) mg/dl Total Bilirubin 0.3 (0.2-1) mg/dl AST 12 L (15-37) U/L ALT 14 (12-78) U/L Alkaline Phosphatase 53 (45-117) U/L Total Protein 5.6 L (6.4-8.2) gm/dl Albumin 1.7 L (3.4-5.0) gm/dl Globulin 3.9 (2.5-4.0) gm/dl Albumin/Globulin Ratio 0.4 L (0.9-2) PG Care Time/CCT Total # of Minutes Spent Total Time Spent with Patient: Total time spent is greater than 50% in coordination of care (as documented) at patient's floor/unit and/or counseling patient: Coding Level of Care Code 03728 Subseq Hosp Care Lvl 2 Diagnoses Sepsis A41.9 Colonic diverticular abscess K57.20 Acute renal failure (ARF) N17.9 Hypokalemia E87.6 Hypertension I10 Diastolic dysfunction I51.89 Postmenopausal HRT (hormone replacement therapy) Z79.890 Depression with anxiety F41.8
[2021-07-26] MEDS: DOCUSATE SODIUM 100 MG CAP PO SCH ×2 (15:24→21:20)
[2021-07-26] MEDS: ONDANSETRON INJ 2 MG/ML 2 ML VIAL IV PRN (20:29)
[2021-07-26] MEDS: TOPIRAMATE 25 MG TAB PO SCH (22:38)
[2021-07-27] MEDS: HYDROmorphone INJ 0.5 MG/0.5 ML SYR IV PRN (03:42)
[2021-07-27] MEDS: SIMETHICONE 80 MG CHEW PO SCH ×2 (03:43→08:21)
[2021-07-27] MEDS: KETOROLAC TROMETHAMINE 15 MG/ML VIAL IV SCH ×2 (05:46→11:21)
[2021-07-27 06:24] LABS: Basophils # (auto) 0.02 K/uL (0-0.2); Basophils % (auto) 0.2 %; Eosinophils # (auto) 0.26 K/uL (0-0.5); Eosinophils % (auto) 2.2 %; Hematocrit (blood only) 25.4 % (37-47); Immature Granulocytes # (auto) 0.07 K/uL (0.00-0.02); Immature Granulocytes % (auto) 0.6 %; Lymphocytes # (auto) 0.94 K/uL (1.2-3.4); Lymphocytes % (auto) 7.9 %; Mean Corpuscular Hemoglobin 24.2 pg (25-34); Mean Corpuscular Hgb Conc 31.5 g/dL (32-36); Mean Platelet Volume 8.7 fL (7.4-10.4); Monocytes # (auto) 0.95 K/uL (0.11-0.59); Neutrophils # (auto) 9.69 K/uL (1.4-6.5); Neutrophils % (auto) 81.1 %; Platelet Count 433 K/uL (130-400); RDW Coefficient of Variation 18.1 % (11.5-14.5); White Blood Count 11.93 K/uL (4.8-10.8)
[2021-07-27 06:53] LABS: Creatinine Clr Calc Pharmacy 84.7 ml/min; Est GFR (African American) 98.1 ml/min; Est GFR (Non-African American) 84.7 ml/min; Potassium 3.4 mmol/L (3.5-5.1)
[2021-07-27] MEDS: oxyCODONE HCL IR 5 MG TAB (IMMEDIATE RELEASE) PO PRN ×2 (08:21→14:03)
[2021-07-27] MEDS: DOCUSATE SODIUM 100 MG CAP PO SCH (08:22)
[2021-07-27] MEDS: PIPERACILLIN/TAZOBACTAM 4.5 GM in DEXTROSE 5% 100 ML IV SCH (08:26)
[2021-07-27] MEDS: PANTOprazole 40 MG TAB PO SCH (08:26)
[2021-07-27] MEDS ORDERED: FLUCONAZOLE 100 MG TAB PO SCH (09:00)
[2021-07-27] MEDS ORDERED: POTASSIUM CHLORIDE CRTAB 20 MEQ TABCR PO STA (10:17)
[2021-07-27] MEDS ORDERED: ENOXAPARIN INJ 40 MG/0.4 ML SYR SQ SCH (11:00)
--- NOTE | 2021-07-27 11:47 | Surgery Progress Note ---
Date of Service July 27, 2021 Assessment & Plan (1) Colonic diverticular abscess: Plan: s/p perc drain, POD#2 lap washout, doing well. transition to oral abx, augmentin x 7 more days okay to d/c to home low fiber diet, nutrition shakes rx for percocet f/u next week in general surgery clinic will need outpatient colonoscopy and elective resection in future wound care instructions and activity restrictions reviewed return precautions given, call with questions or concerns Admission and Anticipated Discharge Date Admission Date: July 16, 2021 Subjective diverticular abscess, s/p perc drainage of pelvic collection, POD#2 lap washout and drain placement. Continues to feel much better, +loose bm's, tolerating diet. Physical Exam Constitutional: WD/WN, vitals as above Gastrointestinal (Abdomen): Percussion/Palpation: + abdomen tender (mild ttp in llq) and abdomen soft; no guarding, abdomen not rigid and no hepatosplenomegaly drain with SS fluid Results & Data ([facility]) Vital Signs (Past 12 Hours) Vital Signs Temp Pulse Resp BP Pulse Ox 07/27/21 05:47 36.5 C 76 16 126/75 97 Laboratory Results Laboratory Results - last 24 hr 07/27/21 07/27/21 05:38 05:38 WBC 11.93 H RBC 3.30 L Hgb 8.0 L Hct 25.4 L MCV 77.0 L MCH 24.2 L MCHC 31.5 L RDW Std Deviation 50.0 H RDW Coeff of [place] 18.1 H Plt Count 433 H MPV 8.7 Immature Gran % (Auto) 0.6 Neut % (Auto) 81.1 Lymph % (Auto) 7.9 [place] % (Auto) 8.0 Eos % (Auto) 2.2 Baso % (Auto) 0.2 Neut # (Auto) 9.69 H Lymph # (Auto) 0.94 L [place] # (Auto) 0.95 H Eos # (Auto) 0.26 Baso # (Auto) 0.02 Immature Gran # (Auto) 0.07 H Sodium 135 L Potassium 3.4 L Chloride 104 Carbon Dioxide 25 Anion Gap 6.0 BUN 12 Creatinine 0.76 Est Cr Clr Drug Dosing 84.7 Est GFR ( Amer) 98.1 Est GFR (Non-Af Amer) 84.7 BUN/Creatinine Ratio 16.0 Glucose 95 Calcium 8.0 L Magnesium 2.0 PG Care Time/CCT Total # of Minutes Spent Total Time Spent with Patient: Total time spent is greater than 50% in coordination of care (as documented) at patient's floor/unit and/or counseling patient: Coding Level of Care Code None Diagnoses Colonic diverticular abscess K57.20
--- NOTE | 2021-07-27 14:30 | Discharge Summary ---
Date of Service July 27, 2021 Admission HPI Per Admitting Provider + Fevers at home, freezing chills, not sure of temperature. Feeling better now with abx/fluids. 1wk abdominal pain 'Excruciating' since 2 days ago. Didn't come in at that time because felt very weak. Had diarrhea and had difficulty making it ot the car. No history of similar symptoms. Colonoscopy in [facility] ~2019. Polyps and some diverticulosis, otherwise normal. No past history of diverticulitis, FHX of diverticulitis in brother Has not taken medications yet today. Last took meds yesterday. Takes lasix PRN for leg swelling, has not needed recently. No history of NE. SHX: cholecystectomy, gastroplasty, abdominoplasty. Additional surgical history reviewed as below Medical History: Reviewed Medications: Reviewed Surgical History: Reviewed Allergies: Reviewed. Yeast infection with PCN, no allergies. Social History: Reviewed as below Code Status: Full code Principal Diagnosis Acute diverticulitis with intra-abdominal abscesses Discharge Exam Constitutional WD/WN, vitals as above Eyes + anicteric sclerae Neck trachea midline, no thyromegaly Respiratory normal respiratory effort, lungs clear to auscultation Cardiovascular Rate/Rhythm: regular rate and regular rhythm Extremities: no edema Chest (Breasts) Chest: normal inspection of chest Gastrointestinal (Abdomen) Inspection/Auscultation: normal bowel sounds; + abdomen abnormal to inspection (Incisions with Dermabond, RLQ with GUSTAVO drain serosanguineous fluid) Percussion/Palpation: + abdomen tender (In LLQ w/o guarding, no rebound) and abdomen soft; no guarding Musculoskeletal Extremities: extremities normal to inspection; no cyanosis and no clubbing Skin no rashes, warm and dry Neurologic moves all extremities and awake; no focal motor deficits Psychiatric A+Ox3, euthymic affect Genitourinary + abnormal external appearance (mild erythema of labia) Lymphatic no lymphedema Discharge Data Allergies Allergy/AdvReac Type Severity Reaction Status Date / Time No Known Allergies Allergy Unknown Verified 07/16/21 17:07 Consultations 07/16/21 17:57 Consult General Surgery Stat 07/16/21 19:11 Consult Medical Transcriptionist Routine Procedures Performed Operation Date: 07/25/21 11:45 Actual Procedures p Laparoscopic Washout with Drain Placement, Laproscopic lysis of adhesions(Not Applicable) - Soren Mccloud, DO, FACS Ordered Studies 07/16/21 15:32 CT abd pelvis wo con Stat 07/17/21 09:53 CT abscess drainage Urgent 07/23/21 08:17 CT abd pelvis oral and IV con Urgent Abdomen/Pelvis CT 07/16/21 15:32 CT SCAN OF THE ABDOMEN AND PELVIS WITHOUT IV CONTRAST CLINICAL HISTORY: Sepsis. COMPARISON STUDY: Pelvic MRI dated 11/08/2020. TECHNIQUE: CT scan of the abdomen and pelvis is performed from the lung bases to the proximal femora. Images are reviewed in the axial, sagittal, and coronal planes. IV contrast was not administered for this examination. Note that the examination was performed in significantly suboptimal fashion without oral and IV contrast. A dose lowering technique was utilized adhering to the principles of ALARA. CT DOSE: 1067.06 mGycm FINDINGS: Lung bases: The heart is normal in size and without pericardial effusion. The lung bases are clear noting bibasilar scarring/atelectasis. Bilateral breast implants are in place. Liver: The unenhanced liver is normal in size, contour, and attenuation. There is no intrahepatic biliary ductal dilatation. Gallbladder: Surgically absent noting clips in the gallbladder fossa. Spleen: Normal in size and attenuation. Pancreas: Unremarkable. Adrenal glands: Unremarkable. Kidneys: The unenhanced kidneys are normal in size and without hydronephrosis. There is a 2 mm nonobstructing calculus in the right upper pole. A punctate nonobstructing calculus is seen in the left upper pole. No ureteral stone is identified. There is no evidence of contour deforming renal mass lesion. Abdominal vasculature: The abdominal aorta is normal in course and caliber noting moderate atherosclerotic calcification. Stomach and bowel: Postoperative change is noted in the stomach. There is moderate colonic diverticulosis. There is wall thickening with significant surrounding inflammation involving the sigmoid colon. Acute diverticulitis is not excluded. No bowel obstruction is seen. There are numerous thick-walled loops of small bowel in the pelvis, which also includes the distal/terminal ileum. The appendix is well-visualized and normal. Peritoneum: Diffuse infiltration is seen throughout the lower mesentery/pelvis. No intraperitoneal free air is identified. There is a thick walled collection in the deep pelvis between the rectum and the vagina seen on image #392. This measures 7.6 x 8.5 x 8.3 cm. An additional collection in the left upper pelvis on image #327 measures 3.6 x 3.9 x 3.0 cm, and a collection is seen along the medial aspect of the proximal sigmoid colon on image #363 measuring 2.2 x 2.8 x 5.0 cm. This collection contains foci of gas. Additional 2.6 x 1.7 cm pocket of fluid is seen in the anterior upper pelvis on image #334. Lymphadenopathy: None. Pelvic viscera: The bladder is decompressed and appears thick walled. There is surrounding inflammation. The uterus is surgically absent. No adnexal lesion is seen. Skeletal structures: The skeletal structures are osteopenic. Spondylotic and postoperative change is seen throughout the lumbar spine. No lytic or blastic lesions are seen. IMPRESSION: 1. Significantly suboptimal examination without oral and IV contrast. 2. There is sigmoid diverticulosis with evidence of acute diverticulitis. 3. No definite free intraperitoneal free air is seen. 4. There is evidence of peritonitis, likely related to perforated diverticulitis. There are at least 4 developing fluid collection with peritoneal thickening as detailed above. These likely represent developing abscesses. 5. There are thick-walled loops of small bowel in the lower abdomen/pelvis which includes the distal/terminal ileum. This may be related to adjacent inflammation/peritonitis. Correlate clinically for evidence of a concordant enteritis. 6. The bladder wall appears thickened and there is surrounding inflammation. Correlate with clinical findings and urinalysis. 7. Bilateral nephrolithiasis. 8. Additional findings as above. ACT 112: Negative or not required by law. Electronically signed by: Ronan Jurado M.D. 07/16/2021 4:[address] 07/17/21 09:53 CT-GUIDED PELVIC ABSCESS DRAINAGE CLINICAL HISTORY: abscess drainage COMPARISON STUDY: CT of the abdomen and pelvis July 16, 2021. PROCEDURE AND FINDINGS: The procedure, risks and benefits were discussed with the patient including the risk of bleeding, infection and injury to adjacent structures. Patient agreed to the procedure and informed bronchus of May the procedure was performed by Dr. Cedillo following a timeout. The patient was placed prone on the CT table and axial images of the pelvis were obtained. The large pelvic fluid collection was identified. This was targeted. Skin overlying the collection was prepped and draped in sterile fashion and local anesthesia was achieved with 1% lidocaine. Under intermittent guidance, a needle was inserted into the fluid collection. There is immediate return of purulent fluid. Utilizing Seldinger technique, a 10 [place] pigtail catheter was inserted into the collection. A total of 220 cc of purulent fluid was aspirated and sent to laboratory for analysis. The catheter was secured in place. The patient tolerated the procedure well and no immediate complications were evident. Post procedure CT demonstrated significant decrease in size of the pelvic fluid collection. IMPRESSION: Successful CT-guided percutaneous drainage of the pelvic abscess utilizing a 10 [place] locking pigtail catheter. 220 cc of purulent fluid aspirated and sent to the laboratory for analysis as ordered. ACT 112: Negative or not required by law. Electronically signed by: Luis Eduardo Cedillo M.D. 07/17/2021 11:36 AM Abdomen/Pelvis CT 07/23/21 08:[address] WITH IV AND ORAL CONTRAST CT DOSE: 957.89 mGycm HISTORY: Acute left lower quadrant abdominal pain with known diverticular abscess. diverticular abscess, increasing WBC TECHNIQUE: Multiaxial CT images of the abdomen and pelvis were performed following the IV administration of 94 cc of Optiray and oral contrast. A dose lowering technique was utilized adhering to the principles of ALARA. COMPARISON STUDY: CT abdomen and pelvis 07/16/2021 FINDINGS: The imaged inferior cardiac chambers are mildly enlarged. Trace pericardial effusion. Mild subsegmental bibasilar atelectasis. No pneumatosis or pneumoperitoneum. The spleen measures the upper limits of normal in size. Mild generalized pancreatic atrophy. The adrenal glands and liver appear unremarkable. Cholecystectomy. Patent portal vein. Unremarkable kidneys with punctate bilateral nephrolithiasis. There is no hydronephrosis. Urinary bladder wall thickening with partial distention. Colonic diverticulosis with mid colonic wall thickening redemonstrated. Pericolonic peripherally enhancing fluid collections are redemonstrated. There is a 4.1 x 2.7 cm collection of the left hemipelvis on image 378 series 3 which previously measured approximately 5.0 x 2.8 cm. There is an air and fluid-filled collection of the sigmoid mesocolon centrally measuring 6.2 x 3.7 cm image 338 which previously measured approximately 3.9 x 3.0 cm. This demonstrates incr eased amount of air and fluid within the collection with peripheral enhancement. Interval decrease size of the large 8.5 x 8.3 cm mid pelvic collection status post drainage with near resolution. Smaller peripherally enhancing fluid collections of the inferior pelvis are noted adjacent to the rectum and inferior sigmoid. No new collections are identified. Scattered small bowel air-fluid levels are noted with fluid distention of the proximal colon. Postoperative changes of the proximal stomach. No transition point. Enteric contrast is noted within the jejunum. Bilateral breast implants. Posterior interbody yordan and screw fusion hardware at L3-L5 with discectomy changes. IMPRESSION: 1. Colonic diverticulosis without acute diverticulitis redemonstrated. 2. Drainage catheter within the inferior pelvis is noted with resolution of the previously described large lower pelvic fluid collection. 3. Additional smaller peripherally enhancing fluid collections of the pelvis suggestive of abscesses. Collection within the left inferior hemipelvis has slightly decreased in size and the air and fluid-filled collection of the central pelvis has increased in size now measuring 6.2 x 3.7 cm. This collection is not amenable to percutaneous drainage secondary to positioning within the pelvis. 4. Scattered small and large bowel air-fluid levels suggests ileus. 5. Punctate bilateral nephrolithiasis. 6. Additional findings as above. ACT 112: Negative or not required by law. The above report was generated using voice recognition software. It may contain grammatical, syntax or spelling errors. Electronically signed by: Pranav Wyatt M.D. 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 Surgical clips of the epigastric abdomen. Fusion hardware with discectomy changes of the lumbar spine. Drainage catheter of the right hemipelvis. Air-filled dilated loops of small bowel are redemonstrated measuring up to 4.6 cm. Air is also noted within the large bowel. No significant progression of enteric contrast into the pelvis. IMPRESSION: 1. Persistent suggested ileus pattern with bowel obstruction considered less likely. No significant distal progression of the enteric contrast. 2. Drainage catheter within the right hemipelvis redemonstrated. ACT 112: Negative or not required by law. The above report was generated using voice recognition software. It may contain grammatical, syntax or spelling errors. Electronically signed by: Pranav Wyatt M.D. 07/23/2021 2:49 PM Hospital Course (1) Sepsis: Loretta Baker is a 61yo F who presents with sepsis 2/2 colonic diverticular abscesses Sepsis 2/2 Colonic Diverticular Abscess s/p pigtail catheter placed 07/17 - On arrival, with WBC 37.31, hypotensive to systolic 70s, tachycardic on admission. Did not require vasopressors. -overall improved/but WBC count continued to rise back up to 15-16, remained afebrile -repeat CT abd/pel as below showed increasing size of abscess, decreased size in the abscess with drain in place -Now status post surgical washout as below for source control -Leukocytosis now improving, did have a fever postoperatively which is not unexpected given the amount of extensive inflammation intra-abdominally -pain improved, ambulating, tolerating diet, GUSTAVO drain remains in place -received IV Zosyn andwill convert to p.o. Augmentin on discharge along with po Diflucan - Drain Culture positive for streptococcus intermedius, Blood cultures negative - Continue on oxycodone, ibuprofen for pain relief after discharge -going home with GUSTAVO drain f/u with Surgery in office Will need colonoscopy in 6 weeks and colon resection after that (2) Colonic diverticular abscess: s/p CT guided drain placed 07/17, drain Culture positive for streptococcus intermedius repeat CT abd/pel 07/23 with resolution of abscess that was drained, smaller size of another and increased size of another WBC count continued to climb over several days and she continued to have worsening abdominal pain She was taken to the OR on 07/[address] Mccloud for laparoscopic washout, abscess drainage, extensive lysis of adhesions, and other second GUSTAVO drain was placed as above (3) Acute renal failure (ARF): - Baseline Cr <1 - Cr 3.74 on admission. Non-anuric prerenal 2/2 sepsis, now resolved -follow BMP (4) Hypokalemia: Mildly low again today Replace with oral potassium chloride (5) Hypertension: - Held home hctz 25 mg, losartan 100mg, lasix, atenolol in the setting of severe hypotension and ARF. 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 although this does put her at increased risk for VTE -We will hold in the postoperative period but can restart on discharge (8) Depression with anxiety: - Trazodone 50mg qHS PRN (9) Anemia: hgb down to 8.0 [id number] some blood loss and some anemia from inflammation follow as outpt with CBC hemodynamically stable VTE Prophylaxis - Lovenox 40mg SQ daily Disposition - dc to home Total Time Total Time Spent Total Time Spent (In Minutes): 35 min Discharge Plan Discharge Items Patient Disposition: Home - Self-Care Reason For Visit: SEPSIS 2/2 DIVERTICULAR ABSCESSES Discharge Diagnosis: diverticular abscess status post percutaneous drainage and laparoscopic washout Condition on Discharge: Fair Activity: As commented below Activity Comment: no heavy lifting, strenuous activity for 2 weeks Lifting: No more than 25 pounds Lifting Comment: 2 weeks Bathing Comment: may shower, keep drain site covered, do not soak or scrub wound for 2 weeks Driving/Machine Use: Resume 1 day after discharge Non-emergency contact: Primary Care Provider and Surgeon Call non-emergency contact if: you have any medication questions, your symptoms worsen, your pain is not controlled, your temperature is above 101, your wound has increased redness, your wound has increased drainage and your wound pain has increased Follow-up/Referrals: Soren Mccloud DO, FACS [Physician] - (call to schedule follow up next week) Chapito Simpson [Primary Care Provider] - (Follow up within 1-2 weeks.) Diet: Low Fiber Addtl Attending Provider Instructions: You were admitted with diverticulitis and multiple abscesses (pockets of pus) inside your abdomen. You were treated with surgical drainage and IV antibiotics. Please continue on the antibiotics (Augmentin and Diflucan) as directed. Your drain will stay in place until you are seen by the Surgeon. You may take i buprofen as needed for pain, and Percocet for moderate-severe pain. You will need to follow up with a Civil Engineering Project Designer for a colonoscopy in 6 weeks or so and then the Surgeon will discuss a colon resection surgery after that. Your blood pressure was low and all of your blood pressure medications were held. It is ok to restart your atenolol but at a lower dose of 50mg daily. You can also restart your HCTZ daily, but continue to HOLD your losartan until you follow up with your PCP. Follow up with your PCP within 1-2 weeks as well. Pending Studies at Discharge: No Stand-Alone Forms: My [facility] Medications and DC Order Prescriptions: New amoxicillin-pot clavulanate 875-125 mg tablet 1 tab PO BID Qty: 14 RF: 0 oxycodone-acetaminophen 5-325 mg tablet 1 - 2 tab PO Q6H PRN (Reason: pain) Qty: 20 RF: 0 fluconazole 150 mg tablet 150 mg PO Q3D Qty: 2 RF: 0 menthol-zinc oxide [Calmoseptine] 0.44-20.6 % Ointment 1 applic EXT DAILY PRN (Reason: skin irritation) Qty: 113 RF: 0 Continued Premarin 1.25 mg tablet 1.25 mg PO DAILY Qty: 30 RF: 2 topiramate 25 mg tablet 75 mg PO HS Qty: 90 RF: 2 phentermine 15 mg capsule 15 mg PO DAILY Qty: 30 RF: 1 furosemide 40 mg Tablet 40 mg PO DAILY PRN (Reason: Edema) RF: 0 omeprazole magnesium [Prilosec OTC] 20 mg Tablet,Delayed Release (Dr/Ec) 20 mg PO QAM RF: 0 cholecalciferol (vitamin D3) [Vitamin D3] 1,000 unit Tablet,Chewable 1,000 unit PO QAM RF: 0 hydrochlorothiazide 25 mg tablet 25 mg PO QAM RF: 0 trazodone 50 mg tablet 50 - 100 mg PO HS PRN (Reason: Sleep) RF: 0 Changed atenolol 50 mg tablet 50 mg PO DAILY Qty: 0 RF: 0 ibuprofen [Advil] 200 mg Tablet 600 mg PO Q6H PRN (Reason: Pain) Qty: 0 RF: 0 Discontinued losartan 100 mg Tablet 100 mg PO QAM RF: 0 Discharge Orders: Discharge Order (Routine); Ordered 07/27/21 Ordered By: Sarai Cooper Admission Data Admit Date/Time: 07/16/21 17:57 Attending Provider: Sarai Cooper Admit Provider: Del Maldonado Primary Care Provider: Chapito Simpson Other Providers: Soren Mccloud ; Thang Guy Coding Level of Care Code D/C DAY MANAGEMENT >30 MINS Diagnoses Sepsis A41.9 Colonic diverticular abscess K57.20 Acute renal failure (ARF) N17.9 Hypokalemia E87.6 Hypertension I10 Diastolic dysfunction I51.89 Postmenopausal HRT (hormone replacement therapy) Z79.890 Depression with anxiety F41.8 Anemia D64.9
[2021-07-27] MEDS ORDERED: MENTHOL-ZINC OXIDE 360 APPLN/120 GM TUBE EXT SCH (15:00)
--- NOTE | 2021-08-03 12:30 | Coding Query ---
To promote full compliance with coding requirements relating to patient care, provider participation is requested in all cases of service order dispatcher chief uncertainty. Please assist us with the question(s) below: Coding Question(s): The diagnosis below was documented in the Critical Care Consultation on 07/16, then subsequently fell off all further documentation. Please indicate if it is still a possible diagnosis or ruled out. Physician's Response(s): Acute renal failurelikely secondary to ATN as patient presents with hypotension. - documented on 07/16 Critical Care Consultation but ATN is not documented after that as specificity of the acute renal failure. Please clarify, in your clinical opinion, regarding ATN. ( x ) Diagnosed and POA ( ) Diagnosed and not POA ( ) Ruled out ( ) Other (please specify) MTDD
== END 2021-07-27 15:46 | disposition home or self-care (01) | DRG 853 ==
LOC: ED 14:46 → SUATTDRO 17:57 → 1E 17:57 → 2S 07-18 08:06 → 3E 07-20 09:30

== ENCOUNTER 2021-12-05 06:17 | Inpatient (IN) ==
--- NOTE | 2021-11-28 16:36 | Anesthesiology Consultation ---
Date of Service November 28, 2021 Assessment & Plan (1) Encounter for pre-operative examination: - abnormal pre-op EKG: Case discussed with Dr. Mckay who advised patient to have cardiology pre-op evaluation and clearance. Pt contacted and would like to pursue this through [facility]. Personal Care Aid aware and will be contacting pt. Awaiting cardiology pre-op evaluation and clearance. - COVID screening: Per market manager on 11/28/2021: Travel screen negative, no known COVID-19 positive contacts or current COVID-19 related symptoms in past 2 weeks. Patient vaccinated. Surgeon arranging preop COVID testing, scheduled 12/03/2021. Awaiting results. Chart Review Chart Review: Pending: Refer to Additional Notes / Consult section and Patient NOT seen in Pre Admission Testing History Surgery Operation Date: 12/05/21 09:50 Proposed Procedures p Laparoscopic Assisted Sigmoidectomy, Possible Open, Possible Ostomy Bowel Resection - Soren Mccloud, DO, FACS Height/Weight Height: 5 ft 5 in Weight: 74.843 kg Allergies Allergy/AdvReac Type Severity Reaction Status Date / Time nickel Allergy Rash Verified 11/28/21 12:38 Medications Home Medications Medication Instructions Recorded Confirmed Last Taken cholecalciferol (vitamin D3) 25 1,000 unit PO QAM 09/23/19 11/28/21 09/02/21 mcg (1,000 unit) chewable tablet (Vitamin D3) omeprazole magnesium 20 mg 20 mg PO QAM 09/23/19 11/28/21 09/03/21 07:00 tablet,delayed release (Prilosec OTC) hydrochlorothiazide 25 mg tablet 25 mg PO QAM tab 06/08/20 11/28/21 09/02/21 trazodone 50 mg tablet 50 - 100 mg PO HS PRN tab 06/08/20 11/28/21 09/01/21 atenolol 50 mg tablet 50 mg PO QAM 08/29/21 11/28/21 09/03/21 07:00 conjugated estrogens 1.25 mg 1.25 mg PO QAM 08/29/21 11/28/21 09/02/21 tablet (Premarin) ibuprofen 200 mg tablet (Advil) 600 mg PO TID PRN 08/29/21 11/28/21 09/02/21 23:00 topiramate 25 mg tablet 50 mg PO HS #60 tab 10/09/21 11/28/21 Unknown neomycin 500 mg tablet 1 g PO .COMPLEX #6 tab 11/12/21 11/28/21 Unknown phentermine 15 mg capsule 15 mg PO DAILY #30 cap 11/28/21 Unknown Past Medical History Medical History Anemia Arthritis GERD (gastroesophageal reflux disease) controlled H/O cold sores Hiatal hernia History of claustrophobia History of diverticular abscess 06/2021 treated inpatient [facility] Hx of endometriosis Hypertension Nausea and vomiting after administration of anesthetic agent Obesity Scoliosis TMJ (dislocation of temporomandibular joint) + jaw pain (wears mouth guard at night) Past Family History Family History Sister Family history of diabetes mellitus Sister Family history of diabetes mellitus Sister Family history of diabetes mellitus Brother Family history of diabetes mellitus Hypertension Mother Family hx of colon cancer Family history of diabetes mellitus Hypertension Brother Family history of diabetes mellitus Father Diabetes Hypertension Family history of diabetes mellitus Past Surgical History Surgical History (Updated 11/28/21 @ 16:29 by Ernestine Bradley PA-C) H/O abdominoplasty History of bilateral saline breast implants History of bladder surgery Sling History of cholecystectomy History of colonoscopy History of dilatation and curettage Multiple History of esophagogastroduodenoscopy (EGD) History of knee replacement B/L TKA (10/25/19): SAB at L3/L4 (x1 attempt) + PNB at [facility]. History of laparoscopy History of surgery (07/25/21) Laparoscopic Washout with Drain Placement, Laproscopic lysis of adhesions Soren Mccloud DO, FACS 07/25/2021. Grade 1 view, MAC#3. ETT#7.0. History of tonsillectomy History of tooth extraction History of total abdominal hysterectomy and bilateral salpingo-oophorectomy Hx of laparoscopic gastric banding lap gastric ring -- still in place but does not work/or has been stretched out but does not cause any problems S/P lumbar spinal fusion L3-L5 decompression fusion: Grade 1 view, MAC#3, ETT#7.0. Social History Smoking Status: Former smoker tobacco type: cigarettes Do You Dip or Chew Tobacco: No Smoking End Date: 5 years ago Hx Alcohol Use: No Alcohol type: hard liquor alcohol intake frequency: holidays/special occasions only Hx Substance Use: No substance use type: does not use Lab Results Anesthesia Preop Results Results Anesthesia Widget: WBC 6.91 K/uL (4.8-10.8) 11/12/21 Hgb 13.2 g/dL (12.0-16.0) 11/12/21 Hct 39.8 % (37-47) 11/12/21 Plt 329 K/uL (130-400) 11/12/21 Na 137 mmol/L (136-145) 11/12/21 K 3.7 mmol/L (3.5-5.1) 11/12/21 Cl 103 mmol/L (98-107) 11/12/21 CO2 28 mmol/L (21-32) 11/12/21 BUN 23 mg/dl (6-23) 11/12/21 Creat 0.80 mg/dl (0.6-1.2) 11/12/21 Glucose Level 105 mg/dl (70-99(Fasting)) H 11/12/21 Testing Electrocardiogram Date: 07/16/21 NSR, rate 71 bpm Low voltage QRS Cannot rule out anterior infarct Nonspecific ST and T wave abnormality Chest X-Ray Date: 11/12/21 FINDINGS: PA and lateral chest radiographs are compared to study dated 01/22/2021 and correlated with chest CT dated 10/20/2019. The heart is top normal for projection noting atherosclerotic calcification of the thoracic aorta. There is mild bibasilar atelectasis. The lungs and pleural spaces are otherwise clear. There is no pneumothorax. The bony thorax appears intact. Cholecystectomy clips are noted in the right upper quadrant. IMPRESSION: No active disease in the chest. Echocardiogram Date: 05/19/18 Normal biventricular systolic function Mild left atrial dilatation Mild cLVH Grade 2 left ventricular dysfunction Trace aortic regurgitation Trace mitral regurgitation Trace tricuspid regurgitation Mildly elevated estimated right ventricular systolic pressure 30-40mmHg EF 65-70% No regional wall motion abnormalities Other Testing CT abdomen/pelvis 07/23/2021 FINDINGS: The imaged inferior cardiac chambers are mildly enlarged. Trace pericardial effusion. Mild subsegmental bibasilar atelectasis. No pneumatosis or pneumoperitoneum. The spleen measures the upper limits of normal in size. Mild generalized pancreatic atrophy. The adrenal glands and liver appear unremarkable. Cholecystectomy. Patent portal vein. Unremarkable kidneys with punctate bilateral nephrolithiasis. There is no hydronephrosis. Urinary bladder wall thickening with partial distention. Colonic diverticulosis with mid colonic wall thickening redemonstrated. Pericolonic peripherally enhancing fluid collections are redemonstrated. There is a 4.1 x 2.7 cm collection of the left hemipelvis on image 378 series 3 which previously measured approximately 5.0 x 2.8 cm. There is an air and fluid-filled collection of the sigmoid mesocolon centrally measuring 6.2 x 3.7 cm image 338 which previously measured approximately 3.9 x 3.0 cm. This demonstrates increased amount of air and fluid within the collection with peripheral enhancement. Interval decrease size of the large 8.5 x 8.3 cm mid pelvic collection status post drainage with near resolution. Smaller peripherally enhancing fluid collections of the inferior pelvis are noted adjacent to the rectum and inferior sigmoid. No new collections are identified. Scattered small bowel air-fluid levels are noted with fluid distention of the proximal colon. Postoperative changes of the proximal stomach. No transition point. Enteric contrast is noted within the jejunum. Bilateral breast implants. Posterior interbody yordan and screw fusion hardware at L3-L5 with discectomy changes. IMPRESSION: 1. Colonic diverticulosis without acute diverticulitis redemonstrated. 2. Drainage catheter within the inferior pelvis is noted with resolution of the previously described large lower pelvic fluid collection. 3. Additional smaller peripherally enhancing fluid collections of the pelvis suggestive of abscesses. Collection within the left inferior hemipelvis has slightly decreased in size and the air and fluid-filled collection of the central pelvis has increased in size now measuring 6.2 x 3.7 cm. This collection is not amenable to percutaneous drainage secondary to positioning within the pelvis. 4. Scattered small and large bowel air-fluid levels suggests ileus. 5. Punctate bilateral nephrolithiasis. 6. Additional findings as above.
[~2021-12-05 06:17] MED LIST changes: -ACETAMINOPHEN 1000 MG/100 ML IV IV ONE; -ACETAMINOPHEN 500 MG TAB PO SCH; -CeleBREX 200 MG CAP PO SCH; -FAMOTIDINE/PF 20 MG/2 ML VIAL IV ONE; -GABAPENTIN 600 MG DOSE PO SCH; -LIDOCAINE 2% 2 ML VIAL/AMP(20MG/ML) INFIL ONE; -ROCURONIUM BROMIDE 10 MG/ML 5 ML VIAL IV ONE; -SODIUM CHLORIDE 0.9% 250 ML IV PRN; -ceFAZolin 2000MG 2,000 MG/15 ML SYR IV SCH; +cefOXitin 2,000 MG in DEXTROSE 5% 50 ML IV SCH
[2021-12-05] MEDS ORDERED: ACETAMINOPHEN 1000 MG/100 ML IV IV ONE (06:46)
[2021-12-05] MEDS ORDERED: SCOPOLAMINE 1 MG TDSY TD ONE ×3 (06:46→07:58)
[2021-12-05] MEDS ORDERED: FAMOTIDINE/PF 20 MG/2 ML VIAL IV ONE (06:47)
--- NOTE | 2021-12-05 07:12 | History & Physical Bridge Note ---
Date of Service December 05, 2021 History & Physical Bridge Note I have examined the patient, reviewed the History & Physical and in the interval since the performance of the History & Physical I have noted the following changes of clinical significance: no changes noted
[2021-12-05] MEDS ORDERED: ATROPINE SULFATE 0.1 MG/ML 10ML SYR IV PRN (07:46)
[2021-12-05] MEDS ORDERED: HYDROmorphone INJ 1 MG/ML SYRINGE IV PRN (07:46)
[2021-12-05] MEDS ORDERED: ePHEDrine sulfate 50 MG/ML AMP IV PRN (07:46)
[2021-12-05] MEDS ORDERED: ONDANSETRON INJ 2 MG/ML 2 ML VIAL IV PRN ×2 (07:46→13:08)
[2021-12-05] MEDS ORDERED: fentaNYL citrate 100 MCG/2 ML VIAL IV PRN (07:46)
[2021-12-05] MEDS ORDERED: BUPIVACAINE LIPOSOME 1.3% 266 MG/20 ML VIAL ONE (07:58)
[2021-12-05] MEDS ORDERED: BUPIVACAINE 0.5 % 5 MG/1 ML MPF 30ML VIAL ONE (07:58)
[2021-12-05] MEDS ORDERED: MIDAZOLAM HCL 1 MG/ML 2ML VIAL ONE (08:08)
[2021-12-05] MEDS ORDERED: fentaNYL citrate 100 MCG/2 ML VIAL ONE (08:12)
[2021-12-05] MEDS ORDERED: LIDOCAINE 2% 2 ML VIAL/AMP(20MG/ML) INFIL ONE (08:14)
[2021-12-05] MEDS ORDERED: ROCURONIUM BROMIDE 10 MG/ML 5 ML VIAL IV ONE (08:14)
[2021-12-05] MEDS ORDERED: PROPOFOL IV EMULSION 10 MG/ML 20 ML VIAL IV ONE (08:14)
[2021-12-05] MEDS ORDERED: METOCLOPRAMIDE HCL INJ 5 MG/ML 2 ML VIAL ONE (08:41)
[2021-12-05] MEDS ORDERED: ONDANSETRON INJ 2 MG/ML 2 ML VIAL ONE ×2 (08:41)
[2021-12-05] MEDS ORDERED: DEXAMETHASONE SOD INJ 4 MG/ML VIAL ONE (08:41)
[2021-12-05] MEDS ORDERED: diphenhydrAMINE 50 MG/ML VIAL ONE (08:44)
[2021-12-05] MEDS ORDERED: ePHEDrine sulfate 50 MG/ML SYR ONE (08:44)
[2021-12-05] MEDS ORDERED: HYDROmorphone INJ 2 MG/ML SYR/VIAL ONE (08:49)
[2021-12-05] MEDS ORDERED: GLYCOPYRROLATE 0.2 MG/ML VIAL ONE (10:16)
[2021-12-05] MEDS ORDERED: NEOSTIGMINE METHYLSULFATE 1 MG/ML 10ML VIAL ONE (10:16)
[2021-12-05] MEDS ORDERED: KETOROLAC 30 MG/ML VIAL ONE (10:17)
--- NOTE | 2021-12-05 12:00 | Post Operative Brief Note ---
PG Immediate Post Op with CF Date of Surgery December 05, 2021 Pre & Post Diagnosis Operation Date: 12/05/21 08:25 Pre-Op Diagnosis: Diverticulitis Post-Op Diagnosis: Diverticulitis I identified the patient and participated in the time-out.: Yes Procedure Operation Date: 12/05/21 08:25 Actual Procedures p Laparoscopic Assisted Sigmoidectomy(Not Applicable) - Soren Mccloud DO, FACS Surgeon Soren Mccloud DO, [employer] Secretary Facundo Rubalcava Estimated Blood Loss 20 Findings Consistent with Post-Op Diagnosis Left lower quadrant pelvic adhesions from prior episodes of diverticulitis. Distal staple line at splaying of tinea, proximal resection point at supple colon above inflammation. End-to-end anastomosis performed with 28 mm EEA stapler. Leak test negative. Exparel injected. Specimens Specimen Description: A. Sigmoid Colon Drains Leahy Catheter (16fr leahy inserted by Shannan ISSA without difficulty; output monitored by anesthesia throughout case) Anesthesia Type General Complications none Disposition Accompanied Patient To Recovery: No Disposition: Recovery Room
--- NOTE | 2021-12-05 12:26 | Operative Report ---
PG Post Operative Report Pre & Post Diagnosis Operation Date: 12/05/21 08:25 Pre-Op Diagnosis: Diverticulitis Post-Op Diagnosis: Diverticulitis I identified the patient and participated in the time-out.: Yes Procedure Operation Date: 12/05/21 08:25 Actual Procedures p Laparoscopic Assisted Sigmoidectomy(Not Applicable) - Soren Mccloud DO, FAHAD Surgeon Soren Mccloud DO, FACS Legal Librarian Facundo Rubalcava Estimated Blood Loss 20 Findings Consistent with Post-Op Diagnosis Left lower quadrant and pelvic adhesions from prior episodes of diverticulitis. Distal staple line at splaying of tinea, proximal resection point at supple colon above inflammation. End-to-end anastomosis performed with 28 mm EEA stapler. Leak test negative. Exparel injected. Specimens sigmoid colon Anesthesia Type General Complications none Disposition Accompanied Patient To Recovery: No Disposition: Recovery Room Indications 61-year-old female with history of complicated diverticulitis. She was admitted several months ago with several abscesses. 1 of these was drained percutaneously in the pelvis. The other 2 were drained laparoscopically in the left lower quadrant. She recovered and had a colonoscopy which showed no evidence of tumor. She is now ready to have her colon resected. Plan for laparoscopic assisted sigmoidectomy, possible open. The risks of the procedure were discussed, all questions were answered, and the patient agreed to proceed with surgery as planned. Description of Procedure The patient was properly identified, consented, and taken to the operating room where she was placed in the low lithotomy position. General endotracheal anesthesia was induced. SCDs and a safety belt were placed. Preoperative antibi otics were administered. A Carson catheter was placed. The patient's abdomen was prepped and draped in the standard sterile fashion. Surgical timeout was performed and all parties were in agreement that this was the correct patient and procedure to be performed and we continued as planned. A vertical midline infraumbilical incision was made with electrocautery and deepened down to the fascia with blunt dissection. The base of the umbilicus was grasped with a Carline. The Carline was elevated towards the ceiling and the fascia was incised with a knife. Stay sutures were placed on either side of the midline. The Nick trocar was placed and entry into the peritoneum was confirmed. The abdomen insufflated with carbon dioxide which the patient tolerated without incident. The laparoscope was inserted and the abdomen inspected. No damage from initial trocar placement was noted. No significant adhesions or other abnormalities were noted. Next, 5 mm ports were then placed in the right lower quadrant and right upper quadrant. The patient was placed in Trendelenburg position and the rotated towards the right. The small bowel was swept out of the way. The descending colon was supple and pink. There was some chronic woody inflammation in the distal sigmoid colon as it crossed over the iliacs and into the pelvis. There were adhesions to the anterior abdominal wall of the omentum that were taken down with the Sonicision. We began the dissection by taking down the white line of Toldt beginning at the junction of the ascending colon and sigmoid colon. We first worked superiorly toward the splenic flexure. The splenic flexure was then mobilized. We then continued our dissection along the sigmoid colon. There was some dense adhesions in this area which were taken down with a combination of blunt dissection, Sonicision, and the EndoShears. We continued this dissection into the pelvis. There was some dense adhesions in the pelvis which were taken down as well. It appeared that we had the rectum were mobilized. We continue to mobilize the colon from lateral to medial by dissecting off of the retroperitoneal structures. The ureter was identified and preserved. It appeared that the descending colon would reach easily to the rectum. We selected the distal resection point at the splaying of the tinea. A window was created in the mesentery and a purple 60mm Endo AMADO stapler was then used to divide the colon at this point. We then proceeded to divide the mesentery by using the sinuses and working proximally towards the descending colon. At the area where the colon was very supple and pink and there was fewer diverticulum we selected this is the distal resection point. We then elected to exteriorize the colon. Laparoscopy was ceased and the infraumbilical incision was extended for a total distance of approximately 7 cm. The wound protector was placed within the wound after the fascia was opened and the colon was exteriorized. The colon reached e asily. We identified the proximal resection point and clamped this with a bowel clamp. This was then divided with scissors. We then used the sizers to select the 28 mm EEA stapler. The anvil was placed in the distal left colon and a pursestring suture with 2-0 prolene was used to secure it into place. This was allowed to fall back into the abdomen and we placed the GelPort and reentered laparoscopically. We attempted to insert the stapler through the rectum but it appeared that there were some dense adhesions posteriorly that limited our mobility of the rectum. Then proceeded to perform further lysis of adhesions freeing small bowel out of the pelvis and mobilizing a portion of the rectum. We then realized that we had significant length through the rectal stump and decided to resect another 5 cm using the 60 mm purple loaded Endo AMADO stapler. At this point we were able to place the 28 mm EEA stapler into the rectum. The stapler was inserted through the rectum and the anastomosis was completed. There were 2 complete donuts which were passed off the table as specimen. The anastomosis appeared to be widely patent and there did not appear to be any leaks. There was good blood flow at the edge of the staple line. The abdomen was then irrigated and hemostasis appeared excellent. A rigid proctoscope was inserted and a leak test was performed which showed no evidence of leak. The periumbilical wound protector was removed and the fascia was closed with a #0 looped PDS. The fascia was then injected with exparel. The wound was irrigated and the incision was then closed with 3-0 Vicryl interrupted deep dermal sutures followed by 4-0 Monocryl running subcuticular sutures. Dermabond was placed over the incisions. The patient was extubated in the operating room and taken to the PACU where she recovered without apparent incident. All sponge, instrument, and needle counts were correct. The patient tolerated the procedure well. The colon specimen was sent to Pathology. The physician's certified ophthalmic assistant was present and scrubbed for the entire the case. He was critical in positioning the patient, prepping and draping, retraction and exposure, driving the laparoscope, resection of the colon, creation of the anastomosis, closure the incisions, and placement of the dressings. I attest to the content of the Intraoperative Record and any orders documented therein. Any exceptions are noted below.
[2021-12-05] MEDS: LACTATED RINGER'S 1,000 ML IV SCH ×2 (13:10→19:39)
[2021-12-05] MEDS: cefOXitin 2,000 MG in DEXTROSE 5% 50 ML IV SCH ×2 (14:58→19:39)
[2021-12-05] MEDS: HYDROmorphone INJ 0.5 MG/0.5 ML SYR IV PRN ×4 (15:53→22:38)
[2021-12-05] MEDS ORDERED: CHECK SCOPOLAMINE PATCH PLACEMENT SCH (16:00)
--- NOTE | 2021-12-05 16:01 | Anesthesiology Progress Note ---
Date of Service December 05, 2021 Anesthesia Post Procedure Vital Signs Vital Signs: Temp Pulse Pulse Resp BP Pulse Ox 12/05/21 15:30 36.7 C 81 16 107/66 98 12/05/21 14:12 36.6 C 90 16 137/78 100 12/05/21 13:41 36.3 C L 72 16 122/74 96 12/05/21 13:10 36.7 C 76 16 127/71 98 12/05/21 13:00 82 12 127/70 93 12/05/21 12:50 36.5 C 77 16 126/69 94 12/05/21 12:40 65 12 133/73 99 12/05/21 12:30 82 16 145/76 H 100 12/05/21 12:20 69 16 135/74 100 12/05/21 12:10 36.6 C 76 14 128/70 100 12/05/21 06:25 36.8 C 51 L 18 120/61 97 Transfer of Care Handoff Completed per policy Notes Mental Status: alert / awake / arousable and participated in evaluation Patient Amnestic to Procedure: Yes Nausea / Vomiting: adequately controlled Pain: adequately controlled Airway Patency, RR, SpO2: stable & adequate BP & HR: stable & adequate Hydration State: stable & adequate Anesthetic Complications: no major complications apparent and Pt Satisfied with anesthetic care
[2021-12-06] MEDS: traZODone HCL 50 MG TAB PO PRN ×2 (01:02→22:49)
[2021-12-06] MEDS: ACETAMINOPHEN 500 MG TAB PO PRN ×2 (01:02→10:56)
[2021-12-06] MEDS: cefOXitin 2,000 MG in DEXTROSE 5% 50 ML IV SCH (02:25)
[2021-12-06] MEDS: HYDROmorphone INJ 0.5 MG/0.5 ML SYR IV PRN ×5 (02:27→22:49)
[2021-12-06] MEDS: LACTATED RINGER'S 1,000 ML IV SCH (04:41)
[2021-12-06 06:14] LABS: Basophils # (auto) 0.03 K/uL (0-0.2); Basophils % (auto) 0.3 %; Eosinophils # (auto) 0.06 K/uL (0-0.5); Eosinophils % (auto) 0.7 %; Hematocrit (blood only) 34.7 % (37-47); Hemoglobin 11.4 g/dL (12.0-16.0); Immature Granulocytes # (auto) 0.03 K/uL (0.00-0.02); Immature Granulocytes % (auto) 0.3 %; Lymphocytes # (auto) 1.97 K/uL (1.2-3.4); Lymphocytes % (auto) 22.1 %; Mean Corpuscular Hemoglobin 27.5 pg (25-34); Mean Corpuscular Hgb Conc 32.9 g/dL (32-36); Mean Corpuscular Volume 83.6 fL (80-100); Mean Platelet Volume 9.3 fL (7.4-10.4); Monocytes # (auto) 0.85 K/uL (0.11-0.59); Monocytes % (auto) 9.5 %; Neutrophils # (auto) 5.98 K/uL (1.4-6.5); Neutrophils % (auto) 67.1 %; Platelet Count 290 K/uL (130-400); RDW Standard Deviation 46.6 fL (36.4-46.3); Red Blood Count 4.15 M/uL (4.2-5.4); White Blood Count 8.92 K/uL (4.8-10.8)
[2021-12-06 06:40] LABS: BUN Creatinine Ratio 18.1 (10-20); Calcium 8.3 mg/dl (8.5-10.1); Creatinine Clr Calc Pharmacy 81.4 ml/min; Est GFR (African American) 104.8 ml/min; Est GFR (Non-African American) 90.4 ml/min; Potassium 2.5 mmol/L (3.5-5.1)
--- NOTE | 2021-12-06 06:48 | Communication Note ---
Date of Service: December 06, 2021 A.m. labs reviewed and potassium is noted be 2.5. Potassium supplementation ordered intravenously with repeat labs to be ordered tomorrow.
[2021-12-06] MEDS ORDERED: diphenhydrAMINE Capsule 25 MG CAP PO ONE (07:45)
[2021-12-06] MEDS ORDERED: POTASSIUM CHLORIDE / WTR 10 MEQ/100 ML PLCT IV STA (07:47)
[2021-12-06] MEDS ORDERED: diphenhydrAMINE Capsule 25 MG CAP ONE (07:51)
--- NOTE | 2021-12-06 07:51 | Surgery Progress Note ---
Date of Service December 06, 2021 Assessment & Plan (1) Diverticulitis: Plan: POD 1 lap sigmoid colectomy K+ ordered d/c leahy continue clears benadryl for itching Admission and Anticipated Discharge Date Admission Date: December 05, 2021 Supervising Physician Co-Signing Physician Notes pnt s&e, agree with above. POD#1 lap sigmoidectomy. Passing flatus, tolerating clears, pain controlled. Small amount of blood this am. afvss, nad, aaox3. Abd soft, nt, nd, incision no infection. labs unremarkable. advance to fulls, low fiber tomorrow. h/l iv, ambulate, oobtc. is. lovenox. Subjective tolerating clears, minimal pain, passing some some liquid/blood Physical Exam Gastrointestinal (Abdomen): Inspection/Auscultation: abdomen not distended Percussion/Palpation: abdomen soft Results & Data ([facility]) Vital Signs (Past 12 Hours) Vital Signs Temp Pulse Pulse Resp BP BP Pulse Ox 12/06/21 04:43 36.4 C L 66 66 18 106/66 100 12/05/21 23:27 36.5 C 70 15 112/70 100 12/05/21 20:08 36.6 C 67 18 133/75 99 PG Care Time/CCT Total # of Minutes Spent Total Time Spent with Patient: Total time spent is greater than 50% in coordination of care (as documented) at patient's floor/unit and/or counseling patient: Coding Level of Care Code None Diagnoses Diverticulitis K57.92
[2021-12-06] MEDS: POTASSIUM CHLORIDE / WTR 10 MEQ/100 ML PLCT IV SCH ×3 (08:00→10:41)
[2021-12-06] MEDS: ENOXAPARIN INJ 40 MG/0.4 ML SYR SQ SCH (08:11)
[2021-12-06] MEDS: PANTOprazole 40 MG TAB PO SCH (08:11)
[2021-12-06] MEDS: ATENOLOL 50 MG TABLET PO SCH (08:11)
[2021-12-06] MEDS ORDERED: FLUCONAZOLE 50 MG TAB PO ONE (08:59)
[2021-12-06] MEDS ORDERED: POTASSIUM CHLORIDE 20 MEQ/15 ML UDC PO STA (09:01)
[2021-12-06] MEDS ORDERED: oxyCODONE HCL IR 5 MG TAB (IMMEDIATE RELEASE) PO PRN (15:48)
[2021-12-07] MEDS: HYDROmorphone INJ 0.5 MG/0.5 ML SYR IV PRN (04:43)
[2021-12-07 06:11] LABS: Basophils # (auto) 0.02 K/uL (0-0.2); Basophils % (auto) 0.3 %; Eosinophils # (auto) 0.16 K/uL (0-0.5); Eosinophils % (auto) 2.5 %; Hematocrit (blood only) 33.8 % (37-47); Hemoglobin 11.1 g/dL (12.0-16.0); Immature Granulocytes # (auto) 0.01 K/uL (0.00-0.02); Immature Granulocytes % (auto) 0.2 %; Lymphocytes # (auto) 1.36 K/uL (1.2-3.4); Mean Corpuscular Hgb Conc 32.8 g/dL (32-36); Mean Corpuscular Volume 85.1 fL (80-100); Mean Platelet Volume 9.2 fL (7.4-10.4); Monocytes # (auto) 0.73 K/uL (0.11-0.59); Monocytes % (auto) 11.2 %; Neutrophils # (auto) 4.21 K/uL (1.4-6.5); Neutrophils % (auto) 64.8 %; Platelet Count 304 K/uL (130-400); RDW Coefficient of Variation 15.3 % (11.5-14.5); RDW Standard Deviation 47.8 fL (36.4-46.3); Red Blood Count 3.97 M/uL (4.2-5.4); White Blood Count 6.49 K/uL (4.8-10.8)
[2021-12-07 06:35] LABS: BUN Creatinine Ratio 14.7 (10-20); Calcium 8.7 mg/dl (8.5-10.1); Creatinine Clr Calc Pharmacy 86.2 ml/min; Est GFR (African American) 109.4 ml/min; Est GFR (Non-African American) 94.4 ml/min; Potassium 3.4 mmol/L (3.5-5.1)
[2021-12-07] MEDS: PREMARIN PO SCH (08:14)
[2021-12-07] MEDS: PANTOprazole 40 MG TAB PO SCH (08:19)
[2021-12-07] MEDS: oxyCODONE HCL IR 5 MG TAB (IMMEDIATE RELEASE) PO PRN ×4 (08:19→20:25)
[2021-12-07] MEDS: ENOXAPARIN INJ 40 MG/0.4 ML SYR SQ SCH (08:19)
[2021-12-07] MEDS: ATENOLOL 50 MG TABLET PO SCH (08:19)
--- NOTE | 2021-12-07 12:00 | Surgery Progress Note ---
Date of Service December 07, 2021 Assessment & Plan (1) Diverticulitis: Plan: POD 2 lap sigmoid colectomy K+ corrected low fiber diet likely home in next 24 hours if does well with diet Admission and Anticipated Discharge Date Admission Date: December 05, 2021 Supervising Physician Co-Signing Physician Notes pnt s&e, agree with above. POD#2 lap sigmoidectomy. Passing flatus, tolerating fulls, having loose bm. pain increase but controlled. afvss, nad, aaox3. Abd soft, nt, nd, incision no infection. labs unremarkable. advance to low fiber. h/l iv, ambulate, oobtc. is. lovenox. likely home tonight or tomorrow. Dr. Loaiza covering this weekend. Subjective tolerating full liquids, having liquid BMs, mild pain Physical Exam Gastrointestinal (Abdomen): Inspection/Auscultation: + abdominal surgical incision (clean, dry); abdomen not distended Results & Data ([facility]) Vital Signs (Past 12 Hours) Vital Signs Temp Pulse Resp BP Pulse Ox 12/07/21 07:35 36.9 C 61 18 120/67 97 PG Care Time/CCT Total # of Minutes Spent Total Time Spent with Patient: Total time spent is greater than 50% in coordination of care (as documented) at patient's floor/unit and/or counseling patient: Coding Level of Care Code None Diagnoses Diverticulitis K57.92
[2021-12-07] MEDS: traZODone HCL 50 MG TAB PO PRN (21:18)
[2021-12-08] MEDS: oxyCODONE HCL IR 5 MG TAB (IMMEDIATE RELEASE) PO PRN ×3 (02:20→11:46)
[2021-12-08 06:19] LABS: Basophils # (auto) 0.02 K/uL (0-0.2); Basophils % (auto) 0.4 %; Eosinophils % (auto) 3.6 %; Hematocrit (blood only) 32.2 % (37-47); Hemoglobin 10.7 g/dL (12.0-16.0); Immature Granulocytes # (auto) 0.01 K/uL (0.00-0.02); Immature Granulocytes % (auto) 0.2 %; Lymphocytes # (auto) 1.91 K/uL (1.2-3.4); Lymphocytes % (auto) 34.4 %; Mean Corpuscular Hemoglobin 27.9 pg (25-34); Mean Corpuscular Hgb Conc 33.2 g/dL (32-36); Mean Corpuscular Volume 83.9 fL (80-100); Mean Platelet Volume 9.3 fL (7.4-10.4); Monocytes # (auto) 0.48 K/uL (0.11-0.59); Monocytes % (auto) 8.6 %; Neutrophils # (auto) 2.93 K/uL (1.4-6.5); Neutrophils % (auto) 52.8 %; Platelet Count 303 K/uL (130-400); RDW Coefficient of Variation 15.1 % (11.5-14.5); RDW Standard Deviation 46.9 fL (36.4-46.3); Red Blood Count 3.84 M/uL (4.2-5.4); White Blood Count 5.55 K/uL (4.8-10.8)
[2021-12-08 06:48] LABS: BUN Creatinine Ratio 16.9 (10-20); Calcium 8.5 mg/dl (8.5-10.1); Creatinine Clr Calc Pharmacy 99.4 ml/min; Est GFR (African American) 114.7 ml/min; Est GFR (Non-African American) 98.9 ml/min; Potassium 3.1 mmol/L (3.5-5.1)
[2021-12-08] MEDS: PREMARIN PO SCH (07:22)
[2021-12-08] MEDS: PANTOprazole 40 MG TAB PO SCH (07:23)
[2021-12-08] MEDS: ENOXAPARIN INJ 40 MG/0.4 ML SYR SQ SCH (07:23)
[2021-12-08] MEDS: ATENOLOL 50 MG TABLET PO SCH (07:23)
[2021-12-08] MEDS ORDERED: FLUCONAZOLE 50 MG TAB PO ONE (12:31)
--- NOTE | 2021-12-08 15:19 | Surgery Progress Note ---
Date of Service December 08, 2021 Assessment & Plan (1) Diverticulitis: Plan: s/p lap sigmoid resection. Doing very well. Will order 1 dose of diflucan and then plan on discharge home. Admission and Anticipated Discharge Date Admission Date: December 05, 2021 Subjective Feels she is getting a yeast infection again - requesting diflucan. Otherwise feels well. Ready to go home. Tolerating diet. Pain controlled. Physical Exam Constitutional: WD/WN, vitals as above Eyes: PERRL, conjunctivae normal, anicteric sclerae Respiratory: normal respiratory effort, lungs clear to auscultation Cardiovascular: RRR, no murmur, no edema Gastrointestinal (Abdomen): soft, incision healing well, pos bowel tones, nondistended Results & Data ([facility]) Vital Signs (Past 12 Hours) Vital Signs Temp Pulse Resp BP Pulse Ox 12/08/21 12:49 36.7 C 59 L 16 112/62 96 12/08/21 07:54 36.7 C 59 L 16 112/62 96 Laboratory Results Abnormal lab results 12/08/21 12/08/21 Range/Units 05:24 05:24 RBC 3.84 L (4.2-5.4) M/uL Hgb 10.7 L (12.0-16.0) g/dL Hct 32.2 L (37-47) % RDW Std Deviation 46.9 H (36.4-46.3) fL RDW Coeff of Judah 15.1 H (11.5-14.5) % Potassium 3.1 L (3.5-5.1) mmol/L Creatinine 0.59 L (0.6-1.2) mg/dl
--- NOTE | 2021-12-12 12:32 | Discharge Summary ---
Date of Service December 08, 2021 Principal Diagnosis Diverticulitis with complication Discharge Exam Constitutional WD/WN, vitals as above Gastrointestinal (Abdomen) Inspection/Auscultation: abdomen normal to inspection and + abdominal surgical incision (clean, dry) Percussion/Palpation: abdomen soft Discharge Data Allergies Allergy/AdvReac Type Severity Reaction Status Date / Time nickel Allergy Intermediate Rash Verified 12/05/21 06:45 Procedures Performed Operation Date: 12/05/21 08:25 Actual Procedures p Laparoscopic Assisted Sigmoidectomy(Not Applicable) - Soren Mccloud DO, FACS Hospital Course (1) Diverticulitis: 61 y/o female with recent diverticulitis and abscess drainage was now taken to the operating room for laparoscopic assisted sigmoid colectomy and anastomosis. She was transferred to the surgical floor. Lovenox was started on POD 1 for DVT prophylaxis. She was started on clear liquids. Potassium was corrected. Diet was advanced on day two and she was having bowel movements. By POD 3 she was tolerating regular diet and oral analgesics and was stable for discharge home. Total Time Total Time Spent Total Time Spent (In Minutes): 15 Discharge Plan Discharge Items Patient Disposition: Home - Self-Care Reason For Visit: Diverticulitis Discharge Diagnosis: sigmoid colon resection Activity: Per Instructions section Lifting: No more than 10 pounds Bathing Comment: may shower; no soaking in tubs/pools Exercise/Sports: Wait until after follow-up appointment Driving/Machine Use: Resume 3 days after discharge Non-emergency contact: Surgeon Call non-emergency contact if: you have any medication questions, your symptoms worsen, your pain is not controlled, your pain is concerning for you, you have a fever, your temperature is above 101.5, your wound has increased redness, your wound has increased drainage and your wound pain has increased Follow-up/Referrals: Soren Mccloud DO, FACS [Physician] - 12/21/21 9:15 am (Please call to schedule follow up in clinic within 2 weeks) Chapito Simpson [Primary Care Provider] - Diet: Low Fiber Addtl Attending Provider Instructions: Please continue on a low fiber diet until you follow up in clinic Pending Studies at Discharge: Yes Studies:: surgical pathology Stand-Alone Forms: [facility] Medications and DC Order Prescriptions: New oxycodone-acetaminophen [Percocet] 5-325 mg tablet 1 - 2 tab PO .q4-6h PRN (Reason: pain, for initial therapy, max 6 tabs per day) Qty: 15 RF: 0 Continued phentermine 15 mg capsule 15 mg PO DAILY Qty: 30 RF: 1 topiramate 25 mg tablet 50 mg PO HS Qty: 60 RF: 5 omeprazole magnesium [Prilosec OTC] 20 mg Tablet,Delayed Release (Dr/Ec) 20 mg PO QAM RF: 0 cholecalciferol (vitamin D3) [Vitamin D3] 1,000 unit Tablet,Chewable 1,000 unit PO QAM RF: 0 hydrochlorothiazide 25 mg tablet 25 mg PO QAM RF: 0 trazodone 50 mg tablet 50 - 100 mg PO HS PRN (Reason: Sleep) RF: 0 ibuprofen [Advil] 200 mg tablet 600 mg PO TID PRN (Reason: Pain) RF: 0 Premarin 1.25 mg tablet 1.25 mg PO QAM RF: 0 atenolol 50 mg tablet 50 mg PO QAM RF: 0 Discontinued neomycin 500 mg tablet 1 g PO .COMPLEX Qty: 6 RF: 0 No Action oxycodone-acetaminophen [Percocet] 5-325 mg tablet 1 - 2 tab PO Q6H PRN (Reason: pain) Qty: 20 RF: 0 Discharge Orders: Discharge Order (Routine); Ordered 12/08/21 Ordered By: Amanda Loaiza Admission Data Admit Date/Time: 12/05/21 12:12 Attending Provider: Soren Mccloud Admit Provider: Soren Mccloud Primary Care Provider: Chapito Simpson Other Interventions: Discharge Summary Assessment (RN) Last Done: 12/08/21 12:49 Coding Level of Care Code D/C DAY MANAGEMENT <30 MINS Diagnoses Diverticulitis K57.92
== END 2021-12-08 13:59 | disposition home or self-care (01) | DRG 331 ==
LOC: ASU 06:17 → 3E 12:12
DX: K57.32 Diverticulitis of large intestine without perforation or abscess without bleeding; Z91.048 Other nonmedicinal substance allergy status; N73.6 Female pelvic peritoneal adhesions (postinfective); L29.9 Pruritus, unspecified